=== PATIENT | female | born 1955 | race Caucasian/White ===

== ENCOUNTER → 2018-01-04 12:30 | Outpatient (CLI) | payer OTHER, SELFPAY ==
[2018-01-04 13:52] LABS: Absolute Lymphocyte Count 1.45 X10^3/ul (0.83-4.51); Absolute Neutrophil Count 2.9 X10^3/uL (2.0-7.7); Basophil# 0.01 X10^3/uL; Basophil% 0.2 % (0-1); Eosinophil# 0.14 X10^3/uL; Eosinophils% 2.8 % (0-5); Hematocrit 39.8 % (37-47); Hemoglobin 12.9 g/dl (12.0-15.0); Lymphocyte # 1.45 X10^3/ul (4.0); Lymphocyte % 28.5 % (19-41); Mean Corp Hgb Conc 32.4 g/gl (32-36); Mean Corpuscular Hgb 29.9 pg (27.0-32.0); Mean Corpuscular Volume 92.3 fL (81-99); Mean Platelet Vol. 10.3 fl (6.2-12.0); Monocyte# 0.58 X10^3/uL; Monocyte% 11.4 % (0-10); Neutrophil # 2.89 X10^3/uL (2.7-7.7); Neutrophil % 56.9 % (47-70); Platelet Count 252 K/mm3 (150-450); RBC Distribution Width CV 13.3 % (11.6-14.6); RBC Distribution Width SD 43.9 fl (35.1-43.9); Red Blood Count 4.31 M/mm3 (4.2-5.4); White Blood Count 5.1 K/mm3 (4.4-11.0)
[2018-01-04 13:58] LABS: AST(SGOT) 38 U/L (15-37); Alanine Aminotransfer ALT/SGPT 50 U/L (13-56); Albumin, Serum 3.5 g/dL (3.2-5.0); Alkaline Phosphatase 91 U/L (45-117); Anion Gap 7 (5-15); BUN 12 mg/dL (7-18); BUN/Creat Ratio 14.2 RATIO (10-20); Calcium,Total 8.6 mg/dL (8.5-10.1); Chloride 101 mmol/L (98-107); Creatinine, Serum 0.85 mg/dL (0.55-1.02); EST Glomerular Filtration Rate 72 mL/min (>60); Est Glom Filt Rate - Afr Amer 87 mL/min (>60); Globulin 3.4 g/dL (2.2-4.2); Glucose 122 mg/dL (74-106); Potassium 3.8 mmol/L (3.5-5.1); Protein, Total 6.9 g/dL (6.4-8.2); Sodium Level 139 mmol/L (136-145)
[2018-01-04 14:02] LABS: POSITIVE COUNT NO; POSITIVE DIFFERENTIAL NO; POSITIVE MORPHOLOGY NO
== END ==
PROVIDERS: Family Provider Family Medicine; PCP Family Medicine; Visit Provider Internal Medicine Rheumatology
DX: M06.4 Inflammatory polyarthropathy (principal); M17.0 Bilateral primary osteoarthritis of knee; I10 Essential (primary) hypertension; Z79.899 Other long term (current) drug therapy
CPT/HCPCS: 36415; 80053; 85025

== ENCOUNTER → 2018-01-11 11:10 | Outpatient (CLI) | payer OTHER, SELFPAY ==
--- NOTE | 2018-01-11 11:15 | RAD_ITS ---
STUDY: X-RAY - RIGHT KNEE REASON FOR EXAM: Female, 62 years old. Pain TECHNIQUE: 4 view(s) of the knee. COMPARISON: 09/13/2014 FINDINGS: Stable moderate to severe medial compartment osteoarthritis. Stable mild patellofemoral osteoarthritis. Superior and inferior patellar spurs. Soft tissues are unremarkable. RAD/Knee 4 or More Views IMPRESSION: Stable by compartment osteoarthritis with patellar spurs. Electronically Signed: Bora Ma MD at 6:33 EDT Tel , Service support ,
--- NOTE | 2018-01-11 11:15 | RAD_ITS ---
STUDY: X-RAY - LEFT KNEE REASON FOR EXAM: Female, 62 years old. Pain TECHNIQUE: 4 view(s) of the knee. COMPARISON: 09/13/2014 FINDINGS: Severe medial compartment osteoarthritis. Superior and inferior patellar spurs. Progressing calcifications of the distal quadriceps muscle. No fractures or erosive lesions. RAD/Knee 4 or More Views IMPRESSION: Severe medial compartment osteoarthritis with patellar spurs and progressing quadriceps calcification. Electronically Signed: Bora Ma MD at 6:05 EDT Tel , Service support ,
== END ==
PROVIDERS: Family Provider Family Medicine; PCP Family Medicine; Visit Provider Internal Medicine Rheumatology
DX: M06.4 Inflammatory polyarthropathy (principal); M17.0 Bilateral primary osteoarthritis of knee; I10 Essential (primary) hypertension; Z79.899 Other long term (current) drug therapy
CPT/HCPCS: 73564

== ENCOUNTER → 2018-03-24 10:54 | Outpatient (CLI) | payer MEDICARE, SELFPAY ==
[2018-03-24 12:15] LABS: Absolute Lymphocyte Count 1.33 X10^3/ul (0.83-4.51); Absolute Neutrophil Count 2.9 X10^3/uL (2.0-7.7); Basophil# 0.01 X10^3/uL; Basophil% 0.2 % (0-1); Hematocrit 41.1 % (37-47); Hemoglobin 13.6 g/dl (12.0-15.0); Lymphocyte # 1.33 X10^3/ul (4.0); Lymphocyte % 26.5 % (19-41); Mean Corp Hgb Conc 33.1 g/gl (32-36); Mean Corpuscular Hgb 30.4 pg (27.0-32.0); Mean Corpuscular Volume 91.7 fL (81-99); Mean Platelet Vol. 11.1 fl (6.2-12.0); Monocyte# 0.68 X10^3/uL; Monocyte% 13.5 % (0-10); Neutrophil % 57.8 % (47-70); Platelet Count 231 K/mm3 (150-450); RBC Distribution Width CV 13.1 % (11.6-14.6); RBC Distribution Width SD 43.1 fl (35.1-43.9); Red Blood Count 4.48 M/mm3 (4.2-5.4)
[2018-03-24 12:34] LABS: AST(SGOT) 32 U/L (15-37); Alanine Aminotransfer ALT/SGPT 40 U/L (13-56); Albumin, Serum 3.5 g/dL (3.2-5.0); Alkaline Phosphatase 95 U/L (45-117); Anion Gap 5 (5-15); BUN 16 mg/dL (7-18); BUN/Creat Ratio 14.7 RATIO (10-20); Calcium,Total 8.8 mg/dL (8.5-10.1); Chloride 104 mmol/L (98-107); Creatinine, Serum 1.09 mg/dL (0.55-1.02); EST Glomerular Filtration Rate 54 mL/min (>60); Est Glom Filt Rate - Afr Amer 65 mL/min (>60); Globulin 3.5 g/dL (2.2-4.2); Glucose 93 mg/dL (74-106); Potassium 4.1 mmol/L (3.5-5.1); Sodium Level 139 mmol/L (136-145)
[2018-03-24 12:41] LABS: POSITIVE COUNT NO; POSITIVE DIFFERENTIAL NO; POSITIVE MORPHOLOGY NO
== END ==
PROVIDERS: Family Provider Family Medicine; PCP Family Medicine; Visit Provider Internal Medicine Rheumatology
DX: M06.4 Inflammatory polyarthropathy (principal); Z79.899 Other long term (current) drug therapy; M17.0 Bilateral primary osteoarthritis of knee; I10 Essential (primary) hypertension
CPT/HCPCS: 36415; 80053; 85025

== ENCOUNTER → 2018-06-22 10:41 | Outpatient (CLI) | payer MEDICARE, SELFPAY ==
[2018-06-22 12:11] LABS: Absolute Lymphocyte Count 1.15 X10^3/ul (0.83-4.51); Absolute Neutrophil Count 2.6 X10^3/uL (2.0-7.7); Basophil# 0.02 X10^3/uL; Basophil% 0.4 % (0-1); Eosinophil# 0.12 X10^3/uL; Eosinophils% 2.7 % (0-5); Hematocrit 41.4 % (37-47); Lymphocyte # 1.15 X10^3/ul (4.0); Lymphocyte % 25.4 % (19-41); Mean Corp Hgb Conc 31.4 g/gl (32-36); Mean Corpuscular Hgb 29.1 pg (27.0-32.0); Mean Corpuscular Volume 92.6 fL (81-99); Mean Platelet Vol. 10.8 fl (6.2-12.0); Monocyte% 13.3 % (0-10); Neutrophil # 2.63 X10^3/uL (2.7-7.7); Neutrophil % 58.2 % (47-70); Platelet Count 241 K/mm3 (150-450); RBC Distribution Width CV 13.8 % (11.6-14.6); RBC Distribution Width SD 46.6 fl (35.1-43.9); Red Blood Count 4.47 M/mm3 (4.2-5.4); White Blood Count 4.5 K/mm3 (4.4-11.0)
[2018-06-22 12:23] LABS: POSITIVE COUNT NO; POSITIVE DIFFERENTIAL NO; POSITIVE MORPHOLOGY NO
[2018-06-22 12:34] LABS: AST(SGOT) 24 U/L (15-37); Alanine Aminotransfer ALT/SGPT 36 U/L (13-56); Albumin, Serum 3.4 g/dL (3.2-5.0); Alkaline Phosphatase 83 U/L (45-117); Anion Gap 10 (5-15); BUN 14 mg/dL (7-18); BUN/Creat Ratio 17.2 RATIO (10-20); Calcium,Total 8.9 mg/dL (8.5-10.1); Chloride 103 mmol/L (98-107); Creatinine, Serum 0.81 mg/dL (0.55-1.02); EST Glomerular Filtration Rate 75 mL/min (>60); Est Glom Filt Rate - Afr Amer 91 mL/min (>60); Globulin 3.4 g/dL (2.2-4.2); Glucose 88 mg/dL (74-106); Potassium 3.8 mmol/L (3.5-5.1); Protein, Total 6.8 g/dL (6.4-8.2); Sodium Level 142 mmol/L (136-145)
== END ==
PROVIDERS: Family Provider Family Medicine; PCP Family Medicine; Visit Provider Internal Medicine Rheumatology
DX: M06.4 Inflammatory polyarthropathy (principal); M17.0 Bilateral primary osteoarthritis of knee; I10 Essential (primary) hypertension; Z79.899 Other long term (current) drug therapy
CPT/HCPCS: 36415; 80053; 85025

== ENCOUNTER → 2018-09-13 10:44 | Outpatient (CLI) | payer MEDICARE, SELFPAY ==
[2018-09-13 12:15] LABS: Absolute Lymphocyte Count 1.26 X10^3/ul (0.83-4.51); Absolute Neutrophil Count 2.4 X10^3/uL (2.0-7.7); Basophil# 0.02 X10^3/uL; Basophil% 0.4 % (0-1); Eosinophil# 0.14 X10^3/uL; Eosinophils% 3.1 % (0-5); Hematocrit 39.9 % (37-47); Hemoglobin 12.9 g/dl (12.0-15.0); Lymphocyte # 1.26 X10^3/ul (4.0); Lymphocyte % 28.3 % (19-41); Mean Corp Hgb Conc 32.3 g/gl (32-36); Mean Corpuscular Hgb 29.9 pg (27.0-32.0); Mean Corpuscular Volume 92.4 fL (81-99); Mean Platelet Vol. 10.7 fl (6.2-12.0); Monocyte# 0.61 X10^3/uL; Monocyte% 13.7 % (0-10); Neutrophil # 2.41 X10^3/uL (2.7-7.7); Neutrophil % 54.3 % (47-70); Platelet Count 217 K/mm3 (150-450); RBC Distribution Width CV 13.3 % (11.6-14.6); RBC Distribution Width SD 43.9 fl (35.1-43.9); Red Blood Count 4.32 M/mm3 (4.2-5.4); White Blood Count 4.5 K/mm3 (4.4-11.0)
[2018-09-13 12:21] LABS: POSITIVE COUNT NO; POSITIVE DIFFERENTIAL NO; POSITIVE MORPHOLOGY NO
[2018-09-13 12:25] LABS: AST(SGOT) 26 U/L (15-37); Alanine Aminotransfer ALT/SGPT 33 U/L (13-56); Albumin, Serum 3.4 g/dL (3.2-5.0); Alkaline Phosphatase 85 U/L (45-117); Anion Gap 8 (5-15); BUN 15 mg/dL (7-18); BUN/Creat Ratio 16.5 RATIO (10-20); Calcium,Total 8.7 mg/dL (8.5-10.1); Chloride 105 mmol/L (98-107); Creatinine, Serum 0.91 mg/dL (0.55-1.02); EST Glomerular Filtration Rate 66 mL/min (>60); Est Glom Filt Rate - Afr Amer 80 mL/min (>60); Globulin 3.4 g/dL (2.2-4.2); Glucose 94 mg/dL (74-106); Protein, Total 6.8 g/dL (6.4-8.2); Sodium Level 143 mmol/L (136-145)
--- OUTSIDE RECORDS SUMMARY | 2018-11-06 16:13 | XMS RPT_ITS ---
:1955 Author Organization OH[facility] Care Team Providers Name Role Phone Pratima Delgadillo L Attending Unavailable Rios, Christopher Primary Care Unavailable Wood, Pratima L Admitting Unavailable Wood, Pratima L Attending Unavailable Rios, Christopher Primary Care Unavailable Wood, Pratima L Attending Unavailable Rios, Christopher Primary Care Unavailable Wood, Pratima L Admitting Unavailable Wood, Pratima L Attending Unavailable Rios, Christopher Primary Care Unavailable Wood, Pratima L Admitting Unavailable Wood, Pratima L Attending Unavailable Rios, Christopher Primary Care Unavailable Wood, Pratima L Admitting Unavailable Wood, Pratima L Attending Unavailable Rios, Christopher Primary Care Unavailable Wood, Pratima L Admitting Unavailable Wood, Pratima L Attending Unavailable Rios, Christopher Primary Care Unavailable Vellanki, Alla Attending Unavailable Vellanaleena, Alla Referring Unavailable Rios, Charanjit Primary Care Unavailable Vellanki, Alla Attending Unavailable Vellanki, Alla Referring Unavailable Rios, Charanjit Primary Care Unavailable Vellanki, Alla Attending Unavailable Vellanki, Alla Referring Unavailable Rios, Charanjit Primary Care Unavailable Vellanki, Alla Attending Unavailable Vellanki, Alla Referring Unavailable Rios, Charanjit Primary Care Unavailable Vellanki, Alla Attending Unavailable Vellanki, Alla Referring Unavailable Rios, Charanjit Primary Care Unavailable Vellanki, Alla Attending Unavailable Vellanki, Alla Referring Unavailable Rios, Charanjit Primary Care Unavailable PROBLEMS PROBLEMS DATE TYPE CONDITION / CODE ATTENDING STATUS SOURCE 09/13/2018 Unknown 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 / Community M06.4(ICD-10) Hospital Repository 09/13/2018 Unknown Z79.899 - Other long VellanLilly floodma Active [facility] term (current) drug [facility] therapy / Hospital Z79.899(ICD-10) Repository 09/13/2018 Unknown 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, 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[facility] 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[facility] knee / M17.0(ICD-10) Repository 09/13/2018 Unknown I10 - Essential VellaniLlly floodma Active [facility] (primary) [facility] hypertension / Hospital I10(ICD-10) Repository PROCEDURES PROCEDURES No Procedure Records FoundRESULTS RESULTS CBC W/DIFF, AUTOMATED Collected: 09/13/2018 Status: F Source: [place] 10:51 AM [facility] REPOSITORY TYPE CODE TESTS RESULT OUT OF RANGE REFERENCE UNITS LAB L100.1000 4.4-11.0 K/mm3 Normal WBC 4.5 LAB L100.1200 4.2-5.4 M/mm3 Normal RBC 4.32 LAB L100.1300 12.0-15.0 g/dl Normal HGB 12.9 LAB L100.1400 37-47 % Normal HCT 39.9 LAB L100.1500 81-99 fL Normal MCV 92.4 LAB L100.1600 27.0-32.0 pg Normal MCH 29.9 LAB L100.1700 32-36 g/gl Normal MCHC 32.3 LAB L100.1810 11.6-14.6 % Normal RDW CV 13.3 LAB L100.1820 35.1-43.9 fl Normal RDW SD 43.9 LAB L100.1900 150-450 K/mm3 Normal PLT 217 LAB L100.2000 6.2-12.0 fl Normal MPV 10.7 LAB L100.2100 47-70 % Normal NEUT% 54.3 LAB L100.2200 19-41 % Normal LY% 28.3 LAB L100.2300 0-10 % High MONO% 13.7 LAB L100.2400 0-5 % Normal EO% 3.1 LAB L100.2500 0-1 % Normal BASO% 0.4 LAB L100.2550 0.0-0.9 % Normal IM GRAN % 0.200 Result Comment: IG% - Immature Granulocytes (promyelocytes, myelocytes and metamyelocytes) > 1% indicates that a LEFT SHIFT is Present. LAB L100.2620 2.0-7.7 X10 3/uL Normal Absolute Neut 2.4 LAB L100.2720 0.83-4.51 X10 3/ul Normal Absolute Lymph 1.26 Performed By: #### L100.0100 #### [facility] Laboratory [address] [place], [address] COMPREHENSIVE METABOLIC Collected: 09/13/2018 Status: F Source: [facility] 10:51 AM [facility] REPOSITORY TYPE CODE TESTS RESULT OUT OF RANGE REFERENCE UNITS LAB L501.0100 74-106 mg/dL Normal GLU 94 Result Comment: Please note revised GLUCOSE reference range effective 2017. LAB L501.1000 7-18 mg/dL Normal BUN 15 LAB L501.1100 0.55-1.02 mg/dL Normal CREAT,SERUM 0.91 Result Comment: The validity of the calculated GFR AND GFRAA in patients over 70 years has not been determined. Clinical correlation is essential. LAB L501.1110 >60 mL/min Normal EST GFR 66 Result Comment: Non- GFR Calc LAB L501.1115 >60 mL/min Normal EST GFR - AA 80 Result Comment: GFR Calc LAB L501.1300 10-20 RATIO Normal BUN/CRE 16.5 LAB L501.1500 6.4-8.2 g/dL T Normal PROT 6.8 LAB L501.1800 3.2-5.0 g/dL Normal ALB 3.4 LAB L501.1950 2.2-4.2 g/dL Normal GLOB 3.4 LAB L501.2000 0.9-2.4 RATIO Normal A/G 1.0 LAB L501.2200 8.5-10.1 mg/dL CA Normal 8.7 LAB L501.4100 15-37 U/L Normal AST 26 LAB L501.4305 45-117 U/L Normal ALK P 85 LAB L501.4405 13-56 U/L Normal ALT 33 LAB L501.4600 0.20-1.00 mg/dL T Normal BILI 0.30 LAB L501.5300 136-145 mmol/L NA Normal 143 LAB L501.5600 3.5-5.1 mmol/L K Normal 4.0 LAB L501.5900 98-107 mmol/L CL Normal 105 LAB L501.6100 21.0-32.0 mmol/L Normal CO2 30.0 LAB L501.6200 5-15 Normal GAP 8 Performed By: #### L500.4050 #### [facility] Laboratory [address] [place], [address] CBC W/DIFF, AUTOMATED Collected: 06/22/2018 Status: F Source: [place] 10:48 AM [facility] REPOSITORY TYPE CODE TESTS RESULT OUT OF RANGE REFERENCE UNITS LAB L100.1000 4.4-11.0 K/mm3 Normal WBC 4.5 LAB L100.1200 4.2-5.4 M/mm3 Normal RBC 4.47 LAB L100.1300 12.0-15.0 g/dl Normal HGB 13.0 LAB L100.1400 37-47 % Normal HCT 41.4 LAB L100.1500 81-99 fL Normal MCV 92.6 LAB L100.1600 27.0-32.0 pg Normal MCH 29.1 LAB L100.1700 32-36 g/gl Low MCHC 31.4 LAB L100.1810 11.6-14.6 % Normal RDW CV 13.8 LAB L100.1820 35.1-43.9 fl High RDW SD 46.6 LAB L100.1900 150-450 K/mm3 Normal PLT 241 LAB L100.2000 6.2-12.0 fl Normal MPV 10.8 LAB L100.2100 47-70 % Normal NEUT% 58.2 LAB L100.2200 19-41 % Normal LY% 25.4 LAB L100.2300 0-10 % High MONO% 13.3 LAB L100.2400 0-5 % Normal EO% 2.7 LAB L100.2500 0-1 % Normal BASO% 0.4 LAB L100.2550 0.0-0.9 % Normal IM GRAN % 0.000 Result Comment: IG% - Immature Granulocytes (promyelocytes, myelocytes and metamyelocytes) > 1% indicates that a LEFT SHIFT is Present. LAB L100.2620 2.0-7.7 X10 3/uL Normal Absolute Neut 2.6 LAB L100.2720 0.83-4.51 X10 3/ul Normal Absolute Lymph 1.15 Performed By: #### L100.0100 #### [facility] Laboratory [address] [place], [place], [address] COMPREHENSIVE METABOLIC Collected: 06/22/2018 Status: F Source: [facility] 10:48 AM [facility] REPOSITORY TYPE CODE TESTS RESULT OUT OF RANGE REFERENCE UNITS LAB L501.0100 74-106 mg/dL Normal GLU 88 Result Comment: Please note revised GLUCOSE reference range effective 2017. LAB L501.1000 7-18 mg/dL Normal BUN 14 LAB L501.1100 0.55-1.02 mg/dL Normal CREAT,SERUM 0.81 Result Comment: The validity of the calculated GFR AND GFRAA in patients over 70 years has not been determined. Clinical correlation is essential. LAB L501.1110 >60 mL/min Normal EST GFR 75 Result Comment: Non- GFR Calc LAB L501.1115 >60 mL/min Normal EST GFR - AA 91 Result Comment: GFR Calc LAB L501.1300 10-20 RATIO Normal BUN/CRE 17.2 LAB L501.1500 6.4-8.2 g/dL T Normal PROT 6.8 LAB L501.1800 3.2-5.0 g/dL Normal ALB 3.4 LAB L501.1950 2.2-4.2 g/dL Normal GLOB 3.4 LAB L501.2000 0.9-2.4 RATIO Normal A/G 1.0 LAB L501.2200 8.5-10.1 mg/dL CA Normal 8.9 LAB L501.4100 15-37 U/L Normal AST 24 LAB L501.4305 45-117 U/L Normal ALK P 83 LAB L501.4405 13-56 U/L Normal ALT 36 LAB L501.4600 0.20-1.00 mg/dL T Normal BILI 0.40 LAB L501.5300 136-145 mmol/L NA Normal 142 LAB L501.5600 3.5-5.1 mmol/L K Normal 3.8 LAB L501.5900 98-107 mmol/L CL Normal 103 LAB L501.6100 21.0-32.0 mmol/L Normal CO2 29.0 LAB L501.6200 5-15 Normal GAP 10 Performed By: #### L500.4050 #### [facility] Laboratory [address] [place], [address] COMPREHENSIVE METABOLIC Collected: 03/24/2018 Status: F Source: [facility] 10:59 AM [facility] REPOSITORY TYPE CODE TESTS RESULT OUT OF RANGE REFERENCE UNITS LAB L501.0100 74-106 mg/dL Normal GLU 93 Result Comment: Please note revised GLUCOSE reference range effective 2017. LAB L501.1000 7-18 mg/dL Normal BUN 16 LAB L501.1100 0.55-1.02 mg/dL High CREAT,SERUM 1.09 Result Comment: The validity of the calculated GFR AND GFRAA in patients over 70 years has not been determined. Clinical correlation is essential. LAB L501.1110 >60 mL/min Low EST GFR 54 Result Comment: Non- GFR Calc LAB L501.1115 >60 mL/min Normal EST GFR - AA 65 Result Comment: GFR Calc LAB L501.1300 10-20 RATIO Normal BUN/CRE 14.7 LAB L501.1500 6.4-8.2 g/dL T Normal PROT 7.0 LAB L501.1800 3.2-5.0 g/dL Normal ALB 3.5 LAB L501.1950 2.2-4.2 g/dL Normal GLOB 3.5 LAB L501.2000 0.9-2.4 RATIO Normal A/G 1.0 LAB L501.2200 8.5-10.1 mg/dL CA Normal 8.8 LAB L501.4100 15-37 U/L Normal AST 32 LAB L501.4305 45-117 U/L Normal ALK P 95 LAB L501.4405 13-56 U/L Normal ALT 40 LAB L501.4600 0.20-1.00 mg/dL T Normal BILI 0.60 LAB L501.5300 136-145 mmol/L NA Normal 139 LAB L501.5600 3.5-5.1 mmol/L K Normal 4.1 LAB L501.5900 98-107 mmol/L CL Normal 104 LAB L501.6100 21.0-32.0 mmol/L Normal CO2 30.0 LAB L501.6200 5-15 Normal GAP 5 Performed By: #### L500.4050 #### [facility] Laboratory [address] [place], [address] CBC W/DIFF, AUTOMATED Collected: 03/24/2018 Status: F Source: [place] 10:59 AM [facility] REPOSITORY TYPE CODE TESTS RESULT OUT OF RANGE REFERENCE UNITS LAB L100.1000 4.4-11.0 K/mm3 Normal WBC 5.0 LAB L100.1200 4.2-5.4 M/mm3 Normal RBC 4.48 LAB L100.1300 12.0-15.0 g/dl Normal HGB 13.6 LAB L100.1400 37-47 % Normal HCT 41.1 LAB L100.1500 81-99 fL Normal MCV 91.7 LAB L100.1600 27.0-32.0 pg Normal MCH 30.4 LAB L100.1700 32-36 g/gl Normal MCHC 33.1 LAB L100.1810 11.6-14.6 % Normal RDW CV 13.1 LAB L100.1820 35.1-43.9 fl Normal RDW SD 43.1 LAB L100.1900 150-450 K/mm3 Normal PLT 231 LAB L100.2000 6.2-12.0 fl Normal MPV 11.1 LAB L100.2100 47-70 % Normal NEUT% 57.8 LAB L100.2200 19-41 % Normal LY% 26.5 LAB L100.2300 0-10 % High MONO% 13.5 LAB L100.2400 0-5 % Normal EO% 2.0 LAB L100.2500 0-1 % Normal BASO% 0.2 LAB L100.2550 0.0-0.9 % Normal IM GRAN % 0.000 Result Comment: IG% - Immature Granulocytes (promyelocytes, myelocytes and metamyelocytes) > 1% indicates that a LEFT SHIFT is Present. LAB L100.2620 2.0-7.7 X10 3/uL Normal Absolute Neut 2.9 LAB L100.2720 0.83-4.51 X10 3/ul Normal Absolute Lymph 1.33 Performed By: #### L100.0100 #### [facility] Laboratory [address] [place], [address] KNEE 4 OR MORE Observed: 01/11/2018 Status: F Source: [place] VIEWS 11:17 AM [facility] REPOSITORY [facility] Imaging Services [address] [place] [address] Knee 4 or More Views MR#: [id number] Acct: [id number] Name: RANDY BROUSSARD I Rep #: [id number] : 1955 F 62 From: Bora Ma MD PCP: Charanjit Rios Status: REG CLI Study: Knee 4 or More Views Date of Exam: 01/11/18 Exam# [id number] Ordering Dr: Alla Kim MD STUDY: X-RAY - LEFT KNEE REASON FOR EXAM: Female, 62 years old. Pain TECHNIQUE: 4 view(s) of the knee. COMPARISON: 09/13/2014 FINDINGS: Severe medial compartment osteoarthritis. Superior and inferior patellar spurs. Progressing calcifications of the distal quadriceps muscle. No fractures or erosive lesions. RAD/Knee 4 or More Views IMPRESSION: Severe medial compartment osteoarthritis with patellar spurs and progressing quadriceps calcification. Electronically Signed: Bora Ma MD at 6:05 EDT Tel , Service support , CC: Charanjit Rios; Alla Kim MD Breast Surgeon: Signed KNEE 4 OR MORE Observed: 01/11/2018 Status: F Source: [place] VIEWS 11:17 AM [facility] REPOSITORY [facility] Imaging Services [address] [place] [address] Knee 4 or More Views MR#: [id number] Acct: [id number] Name: RANDY BROUSSARD I Rep #: [id number] : 1955 F 62 From: Bora Ma MD PCP: Charanjit Rios Status: REG CLI Study: Knee 4 or More Views Date of Exam: 01/11/18 Exam# [id number] Ordering Dr: Alla Kim MD STUDY: X-RAY - RIGHT KNEE REASON FOR EXAM: Female, 62 years old. Pain TECHNIQUE: 4 view(s) of the knee. COMPARISON: 09/13/2014 FINDINGS: Stable moderate to severe medial compartment osteoarthritis. Stable mild patellofemoral osteoarthritis. Superior and inferior patellar spurs. Soft tissues are unremarkable. RAD/Knee 4 or More Views IMPRESSION: Stable by compartment osteoarthritis with patellar spurs. Electronically Signed: Bora Ma MD at 6:33 EDT Tel , Service support , CC: Charanjit Rios; Alla Kim MD Breast Surgeon: Signed COMPREHENSIVE METABOLIC Collected: 01/04/2018 Status: F Source: [place] PROFIL 12:38 PM [facility] REPOSITORY TYPE CODE TESTS RESULT OUT OF RANGE REFERENCE UNITS LAB L501.0100 74-106 mg/dL High GLU 122 Result Comment: Fasting Glucose result from 100 to 125 mg/dL suggests IMPAIRED HOMEOSTASIS per A.D.A. criteria. Please note revised GLUCOSE reference range effective 2017. LAB L501.1000 7-18 mg/dL Normal BUN 12 LAB L501.1100 0.55-1.02 mg/dL Normal CREAT,SERUM 0.85 Result Comment: The validity of the calculated GFR AND GFRAA in patients over 70 years has not been determined. Clinical correlation is essential. LAB L501.1110 >60 mL/min Normal EST GFR 72 Result Comment: Non- GFR Calc LAB L501.1115 >60 mL/min Normal EST GFR - AA 87 Result Comment: GFR Calc LAB L501.1300 10-20 RATIO Normal BUN/CRE 14.2 LAB L501.1500 6.4-8.2 g/dL T Normal PROT 6.9 LAB L501.1800 3.2-5.0 g/dL Normal ALB 3.5 LAB L501.1950 2.2-4.2 g/dL Normal GLOB 3.4 LAB L501.2000 0.9-2.4 RATIO Normal A/G 1.0 LAB L501.2200 8.5-10.1 mg/dL CA Normal 8.6 LAB L501.4100 15-37 U/L High AST 38 LAB L501.4305 45-117 U/L Normal ALK P 91 LAB L501.4405 13-56 U/L Normal ALT 50 Result Comment: Please note revised ALT reference range effective 2017. LAB L501.4600 0.20-1.00 mg/dL Normal T BILI 0.40 LAB L501.5300 136-145 mmol/L Normal NA 139 LAB L501.5600 3.5-5.1 mmol/L Normal K 3.8 LAB L501.5900 98-107 mmol/L Normal CL 101 LAB L501.6100 21.0-32.0 mmol/L Normal CO2 31.0 LAB L501.6200 5-15 Normal GAP 7 Performed By: #### L500.4050 #### [facility] [address] [place] [place], [address] CBC W/DIFF, AUTOMATED Collected: 01/04/2018 Status: F Source: [place] 12:38 PM [facility] REPOSITORY TYPE CODE TESTS RESULT OUT OF RANGE REFERENCE UNITS LAB L100.1000 4.4-11.0 K/mm3 Normal WBC 5.1 LAB L100.1200 4.2-5.4 M/mm3 Normal RBC 4.31 LAB L100.1300 12.0-15.0 g/dl Normal HGB 12.9 LAB L100.1400 37-47 % Normal HCT 39.8 LAB L100.1500 81-99 fL Normal MCV 92.3 LAB L100.1600 27.0-32.0 pg Normal MCH 29.9 LAB L100.1700 32-36 g/gl Normal MCHC 32.4 LAB L100.1810 11.6-14.6 % Normal RDW CV 13.3 LAB L100.1820 35.1-43.9 fl Normal RDW SD 43.9 LAB L100.1900 150-450 K/mm3 Normal PLT 252 LAB L100.2000 6.2-12.0 fl Normal MPV 10.3 LAB L100.2100 47-70 % Normal NEUT% 56.9 LAB L100.2200 19-41 % Normal LY% 28.5 LAB L100.2300 0-10 % High MONO% 11.4 LAB L100.2400 0-5 % Normal EO% 2.8 LAB L100.2500 0-1 % Normal BASO% 0.2 LAB L100.2550 0.0-0.9 % Normal IM GRAN % 0.200 Result Comment: IG% - Immature Granulocytes (promyelocytes, myelocytes and metamyelocytes) > 1% indicates that a LEFT SHIFT is Present. LAB L100.2620 2.0-7.7 X10 3/uL Normal Absolute Neut 2.9 LAB L100.2720 0.83-4.51 X10 3/ul Normal Absolute Lymph 1.45 Performed By: #### L100.0100 #### [facility] Laboratory [address] [place] [address]. [place], [address] CBC W/DIFF, AUTOMATED Collected: 10/08/2017 Status: F Source: [place] 12:18 PM [facility] REPOSITORY TYPE CODE TESTS RESULT OUT OF RANGE REFERENCE UNITS LAB L100.1000 4.4-11.0 K/mm3 Normal WBC 5.7 LAB L100.1200 4.2-5.4 M/mm3 Normal RBC 4.50 LAB L100.1300 12.0-15.0 g/dl Normal HGB 13.5 LAB L100.1400 37-47 % Normal HCT 41.6 LAB L100.1500 81-99 fL Normal MCV 92.4 LAB L100.1600 27.0-32.0 pg Normal MCH 30.0 LAB L100.1700 32-36 g/gl Normal MCHC 32.5 LAB L100.1810 11.6-14.6 % Normal RDW CV 13.3 LAB L100.1820 35.1-43.9 fl Normal RDW SD 43.4 LAB L100.1900 150-450 K/mm3 Normal PLT 264 LAB L100.2000 6.2-12.0 fl Normal MPV 10.7 LAB L100.2100 47-70 % Normal NEUT% 57.7 LAB L100.2200 19-41 % Normal LY% 28.0 LAB L100.2300 0-10 % High MONO% 11.6 LAB L100.2400 0-5 % Normal EO% 2.1 LAB L100.2500 0-1 % Normal BASO% 0.4 LAB L100.2550 0.0-0.9 % Normal IM GRAN % 0.200 Result Comment: IG% - Immature Granulocytes (promyelocytes, myelocytes and metamyelocytes) > 1% indicates that a LEFT SHIFT is Present. LAB L100.2620 2.0-7.7 X10 3/uL Normal Absolute Neut 3.3 LAB L100.2720 0.83-4.51 X10 3/ul Normal Absolute Lymph 1.60 Performed By: #### L100.0100 #### [facility] Laboratory [address] [place], [address] COMPREHENSIVE METABOLIC Collected: 10/08/2017 Status: F Source: [facility] 12:18 PM [facility] REPOSITORY TYPE CODE TESTS RESULT OUT OF RANGE REFERENCE UNITS LAB L501.0100 70-110 mg/dL Normal GLU 80 LAB L501.1000 7-18 mg/dL Normal BUN 15 LAB L501.1100 0.55-1.02 mg/dL Normal 0.79 CREAT,SERUM Result Comment: The validity of the calculated GFR AND GFRAA in patients over 70 years has not been determined. Clinical correlation is essential. LAB L501.1110 >60 mL/min Normal EST GFR 78 Result Comment: Non- GFR Calc LAB L501.1115 >60 mL/min Normal EST GFR - AA 94 Result Comment: GFR Calc LAB L501.1300 10-20 RATIO Normal BUN/CRE 19.0 LAB L501.1500 6.4-8.2 g/dL T Normal PROT 7.3 LAB L501.1800 3.4-5.0 g/dL Normal ALB 3.6 Result Comment: Please note revised Albumin AND Globulin reference range effective 2017. LAB L501.1950 2.2-4.2 g/dL Normal GLOB 3.7 LAB L501.2000 0.9-2.4 RATIO Normal A/G 1.0 LAB L501.2200 8.5-10.1 mg/dL Normal CA 9.1 LAB L501.4100 15-37 U/L Normal AST 33 LAB L501.4305 45-117 U/L Normal ALK P 94 LAB L501.4405 12-78 U/L Normal ALT 41 LAB L501.4600 0.20-1.00 mg/dL Normal T BILI 0.30 LAB L501.5300 136-145 mmol/L Normal NA 141 LAB L501.5600 3.5-5.1 mmol/L Normal K 3.8 LAB L501.5900 98-107 mmol/L Normal CL 103 LAB L501.6100 21.0-32.0 mmol/L Normal CO2 30.0 LAB L501.6200 5-15 Normal GAP 8 Performed By: #### L500.4050 #### [facility] Laboratory [facility] [place], [address] BD BONE DENSITY DEXA Observed: 09/30/2017 Status: F Source: [place] 9:06 AM [facility] REPOSITORY Exam Date/Time: 09/30/2017 09:18 EST Reason for Exam: SCREENING OSTEOPENIA;Osteopenia Report BONE DENSITY (DEXA) HISTORY: Osteopenia. FINDINGS: Bone density analysis is performed through the lumbar spine and left hip. LUMBAR SPINE: BMD: 0.949 g/sq cm. T-score: -0.9. HIP: BMD: 0.661 g/sq cm. T-score: -1.7. IMPRESSION: Normal density of the lumbar spine with no change from 09/28/2015. Osteopenia of the left hip with a decrease in the bone density by 4.2% since 09/28/2015. FINAL REPORT Dictated: 09/30/2017 4:51 pm Miguel Hand MD Signed (Electronic Signature): 09/30/2017 4:51 pm Signed by: Miguel Hand MD Technologist: SYLVIA RAMAN MAMM SCREEN W/CAD Observed: 09/30/2017 Status: F Source: [place] IF PERFORMED BILAT 8:58 AM [facility] REPOSITORY Exam Date/Time: 09/30/2017 09:10 EST Reason for Exam: SCREENING OSTEOPENIA;Screening Report MA MAMM SCREEN W/CAD IF PERFORMED BILAT CLINICAL STATEMENT: Asymptomatic screening. History of left breast biopsy 1972, reported as benign. No family history of breast cancer. TECHNIQUE: Digital craniocaudal and mediolateral oblique views of the right and left breast were obtained. CAD was reviewed. COMPARISON: Mammograms dating back to 09/27/2014. BREAST TISSUE: There are scattered areas of fibroglandular density. FINDINGS: The breasts appear symmetric in size. Scar marker along the lateral middle third of the right breast. Glandular distribution appears unchanged. Neither breast demonstrates suspicious grouped calcifications, developing mass, or architectural distortion. Intramammary lymph nodes are seen along the lateral aspect of the right breast. Coarse grouped calcifications along the lateral middle third of the left breast are noted which demonstrate generally benign imaging features. Vascular type calcifications are seen bilaterally. IMPRESSION: Stable exam. No mammographic evidence of malignancy. BI-RADS 2 - Benign, no evidence of malignancy. Normal interval followup is recommended in 12 months. OVERALL ASSESSMENT- BENIGN A letter of notification will be sent to the patient regarding the results. The [place] [employer] and the [place] [employer] recommend annual mammograms for women 40 years and older. Assessment / Recommendation: 2-1 Normal interval follow-up Breast density: Scattered Fibroglandular Density Exam Date/Time: 09/30/2017 09:10 EST Report Recall interval: 012 months FINAL REPORT Dictated: 09/30/2017 12:23 pm Julian Mendoza DO Signed (Electronic Signature): 09/30/2017 12:23 pm Signed by: Julian Mendoza DO Technologist: EVIE Assessment: BI-RADS Category 2-Benign finding Recommendation: Normal interval follow-up ALLERGIES ALLERGIES DATE TYPE / CODE NAME / CODE REACTION SEVERITY SOURCE Drug/346915 doxycycline [id number] [facility] 003([facility]) System Repository Drug/741266 lisinopril [id number] [facility] 003([facility]) System Repository ENCOUNTERS ENCOUNTERS ADMIT/DISCHARGE ACCOUNT NUMBER ADMITTING ENCOUNTER LOCATION SOURCE CLASS 09/13/2018 [id number] [facility] ing[facility] Repository 08/06/2018 [id number] [facility] ing:[facility] Repository 08/05/2018 [id number] [facility] [place] Med [facility]oc 08/05/2018/08/05/20 [id number] [facility] Medical [address] [place] [facility] 07/29/2018/07/29/[id number] [facility] Medical [address] [place] [facility] 06/22/2018 [id number] [facility] ing:[facility] Repository 04/12/2018/04/12/20 [id number] [facility] Medical [address] [place] [facility]oc 03/24/2018 [id number] [facility] ing:[facility] Repository 01/11/2018 [id number] [facility] 01/04/2018 [id number] [facility] Rep[facility] 10/21/2017/10/21/19 [id number] [facility] Medical [address] [place] Repository Med AssocRoom: Room 1 10/08/2017 [id number] [facility] ing:[facility] Repository 09/30/2017/09/30/[id number] ing:[facility] System Repository PAYERS PAYERS ENCOUNTER GUARANTOR PAYER SUBSCRIBER SOURCE 09/13/2018 LUPILLO Primary RANDY I [place] [id number] Insurance:GEORGINAA MINGOB: Community [place], MEDICARE PPOPolicy [id number] Hospital [place] [address]Xte: Number: Repository [id number] (HP) Date:[id number] [address] [place] [id number]: 09/13/2018 Secondary NOT GIVENUNK [place] Insurance:SELF PAY [facility] Number: Effective Repository Date:2018-09-13 08/06/2018 RANDY I Primary RANDY I Rastafari RAUBENOLTDOB: Insurance:Medical RAUBENOLTDOB: [facility] Number: [id number] [place] [address] Effective 0 [facility] [place] [address] [place] [address], Date:2018-08-06 - [address] [place] [address] [id number] [place] [id number]: Name:[id number]: [address] [address], ([place]) [place] [address]JQ: (HP)Tel: (WP) 08/05/2018 RANDY I Primary RANDY I Rastafari RAUBENOLTDOB: Insurance:1500 RAUBENOLTDOB: [facility] MEDICAL [facility] [id number] [address] Number: Effective [address] [facility] Repository [address] [place] [address], Date:2018-08-05 - [address] [place] [address] [id number] [id number]: Name:CD:[id number]: [address] [place] [address] (HP) [phone]: (800) (HP) [phone] (WP) 08/05/2018 RANDY I Primary RANDY I Rastafari RAUBENOLTDOB: Insurance:1500 RAUBENOLTDOB: [facility] MEDICAL MUTUALPolicy [id number] [place] [address] Number: Effective [address] [facility] [address] Repository [address] [place] [address], Date:2017-07-29 - [address] [place] [address] [id number] [place] [address]Yvs: Name:CD:[id number] O [phone]: [address], [place] (HP) [address]VM: [phone]) (HP) [phone] (WP) 07/29/2018 RANDY I Primary RANDY I Rastafari RAUBENOLTDOB: Insurance:1500 RAUBENOLTDOB: [facility] [id number] [place] [address] Number: Effective 0 [facility] [place] [address] [place] [address], Date:2017-07-29 - [address] [place] [address] [id number]: [id number] [place] [id number]: Name:CD:[id number] O (HP) [address], [place] (HP)Tel: 000) [phone]: (WP) [phone] 06/22/2018 LUPILLO Primary RANDY I Ann Marie [id number] C Insurance:HUMANA RAUBENOLTDOB: Community R MEDICARE [facility] [id number], Number: [place]ository [place] [id number]: [id number] Date:[id number] BOX (HP) [address] [place] [address]RM: 06/22/2018 Secondary NOT GIVENUNK [place] Insurance:SELF PAY [facility] Number: Effective Repository Date:2018-06-22 04/12/2018 RANDY I Primary RANDY I Rastafari RAUBENOLTDOB: Insurance:1500 HUMANA RAUBENOLTDOB: [facility] CHOICE MEDICAREPolicy [id number] [place] [address] ROAD Number: Effective [address] [facility] [address] Repository [address] [place] [address], Date:2018-04-12 - [address] [place] [address] [id number]: [id number] [place] [id number]: Name:CD:[id number] () [address] [place] [address] ()Tel: [phone]: (wp) [phone] 03/24/2018 Lupillo Primary RANDY I [place] [id number] Insurance:HUMANA RAUBENOLTDOB: [address] MEDICARE PPOPolicy [id number], Number: Repository [place] [id number]: [id number] Date:8163-55-85OE BOX () [address] [place] [address]RI: 03/24/2018 Secondary NOT GIVENUNK [place] Insurance:SELF PAY [facility] Number: Effective Repository Date:2018-03-24 01/11/2018 Lupillo Primary Insurance:MED RANDY I Ann Marie [id number] [facility]: [facility] [address] Number: [id number], [id number] [place]ository [place] [address]Cjk: Date:9757-64-07NX [address]XTEOIIJXW, [place] () [address]BG: CHECK WEBSITE 01/11/2018 Secondary NOT GIVENUNK [place] Insurance:SELF PAY [facility] Number: Effective Repository Date:2018-01-11 01/04/2018 Lupillo Primary RANDY Ann Marie [id number] Insurance:MEDICAL RAUBENOLTDOB: [address] [facility] [id number], Number: Repository [place] [id number]: [id number] Date:0487-48-49RV [address] () [address], [place] [address]JW: 01/04/2018 Secondary NOT GIVENUNK [place] Insurance:SELF PAY [facility] Number: Effective Repository Date:2018-01-04 10/21/2017 RANDY I Primary RANDY I Rastafari RAUBENOLTDOB: Insurance:1500 RAUBENOLTDOB: [facility] [id number] [facility] Number: Effective 0 [facility] [place] [address] [place] [address], Date:2017-10-21 - [address] [place] [address] [id number]: [id number] [place] [id number]: Name:CD:[id number] O (HP) [address], [place] (HP)Tel: (000) [phone]: (WP) [phone] 10/08/2017 Lupillo Primary RANDY Ribeiro [id number] Insurance:[facility]ICAL [facility] [id number], Number: [place]ository [place] [id number]: [id number] Date:9037-92-01XO [address]OX (HP) [address], [place] [address]BR: 10/08/2017 Secondary NOT GIVENUNK Ann Marie Insurance:SELF PAY [facility] Number: Effective Repository Date:2017-10-08 09/30/2017 RANDY I Primary RANDY I Rastafari TANJANOLTDOB: Insurance:Medical [facility]: [facility] Number: [id number] [facility] Effective 0 [facility] [place] [address] [place] [address], Date:2017-07-29 - [address] [place] [address] [id number]: [id number] [place] [phone]: Name:Medical LeeannPO (HP) [address], (HP)Tel: (000) [place] [phone]: [phone] (WP)
== END ==
PROVIDERS: Family Provider Family Medicine; PCP Family Medicine; Referring Provider Internal Medicine Rheumatology; Visit Provider Internal Medicine Rheumatology
DX: M06.4 Inflammatory polyarthropathy (principal); M17.0 Bilateral primary osteoarthritis of knee; I10 Essential (primary) hypertension; Z79.899 Other long term (current) drug therapy
CPT/HCPCS: 36415; 80053; 85025

== ENCOUNTER → 2018-12-20 10:59 | Outpatient (CLI) | payer MEDICARE, SELFPAY ==
[2018-12-20 12:52] LABS: Absolute Lymphocyte Count 1.29 X10^3/ul (0.83-4.51); Absolute Neutrophil Count 3.9 X10^3/uL (2.0-7.7); Basophil# 0.01 X10^3/uL; Basophil% 0.2 % (0-1); Eosinophil# 0.13 X10^3/uL; Eosinophils% 2.2 % (0-5); Hematocrit 39.9 % (37-47); Hemoglobin 12.7 g/dl (12.0-15.0); Lymphocyte # 1.29 X10^3/ul (4.0); Lymphocyte % 21.4 % (19-41); Mean Corp Hgb Conc 31.8 g/gl (32-36); Mean Corpuscular Hgb 29.6 pg (27.0-32.0); Mean Platelet Vol. 10.5 fl (6.2-12.0); Monocyte# 0.69 X10^3/uL; Monocyte% 11.4 % (0-10); Neutrophil # 3.91 X10^3/uL (2.7-7.7); Neutrophil % 64.6 % (47-70); Platelet Count 264 K/mm3 (150-450); RBC Distribution Width CV 13.8 % (11.6-14.6); RBC Distribution Width SD 46.2 fl (35.1-43.9); Red Blood Count 4.29 M/mm3 (4.2-5.4)
[2018-12-20 12:53] LABS: POSITIVE COUNT NO; POSITIVE DIFFERENTIAL NO; POSITIVE MORPHOLOGY NO
[2018-12-20 13:15] LABS: ALB/GLOB Ratio 1.1 RATIO (0.9-2.4); AST(SGOT) 25 U/L (15-37); Alanine Aminotransfer ALT/SGPT 33 U/L (13-56); Albumin, Serum 3.5 g/dL (3.2-5.0); Alkaline Phosphatase 85 U/L (45-117); Anion Gap 5 (5-15); BUN 15 mg/dL (7-18); BUN/Creat Ratio 17.6 RATIO (10-20); Calcium,Total 8.5 mg/dL (8.5-10.1); Chloride 104 mmol/L (98-107); Creatinine, Serum 0.85 mg/dL (0.55-1.02); EST Glomerular Filtration Rate 71 mL/min (>60); Est Glom Filt Rate - Afr Amer 86 mL/min (>60); Globulin 3.2 g/dL (2.2-4.2); Glucose 79 mg/dL (74-106); Potassium 3.8 mmol/L (3.5-5.1); Protein, Total 6.7 g/dL (6.4-8.2); Sodium Level 139 mmol/L (136-145)
== END ==
PROVIDERS: Family Provider Family Medicine; PCP Family Medicine; Referring Provider Internal Medicine Rheumatology; Visit Provider Internal Medicine Rheumatology
DX: M06.4 Inflammatory polyarthropathy (principal); M17.0 Bilateral primary osteoarthritis of knee; I10 Essential (primary) hypertension; Z79.899 Other long term (current) drug therapy
CPT/HCPCS: 36415; 80053; 85025

== ENCOUNTER → 2019-03-16 10:01 | Outpatient (CLI) | payer MEDICARE, SELFPAY ==
[2019-03-16 12:12] LABS: Absolute Lymphocyte Count 1.09 X10^3/ul (0.83-4.51); Absolute Neutrophil Count 2.5 X10^3/uL (2.0-7.7); Basophil# 0.01 X10^3/uL; Basophil% 0.2 % (0-1); Eosinophil# 0.11 X10^3/uL; Eosinophils% 2.5 % (0-5); Hematocrit 40.1 % (37-47); Lymphocyte # 1.09 X10^3/ul (4.0); Lymphocyte % 25.2 % (19-41); Mean Corp Hgb Conc 32.4 g/gl (32-36); Mean Corpuscular Hgb 29.1 pg (27.0-32.0); Mean Corpuscular Volume 89.7 fL (81-99); Mean Platelet Vol. 10.9 fl (6.2-12.0); Monocyte# 0.62 X10^3/uL; Monocyte% 14.4 % (0-10); Neutrophil # 2.48 X10^3/uL (2.7-7.7); Neutrophil % 57.5 % (47-70); Platelet Count 231 K/mm3 (150-450); RBC Distribution Width CV 13.4 % (11.6-14.6); RBC Distribution Width SD 43.3 fl (35.1-43.9); Red Blood Count 4.47 M/mm3 (4.2-5.4); White Blood Count 4.3 K/mm3 (4.4-11.0)
[2019-03-16 12:13] LABS: POSITIVE COUNT NO; POSITIVE DIFFERENTIAL NO; POSITIVE MORPHOLOGY NO
[2019-03-16 13:00] LABS: AST(SGOT) 27 U/L (15-37); Alanine Aminotransfer ALT/SGPT 41 U/L (13-56); Albumin, Serum 3.4 g/dL (3.2-5.0); Alkaline Phosphatase 90 U/L (45-117); Anion Gap 9 (5-15); BUN 13 mg/dL (7-18); BUN/Creat Ratio 14.6 RATIO (10-20); Calcium,Total 9.1 mg/dL (8.5-10.1); Chloride 104 mmol/L (98-107); Creatinine, Serum 0.89 mg/dL (0.55-1.02); EST Glomerular Filtration Rate 67 mL/min (>60); Est Glom Filt Rate - Afr Amer 82 mL/min (>60); Globulin 3.5 g/dL (2.2-4.2); Glucose 80 mg/dL (74-106); Protein, Total 6.9 g/dL (6.4-8.2); Sodium Level 142 mmol/L (136-145)
== END ==
PROVIDERS: Family Provider Family Medicine; PCP Family Medicine; Referring Provider Internal Medicine Rheumatology; Visit Provider Internal Medicine Rheumatology
DX: M06.4 Inflammatory polyarthropathy (principal); M17.0 Bilateral primary osteoarthritis of knee; I10 Essential (primary) hypertension; Z79.899 Other long term (current) drug therapy
CPT/HCPCS: 36415; 80053; 85025

== ENCOUNTER → 2019-06-15 14:51 | Outpatient (CLI) | payer MEDICARE, SELFPAY ==
[2019-06-15 15:31] LABS: Absolute Lymphocyte Count 1.24 X10^3/uL (0.83-4.51); Absolute Neutrophil Count 2.8 X10^3/uL (2.0-7.7); Basophil# 0.03 X10^3/uL; Basophil% 0.6 % (0-1); Eosinophil# 0.14 X10^3/uL; Eosinophils% 2.9 % (0-5); Hematocrit 40.2 % (37-47); Hemoglobin 13.2 g/dL (12.0-15.0); Lymphocyte # 1.24 X10^3/ul (4.0); Lymphocyte % 25.7 % (19-41); Mean Corp Hgb Conc 32.8 g/dL (32-36); Mean Corpuscular Hgb 30.4 pg (27.0-32.0); Mean Corpuscular Volume 92.6 fL (81-99); Mean Platelet Vol. 10.3 fl (6.2-12.0); Monocyte# 0.62 X10^3/uL; Monocyte% 12.9 % (0-10); NRBC Flagged by Analyzer 0 % (0-5); Neutrophil # 2.78 X10^3/uL (2.7-7.7); Neutrophil % 57.7 % (47-70); Platelet Count 232 K/mm3 (150-450); RBC Distribution Width CV 13.2 % (11.6-14.6); Red Blood Count 4.34 M/mm3 (4.2-5.4); White Blood Count 4.8 K/mm3 (4.4-11.0)
[2019-06-15 15:57] LABS: ALB/GLOB Ratio 1.1 RATIO (0.9-2.4); AST(SGOT) 26 U/L (15-37); Alanine Aminotransfer ALT/SGPT 37 U/L (13-56); Albumin, Serum 3.5 g/dL (3.2-5.0); Alkaline Phosphatase 92 U/L (45-117); Anion Gap 6 (5-15); BUN 17 mg/dL (7-18); BUN/Creat Ratio 18.3 RATIO (10-20); Calcium,Total 8.6 mg/dL (8.5-10.1); Chloride 107 mmol/L (98-107); Creatinine, Serum 0.93 mg/dL (0.55-1.02); EST Glomerular Filtration Rate 64 mL/min (>60); Est Glom Filt Rate - Afr Amer 78 mL/min (>60); Globulin 3.3 g/dL (2.2-4.2); Glucose 87 mg/dL (74-106); Protein, Total 6.8 g/dL (6.4-8.2); Sodium Level 143 mmol/L (136-145)
== END ==
PROVIDERS: Family Provider Family Medicine; PCP Family Medicine; Referring Provider Internal Medicine Rheumatology; Visit Provider Internal Medicine Rheumatology
DX: M06.4 Inflammatory polyarthropathy (principal); M17.0 Bilateral primary osteoarthritis of knee; I10 Essential (primary) hypertension; Z79.899 Other long term (current) drug therapy
CPT/HCPCS: 36415; 80053; 85025

== ENCOUNTER → 2019-09-13 10:15 | Outpatient (CLI) | payer MEDICARE, SELFPAY ==
[2019-09-13 12:49] LABS: Absolute Lymphocyte Count 1.24 X10^3/uL (0.83-4.51); Absolute Neutrophil Count 3.2 X10^3/uL (2.0-7.7); Basophil# 0.02 X10^3/uL; Basophil% 0.4 % (0-1); Eosinophil# 0.14 X10^3/uL; Eosinophils% 2.6 % (0-5); Hematocrit 41.5 % (37-47); Hemoglobin 13.2 g/dL (12.0-15.0); Lymphocyte # 1.24 X10^3/ul (4.0); Lymphocyte % 23.1 % (19-41); Mean Corp Hgb Conc 31.8 g/dL (32-36); Mean Corpuscular Hgb 29.5 pg (27.0-32.0); Mean Corpuscular Volume 92.6 fL (81-99); Mean Platelet Vol. 10.4 fl (6.2-12.0); Monocyte# 0.76 X10^3/uL; Monocyte% 14.2 % (0-10); NRBC Flagged by Analyzer 0 % (0-5); Neutrophil % 59.5 % (47-70); Platelet Count 228 K/mm3 (150-450); RBC Distribution Width CV 13.2 % (11.6-14.6); RBC Distribution Width SD 44.3 fl (35.1-43.9); Red Blood Count 4.48 M/mm3 (4.2-5.4); White Blood Count 5.4 K/mm3 (4.4-11.0)
[2019-09-13 12:58] LABS: Hemoglobin A1c 5.6 % (4.2-6.3)
[2019-09-13 13:10] LABS: ALB/GLOB Ratio 1.1 RATIO (0.9-2.4); AST(SGOT) 21 U/L (15-37); Alanine Aminotransfer ALT/SGPT 32 U/L (13-56); Albumin, Serum 3.5 g/dL (3.2-5.0); Alkaline Phosphatase 82 U/L (45-117); Anion Gap 4 (5-15); BUN 14 mg/dL (7-18); BUN/Creat Ratio 16.1 RATIO (10-20); Calcium,Total 8.9 mg/dL (8.5-10.1); Chloride 105 mmol/L (98-107); Cholesterol 186 mg/dL (200); Creatinine, Serum 0.87 mg/dL (0.55-1.02); EST Glomerular Filtration Rate 69 mL/min (>60); Est Glom Filt Rate - Afr Amer 84 mL/min (>60); Globulin 3.2 g/dL (2.2-4.2); Glucose 86 mg/dL (74-106); High Density Lipoprotein 56 mg/dL; Potassium 3.7 mmol/L (3.5-5.1); Protein, Total 6.7 g/dL (6.4-8.2); Sodium Level 139 mmol/L (136-145); Thyroid Stim Hormone (TSH) 1.72 uIU/mL (0.358-3.74); Triglycerides 132 mg/dL; Very Low Density Lipoprotein 26 mg/dL (5-40)
== END ==
PROVIDERS: Referring Provider Internal Medicine Rheumatology; Visit Provider Internal Medicine Rheumatology
DX: M06.4 Inflammatory polyarthropathy (principal); M06.9 Rheumatoid arthritis, unspecified; M17.0 Bilateral primary osteoarthritis of knee; I10 Essential (primary) hypertension; Z13.1 Encounter for screening for diabetes mellitus; Z79.899 Other long term (current) drug therapy
CPT/HCPCS: 36415; 80053; 80061; 83036; 84443; 85025

== ENCOUNTER → 2019-09-20 10:45 | Outpatient (CLI) | payer MEDICARE, SELFPAY ==
[2019-09-22 14:08] LABS: Red Blood Cell Count Test/G6PD 4.42 x10E6/uL (3.77-5.28)
[2019-09-22 15:41] LABS: G6PD Quant Test 287 (146-376)
== END ==
PROVIDERS: Referring Provider Internal Medicine Rheumatology; Visit Provider Internal Medicine Rheumatology
DX: M06.4 Inflammatory polyarthropathy (principal); M17.0 Bilateral primary osteoarthritis of knee; I10 Essential (primary) hypertension; M65.341 Trigger finger, right ring finger; Z79.899 Other long term (current) drug therapy
CPT/HCPCS: 36415; 82955

== ENCOUNTER → 2019-10-31 11:59 | Outpatient (CLI) | payer MEDICARE, SELFPAY ==
[2019-10-31 14:10] LABS: Absolute Lymphocyte Count 1.54 X10^3/uL (0.83-4.51); Absolute Neutrophil Count 2.7 X10^3/uL (2.0-7.7); Basophil# 0.02 X10^3/uL; Basophil% 0.4 % (0-1); Eosinophil# 0.12 X10^3/uL; Eosinophils% 2.4 % (0-5); Hematocrit 39.3 % (37-47); Hemoglobin 12.3 g/dL (12.0-15.0); Lymphocyte # 1.54 X10^3/ul (4.0); Lymphocyte % 30.4 % (19-41); Mean Corp Hgb Conc 31.3 g/dL (32-36); Mean Corpuscular Hgb 29.1 pg (27.0-32.0); Mean Corpuscular Volume 92.9 fL (81-99); Mean Platelet Vol. 9.8 fl (6.2-12.0); Monocyte# 0.69 X10^3/uL; Monocyte% 13.6 % (0-10); NRBC Flagged by Analyzer 0 % (0-5); Neutrophil # 2.68 X10^3/uL (2.7-7.7); Platelet Count 235 K/mm3 (150-450); RBC Distribution Width CV 13.9 % (11.6-14.6); RBC Distribution Width SD 46.5 fl (35.1-43.9); Red Blood Count 4.23 M/mm3 (4.2-5.4); White Blood Count 5.1 K/mm3 (4.4-11.0)
[2019-10-31 14:18] LABS: ALB/GLOB Ratio 1.1 RATIO (0.9-2.4); AST(SGOT) 20 U/L (15-37); Alanine Aminotransfer ALT/SGPT 36 U/L (13-56); Albumin, Serum 3.4 g/dL (3.2-5.0); Alkaline Phosphatase 79 U/L (45-117); Anion Gap 6 (5-15); BUN 17 mg/dL (7-18); BUN/Creat Ratio 19.3 RATIO (10-20); Calcium,Total 8.4 mg/dL (8.5-10.1); Chloride 104 mmol/L (98-107); Creatinine, Serum 0.88 mg/dL (0.55-1.02); EST Glomerular Filtration Rate 68 mL/min (>60); Est Glom Filt Rate - Afr Amer 83 mL/min (>60); Globulin 3.1 g/dL (2.2-4.2); Glucose 133 mg/dL (74-106); Potassium 3.8 mmol/L (3.5-5.1); Protein, Total 6.5 g/dL (6.4-8.2); Sodium Level 140 mmol/L (136-145)
== END ==
PROVIDERS: Referring Provider Internal Medicine Rheumatology; Visit Provider Internal Medicine Rheumatology
DX: M06.4 Inflammatory polyarthropathy (principal); M17.0 Bilateral primary osteoarthritis of knee; I10 Essential (primary) hypertension; M65.341 Trigger finger, right ring finger; Z79.899 Other long term (current) drug therapy
CPT/HCPCS: 36415; 80053; 85025

== ENCOUNTER → 2020-01-25 10:05 | Outpatient (CLI) | payer MEDICARE, SELFPAY ==
[2020-01-25 12:20] LABS: Absolute Lymphocyte Count 1.17 X10^3/uL (0.83-4.51); Absolute Neutrophil Count 2.3 X10^3/uL (2.0-7.7); Basophil# 0.02 X10^3/uL; Basophil% 0.5 % (0-1); Eosinophil# 0.09 X10^3/uL; Eosinophils% 2.1 % (0-5); Hematocrit 42.4 % (37-47); Hemoglobin 13.4 g/dL (12.0-15.0); Lymphocyte # 1.17 X10^3/ul (4.0); Lymphocyte % 27.7 % (19-41); Mean Corp Hgb Conc 31.6 g/dL (32-36); Mean Corpuscular Hgb 29.8 pg (27.0-32.0); Mean Corpuscular Volume 94.4 fL (81-99); Mean Platelet Vol. 10.3 fl (6.2-12.0); Monocyte# 0.67 X10^3/uL; Monocyte% 15.9 % (0-10); NRBC Flagged by Analyzer 0 % (0-5); Neutrophil # 2.26 X10^3/uL (2.7-7.7); Neutrophil % 53.6 % (47-70); Platelet Count 217 K/mm3 (150-450); RBC Distribution Width CV 13.6 % (11.6-14.6); RBC Distribution Width SD 46.9 fl (35.1-43.9); Red Blood Count 4.49 M/mm3 (4.2-5.4); White Blood Count 4.2 K/mm3 (4.4-11.0)
[2020-01-25 12:35] LABS: ALB/GLOB Ratio 1.1 RATIO (0.9-2.4); AST(SGOT) 22 U/L (15-37); Alanine Aminotransfer ALT/SGPT 28 U/L (13-56); Albumin, Serum 3.7 g/dL (3.2-5.0); Alkaline Phosphatase 74 U/L (45-117); Anion Gap 4 (5-15); BUN 14 mg/dL (7-18); BUN/Creat Ratio 16.7 RATIO (10-20); Calcium,Total 9.2 mg/dL (8.5-10.1); Chloride 107 mmol/L (98-107); Creatinine, Serum 0.84 mg/dL (0.55-1.02); EST Glomerular Filtration Rate 72 mL/min (>60); Est Glom Filt Rate - Afr Amer 87 mL/min (>60); Globulin 3.3 g/dL (2.2-4.2); Glucose 85 mg/dL (74-106); Potassium 4.1 mmol/L (3.5-5.1); Sodium Level 141 mmol/L (136-145)
== END ==
PROVIDERS: Referring Provider Internal Medicine Rheumatology; Visit Provider Internal Medicine Rheumatology
DX: M06.4 Inflammatory polyarthropathy (principal); M17.0 Bilateral primary osteoarthritis of knee; I10 Essential (primary) hypertension; M65.341 Trigger finger, right ring finger; Z79.899 Other long term (current) drug therapy
CPT/HCPCS: 36415; 80053; 85025

== ENCOUNTER → 2020-04-17 10:19 | Outpatient (CLI) | payer MEDICARE, SELFPAY ==
[2020-04-17 12:47] LABS: Absolute Lymphocyte Count 1.53 X10^3/uL (0.83-4.51); Absolute Neutrophil Count 2.2 X10^3/uL (2.0-7.7); Basophil# 0.02 X10^3/uL; Basophil% 0.4 % (0-1); Eosinophil# 0.08 X10^3/uL; Eosinophils% 1.8 % (0-5); Hematocrit 40.7 % (37-47); Hemoglobin 12.8 g/dL (12.0-15.0); Lymphocyte # 1.53 X10^3/ul (4.0); Lymphocyte % 34.1 % (19-41); Mean Corp Hgb Conc 31.4 g/dL (32-36); Mean Corpuscular Hgb 30.2 pg (27.0-32.0); Mean Platelet Vol. 10.4 fl (6.2-12.0); Monocyte# 0.65 X10^3/uL; Monocyte% 14.5 % (0-10); NRBC Flagged by Analyzer 0 % (0-5); Platelet Count 250 K/mm3 (150-450); RBC Distribution Width SD 45.7 fl (35.1-43.9); Red Blood Count 4.24 M/mm3 (4.2-5.4); White Blood Count 4.5 K/mm3 (4.4-11.0)
[2020-04-17 12:54] LABS: ALB/GLOB Ratio 1.1 RATIO (0.9-2.4); AST(SGOT) 24 U/L (15-37); Alanine Aminotransfer ALT/SGPT 29 U/L (13-56); Albumin, Serum 3.6 g/dL (3.2-5.0); Alkaline Phosphatase 80 U/L (45-117); Anion Gap 5 (5-15); BUN 13 mg/dL (7-18); BUN/Creat Ratio 16.4 RATIO (10-20); Calcium,Total 8.7 mg/dL (8.5-10.1); Chloride 105 mmol/L (98-107); Creatinine, Serum 0.79 mg/dL (0.55-1.02); EST Glomerular Filtration Rate 77 mL/min (>60); Est Glom Filt Rate - Afr Amer 93 mL/min (>60); Globulin 3.3 g/dL (2.2-4.2); Glucose 103 mg/dL (74-106); Protein, Total 6.9 g/dL (6.4-8.2); Sodium Level 140 mmol/L (136-145)
== END ==
LOC: LAB.FUTURE 10:20 → MTLAB 10:24
PROVIDERS: Referring Provider Internal Medicine Rheumatology; Visit Provider Internal Medicine Rheumatology
DX: M06.4 Inflammatory polyarthropathy (principal); Z79.899 Other long term (current) drug therapy; M17.0 Bilateral primary osteoarthritis of knee; I10 Essential (primary) hypertension; M65.341 Trigger finger, right ring finger
CPT/HCPCS: 36415; 80053; 85025

== ENCOUNTER → 2020-07-17 09:31 | Outpatient (CLI) | payer MEDICARE, SELFPAY ==
[2020-07-17 12:19] LABS: Absolute Lymphocyte Count 1.16 X10^3/uL (0.83-4.51); Absolute Neutrophil Count 2.6 X10^3/uL (2.0-7.7); Basophil# 0.02 X10^3/uL; Basophil% 0.4 % (0-1); Eosinophil# 0.13 X10^3/uL; Eosinophils% 2.9 % (0-5); Hemoglobin 12.3 g/dL (12.0-15.0); Lymphocyte # 1.16 X10^3/ul (4.0); Lymphocyte % 25.7 % (19-41); Mean Corp Hgb Conc 31.5 g/dL (32-36); Mean Corpuscular Hgb 30.4 pg (27.0-32.0); Mean Corpuscular Volume 96.5 fL (81-99); Mean Platelet Vol. 10.3 fl (6.2-12.0); Monocyte# 0.57 X10^3/uL; Monocyte% 12.6 % (0-10); NRBC Flagged by Analyzer 0 % (0-5); Neutrophil # 2.62 X10^3/uL (2.7-7.7); Neutrophil % 58.2 % (47-70); Platelet Count 251 K/mm3 (150-450); RBC Distribution Width CV 13.2 % (11.6-14.6); RBC Distribution Width SD 46.5 fl (35.1-43.9); Red Blood Count 4.04 M/mm3 (4.2-5.4); White Blood Count 4.5 K/mm3 (4.4-11.0)
[2020-07-17 13:01] LABS: ALB/GLOB Ratio 1.1 RATIO (0.9-2.4); AST(SGOT) 34 U/L (15-37); Alanine Aminotransfer ALT/SGPT 35 U/L (13-56); Albumin, Serum 3.6 g/dL (3.2-5.0); Alkaline Phosphatase 78 U/L (45-117); Anion Gap 3 (5-15); BUN 14 mg/dL (7-18); BUN/Creat Ratio 17.6 RATIO (10-20); Chloride 105 mmol/L (98-107); EST Glomerular Filtration Rate 77 mL/min (>60); Est Glom Filt Rate - Afr Amer 93 mL/min (>60); Globulin 3.3 g/dL (2.2-4.2); Glucose 109 mg/dL (74-106); Potassium 3.7 mmol/L (3.5-5.1); Protein, Total 6.9 g/dL (6.4-8.2); Sodium Level 140 mmol/L (136-145)
== END ==
PROVIDERS: Referring Provider Internal Medicine Rheumatology; Visit Provider Internal Medicine Rheumatology
DX: M06.4 Inflammatory polyarthropathy (principal); M17.0 Bilateral primary osteoarthritis of knee; I10 Essential (primary) hypertension; M65.341 Trigger finger, right ring finger; Z79.899 Other long term (current) drug therapy
CPT/HCPCS: 36415; 80053; 85025

== ENCOUNTER → 2020-10-15 09:50 | Outpatient (CLI) | payer MEDICARE, SELFPAY ==
[2020-10-15 12:53] LABS: ALB/GLOB Ratio 1.1 RATIO (0.9-2.4); AST(SGOT) 25 U/L (15-37); Alanine Aminotransfer ALT/SGPT 29 U/L (13-56); Albumin, Serum 3.6 g/dL (3.2-5.0); Alkaline Phosphatase 84 U/L (45-117); Anion Gap 5 (5-15); BUN 14 mg/dL (7-18); BUN/Creat Ratio 17.4 RATIO (10-20); Calcium,Total 8.9 mg/dL (8.5-10.1); Chloride 102 mmol/L (98-107); EST Glomerular Filtration Rate 76 mL/min (>60); Est Glom Filt Rate - Afr Amer 91 mL/min (>60); Globulin 3.3 g/dL (2.2-4.2); Glucose 96 mg/dL (74-106); Potassium 3.8 mmol/L (3.5-5.1); Protein, Total 6.9 g/dL (6.4-8.2); Sodium Level 139 mmol/L (136-145)
[2020-10-15 12:54] LABS: Absolute Neutrophil Count 2.8 X10^3/uL (2.0-7.7); Basophil# 0.03 X10^3/uL; Basophil% 0.6 % (0-1); Eosinophil# 0.08 X10^3/uL; Eosinophils% 1.7 % (0-5); Hematocrit 39.9 % (37-47); Hemoglobin 12.7 g/dL (12.0-15.0); Lymphocyte % 23.4 % (19-41); Mean Corp Hgb Conc 31.8 g/dL (32-36); Mean Corpuscular Hgb 30.6 pg (27.0-32.0); Mean Corpuscular Volume 96.1 fL (81-99); Monocyte# 0.63 X10^3/uL; Monocyte% 13.4 % (0-10); NRBC Flagged by Analyzer 0 % (0-5); Neutrophil # 2.84 X10^3/uL (2.7-7.7); Neutrophil % 60.5 % (47-70); Platelet Count 250 K/mm3 (150-450); RBC Distribution Width CV 13.2 % (11.6-14.6); RBC Distribution Width SD 46.1 fl (35.1-43.9); Red Blood Count 4.15 M/mm3 (4.2-5.4); White Blood Count 4.7 K/mm3 (4.4-11.0)
== END ==
PROVIDERS: Referring Provider Internal Medicine Rheumatology; Visit Provider Internal Medicine Rheumatology
DX: M06.4 Inflammatory polyarthropathy (principal); M17.0 Bilateral primary osteoarthritis of knee; I10 Essential (primary) hypertension; M65.341 Trigger finger, right ring finger; Z79.899 Other long term (current) drug therapy
CPT/HCPCS: 36415; 80053; 85025

== ENCOUNTER → 2020-12-25 09:50 | Outpatient (CLI) | payer MEDICARE, SELFPAY ==
[2020-12-25 12:40] LABS: Absolute Lymphocyte Count 1.19 X10^3/uL (0.83-4.51); Absolute Neutrophil Count 2.6 X10^3/uL (2.0-7.7); Basophil# 0.03 X10^3/uL; Basophil% 0.7 % (0-1); Eosinophil# 0.09 X10^3/uL; Hematocrit 39.1 % (37-47); Hemoglobin 12.5 g/dL (12.0-15.0); Lymphocyte # 1.19 X10^3/ul (4.0); Lymphocyte % 26.4 % (19-41); Mean Corpuscular Hgb 31.1 pg (27.0-32.0); Mean Corpuscular Volume 97.3 fL (81-99); Mean Platelet Vol. 10.1 fl (6.2-12.0); Monocyte# 0.64 X10^3/uL; Monocyte% 14.2 % (0-10); NRBC Flagged by Analyzer 0 % (0-5); Neutrophil # 2.55 X10^3/uL (2.7-7.7); Neutrophil % 56.5 % (47-70); Platelet Count 222 K/mm3 (150-450); RBC Distribution Width CV 13.5 % (11.6-14.6); RBC Distribution Width SD 47.6 fl (35.1-43.9); Red Blood Count 4.02 M/mm3 (4.2-5.4); White Blood Count 4.5 K/mm3 (4.4-11.0)
[2020-12-25 13:34] LABS: ALB/GLOB Ratio 1.1 RATIO (0.9-2.4); AST(SGOT) 22 U/L (15-37); Alanine Aminotransfer ALT/SGPT 28 U/L (13-56); Albumin, Serum 3.5 g/dL (3.2-5.0); Alkaline Phosphatase 79 U/L (45-117); Anion Gap 3 (5-15); BUN 17 mg/dL (7-18); BUN/Creat Ratio 19.7 RATIO (10-20); Chloride 106 mmol/L (98-107); Creatinine, Serum 0.86 mg/dL (0.55-1.02); EST Glomerular Filtration Rate 70 mL/min (>60); Est Glom Filt Rate - Afr Amer 84 mL/min (>60); Globulin 3.3 g/dL (2.2-4.2); Glucose 100 mg/dL (74-106); Potassium 3.8 mmol/L (3.5-5.1); Protein, Total 6.8 g/dL (6.4-8.2); Sodium Level 140 mmol/L (136-145)
== END ==
PROVIDERS: Referring Provider Internal Medicine Rheumatology; Visit Provider Internal Medicine Rheumatology
DX: M06.4 Inflammatory polyarthropathy (principal); M72.0 Palmar fascial fibromatosis [Dupuytren]; M17.0 Bilateral primary osteoarthritis of knee; I10 Essential (primary) hypertension; M65.341 Trigger finger, right ring finger; Z79.899 Other long term (current) drug therapy
CPT/HCPCS: 36415; 80053; 85025

== ENCOUNTER → 2021-03-18 10:15 | Outpatient (CLI) | payer MEDICARE, SELFPAY ==
[2021-03-18 12:37] LABS: Absolute Lymphocyte Count 1.18 X10^3/uL (0.83-4.51); Absolute Neutrophil Count 2.4 X10^3/uL (2.0-7.7); Basophil# 0.03 X10^3/uL; Basophil% 0.7 % (0-1); Eosinophil# 0.07 X10^3/uL; Eosinophils% 1.6 % (0-5); Hematocrit 39.7 % (37-47); Hemoglobin 12.6 g/dL (12.0-15.0); Lymphocyte # 1.18 X10^3/ul (0.83-4.51); Lymphocyte % 27.4 % (19-41); Mean Corp Hgb Conc 31.7 g/dL (32-36); Mean Corpuscular Hgb 30.1 pg (27.0-32.0); Mean Corpuscular Volume 94.7 fL (81-99); Monocyte# 0.62 X10^3/uL; Monocyte% 14.4 % (0-10); NRBC Flagged by Analyzer 0 % (0-5); Neutrophil % 55.7 % (47-70); Platelet Count 253 K/mm3 (150-450); RBC Distribution Width CV 13.5 % (11.6-14.6); RBC Distribution Width SD 46.2 fl (35.1-43.9); Red Blood Count 4.19 M/mm3 (4.2-5.4); White Blood Count 4.3 K/mm3 (4.4-11.0)
[2021-03-18 13:02] LABS: ALB/GLOB Ratio 1.1 RATIO (0.9-2.4); AST(SGOT) 23 U/L (15-37); Alanine Aminotransfer ALT/SGPT 30 U/L (13-56); Albumin, Serum 3.6 g/dL (3.2-5.0); Alkaline Phosphatase 88 U/L (45-117); Anion Gap 6 (5-15); BUN 14 mg/dL (7-18); BUN/Creat Ratio 17.7 RATIO (10-20); Calcium,Total 8.9 mg/dL (8.5-10.1); Chloride 104 mmol/L (98-107); Creatinine, Serum 0.79 mg/dL (0.55-1.02); EST Glomerular Filtration Rate 77 mL/min (>60); Est Glom Filt Rate - Afr Amer 93 mL/min (>60); Globulin 3.2 g/dL (2.2-4.2); Glucose 94 mg/dL (74-106); Potassium 3.8 mmol/L (3.5-5.1); Protein, Total 6.8 g/dL (6.4-8.2); Sodium Level 140 mmol/L (136-145)
== END ==
PROVIDERS: Referring Provider Internal Medicine Rheumatology; Visit Provider Internal Medicine Rheumatology
DX: M06.4 Inflammatory polyarthropathy (principal); M72.0 Palmar fascial fibromatosis [Dupuytren]; M17.0 Bilateral primary osteoarthritis of knee; I10 Essential (primary) hypertension; M65.341 Trigger finger, right ring finger; Z79.899 Other long term (current) drug therapy
CPT/HCPCS: 36415; 80053; 85025

== ENCOUNTER → 2021-06-07 13:29 | Outpatient (CLI) | payer MEDICARE, SELFPAY ==
[2021-06-07 15:26] LABS: Absolute Lymphocyte Count 1.25 X10^3/uL (0.83-4.51); Absolute Neutrophil Count 2.9 X10^3/uL (2.0-7.7); Basophil# 0.03 X10^3/uL; Basophil% 0.6 % (0-1); Eosinophil# 0.05 X10^3/uL; Eosinophils% 1.1 % (0-5); Hematocrit 38.7 % (37-47); Hemoglobin 12.5 g/dL (12.0-15.0); Lymphocyte # 1.25 X10^3/ul (0.83-4.51); Lymphocyte % 26.4 % (19-41); Mean Corp Hgb Conc 32.3 g/dL (32-36); Mean Corpuscular Hgb 30.7 pg (27.0-32.0); Mean Corpuscular Volume 95.1 fL (81-99); Mean Platelet Vol. 9.9 fl (6.2-12.0); Monocyte# 0.53 X10^3/uL; Monocyte% 11.2 % (0-10); NRBC Flagged by Analyzer 0 % (0-5); Neutrophil # 2.87 X10^3/uL (2.7-7.7); Neutrophil % 60.5 % (47-70); Platelet Count 267 K/mm3 (150-450); RBC Distribution Width CV 13.7 % (11.6-14.6); RBC Distribution Width SD 47.9 fl (35.1-43.9); Red Blood Count 4.07 M/mm3 (4.2-5.4); White Blood Count 4.7 K/mm3 (4.4-11.0)
[2021-06-07 16:11] LABS: ALB/GLOB Ratio 1.2 RATIO (0.9-2.4); AST(SGOT) 25 U/L (15-37); Alanine Aminotransfer ALT/SGPT 34 U/L (13-56); Albumin, Serum 3.6 g/dL (3.2-5.0); Alkaline Phosphatase 78 U/L (45-117); Anion Gap 8 (5-15); BUN 15 mg/dL (7-18); BUN/Creat Ratio 19.2 RATIO (10-20); Calcium,Total 8.7 mg/dL (8.5-10.1); Chloride 103 mmol/L (98-107); Creatinine, Serum 0.78 mg/dL (0.55-1.02); EST Glomerular Filtration Rate 78 mL/min (>60); Est Glom Filt Rate - Afr Amer 94 mL/min (>60); Globulin 3.1 g/dL (2.2-4.2); Glucose 122 mg/dL (74-106); Potassium 3.6 mmol/L (3.5-5.1); Protein, Total 6.7 g/dL (6.4-8.2); Sodium Level 138 mmol/L (136-145)
== END ==
PROVIDERS: Referring Provider Internal Medicine Rheumatology; Visit Provider Internal Medicine Rheumatology
DX: M06.4 Inflammatory polyarthropathy (principal); M72.0 Palmar fascial fibromatosis [Dupuytren]; M17.0 Bilateral primary osteoarthritis of knee; I10 Essential (primary) hypertension; M65.341 Trigger finger, right ring finger; Z79.899 Other long term (current) drug therapy
CPT/HCPCS: 36415; 80053; 85025

== ENCOUNTER → 2021-07-30 10:37 | Outpatient (CLI) | payer MEDICARE, SELFPAY ==
[2021-07-30 12:20] LABS: Absolute Lymphocyte Count 1.59 X10^3/uL (0.83-4.51); Basophil# 0.01 X10^3/uL; Basophil% 0.2 % (0-1); Eosinophils% 1.8 % (0-5); Hematocrit 38.8 % (37-47); Hemoglobin 12.4 g/dL (12.0-15.0); Lymphocyte # 1.59 X10^3/ul (0.83-4.51); Lymphocyte % 29.1 % (19-41); Mean Corpuscular Hgb 30.8 pg (27.0-32.0); Mean Corpuscular Volume 96.3 fL (81-99); Mean Platelet Vol. 9.4 fl (6.2-12.0); Monocyte# 0.72 X10^3/uL; Monocyte% 13.2 % (0-10); NRBC Flagged by Analyzer 0 % (0-5); Neutrophil # 3.01 X10^3/uL (2.7-7.7); Neutrophil % 55.2 % (47-70); Platelet Count 347 K/mm3 (150-450); RBC Distribution Width CV 12.5 % (11.6-14.6); Red Blood Count 4.03 M/mm3 (4.2-5.4); White Blood Count 5.5 K/mm3 (4.4-11.0)
[2021-07-30 13:14] LABS: ALB/GLOB Ratio 0.9 RATIO (0.9-2.4); AST(SGOT) 24 U/L (15-37); Alanine Aminotransfer ALT/SGPT 29 U/L (13-56); Albumin, Serum 3.2 g/dL (3.2-5.0); Alkaline Phosphatase 79 U/L (45-117); Anion Gap 8 (5-15); BUN 14 mg/dL (7-18); BUN/Creat Ratio 13.9 RATIO (10-20); Calcium,Total 8.9 mg/dL (8.5-10.1); Chloride 103 mmol/L (98-107); Creatinine, Serum 1.01 mg/dL (0.55-1.02); EST Glomerular Filtration Rate 58 mL/min (>60); Est Glom Filt Rate - Afr Amer 70 mL/min (>60); Globulin 3.7 g/dL (2.2-4.2); Glucose 93 mg/dL (74-106); Potassium 3.9 mmol/L (3.5-5.1); Protein, Total 6.9 g/dL (6.4-8.2); Sodium Level 141 mmol/L (136-145)
== END ==
PROVIDERS: Referring Provider Internal Medicine Rheumatology; Visit Provider Internal Medicine Rheumatology
DX: M06.4 Inflammatory polyarthropathy (principal); M72.0 Palmar fascial fibromatosis [Dupuytren]; M25.561 Pain in right knee; M17.0 Bilateral primary osteoarthritis of knee; I10 Essential (primary) hypertension; M65.341 Trigger finger, right ring finger; Z79.899 Other long term (current) drug therapy
CPT/HCPCS: 36415; 80053; 85025

== ENCOUNTER 2021-11-06 10:38 | Outpatient (CLI) | payer MEDICARE, SELFPAY ==
[2021-11-06 12:05] LABS: Absolute Lymphocyte Count 1.29 X10^3/uL (0.83-4.51); Absolute Neutrophil Count 2.3 X10^3/uL (2.0-7.7); Basophil# 0.03 X10^3/uL; Basophil% 0.7 % (0-1); Eosinophils% 2.3 % (0-5); Hematocrit 38.5 % (37-47); Hemoglobin 12.6 g/dL (12.0-15.0); Lymphocyte # 1.29 X10^3/ul (0.83-4.51); Lymphocyte % 29.1 % (19-41); Mean Corp Hgb Conc 32.7 g/dL (32-36); Mean Corpuscular Hgb 30.7 pg (27.0-32.0); Mean Corpuscular Volume 93.7 fL (81-99); Mean Platelet Vol. 9.8 fl (6.2-12.0); Monocyte# 0.66 X10^3/uL; Monocyte% 14.9 % (0-10); NRBC Flagged by Analyzer 0 % (0-5); Neutrophil # 2.34 X10^3/uL (2.7-7.7); Neutrophil % 52.8 % (47-70); Platelet Count 256 K/mm3 (150-450); RBC Distribution Width CV 13.8 % (11.6-14.6); RBC Distribution Width SD 46.8 fl (35.1-43.9); Red Blood Count 4.11 M/mm3 (4.2-5.4); White Blood Count 4.4 K/mm3 (4.4-11.0)
[2021-11-06 12:48] LABS: ALB/GLOB Ratio 0.9 RATIO (0.9-2.4); AST(SGOT) 24 U/L (15-37); Alanine Aminotransfer ALT/SGPT 28 U/L (13-56); Albumin, Serum 3.4 g/dL (3.2-5.0); Alkaline Phosphatase 89 U/L (45-117); Anion Gap 7 (5-15); BUN 13 mg/dL (7-18); BUN/Creat Ratio 14.5 RATIO (10-20); Calcium,Total 8.6 mg/dL (8.5-10.1); Chloride 106 mmol/L (98-107); EST Glomerular Filtration Rate 67 mL/min (>60); Est Glom Filt Rate - Afr Amer 80 mL/min (>60); Globulin 3.6 g/dL (2.2-4.2); Glucose 118 mg/dL (74-106); Potassium 3.8 mmol/L (3.5-5.1); Sodium Level 140 mmol/L (136-145)
== END 2021-11-06 23:59 | disposition short-term general hospital (02) ==
LOC: MTLAB 10:40
PROVIDERS: Referring Provider Internal Medicine Rheumatology; Visit Provider Internal Medicine Rheumatology
DX: M06.4 Inflammatory polyarthropathy (principal); Z79.899 Other long term (current) drug therapy; Z72.0 Tobacco use; M25.561 Pain in right knee; M17.0 Bilateral primary osteoarthritis of knee; I10 Essential (primary) hypertension; M65.341 Trigger finger, right ring finger
CPT/HCPCS: 36415; 80053; 85025

== ENCOUNTER 2022-01-29 10:32 | Outpatient (CLI) | payer MEDICARE, SELFPAY ==
[2022-01-29 11:57] LABS: Absolute Lymphocyte Count 1.36 X10^3/uL (0.83-4.51); Absolute Neutrophil Count 2.6 X10^3/uL (2.0-7.7); Basophil# 0.01 X10^3/uL; Basophil% 0.2 % (0-1); Eosinophils% 2.1 % (0-5); Hematocrit 39.9 % (37-47); Hemoglobin 12.9 g/dL (12.0-15.0); Lymphocyte # 1.36 X10^3/ul (0.83-4.51); Lymphocyte % 28.8 % (19-41); Mean Corp Hgb Conc 32.3 g/dL (32-36); Mean Corpuscular Volume 92.8 fL (81-99); Mean Platelet Vol. 9.6 fl (6.2-12.0); Monocyte# 0.64 X10^3/uL; Monocyte% 13.5 % (0-10); NRBC Flagged by Analyzer 0 % (0-5); Neutrophil # 2.61 X10^3/uL (2.7-7.7); Neutrophil % 55.2 % (47-70); Platelet Count 253 K/mm3 (150-450); RBC Distribution Width CV 13.8 % (11.6-14.6); RBC Distribution Width SD 47.3 fl (35.1-43.9); White Blood Count 4.7 K/mm3 (4.4-11.0)
[2022-01-29 12:17] LABS: AST(SGOT) 24 U/L (15-37); Alanine Aminotransfer ALT/SGPT 35 U/L (13-56); Albumin, Serum 3.5 g/dL (3.2-5.0); Alkaline Phosphatase 86 U/L (45-117); Anion Gap 6 (5-15); BUN 16 mg/dL (7-18); BUN/Creat Ratio 18.1 RATIO (10-20); Calcium,Total 9.1 mg/dL (8.5-10.1); Chloride 104 mmol/L (98-107); Creatinine, Serum 0.88 mg/dL (0.55-1.02); EST Glomerular Filtration Rate 67 mL/min (>60); Est Glom Filt Rate - Afr Amer 81 mL/min (>60); Globulin 3.6 g/dL (2.2-4.2); Glucose 101 mg/dL (74-106); Protein, Total 7.1 g/dL (6.4-8.2); Sodium Level 139 mmol/L (136-145)
== END 2022-01-29 23:59 | disposition home or self-care (01) ==
LOC: MTLAB 10:34
PROVIDERS: Referring Provider Internal Medicine Rheumatology; Visit Provider Internal Medicine Rheumatology
DX: M06.4 Inflammatory polyarthropathy (principal); M72.0 Palmar fascial fibromatosis [Dupuytren]; M47.812 Spondylosis without myelopathy or radiculopathy, cervical region; M65.341 Trigger finger, right ring finger; M17.0 Bilateral primary osteoarthritis of knee; I10 Essential (primary) hypertension; Z79.899 Other long term (current) drug therapy
CPT/HCPCS: 36415; 80053; 85025

== ENCOUNTER → 2022-04-29 | Outpatient (CLI) | payer MEDICARE, SELFPAY ==
[2022-04-29 12:16] LABS: Absolute Lymphocyte Count 1.39 X10^3/uL (0.83-4.51); Absolute Neutrophil Count 2.6 X10^3/uL (2.0-7.7); Basophil# 0.03 X10^3/uL; Basophil% 0.6 % (0-1); Eosinophil# 0.09 X10^3/uL; Eosinophils% 1.9 % (0-5); Hematocrit 38.8 % (37-47); Hemoglobin 12.7 g/dL (12.0-15.0); Lymphocyte # 1.39 X10^3/ul (0.83-4.51); Lymphocyte % 29.6 % (19-41); Mean Corp Hgb Conc 32.7 g/dL (32-36); Mean Corpuscular Volume 94.6 fL (81-99); Mean Platelet Vol. 9.8 fl (6.2-12.0); Monocyte# 0.63 X10^3/uL; Monocyte% 13.4 % (0-10); NRBC Flagged by Analyzer 0 % (0-5); Neutrophil # 2.55 X10^3/uL (2.7-7.7); Neutrophil % 54.3 % (47-70); Platelet Count 246 K/mm3 (150-450); RBC Distribution Width CV 13.3 % (11.6-14.6); RBC Distribution Width SD 45.5 fl (35.1-43.9); White Blood Count 4.7 K/mm3 (4.4-11.0)
[2022-04-29 12:30] LABS: ALB/GLOB Ratio 1.1 RATIO (0.9-2.4); AST(SGOT) 28 U/L (15-37); Alanine Aminotransfer ALT/SGPT 36 U/L (13-56); Albumin, Serum 3.6 g/dL (3.2-5.0); Alkaline Phosphatase 77 U/L (45-117); Anion Gap 5 (5-15); BUN 14 mg/dL (7-18); Chloride 106 mmol/L (98-107); Creatinine, Serum 0.82 mg/dL (0.55-1.02); EST Glomerular Filtration Rate 73 mL/min (>60); Est Glom Filt Rate - Afr Amer 88 mL/min (>60); Globulin 3.3 g/dL (2.2-4.2); Glucose 95 mg/dL (74-106); Protein, Total 6.9 g/dL (6.4-8.2); Sodium Level 140 mmol/L (136-145)
== END | disposition home or self-care (01) ==
PROVIDERS: Referring Provider Internal Medicine Rheumatology; Visit Provider Internal Medicine Rheumatology
DX: M06.4 Inflammatory polyarthropathy (principal); M72.0 Palmar fascial fibromatosis [Dupuytren]; M47.812 Spondylosis without myelopathy or radiculopathy, cervical region; M65.341 Trigger finger, right ring finger; M17.0 Bilateral primary osteoarthritis of knee; I10 Essential (primary) hypertension; Z79.899 Other long term (current) drug therapy
CPT/HCPCS: 36415; 80053; 85025

== ENCOUNTER → 2022-07-25 | Outpatient (CLI) | payer MEDICARE, SELFPAY ==
[2022-07-25 15:38] LABS: Absolute Neutrophil Count 2.5 X10^3/uL (2.0-7.7); Basophil# 0.03 X10^3/uL; Basophil% 0.6 % (0-1); Eosinophil# 0.07 X10^3/uL; Eosinophils% 1.5 % (0-5); Hematocrit 39.2 % (37-47); Lymphocyte % 33.8 % (19-41); Mean Corp Hgb Conc 33.2 g/dL (32-36); Mean Corpuscular Hgb 32.3 pg (27.0-32.0); Mean Corpuscular Volume 97.3 fL (81-99); Mean Platelet Vol. 9.6 fl (6.2-12.0); Monocyte# 0.51 X10^3/uL; Monocyte% 10.8 % (0-10); NRBC Flagged by Analyzer 0 % (0-5); Neutrophil # 2.52 X10^3/uL (2.7-7.7); Neutrophil % 53.1 % (47-70); Platelet Count 285 K/mm3 (150-450); RBC Distribution Width CV 13.8 % (11.6-14.6); RBC Distribution Width SD 49.4 fl (35.1-43.9); Red Blood Count 4.03 M/mm3 (4.2-5.4); White Blood Count 4.7 K/mm3 (4.4-11.0)
[2022-07-25 15:51] LABS: ALB/GLOB Ratio 1.1 RATIO (0.9-2.4); AST(SGOT) 26 U/L (15-37); Alanine Aminotransfer ALT/SGPT 33 U/L (13-56); Albumin, Serum 3.6 g/dL (3.2-5.0); Alkaline Phosphatase 73 U/L (45-117); Anion Gap 7 (5-15); BUN 13 mg/dL (7-18); BUN/Creat Ratio 15.7 RATIO (10-20); Calcium,Total 9.2 mg/dL (8.5-10.1); Chloride 104 mmol/L (98-107); Creatinine, Serum 0.83 mg/dL (0.55-1.02); EST Glomerular Filtration Rate 73 mL/min (>60); Est Glom Filt Rate - Afr Amer 88 mL/min (>60); Globulin 3.4 g/dL (2.2-4.2); Glucose 85 mg/dL (74-106); Potassium 3.9 mmol/L (3.5-5.1); Sodium Level 141 mmol/L (136-145)
== END | disposition home or self-care (01) ==
LOC: MTLAB 11:42
PROVIDERS: Referring Provider Internal Medicine Rheumatology; Visit Provider Internal Medicine Rheumatology
DX: M06.4 Inflammatory polyarthropathy (principal); M72.0 Palmar fascial fibromatosis [Dupuytren]; M47.812 Spondylosis without myelopathy or radiculopathy, cervical region; M65.341 Trigger finger, right ring finger; M17.0 Bilateral primary osteoarthritis of knee; I10 Essential (primary) hypertension; Z79.899 Other long term (current) drug therapy
CPT/HCPCS: 36415; 80053; 85025

== ENCOUNTER → 2022-09-29 | Outpatient (CLI) | payer MEDICARE, SELFPAY ==
[2022-09-29 12:32] LABS: Thyroid Stim Hormone (TSH) 1.83 uIU/mL (0.358-3.74)
[2022-09-29 12:41] LABS: Hemoglobin A1c 5.5 % (3.8-5.6)
== END | disposition home or self-care (01) ==
LOC: MTLAB 10:18
DX: I10 Essential (primary) hypertension (principal); E66.9 Obesity, unspecified
CPT/HCPCS: 36415; 83036; 84443

== ENCOUNTER → 2022-10-08 | Outpatient (CLI) | payer MEDICARE, SELFPAY ==
[2022-10-08 12:37] LABS: Absolute Lymphocyte Count 1.37 X10^3/uL (0.83-4.51); Absolute Neutrophil Count 2.5 X10^3/uL (2.0-7.7); Basophil# 0.02 X10^3/uL; Basophil% 0.4 % (0-1); Eosinophil# 0.08 X10^3/uL; Eosinophils% 1.7 % (0-5); Hematocrit 41.2 % (37-47); Hemoglobin 13.6 g/dL (12.0-15.0); Lymphocyte # 1.37 X10^3/ul (0.83-4.51); Lymphocyte % 29.7 % (19-41); Mean Corpuscular Volume 96.9 fL (81-99); Mean Platelet Vol. 9.9 fl (6.2-12.0); Monocyte# 0.68 X10^3/uL; Monocyte% 14.7 % (0-10); NRBC Flagged by Analyzer 0 % (0-5); Neutrophil # 2.45 X10^3/uL (2.7-7.7); Neutrophil % 53.1 % (47-70); Platelet Count 265 K/mm3 (150-450); RBC Distribution Width CV 12.8 % (11.6-14.6); RBC Distribution Width SD 45.5 fl (35.1-43.9); Red Blood Count 4.25 M/mm3 (4.2-5.4); White Blood Count 4.6 K/mm3 (4.4-11.0)
[2022-10-08 12:52] LABS: ALB/GLOB Ratio 1.3 RATIO (0.9-2.4); AST(SGOT) 25 U/L (15-37); Alanine Aminotransfer ALT/SGPT 31 U/L (13-56); Albumin, Serum 3.9 g/dL (3.2-5.0); Alkaline Phosphatase 80 U/L (45-117); Anion Gap 6 (5-15); BUN 14 mg/dL (7-18); BUN/Creat Ratio 17.8 RATIO (10-20); Calcium,Total 9.3 mg/dL (8.5-10.1); Chloride 104 mmol/L (98-107); Creatinine, Serum 0.78 mg/dL (0.55-1.02); EST Glomerular Filtration Rate 77 mL/min (>60); Est Glom Filt Rate - Afr Amer 93 mL/min (>60); Glucose 97 mg/dL (74-106); Potassium 4.1 mmol/L (3.5-5.1); Protein, Total 6.9 g/dL (6.4-8.2); Sodium Level 140 mmol/L (136-145)
== END | disposition home or self-care (01) ==
LOC: MTLAB 10:26
PROVIDERS: Referring Provider Internal Medicine Rheumatology; Visit Provider Internal Medicine Rheumatology
DX: M06.4 Inflammatory polyarthropathy (principal); Z79.899 Other long term (current) drug therapy
CPT/HCPCS: 36415; 80053; 85025

== ENCOUNTER → 2023-01-05 | Outpatient (CLI) | payer MEDICARE, SELFPAY ==
[2023-01-05 12:42] LABS: Absolute Lymphocyte Count 1.59 X10^3/uL (0.83-4.51); Absolute Neutrophil Count 2.6 X10^3/uL (2.0-7.7); Basophil# 0.03 X10^3/uL; Basophil% 0.6 % (0-1); Eosinophil# 0.09 X10^3/uL; Eosinophils% 1.8 % (0-5); Lymphocyte # 1.59 X10^3/ul (0.83-4.51); Lymphocyte % 31.2 % (19-41); Mean Corp Hgb Conc 31.7 g/dL (32-36); Mean Corpuscular Hgb 30.4 pg (27.0-32.0); Mean Platelet Vol. 10.1 fl (6.2-12.0); Monocyte# 0.76 X10^3/uL; Monocyte% 14.9 % (0-10); NRBC Flagged by Analyzer 0 % (0-5); Neutrophil # 2.62 X10^3/uL (2.7-7.7); Neutrophil % 51.3 % (47-70); Platelet Count 254 K/mm3 (150-450); RBC Distribution Width CV 13.6 % (11.6-14.6); RBC Distribution Width SD 47.8 fl (35.1-43.9); Red Blood Count 4.27 M/mm3 (4.2-5.4); White Blood Count 5.1 K/mm3 (4.4-11.0)
[2023-01-05 13:15] LABS: AST(SGOT) 27 U/L (15-37); Alanine Aminotransfer ALT/SGPT 32 U/L (13-56); Albumin, Serum 3.5 g/dL (3.2-5.0); Alkaline Phosphatase 73 U/L (45-117); Anion Gap 4 (5-15); BUN 14 mg/dL (7-18); BUN/Creat Ratio 18.2 RATIO (10-20); Calcium,Total 8.8 mg/dL (8.5-10.1); Chloride 106 mmol/L (98-107); Creatinine, Serum 0.77 mg/dL (0.55-1.02); EST Glomerular Filtration Rate 79 mL/min (>60); Est Glom Filt Rate - Afr Amer 95 mL/min (>60); Globulin 3.5 g/dL (2.2-4.2); Glucose 92 mg/dL (74-106); Potassium 3.8 mmol/L (3.5-5.1); Sodium Level 138 mmol/L (136-145)
== END | disposition home or self-care (01) ==
LOC: MTLAB 09:44
PROVIDERS: Referring Provider Internal Medicine Rheumatology; Visit Provider Internal Medicine Rheumatology
DX: M06.4 Inflammatory polyarthropathy (principal); Z79.899 Other long term (current) drug therapy
CPT/HCPCS: 36415; 80053; 85025

== ENCOUNTER → 2023-04-08 | Outpatient (CLI) | payer MEDICARE, SELFPAY ==
[2023-04-08 15:42] LABS: Absolute Lymphocyte Count 1.59 X10^3/uL (0.83-4.51); Basophil# 0.03 X10^3/uL; Basophil% 0.6 % (0-1); Eosinophil# 0.08 X10^3/uL; Eosinophils% 1.5 % (0-5); Hematocrit 41.7 % (37-47); Hemoglobin 13.4 g/dL (12.0-15.0); Lymphocyte # 1.59 X10^3/ul (0.83-4.51); Lymphocyte % 29.2 % (19-41); Mean Corp Hgb Conc 32.1 g/dL (32-36); Mean Corpuscular Hgb 31.2 pg (27.0-32.0); Mean Platelet Vol. 10.5 fl (6.2-12.0); Monocyte# 0.71 X10^3/uL; NRBC Flagged by Analyzer 0 % (0-5); Neutrophil # 3.03 X10^3/uL (2.7-7.7); Neutrophil % 55.5 % (47-70); Platelet Count 261 K/mm3 (150-450); RBC Distribution Width CV 13.4 % (11.6-14.6); RBC Distribution Width SD 47.7 fl (35.1-43.9); White Blood Count 5.5 K/mm3 (4.4-11.0)
[2023-04-08 16:45] LABS: ALB/GLOB Ratio 1.1 RATIO (0.9-2.4); AST(SGOT) 26 U/L (15-37); Alanine Aminotransfer ALT/SGPT 26 U/L (13-56); Albumin, Serum 3.7 g/dL (3.2-5.0); Alkaline Phosphatase 77 U/L (45-117); Anion Gap 2 (5-15); BUN 11 mg/dL (7-18); Calcium,Total 9.1 mg/dL (8.5-10.1); Chloride 108 mmol/L (98-107); Creatinine, Serum 0.79 mg/dL (0.55-1.02); EST Glomerular Filtration Rate 77 mL/min (>60); Est Glom Filt Rate - Afr Amer 93 mL/min (>60); Globulin 3.4 g/dL (2.2-4.2); Glucose 89 mg/dL (74-106); Potassium 4.1 mmol/L (3.5-5.1); Protein, Total 7.1 g/dL (6.4-8.2); Sodium Level 140 mmol/L (136-145)
== END | disposition home or self-care (01) ==
PROVIDERS: Referring Provider Internal Medicine Rheumatology; Visit Provider Internal Medicine Rheumatology
DX: M06.4 Inflammatory polyarthropathy (principal); Z79.899 Other long term (current) drug therapy
CPT/HCPCS: 36415; 80053; 85025

== ENCOUNTER → 2023-06-17 | Outpatient (CLI) | payer MEDICARE, SELFPAY ==
[2023-06-17 17:53] LABS: Absolute Lymphocyte Count 1.69 X10^3/uL (0.83-4.51); Absolute Neutrophil Count 3.7 X10^3/uL (2.0-7.7); Basophil# 0.03 X10^3/uL; Basophil% 0.5 % (0-1); Eosinophils% 1.6 % (0-5); Hematocrit 38.5 % (37-47); Hemoglobin 12.4 g/dL (12.0-15.0); Lymphocyte # 1.69 X10^3/ul (0.83-4.51); Mean Corp Hgb Conc 32.2 g/dL (32-36); Mean Corpuscular Volume 96.3 fL (81-99); Mean Platelet Vol. 9.9 fl (6.2-12.0); Monocyte# 0.78 X10^3/uL; Monocyte% 12.4 % (0-10); NRBC Flagged by Analyzer 0 % (0-5); Neutrophil # 3.66 X10^3/uL (2.7-7.7); Neutrophil % 58.3 % (47-70); Platelet Count 238 K/mm3 (150-450); RBC Distribution Width CV 13.3 % (11.6-14.6); RBC Distribution Width SD 46.7 fl (35.1-43.9); White Blood Count 6.3 K/mm3 (4.4-11.0)
[2023-06-17 18:09] LABS: ALB/GLOB Ratio 1.1 RATIO (0.9-2.4); AST(SGOT) 25 U/L (15-37); Alanine Aminotransfer ALT/SGPT 31 U/L (13-56); Albumin, Serum 3.5 g/dL (3.2-5.0); Alkaline Phosphatase 76 U/L (45-117); Anion Gap 7 (5-15); BUN 14 mg/dL (7-18); BUN/Creat Ratio 15.7 RATIO (10-20); Calcium,Total 8.8 mg/dL (8.5-10.1); Chloride 104 mmol/L (98-107); Creatinine, Serum 0.89 mg/dL (0.55-1.02); EST Glomerular Filtration Rate 66 mL/min (>60); Est Glom Filt Rate - Afr Amer 80 mL/min (>60); Globulin 3.3 g/dL (2.2-4.2); Glucose 94 mg/dL (74-106); Potassium 3.8 mmol/L (3.5-5.1); Protein, Total 6.8 g/dL (6.4-8.2); Sodium Level 138 mmol/L (136-145)
== END | disposition home or self-care (01) ==
LOC: MTLAB 15:31
PROVIDERS: Referring Provider Internal Medicine Rheumatology; Visit Provider Internal Medicine Rheumatology
DX: M06.4 Inflammatory polyarthropathy (principal); M72.0 Palmar fascial fibromatosis [Dupuytren]; Z79.899 Other long term (current) drug therapy
CPT/HCPCS: 36415; 80053; 85025

== ENCOUNTER → 2023-09-10 | Outpatient (CLI) | payer MEDICARE, SELFPAY ==
[2023-09-10 12:14] LABS: Absolute Lymphocyte Count 1.47 X10^3/uL (0.83-4.51); Absolute Neutrophil Count 2.8 X10^3/uL (2.0-7.7); Basophil# 0.02 X10^3/uL; Basophil% 0.4 % (0-1); Eosinophil# 0.08 X10^3/uL; Eosinophils% 1.6 % (0-5); Hematocrit 40.3 % (37-47); Lymphocyte # 1.47 X10^3/ul (0.83-4.51); Lymphocyte % 28.9 % (19-41); Mean Corp Hgb Conc 32.3 g/dL (32-36); Mean Corpuscular Hgb 31.4 pg (27.0-32.0); Mean Corpuscular Volume 97.3 fL (81-99); Mean Platelet Vol. 9.3 fl (6.2-12.0); Monocyte# 0.74 X10^3/uL; Monocyte% 14.5 % (0-10); NRBC Flagged by Analyzer 0 % (0-5); Neutrophil # 2.78 X10^3/uL (2.7-7.7); Neutrophil % 54.6 % (47-70); Platelet Count 245 K/mm3 (150-450); RBC Distribution Width CV 13.6 % (11.6-14.6); RBC Distribution Width SD 49.1 fl (35.1-43.9); Red Blood Count 4.14 M/mm3 (4.2-5.4); White Blood Count 5.1 K/mm3 (4.4-11.0)
[2023-09-10 12:26] LABS: ALB/GLOB Ratio 1.1 RATIO (0.9-2.4); AST(SGOT) 23 U/L (15-37); Alanine Aminotransfer ALT/SGPT 29 U/L (13-56); Albumin, Serum 3.5 g/dL (3.2-5.0); Alkaline Phosphatase 72 U/L (45-117); Anion Gap 3 (5-15); BUN 15 mg/dL (7-18); BUN/Creat Ratio 18.1 RATIO (10-20); Calcium,Total 8.9 mg/dL (8.5-10.1); Chloride 106 mmol/L (98-107); Creatinine, Serum 0.83 mg/dL (0.55-1.02); EST Glomerular Filtration Rate 72 mL/min (>60); Est Glom Filt Rate - Afr Amer 87 mL/min (>60); Globulin 3.2 g/dL (2.2-4.2); Glucose 99 mg/dL (74-106); Potassium 4.2 mmol/L (3.5-5.1); Protein, Total 6.7 g/dL (6.4-8.2); Sodium Level 140 mmol/L (136-145)
== END | disposition home or self-care (01) ==
LOC: MTLAB 09:58
PROVIDERS: Referring Provider Internal Medicine Rheumatology; Visit Provider Internal Medicine Rheumatology
DX: M06.4 Inflammatory polyarthropathy (principal); Z79.899 Other long term (current) drug therapy
CPT/HCPCS: 36415; 80053; 85025

== ENCOUNTER → 2023-12-07 | Outpatient (CLI) | payer MEDICARE, SELFPAY ==
[2023-12-07 12:27] LABS: Absolute Lymphocyte Count 1.47 X10^3/uL (0.83-4.51); Basophil# 0.03 X10^3/uL; Basophil% 0.6 % (0-1); Eosinophil# 0.09 X10^3/uL; Eosinophils% 1.7 % (0-5); Hematocrit 39.8 % (37-47); Hemoglobin 12.9 g/dL (12.0-15.0); Lymphocyte # 1.47 X10^3/ul (0.83-4.51); Lymphocyte % 27.7 % (19-41); Mean Corp Hgb Conc 32.4 g/dL (32-36); Mean Corpuscular Hgb 31.1 pg (27.0-32.0); Mean Corpuscular Volume 95.9 fL (81-99); Mean Platelet Vol. 10.1 fl (6.2-12.0); Monocyte# 0.68 X10^3/uL; Monocyte% 12.8 % (0-10); NRBC Flagged by Analyzer 0 % (0-5); Neutrophil # 3.02 X10^3/uL (2.7-7.7); Neutrophil % 56.8 % (47-70); Platelet Count 245 K/mm3 (150-450); RBC Distribution Width CV 13.2 % (11.6-14.6); RBC Distribution Width SD 46.3 fl (35.1-43.9); Red Blood Count 4.15 M/mm3 (4.2-5.4); White Blood Count 5.3 K/mm3 (4.4-11.0)
[2023-12-07 13:04] LABS: ALB/GLOB Ratio 1.1 RATIO (0.9-2.4); AST(SGOT) 28 U/L (15-37); Alanine Aminotransfer ALT/SGPT 27 U/L (13-56); Albumin, Serum 3.7 g/dL (3.2-5.0); Alkaline Phosphatase 81 U/L (45-117); Anion Gap 2 (5-15); BUN 14 mg/dL (7-18); BUN/Creat Ratio 18.1 RATIO (10-20); Calcium,Total 9.2 mg/dL (8.5-10.1); Chloride 108 mmol/L (98-107); Creatinine, Serum 0.77 mg/dL (0.55-1.02); EST Glomerular Filtration Rate 78 mL/min (>60); Est Glom Filt Rate - Afr Amer 95 mL/min (>60); Globulin 3.3 g/dL (2.2-4.2); Glucose 93 mg/dL (74-106); Potassium 3.8 mmol/L (3.5-5.1); Sodium Level 140 mmol/L (136-145)
--- OUTSIDE RECORDS SUMMARY | 2023-12-07 18:14 | XMS RPT_ITS | CCD ---
Author Name Unknown Address [address] [place] [address] Organization [facility] Care Team Providers [facility] [place] Driver Name Role Phone Wood, Pratima L Unavailable Unavailable Rios, Christopher Unavailable Unavailable Wood, Pratima L Unavailable Unavailable Rios, Christopher Unavailable Unavailable Wood, Pratima L Unavailable Unavailable Wood, Pratima L Unavailable Unavailable Rios, Christopher Unavailable Unavailable Wood, Pratima L Unavailable Unavailable Wood, Pratima L Unavailable Unavailable Rios, Christopher Unavailable Unavailable Wood, Pratima L Unavailable Unavailable Wood, Pratima L Unavailable Unavailable Rios, Christopher Unavailable Unavailable Wood, Pratima L Unavailable Unavailable Wood, Pratima L Unavailable Unavailable Rios, Christopher Unavailable Unavailable Wood, Pratima Unavailable Unavailable Wood, Pratima L Unavailable Unavailable Rios, Christopher Unavailable Unavailable Wood, Pratima Unavailable Unavailable Rios, Christopher D Unavailable Unavailable Wood, Pratima L Unavailable Unavailable Rios, Christopher D Unavailable Unavailable Unavailable Ms. Pratima Cervantes Attending Unav ailable Wood, Ms. Pratima Dobbins Referring Unav ailable RiosRobert guevara Primary Care Unavaila blayne StenOwen jaquez Attending Unavailab le StencelOwen Referring Unavailab le Robert Rios Primary Care Unavaila ble Robert Rios MD Unavailable Pratima Torres Primary Care Provider BILLY PRATIMA L Primary Care Unavailable WOOD, PRATIMA L Attending Unavailable WOOD, PRATIMA L Primary Care Unavailable WOOD, PRATIMA L Attending Unavailable WOOD, PRATIMA L Primary Care Unavailable WOOD, PRATIMA L Referring Unavailable WOOD, PRATIMA L Primary Care Unavailable WOOD, PRATIMA L Referring Unavailable WOOD, PRATIMA L Primary Care Unavailable Allergies Allergy Classification Reported Allergen(s) Allergy Type Date of Onset Reaction(s) Facility Angiotensin Converting Enzyme (ABIGAIL) Inhibitors (1 source) Lisinopril; Translations: [Lisinopril TABS] [place] [facility] [place]: Doxycycline (1 source) Doxycycline; Translations: [doxycycline] [place] [facility] [place]: Penicillins (antibiotic) (1 source) Amoxicillin; Translations: [Amoxicillin TABS] [place] [facility] [place]: (19 sources) Doxycycline; Translations: [doxycycline] Drug Allergy 07-15-2023 Unknown [facility] Repository (7 sources) Lisinopril; Translations: [lisinopril] Drug Allergy 07-15-2023 Unknown [facility] (12 sources) Lisinopril; Translations: [Lisinopril TABS] [place] [facility] [place]: (11 sources) Amoxicillin; Translations: [Amoxicillin TABS] Drug Allergy 07-15-2023 Unknown [facility] (3 sources) Amoxicillin; Translations: [AMOXICILLIN] Drug Allergy 07-15-2023 [facility] Repository Medications Current Medications Medication Drug Class(es) Dates Sig (Normalized) Sig (Original) alendronic acid 70 mg oral tablet (13 sources) Bisphosphonate Start: 11-14-2019 End: 08-26-2024 alendronate (Fosamax) 70 mg tablet Indications: Hypertension, unspecified type , Osteopenia, unspecified location Take 1 tablet (70 mg) by mouth every 7 days. 12 tablet 3 08/27/2023 08/26/2024 Active Completed/Discontinued Medications Medication Drug Class(es) Dates Sig (Normalized) Sig (Original) acetaminophen 33.3 mg/ml / diphenhydrAMINE hydrochloride 1.67 mg/ml oral solution (13 sources) Histamine-1 Receptor Antagonist take 30 mL by mouth at bedtime Tylenol PM Extra Strength 1000-50 MG/30ML LIQD TAKE 30 ML AT BEDTIME. Quantity: 0 Refills: 0 Ordered: 18-Aug-2019 DO Active chondroitin sulfates 200 mg / glucosamine hydrochloride 250 mg oral tablet (13 sources) Glucosamine Chondroitin TABS Take 1 tablet daily Quantity: 0 Refills: 0 Ordered: 18-Aug-2019 DO Active Multi Vitamin Oral Tablet (5 sources) take 1 tablet by mouth once daily Multi Vitamin Oral Tablet TAKE 1 TABLET DAILY. Refills: 0 DO Active Problems Active Problems Problem Classification Problem Date Documented Da te Episodic/Chronic Essential hypertension (19 sources) Hypertensive disorder; Translations: [Unspecified essential hypertension] Onset: 07-15-2023 08-27-2023 Chronic Genitourinary symptoms and ill-defined conditions (3 sources) Dysuria; Translations: [Dysuria] Episodic Other connective tissue disease (4 sources) Pain of right calf; Translations: [Pain in right lower leg] Onset: 11-25-2023 11-25-2023 Episodic Other connective tissue disease (4 sources) Pain in right lower leg; Translations: [Pain in right lower leg] Onset: 11-25-2023 Episodic Other nutritional; endocrine; and metabolic disorders (3 sources) Obesity; Translations: [Obesity, unspecified] Chronic Other screening for suspected conditions (not mental disorders or infectious disease) (10 sources) Encounter for screening for lipoid disorders; Translations: [Encounter for screening mammogram for malignant neoplasm of breast] Onset: 08-27-2023 Episodic Phlebitis; thrombophlebitis and thromboembolism (20 sources) Phlebitis; Translations: [Thrombophlebitis of superficial veins of lower extremity] Onset: 11-25-2023 Resolved: 08-28-2022 11-25-2023 Episodic Residual codes; unclassified (6 sources) Menopause present; Translations: [Symptomatic menopausal or female climacteric states] Episodic Rheumatoid arthritis and related disease (17 sources) Rheumatoid arthritis; Translations: [Rheumatoid arthritis] Onset: 07-15-2023 08-27-2023 Chronic Skin and subcutaneous tissue infections (6 sources) Cellulitis; Translations: [Cellulitis and abscess of unspecified sites] Episodic Past or Other Problems Problem Classification Problem Date Documented Da te Episodic/Chronic Immunizations and screening for infectious disease (20 sources) Patient encounter status; Translations: [Need for prophylactic vaccination and inoculation against unspecified single disease] Onset: 08-27-2023 08-27-2023 Episodic Nutritional deficiencies (8 sources) Cobalamin deficiency; Translations: [Deficiency of other specified B group vitamins] Onset: 08-27-2023 08-27-2023 Episodic Other bone disease and musculoskeletal deformities (17 sources) Osteopenia; Translations: [Disorder of bone and cartilage, unspecified] Onset: 07-15-2023 08-27-2023 Episodic Other bone disease and musculoskeletal deformities (2 sources) Other specified disorders of bone density and structure, unspecified site; Translations: [Other specified disorders of bone density and structure, unspecified site] Onset: 07-15-2023 Episodic Other liver diseases (3 sources) Elevated levels of transaminase & lactic acid dehydrogenase; Translations: [Nonspecific elevation of levels of transaminase or lactic acid dehydrogenase (LDH)] Onset: 03-18-2007 Resolved: 08-27-2023 08-27-2023 Episodic Other skin disorders (9 sources) Swelling of lower leg; Translations: [Swelling of limb] Resolved: 08-28-2022 Episodic Unclassified (15 sources) Patient encounter status; Translations: [Screening for diabetes mellitus] Unclassified (3 sources) Onset: 08-27-2023 Resolved: 11-25-2023 08-27-2023 Viral infection (4 sources) Herpes zoster without complication; Translations: [Herpes zoster without mention of complication] Resolved: 08-28-2022 Episodic NEGATED: Highlighted row has not occurred!Residual codes; unclassified (5 sources) Disease Episodic Results Test Name Value Interpretation Reference Range Facil ity Vital Signs Date Time Vital Sign Value Performing Clinician Lewis sun 08-27-2023 09:16-0500 Body height 162.6 cm Pratima Cervantes [employer] TECHNICIAN-PSYCHIATRY RESIDENT Work Phone: [facility] 08-27-2023 09:16-0500 Body mass index (BMI) [Ratio] 33.66 kg/m2 Pratima Cervantes [employer] TECHNICIAN-PSYCHIATRY RESIDENT Work Phone: [facility] 08-27-2023 09:16-0500 Body weight 88.95 kg Pratima Billy [employer] TECHNICIAN-PSYCHIATRY RESIDENT Work Phone: [facility] 08-27-2023 09:16-0500 Diastolic blood pressure 82 mm[Hg] Pratima Cervantes [employer] TECHNICIAN-PSYCHIATRY RESIDENT Work Phone: [facility] 08-27-2023 09:16-0500 Heart rate 91 /min Pratima Billy [employer] TECHNICIAN-PSYCHIATRY RESIDENT Work Phone: [facility] 08-27-2023 09:16-0500 SaO2% (BldA) [Mass fraction] 96 % Pratima SEN Work Phone: [facility] 08-27-2023 09:16-0500 Systolic blood pressure 136 mm[Hg] Pratima SEN Work Phone: [facility] 08-28-2022 10:15-0500 Body height 162.56 cm Robert Rios Work Phone: [facility] Work Phone: 08-28-2022 10:15-0500 Body mass index (BMI) [Ratio] 34.54 kg/m2 Robert Rios Work Phone: [facility] Work Phone: 08-28-2022 10:15-0500 Body surface area Derived from formula 1.96 m2 Robert Rios Work Phone: [facility] Work Phone: 08-28-2022 10:15-0500 Body weight 91.29 kg Robert Rios Work Phone: [facility] Work Phone: 08-28-2022 10:15-0500 Diastolic blood pressure 78 mm[Hg] Robert Rios Work Phone: [facility] Work Phone: 08-28-2022 10:15-0500 Heart rate 95 /min Robert Rios Work Phone: [facility] Work Phone: 08-28-2022 10:15-0500 SaO2% (BldA) [Mass fraction] 98 % Robert Rios Work Phone: [facility] Work Phone: 08-28-2022 10:15-0500 Systolic blood pressure 116 mm[Hg] Robert Rios Work Phone: [facility] Work Phone: 12-16-2021 08:56-0500 Body height 162.56 cm Robert Rios Work Phone: [facility] Work Phone: 12-16-2021 08:56-0500 Body mass index (BMI) [Ratio] 34.91 kg/m2 Robert Rios Work Phone: [facility] Work Phone: 12-16-2021 08:56-0500 Body surface area Derived from formula 1.97 m2 Robert Rios Work Phone: [facility] Work Phone: 12-16-2021 08:56-0500 Body weight 92.25 kg Robert Rios Work Phone: [facility] Work Phone: 12-16-2021 08:56-0500 Diastolic blood pressure 66 mm[Hg] Robert Rios Work Phone: [facility] Work Phone: 12-16-2021 08:56-0500 Heart rate 95 /min Robert Rios Work Phone: [facility] Work Phone: 12-16-2021 08:56-0500 SaO2% (BldA) [Mass fraction] 98 % Robert Rios Work Phone: [facility] Work Phone: 12-16-2021 08:56-0500 Systolic blood pressure 152 mm[Hg] Robert Rios Work Phone: [facility] Work Phone: 08-29-2021 09:33-0500 Body height 162.56 cm Robert Rios Work Phone: [facility] Work Phone: 08-29-2021 09:33-0500 Body mass index (BMI) [Ratio] 34.72 kg/m2 Robert Rios Work Phone: [facility] Work Phone: 08-29-2021 09:33-0500 Body surface area Derived from formula 1.97 m2 Robert Rios Work Phone: [facility] Work Phone: 08-29-2021 09:33-0500 Body temperature 96.9 [degF] Robert Rios Work Phone: [facility] Work Phone: 08-29-2021 09:33-0500 Body weight 91.74 kg Robert Rios Work Phone: [facility] Work Phone: 08-29-2021 09:33-0500 Diastolic blood pressure 68 mm[Hg] Robert Rios Work Phone: [facility] Work Phone: 08-29-2021 09:33-0500 Heart rate 80 /min Robert Rios Work Phone: [facility] Work Phone: 08-29-2021 09:33-0500 SaO2% (BldA) [Mass fraction] 95 % Robert Rios Work Phone: [facility] Work Phone: 08-29-2021 09:33-0500 Systolic blood pressure 118 mm[Hg] Robert Rios Work Phone: [facility] Work Phone: 08-07-2020 11:26-0400 BMI (Body Mass Index) 32.61 kg/m2 Robert Rios [facility] Work Phone: 08-07-2020 11:26-0400 Body Temperature 96.9 [degF] Robert Rios [facility] Work Phone: 08-07-2020 11:26-0400 Body weight 86.18 kg Robert Rios -[facility] Work Phone: 08-07-2020 11:26-0400 BP Diastolic 64 mm[Hg] Robert Rios [facility] Work Phone: 08-07-2020 11:26-0400 BP Systolic 130 mm[Hg] Robert Rios -[facility] Work Phone: 08-07-2020 11:26-0400 BSA (Body Surface Area) 1.91 m2 Robert Rios -[facility] Work Phone: 08-07-2020 11:26-0400 Height 162.56 cm Robert Rios -[facility] Work Phone: 08-07-2020 11:26-0400 Pulse (Heart Rate) 88 /min Robert Rios -[facility] Work Phone: 08-07-2020 11:26-0400 Pulse Oximetry 98 % Robert Rios -[facility] Work Phone: 10-27-2019 10:54-0500 BMI (Body Mass Index) 33.48 kg/m2 Pratima Cervantes [facility] Work Phone: 10-27-2019 10:54-0500 Body weight 88.48 kg Pratima Cervantes -[facility] Work Phone: 10-27-2019 10:54-0500 BP Diastolic 68 mm[Hg] Pratima Cervantes [facility] Work Phone: Encounters Encounter Date Encounter Type Care Provider Facility Start: 11-25-2023 End: 11-26-2023 ambulatory PRATIMA Shreya [facility] Ambulatory Start: 11-25-2023 End: 11-25-2023 Subsequent hospital visit by physician Yaw De Santiago 2 [facility] Procedures Date Procedure Procedure Detail Performing Clinician Start: 11-25-2023 VASC US LOWER EXTREM ITY VENOUS DUPLEX RIGHT PRATIMA CERVANTES Start: 11-25-2023 Dup-scan xtr veins unilateral/limited study Pratima Cervantes [employer] TECHNICIAN-PSYCHIATRY RESIDENT Work Phone: Start: 10-19-2023 BI MAMMO BILATERAL SCREENING TOMOSYNTHESIS PRATIMA CERVANTES Start: 10-19-2023 Mammography [facility] Start: 09-22-2023 Cyanocobalamin vitamin b-12 PRATIMA CERVANTES Start: 09-22-2023 Lipid panel PRATIMA Patten OOD Start: 09-22-2023 Lipid 1996 panel - S amanda or Plasma [facility] 2 Start: 08-27-2023 Lipid panel PRATIMA Patten OOD Start: 08-27-2023 Cyanocobalamin vitamin b-12 PRATIMA CERVANTES Start: 10-16-2022 Mammography Pratima Patten ood [employer] TECHNICIAN-PSYCHIATRY RESIDENT Work Phone: Start: 08-22-2019 Assay of thyroid stimulating hormone tsh Pratima Cervantes Start: 08-22-2019 Comprehensive metabo lic 2000 panel Pratima Cervantes Start: 08-22-2019 Dxa bone density bernardo dy axial skeleton Pratima Cervantes Start: 08-22-2019 Hemoglobin glycosylated a1c Pratima Cervantes Start: 08-22-2019 Lipid panel Pratima Patten ood Start: 08-22-2019 MG Breast screening Jose Cervantes Start: 08-22-2019 Xray Bone Density, D exa 1 or More Sites Pratima Cervantes Start: 09-25-2017 Colonoscopy Pratima Patten ood [employer] TECHNICIAN-PSYCHIATRY RESIDENT Work Phone: Start: 09-25-2017 Colonoscopy Charanjit Rios Work Phone: Appendectomy Pratima Cervantes Ligation of fallopian tube V ictelieser Billy Lumpectomy of breast Tylor bullock Billy Plan of Treatment Date Care Activity Detail Author Start: 09-22-2028 Lipid panel Lipid Panel [facility] Start: 09-25-2027 Screening for malign ant neoplasm of colon [facility] Start: 10-19-2024 Screening for malign ant neoplasm of breast Mammogram [facility] Start: 08-29-2024 End: 08-29-2024 Patient encounter procedure 08/29/2024 9:20 AM EST Office Visit [facility] [address] [place] [id number] Pratima Cervantes, [employer] TECHNICIAN-PSYCHIATRY RESIDENT [address] [place] [address] [facility] Start: 08-28-2024 Medicare Annual Well ness Visit Medicare Annual Wellness Visit (AWV) [facility] Start: 10-19-2023 End: 10-19-2023 Professional / ancillary services management 10/19/2023 9:30 AM EST Ancillary Procedure [facility] [address] [facility] [address] [place] [id number] [facility] Start: 10-16-2023 Screening for malign ant neoplasm of breast Mammogram [facility] Start: 08-29-2023 Medicare Annual Well ness Visit Medicare Annual Wellness Visit (AWV) [facility] Start: 08-27-2023 End: 08-27-2024 Cobalamin (Vitamin B12) [Mass/volume] in Serum or Plasma Vitamin B12 Lab Routine Vitamin B12 deficiency Expected: 08/27/2023 (Approximate), Expires: 08/27/2024 [facility] Work Phone: Immunizations Immunization Date Immunization Notes Care Provider Fa cility 11-04-2023 RSV, 60 Years And Older (AREXVY) Yaw 2 [facility] Work Phone: 07-15-2023 Pneumococcal conjuga te vaccine, 20-valent (PREVNAR 20) Pratima Cervantes [employer] TECHNICIAN-PSYCHIATRY RESIDENT Work Phone: [facility] Work Phone: 10-23-2022 zoster vaccine recombinant Pratima Cervantes [employer] TECHNICIAN-PSYCHIATRY RESIDENT Work Phone: [facility] 10-23-2022 Shingrix, PF, 50 mcg/0.5 mL vaccine Pratima Billy [employer] BR[employer]GE TECHNICIAN-PSYCHIATRY RESIDENT Work Phone: [facility] Work Phone: 08-14-2022 zoster vaccine recombinant Robert Rios Work Phone: [facility] 09-11-2021 Moderna COVID-19 Vaccine 100 MCG/0.5ML Intramuscular Suspension Robert Rios Work Phone: [facility] Work Phone: Payers Date Payer Category Payer Private Health Insurance 2018 Medicare 2018 Private Health Insurance [id number] 2017 Unknown 1955 Unknown [id number] 2.16.84 [id number] 1953 Unknown [id number] 2.16.84 [id number]. 1953 Unknown [id number] 2.16.84 [id number]. 1953 Unknown [id number] 2.16.84 [id number]. 1953 Unknown [id number] 2.16.84 [id number]. 1953 Unknown [id number] 2.16.84 [id number]. 1953 Unknown [id number] 2.16. [id number] 1955 Unknown [id number] 2.16. [id number] 1953 Unknown [id number] 2.16.8 [id number] 1953 Unknown [id number] 2.16.8 [id number] 1953 Unknown [id number] 2.16.8 [id number] 1953 Unknown [id number] 2.16.84 [id number] 1955 Unknown [id number] 2.16.84 [id number] Social History Date Type Detail Facility Start: 11-25-2023 Never chewed tobacco Never chewed to bacco [facility] Work Phone: Start: 08-27-2023 Tobacco smoking status NHIS Never smoked tobacco [facility] Work Phone: Start: 08-27-2023 Tobacco use and exposure Smokeless tobacco non-user [facility] Work Phone: Start: 08-27-2023 End: 11-25-2023 Alcohol intake Lifetime non-drinker (finding) [facility] Work Phone: Start: 1955 Sex Assigned At Not on file [facility] Work Phone: Start: 11-25-2023 Gender identity Not on file [facility] Work Phone: Start: 08-17-2023 End: 11-25-2023 Exposure to SARS-CoV-2 (event) Not sure [facility] NEGATED: Highlighted row - - -[employer] [facility] Work Phone: Functional Status Date Assessment Result Facility NEGATED: Highlighted row Functional performance Functional status health issues are not documented Disease [facility] Work Phone: Mental Status Date Assessment Result Facility NEGATED: Highlighted row Cognitive function [Interpretation] Cognitive status health issues are not documented Disease [facility] Work Phone: History of Present illness Narrative 08-27-2023 MCKINLEY Bhagat - 08/27/2023 9:20 AM EST Note Date & Type Note Facility 08-27-2023 History of Present illness Narrative Subjective Reason for Visit: Kelly Garcia is an 68 y.o. female here for a Medicare Wellness visit. Past Medical, Surgical, and Family History reviewed and updated in chart. Reviewed all medications by prescribing practitioner or clinical pharmacist (such as prescriptions, OTCs, herbal therapies and supplements) and documented in the medical record. Kelly comes to office for a 1Y OV & medication refills. Labs from June 2023: WBC 6.3, H&H 12.4-38.5, platelets 238, potassium 3.8, sodium 138, glucose 94, GFR 66, creatinine 0.89, AST 25, ALT 31, alk phos 76. Shingles vaccine series completed. Completed pneumococcal vaccinations. Recommend yrly influenza vaccination no surgeries or hospitalizations within the last year; lost 5# since last OV Colorectal cancer screening: Colonoscopy in 2017 normal; repeat 10Y. Denies melena, change in bowel habits, abdominal pain. Breast cancer screening: MMG ordered today. Last MMG 10/2021 bi-rads 2 RA- left shoulder bother her @ times cold weather makes it worse. Both knees have been hurting and getting viscosupplementation injections which help for awhile. Previously on Tramadol & didn't help. No NSAIDS, infreq use of Tylenol. Hypertension-takes and tolerates medication without problem. Denies headache, dizziness, lightheaded or syncopal episodes. Blood pressure normotensive in office today. Home blood pressure readings: infreq CKs & runs 130/80's. DEXA 2021, on fosamax; naga next yr Sleep: some days better than others. Moods: OK, lost mother in Nov. Patient Care Team: Pratima Cervantes APRN-TRINH as PCP - General (Family Medicine) Robert Rios MD as PCP - [employer] PCP Review of Systems Constitutional: Negative for fatigue. Gastrointestinal: Negative for abdominal pain, blood in stool, constipation, diarrhea, nausea and vomiting. Genitourinary: No recent UTI's Musculoskeletal: Positive for arthralgias. Negative for back pain, neck pain and neck stiffness. L Shoulder & both knees Psychiatric/Behavioral: Negative for dysphoric mood and sleep disturbance. The patient is not nervous/anxious. Objective Vitals: BP 136/82 Pulse 91 Ht 1.626 m (5' 4 ) Wt 89 kg (196 lb 1.6 oz) SpO2 96% BMI 33.66 kg/m Physical Exam Vitals and nursing note reviewed. Constitutional: Appearance: Normal appearance. HENT: Head: Normocephalic. Neck: Thyroid: No thyromegaly. Cardiovascular: Rate and Rhythm: Normal rate and regular rhythm. Heart sounds: Normal heart sounds. Pulmonary: Effort: Pulmonary effort is normal. Breath sounds: Normal breath sounds. Abdominal: General: Abdomen is protuberant. Bowel sounds are normal. Palpations: Abdomen is soft. Tenderness: There is no abdominal tenderness. Musculoskeletal: Right lower leg: No edema. Left lower leg: No edema. Lymphadenopathy: Cervical: No cervical adenopathy. Skin: General: Skin is warm and dry. Neurological: General: No focal deficit present. Mental Status: She is alert and oriented to person, place, and time. Psychiatric: Mood and Affect: Mood normal. Thought Content: Thought content normal. Assessment/Plan Problem List Items Addressed This Visit Hypertension Relevant Medications alendronate (Fosamax) 70 mg tablet olmesartan-hydrochlorothiazide (BENIcar HCT) 40-12.5 mg tablet Other Relevant Orders Follow Up In Primary Care - Established Osteopenia Relevant Medications alendronate (Fosamax) 70 mg tablet Other Relevant Orders Follow Up In Primary Care - Established Rheumatoid arthritis ([facility]/HCC) Vitamin B12 deficiency Overview Check B12 level with next blood draw Relevant Orders Vitamin B12 Screening, lipid - Primary Overview Schedule mammogram Relevant Orders Lipid Panel documented in this encounter [facility] Work Phone: Instructions 08-27-2023 Patient Instructions Note Date & Type Note Facility 08-27-2023 Instructions MCKINLEY Bhagat - 08/27/2023 9:20 AM EST Office visit in 1 year with blood work prior to include B12 and lipid panel. 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 Continue to check blood pressure periodically and recommend getting your yearly influenza vaccination and your RSV vaccine. Schedule mammography for this year and we will check a DEXA scan next year documented in this encounter [facility] Work Phone: Evaluation note Note Date & Type Note Facility documented in this encounter [facility] Work Phone: Evaluation note Note Date & Type Note Facility documented in this encounter [facility] Work Phone: History of Present illness Narrative Note Date & Type Note Facility History of Present illness Narrative The patient is being seen for the subsequent annual wellness visit.Past Medical, Surgical and Family History: reviewed and updated in chart.Interval History: Patient has not been hospitalized previously.Medications and Supplements: Medications and supplements, including calcium and vitamins reviewed and updated in chart.No, the patient is not using opioids.Patient Self Assessment of Health Status: excellent.Tobacco use: Non-UserAlcohol use: Non-UserIllicit drug use: Non-UserCurrent diet: well balanced diet.Exercise Frequency: regularly.Depression/Suicide Screening: .During the past 2 weeks, the patient has not felt down, depressed or hopeless.During the past 2 weeks, the patient has not felt little interest or pleasure in doing things.Hearing Impairment: none.Cognitive Impairment: No cognitive impairment observed.Bathing: performs independently.Dressing: performs independently.Walking: performs independently.Managing Finances: performs independently.Shopping: performs independently.Managing Medications: performs independently.Housework / Basic Home Maintenance: performs independently.Falls Risk Screening:. KELLY has not fallen in the last 6 months.Home safety risk factors: none.Esther comes to the office for a 1 year check on hypertension, RA and osteopenia.Hypertension -NSAID use \{ - \}, NA intake \{ - \}, OTC cold remedies \{ - \}, smoking \{ - \}, Alcohol \{ - \}, physical activity \{ + \}blurred/double vision \{ - \}, lightheadness \{ - \}, dizziness \{ - \}, previous syncopal episodes \{ - \}, headache \{ - \}, chest pain \{ - \}, palpations \{ - \}, SOB \{ - \}Checking BP @ home \{ + \} - SBP ranges: 120 DBP Ranges: 70-80Taking medication as prescribed: \{ + \}, omitted doses \{ - \}; creat: 0.78,gfr 78ml/min, BUN:15 from ast eye examination: <1YRA follows w/ Vellanki; not taking Tramadol @ all. Takes Tylenol as neededPneumonia vaccines fl-zy-[id number] cancer screening- due. I FOBT June 2021 normal.Breast cancer screening-due next month. Last mammogram 09/30/2020.Osteopenia L femur--started on Fosamax taking and tolerating medication well. On vitamin D supplementation daily. Physical activity: walking dog 3x/D, active outdoors. No falls. No pain or difficultly w/ swallowing. Last DEXA 2Y ago. Reports an improvement in left hip pain since starting on Fosamax.+ dysuria/freq/pressure. IO UA: normal. [employer] [facility] Work Phone: History of Present illness Narrative Note Date & Type Note Facility History of Present illness Narrative onset 3 d rash right lower lumbar radiating to hip. Moderate burning pain. Discussed options for analgesia none were prescribed. Reviewed cellulitis, candidate fo immunization postherpetic neuralgia [employer] [facility] Work Phone: History of Present illness Narrative Note Date & Type Note Facility History of Present illness Narrative The patient is being seen for the subsequent annual wellness visit.Past Medical, Surgical and Family History: reviewed and updated in chart.Interval History: Patient has not been hospitalized previously.Medications and Supplements: Review of all medications by a prescribing practitioner or clinical pharmacist (such as prescriptions, OTCs, herbal therapies and supplements) documented in the medical record.No, the patient is not using opioids.Patient Self Assessment of Health Status: good.Tobacco use: Non-UserAlcohol use: Non-UserIllicit drug use: Non-UserCurrent diet: well balanced diet.Exercise Frequency: the patient does not exercise.Depression/Suicide Screening: .During the past 2 weeks, the patient has not felt down, depressed or hopeless.During the past 2 weeks, the patient has not felt little interest or pleasure in doing things.Hearing Impairment: none.Cognitive Impairment: No cognitive impairment observed.Bathing: performs independently.Dressing: performs independently.Walking: performs independently.Managing Finances: performs independently.Shopping: performs independently.Managing Medications: performs independently.Housework / Basic Home Maintenance: performs independently.Falls Risk Screening:. KELLY has not fallen in the last 6 months.Home safety risk factors: none.Advance directives:. Advanced Care Planning discussed and documented advance care plan or surrogate decision maker documented in the medical record. Patient has living will. Patient has healthcare POA.Kelly comes to office for a 1Y OV & medication refills.Had Shingles earlier in yr. Recovered. Just received her first Shingles vaccine.no surgeries or hospitalizations within the last yearColorectal cancer screening: Colonoscopy in 2017 normal; repeat 10Y. Denies melena, change in bowel habits, abdominal pain.Breast cancer screening: MMG UTDRA- left shoulder bother her @ times cold weather makes it worse. Both knees have been hurting and has had bilateral steroid injections which offered little relief. Was to get viscosupplementation injections however insurance did not cover.Hypertension-takes and tolerates medication without problem. Denies headache, dizziness, lightheaded or syncopal episodes. Blood pressure normotensive in office today. [facility] Work Phone: History of Present illness Narrative Note Date & Type Note Facility History of Present illness Narrative The patient is being seen for the subsequent annual wellness visit.Past Medical, Surgical and Family History: reviewed and updated in chart.Interval History: Patient has not been hospitalized previously.Medications and Supplements: Review of all medications by a prescribing practitioner or clinical pharmacist (such as prescriptions, OTCs, herbal therapies and supplements) documented in the medical record.No, the patient is not using opioids.Patient Self Assessment of Health Status: good.Tobacco use: Non-UserAlcohol use: Non-UserIllicit drug use: Non-UserCurrent diet: well balanced diet.Exercise Frequency: the patient does not exercise.Depression/Suicide Screening: .During the past 2 weeks, the patient has not felt down, depressed or hopeless.During the past 2 weeks, the patient has not felt little interest or pleasure in doing things.Hearing Impairment: none.Cognitive Impairment: No cognitive impairment observed.Bathing: performs independently.Dressing: performs independently.Walking: performs independently.Managing Finances: performs independently.Shopping: performs independently.Managing Medications: performs independently.Housework / Basic Home Maintenance: performs independently.Falls Risk Screening:. KELLY has not fallen in the last 6 months.Home safety risk factors: none.Advance directives:. Advanced Care Planning discussed and documented advance care plan or surrogate decision maker documented in the medical record. Patient has living will. Patient has healthcare POA.Kelly comes to office for a 1Y OV & medication refills.Had Shingles earlier in yr. Recovered. Just received her first Shingles vaccine.no surgeries or hospitalizations within the last yearColorectal cancer screening: Colonoscopy in 2017 normal; repeat 10Y. Denies melena, change in bowel habits, abdominal pain.Breast cancer screening: MMG UTDRA- left shoulder bother her @ times cold weather makes it worse. Both knees have been hurting and has had bilateral steroid injections which offered little relief. Was to get viscosupplementation injections however insurance did not cover.Hypertension-takes and tolerates medication without problem. Denies headache, dizziness, lightheaded or syncopal episodes. Blood pressure normotensive in office today. [facility] Work Phone: Reason for referral (narrative) Consultation (Routine) - Authorized Note Date & Type Note Facility Referral ID Status Reason Start Date Expiration Date V isits Requested Visits Authorized [id number] Authorized 08/27/2023 08/26/2024 1 1 * Imaging (Routine) - Authorized Specialty Diagnoses / Procedures Referred By Nusrat garces Referred To Contact Radiology Diagnoses Breast cancer screening by mammogram Procedures BI mammo bilateral screening tomosynthesis Pratima Cervantes APRN-CNP [address] [place] [address] Referral ID Status Reason Start Date Expiration Date Visits Requested Visits Authorized [id number] Authorized Perform Procedure 3 08/26/2024 1 1 [facility] Work Phone: Summary Purpose Family History No Family History Records Found Mother Name Dates Details Family history of hypertensi on(V17.49, Z82.49) Status:Active Family history of S/P CABG ( coronary artery bypass graft)(V45.81, Z95.1) Status:Active Father Name Dates Details Family history of malignant neoplasm of stomach(V16.0, Z80.0) Status:Active Family history of liver canc er(V16.0, Z80.0) Status:Active Sister Name Dates Details Family history of thyroid di sease(V18.19, Z83.49) Status:Active Mother Name Dates Details Family history of hypertensi on(V17.49, Z82.49) Status:Active Family history of S/P CABG ( coronary artery bypass graft)(V45.81, Z95.1) Status:Active Father Name Dates Details Family history of malignant neoplasm of stomach(V16.0, Z80.0) Status:Active Family history of liver canc er(V16.0, Z80.0) Status:Active Sister Name Dates Details Family history of thyroid di sease(V18.19, Z83.49) Status:Active Mother Name Dates Details Family history of hypertensi on(V17.49, Z82.49) Status:Active Family history of S/P CABG ( coronary artery bypass graft)(V45.81, Z95.1) Status:Active Father Name Dates Details Family history of malignant neoplasm of stomach(V16.0, Z80.0) Status:Active Family history of liver canc er(V16.0, Z80.0) Status:Active Sister Name Dates Details Family history of thyroid di sease(V18.19, Z83.49) Status:Active Mother Name Dates Details Family history of hypertensi on(V17.49, Z82.49) Status:Active Family history of S/P CABG ( coronary artery bypass graft)(V45.81, Z95.1) Status:Active Father Name Dates Details Family history of malignant neoplasm of stomach(V16.0, Z80.0) Status:Active Family history of liver canc er(V16.0, Z80.0) Status:Active Sister Name Dates Details Family history of thyroid di sease(V18.19, Z83.49) Status:Active Mother Name Dates Details Family history of hypertensi on(V17.49, Z82.49) Status:Active Family history of S/P CABG ( coronary artery bypass graft)(V45.81, Z95.1) Status:Active Father Name Dates Details Family history of malignant neoplasm of stomach(V16.0, Z80.0) Status:Active Family history of liver canc er(V16.0, Z80.0) Status:Active Sister Name Dates Details Family history of thyroid di sease(V18.19, Z83.49) Status:Active Unknown Family Member Name Dates Details Family history of hypertensi on: Mother(V17.49, Z82.49) Status:Active S/P CABG (coronary artery by pass graft): Mother(V45.81, Z95.1) Status:Active Family history of malignant neoplasm of stomach: Father(V16.0, Z80.0) Status:Active Family history of liver canc er: Father(V16.0, Z80.0) Status:Active Family history of thyroid di sease: Sister(V18.19, Z83.49) Status:Active Unknown Family Member Name Dates Details Family history of hypertensi on: Mother(V17.49, Z82.49) Status:Active S/P CABG (coronary artery by pass graft): Mother(V45.81, Z95.1) Status:Active Family history of malignant neoplasm of stomach: Father(V16.0, Z80.0) Status:Active Family history of liver canc er: Father(V16.0, Z80.0) Status:Active Family history of thyroid di sease: Sister(V18.19, Z83.49) Status:Active Unknown Family Member Name Dates Details Family history of hypertensi on: Mother(V17.49, Z82.49) Status:Active S/P CABG (coronary artery by pass graft): Mother(V45.81, Z95.1) Status:Active Family history of malignant neoplasm of stomach: Father(V16.0, Z80.0) Status:Active Family history of liver canc er: Father(V16.0, Z80.0) Status:Active Family history of thyroid di sease: Sister(V18.19, Z83.49) Status:Active Unknown Family Member Name Dates Details Family history of thyroid di sease: Sister(V18.19, Z83.49) Status:Active Family history of liver canc er: Father(V16.0, Z80.0) Status:Active Family history of malignant neoplasm of stomach: Father(V16.0, Z80.0) Status:Active S/P CABG (coronary artery by pass graft): Mother(V45.81, Z95.1) Status:Active Family history of hypertensi on: Mother(V17.49, Z82.49) Status:Active Unknown Family Member Name Dates Details Family history of hypertensi on: Mother(V17.49, Z82.49) Status:Active S/P CABG (coronary artery by pass graft): Mother(V45.81, Z95.1) Status:Active Family history of malignant neoplasm of stomach: Father(V16.0, Z80.0) Status:Active Family history of liver canc er: Father(V16.0, Z80.0) Status:Active Family history of thyroid di sease: Sister(V18.19, Z83.49) Status:Active Unknown Family Member Name Dates Details Family history of hypertensi on: Mother(V17.49, Z82.49) Status:Active S/P CABG (coronary artery by pass graft): Mother(V45.81, Z95.1) Status:Active Family history of malignant neoplasm of stomach: Father(V16.0, Z80.0) Status:Active Family history of liver canc er: Father(V16.0, Z80.0) Status:Active Family history of thyroid di sease: Sister(V18.19, Z83.49) Status:Active Unknown Family Member Name Dates Details Family history of hypertensi on: Mother(V17.49, Z82.49) Status:Active S/P CABG (coronary artery by pass graft): Mother(V45.81, Z95.1) Status:Active Family history of malignant neoplasm of stomach: Father(V16.0, Z80.0) Status:Active Family history of liver canc er: Father(V16.0, Z80.0) Status:Active Family history of thyroid di sease: Sister(V18.19, Z83.49) Status:Active Unknown Family Member Name Dates Details Family history of hypertensi on: Mother(V17.49, Z82.49) Status:Active S/P CABG (coronary artery by pass graft): Mother(V45.81, Z95.1) Status:Active Family history of malignant neoplasm of stomach: Father(V16.0, Z80.0) Status:Active Family history of liver canc er: Father(V16.0, Z80.0) Status:Active Family history of thyroid di sease: Sister(V18.19, Z83.49) Status:Active Advance Directives No Advanced Directives Records FoundNo Advanced Directives Records FoundNo Advanced Directives Records FoundNo Advanced Directives Records FoundNo Advanced Directives Records FoundNo Advanced Directives Records FoundNo Advanced Directives Records Found Chief Complaint WELLNESSRIGHT LOW BACK RASH/BLISTERS X 3 DAYSMEDICARE WELLNESSMEDICARE WELLNESS Reason for Referral Specialty Diagnoses / Procedures Referred By Contac mili Referred To Contact Cardiology Diagnoses Right calf pain Thrombophlebitis of superficial veins of right lower extremity Procedures Vascular US lower extremity venous duplex right Pratima Cervantes, [employer] TECHNICIAN-PSYCHIATRY RESIDENT [address] [place] [address] Referral ID Status Reason Start Date Expiration Date Visits Requested Visits Authorized [id number] Pending Review Perform Procedure 11/25/2023 11/24/2024 1 1 Additional Source Comments INFORMATION SOURCE (unrecogn ized section and content) DATE CREATED AUTHOR AUTHOR'S ORGANIZ ATION 10/16/2021 [facility] DATE CREATED AUTHOR AUTHOR'S ORGANIZ ATION 08/29/2022 [facility] DATE CREATED AUTHOR AUTHOR'S ORGANIZ ATION 08/29/2022 [employer] DATE CREATED AUTHOR AUTHOR'S ORGANIZ ATION 09/28/2023 [facility] [place] DATE CREATED AUTHOR AUTHOR'S ORGANIZ ATION 11/27/2023 [facility] DATE CREATED AUTHOR AUTHOR'S ORGANIZ ATION 11/29/2023 [facility] Reason for Visit (unrecogniz ed section and content) Specialty Diagnoses / Procedures Referred By Contmark garces Referred To Contact Cardiology Diagnoses Right calf pain Thrombophlebitis of superficial veins of right lower extremity Procedures Vascular US lower extremity venous duplex right Pratima Cervantes, [employer] TECHNICIAN-PSYCHIATRY RESIDENT [address] [place] [address] Referral ID Status Reason Start Date Expiration Date Visits Requested Visits Authorized [id number] Pending Review Perform Procedure 11/25/2023 11/24/2024 1 1 Care Teams (unrecognized sec tion and content) River Driver Relationship Specialty Start Date End Date Robert Rios MD [address] [place], [place] [id number] PCP - Human Medicare Advantage PCP 10/12/21 Pratima Cervantes, [employer] TECHNICIAN-PSYCHIATRY RESIDENT [address] [place], [place] [id number] PCP - General Family Medicine 08/27/23 FOR RECORDS PERTAINING TO PATIENTS WHO ARE OR HAVE BEEN ENROLLED IN A CHEMICAL DEPENDENCY/SUBSTANCEABUSE PROGRAM, SOME INFORMATION MAY BE OMITTED. This clinical summary was aggregated from multiple sources. Caution should be exercised in using it in the provision of clinical care. This summary normalizes information from multiple sources, and as a consequence, information in this document may materially change the coding, format and clinical context of patient data. In addition, data may be omitted in some cases. CLINICAL DECISIONS SHOULD BE BASED ON THE PRIMARY CLINICAL RECORDS. [employer] [facility]. provides no warranty or guarantee of the accuracy or completeness of information in this document.
== END | disposition home or self-care (01) ==
PROVIDERS: Referring Provider Internal Medicine Rheumatology; Visit Provider Internal Medicine Rheumatology
DX: M06.4 Inflammatory polyarthropathy (principal); M72.0 Palmar fascial fibromatosis [Dupuytren]; Z79.899 Other long term (current) drug therapy
CPT/HCPCS: 36415; 80053; 85025

== ENCOUNTER → 2024-03-14 | Outpatient (CLI) | payer MEDICARE, SELFPAY ==
[2024-03-14 12:58] LABS: Basophil# 0.03 X10^3/uL; Basophil% 0.6 % (0-1); Eosinophils% 1.9 % (0-5); Hematocrit 38.5 % (37-47); Hemoglobin 12.3 g/dL (12.0-15.0); Lymphocyte % 28.5 % (19-41); Mean Corp Hgb Conc 31.9 g/dL (32-36); Mean Corpuscular Hgb 30.8 pg (27.0-32.0); Mean Corpuscular Volume 96.3 fL (81-99); Mean Platelet Vol. 10.2 fl (6.2-12.0); Monocyte# 0.64 X10^3/uL; Monocyte% 12.1 % (0-10); NRBC Flagged by Analyzer 0 % (0-5); Neutrophil # 2.99 X10^3/uL (2.7-7.7); Neutrophil % 56.7 % (47-70); Platelet Count 267 K/mm3 (150-450); RBC Distribution Width CV 13.2 % (11.6-14.6); RBC Distribution Width SD 46.6 fl (35.1-43.9); White Blood Count 5.3 K/mm3 (4.4-11.0)
[2024-03-14 14:51] LABS: ALB/GLOB Ratio 1.1 RATIO (0.9-2.4); AST(SGOT) 27 U/L (15-37); Alanine Aminotransfer ALT/SGPT 27 U/L (13-56); Albumin, Serum 3.5 g/dL (3.2-5.0); Alkaline Phosphatase 80 U/L (45-117); Anion Gap 5 (5-15); BUN 17 mg/dL (7-18); BUN/Creat Ratio 22.6 RATIO (10-20); Calcium,Total 9.3 mg/dL (8.5-10.1); Chloride 106 mmol/L (98-107); Creatinine, Serum 0.75 mg/dL (0.55-1.02); EST Glomerular Filtration Rate 81 mL/min (>60); Est Glom Filt Rate - Afr Amer 98 mL/min (>60); Globulin 3.3 g/dL (2.2-4.2); Glucose 93 mg/dL (74-106); Protein, Total 6.8 g/dL (6.4-8.2); Sodium Level 138 mmol/L (136-145)
== END | disposition home or self-care (01) ==
PROVIDERS: Referring Provider Internal Medicine Rheumatology; Visit Provider Internal Medicine Rheumatology
DX: M06.4 Inflammatory polyarthropathy (principal); Z79.899 Other long term (current) drug therapy
CPT/HCPCS: 36415; 80053; 85025

== ENCOUNTER → 2024-06-02 | Outpatient (CLI) | payer MEDICARE, SELFPAY ==
[2024-06-02 11:56] LABS: Absolute Lymphocyte Count 1.31 X10^3/uL (0.83-4.51); Absolute Neutrophil Count 3.1 X10^3/uL (2.0-7.7); Basophil# 0.02 X10^3/uL; Basophil% 0.4 % (0-1); Eosinophil# 0.09 X10^3/uL; Eosinophils% 1.7 % (0-5); Hematocrit 39.2 % (37-47); Hemoglobin 12.5 g/dL (12.0-15.0); Lymphocyte # 1.31 X10^3/ul (0.83-4.51); Lymphocyte % 25.3 % (19-41); Mean Corp Hgb Conc 31.9 g/dL (32-36); Mean Corpuscular Hgb 30.6 pg (27.0-32.0); Mean Corpuscular Volume 96.1 fL (81-99); Mean Platelet Vol. 9.7 fl (6.2-12.0); Monocyte# 0.67 X10^3/uL; Monocyte% 12.9 % (0-10); NRBC Flagged by Analyzer 0 % (0-5); Neutrophil # 3.07 X10^3/uL (2.7-7.7); Neutrophil % 59.3 % (47-70); Platelet Count 252 K/mm3 (150-450); RBC Distribution Width CV 13.4 % (11.6-14.6); RBC Distribution Width SD 47.3 fl (35.1-43.9); Red Blood Count 4.08 M/mm3 (4.2-5.4); White Blood Count 5.2 K/mm3 (4.4-11.0)
[2024-06-02 12:44] LABS: AST(SGOT) 27 U/L (15-37); Alanine Aminotransfer ALT/SGPT 30 U/L (13-56); Albumin, Serum 3.4 g/dL (3.2-5.0); Alkaline Phosphatase 71 U/L (45-117); Anion Gap 5 (5-15); BUN 13 mg/dL (7-18); BUN/Creat Ratio 15.8 RATIO (10-20); Calcium,Total 9.3 mg/dL (8.5-10.1); Chloride 103 mmol/L (98-107); Creatinine, Serum 0.82 mg/dL (0.55-1.02); EST Glomerular Filtration Rate 73 mL/min (>60); Est Glom Filt Rate - Afr Amer 88 mL/min (>60); Globulin 3.5 g/dL (2.2-4.2); Glucose 101 mg/dL (74-106); Potassium 3.9 mmol/L (3.5-5.1); Protein, Total 6.9 g/dL (6.4-8.2); Sodium Level 138 mmol/L (136-145)
== END | disposition home or self-care (01) ==
LOC: MTLAB 10:32
PROVIDERS: Referring Provider Internal Medicine Rheumatology; Visit Provider Internal Medicine Rheumatology
DX: M06.4 Inflammatory polyarthropathy (principal); M72.0 Palmar fascial fibromatosis [Dupuytren]; M47.812 Spondylosis without myelopathy or radiculopathy, cervical region; M65.341 Trigger finger, right ring finger; M25.562 Pain in left knee; Z79.899 Other long term (current) drug therapy
CPT/HCPCS: 36415; 80053; 85025

== ENCOUNTER → 2024-08-24 | Outpatient (CLI) | payer MEDICARE, SELFPAY ==
[2024-08-24 12:15] LABS: Absolute Lymphocyte Count 1.34 X10^3/uL (0.83-4.51); Absolute Neutrophil Count 2.8 X10^3/uL (2.0-7.7); Basophil# 0.02 X10^3/uL; Basophil% 0.4 % (0-1); Eosinophil# 0.11 X10^3/uL; Eosinophils% 2.2 % (0-5); Hematocrit 38.3 % (37-47); Hemoglobin 12.8 g/dL (12.0-15.0); Lymphocyte # 1.34 X10^3/ul (0.83-4.51); Lymphocyte % 26.4 % (19-41); Mean Corp Hgb Conc 33.4 g/dL (32-36); Mean Corpuscular Hgb 31.8 pg (27.0-32.0); Mean Corpuscular Volume 95.3 fL (81-99); Mean Platelet Vol. 9.9 fl (6.2-12.0); Monocyte# 0.77 X10^3/uL; Monocyte% 15.2 % (0-10); NRBC Flagged by Analyzer 0.6 % (0-5); Neutrophil # 2.82 X10^3/uL (2.7-7.7); Neutrophil % 55.6 % (47-70); Platelet Count 256 K/mm3 (150-450); RBC Distribution Width CV 13.5 % (11.6-14.6); RBC Distribution Width SD 46.4 fl (35.1-43.9); Red Blood Count 4.02 M/mm3 (4.2-5.4); White Blood Count 5.1 K/mm3 (4.4-11.0)
[2024-08-24 12:43] LABS: ALB/GLOB Ratio 1.1 RATIO (0.9-2.4); AST(SGOT) 21 U/L (15-37); Alanine Aminotransfer ALT/SGPT 25 U/L (13-56); Albumin, Serum 3.6 g/dL (3.2-5.0); Alkaline Phosphatase 86 U/L (45-117); Anion Gap 6 (5-15); BUN 15 mg/dL (7-18); BUN/Creat Ratio 16.4 RATIO (10-20); Calcium,Total 8.9 mg/dL (8.5-10.1); Chloride 107 mmol/L (98-107); Creatinine, Serum 0.91 mg/dL (0.55-1.02); EST Glomerular Filtration Rate 64 mL/min (>60); Est Glom Filt Rate - Afr Amer 78 mL/min (>60); Globulin 3.3 g/dL (2.2-4.2); Glucose 102 mg/dL (74-106); Protein, Total 6.9 g/dL (6.4-8.2); Sodium Level 140 mmol/L (136-145)
== END | disposition home or self-care (01) ==
LOC: MTLAB 10:35
PROVIDERS: Referring Provider Internal Medicine Rheumatology; Visit Provider Internal Medicine Rheumatology
DX: M06.4 Inflammatory polyarthropathy (principal); Z79.899 Other long term (current) drug therapy
CPT/HCPCS: 36415; 80053; 85025

== ENCOUNTER → 2024-09-28 | Outpatient (CLI) | payer MEDICARE, SELFPAY ==
[2024-09-29 00:34] LABS: Vitamin D,25 Hydroxy 30.2 ng/mL
== END | disposition home or self-care (01) ==
LOC: MTLAB 10:08
PROVIDERS: Referring Provider Nurse Practitioner Family; Visit Provider Nurse Practitioner Family
DX: M85.80 Other specified disorders of bone density and structure, unspecified site (principal); Z78.0 Asymptomatic menopausal state
CPT/HCPCS: 36415; 82306

== ENCOUNTER → 2024-10-20 | Outpatient (CLI) | payer MEDICARE, SELFPAY ==
--- NOTE | 2024-10-20 13:23 | CT_ITS ---
CT RIGHT LOWER EXTREMITY WITH 3-D IMAGING CLINICAL INDICATION: KNEE PAIN - SHAKA PROTOCOL TECHNIQUE: Axial CT images of the right lower extremity (right hip, right knee, and right ankle) was performed without IV contrast material. Coronal and sagittal reformats were provided. The protocol utilizes one or more of the following dose reduction techniques: automated exposure control, adjustment of mA and/or kV according to patient size, and/or use of iterative reconstruction technique. RADIATION DOSAGE (If Supplied By Facility): CTDIvol = ( 18.96 ) mGy, DLP = ( 1349.94 ) mGycm COMPARISON: Right knee radiographs dated 01/11/2018. FINDINGS: Bones: Normal right hip joint. 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 There is tricompartment degenerative arthrosis of the right knee, most severe in the medial femorotibial compartment with there is moderate to severe joint space narrowing, marginal osteophyte formation, and subchondral sclerosis. There is a small plantar calcaneal spur. Otherwise, normal right ankle. Osseous structures are intact without evidence of fracture or dislocation. No lytic or blastic osseous masses. Soft Tissues: There is a small right knee joint effusion. The deep soft tissue structures are unremarkable. The superficial soft tissues are unremarkable without evidence of edema, hematoma, or foreign body. CT/Extremity Lower without Contra IMPRESSION: Tricompartment degenerative arthrosis of the right knee, most severe in the medial femorotibial compartment. Small right knee joint effusion. Electronically Signed: Tan Witt MD at 14:12 EST ,
--- NOTE | 2024-10-20 13:24 | EKG12_ITS ---
Test Reason : PRE OP Blood Pressure : */* mmHG Vent. Rate : 96 BPM Atrial Rate : 96 BPM P-R Int : 162 ms QRS Dur : 84 ms QT Int : 356 ms P-R-T Axes : 53 -47 12 degrees QTcB Int : 449 ms Normal sinus rhythm Left anterior fascicular block Minimal voltage criteria for LVH, may be normal variant Possible Anterior infarct , age undetermined Abnormal ECG Confirmed by Owen Valverde ([id number]), visual effects editor [employer] ([id number]) on 10/21/2024 5:58:23 AM Referred By: Juan C Uribe Confirmed By: Owen Valverde
[2024-10-20 14:24] LABS: Absolute Lymphocyte Count 1.78 X10^3/uL (0.83-4.51); Absolute Neutrophil Count 3.7 X10^3/uL (2.0-7.7); Basophil# 0.03 X10^3/uL; Basophil% 0.5 % (0-1); Eosinophil# 0.11 X10^3/uL; Eosinophils% 1.7 % (0-5); Hematocrit 40.8 % (37-47); Hemoglobin 12.9 g/dL (12.0-15.0); Lymphocyte # 1.78 X10^3/ul (0.83-4.51); Lymphocyte % 27.6 % (19-41); Mean Corp Hgb Conc 31.6 g/dL (32-36); Mean Corpuscular Hgb 30.6 pg (27.0-32.0); Mean Corpuscular Volume 96.7 fL (81-99); Mean Platelet Vol. 9.7 fl (6.2-12.0); Monocyte# 0.82 X10^3/uL; Monocyte% 12.7 % (0-10); NRBC Flagged by Analyzer 0 % (0-5); Neutrophil # 3.68 X10^3/uL (2.7-7.7); Neutrophil % 57.2 % (47-70); Platelet Count 283 K/mm3 (150-450); RBC Distribution Width CV 13.4 % (11.6-14.6); RBC Distribution Width SD 47.9 fl (35.1-43.9); Red Blood Count 4.22 M/mm3 (4.2-5.4); White Blood Count 6.4 K/mm3 (4.4-11.0)
[2024-10-20 14:39] LABS: Albumin, Serum 3.9 g/dL (3.2-5.0); Anion Gap 8 (5-15); BUN 16 mg/dL (7-18); Calcium,Total 9.1 mg/dL (8.5-10.1); Chloride 103 mmol/L (98-107); EST Glomerular Filtration Rate 75 mL/min (>60); Est Glom Filt Rate - Afr Amer 91 mL/min (>60); Glucose 106 mg/dL (74-106); Sodium Level 137 mmol/L (136-145)
== END | disposition home or self-care (01) ==
PROVIDERS: Referring Provider Specialist; Visit Provider Specialist
DX: Z01.810 Encounter for preprocedural cardiovascular examination (principal); M17.11 Unilateral primary osteoarthritis, right knee; M21.161 Varus deformity, not elsewhere classified, right knee; M24.661 Ankylosis, right knee
CPT/HCPCS: 36415; 73700; 80048; 82040; 85025; 93005

== ENCOUNTER → 2024-11-09 | Outpatient (CLI) | payer MEDICARE, SELFPAY ==
[2024-11-09 12:22] LABS: Absolute Lymphocyte Count 1.56 X10^3/uL (0.83-4.51); Absolute Neutrophil Count 2.4 X10^3/uL (2.0-7.7); Basophil# 0.03 X10^3/uL; Basophil% 0.6 % (0-1); Eosinophil# 0.12 X10^3/uL; Eosinophils% 2.5 % (0-5); Hematocrit 37.8 % (37-47); Hemoglobin 12.3 g/dL (12.0-15.0); Lymphocyte # 1.56 X10^3/ul (0.83-4.51); Lymphocyte % 32.2 % (19-41); Mean Corp Hgb Conc 32.5 g/dL (32-36); Mean Corpuscular Hgb 31.5 pg (27.0-32.0); Mean Corpuscular Volume 96.7 fL (81-99); Mean Platelet Vol. 10.1 fl (6.2-12.0); Monocyte# 0.74 X10^3/uL; Monocyte% 15.3 % (0-10); NRBC Flagged by Analyzer 0 % (0-5); Neutrophil # 2.39 X10^3/uL (2.7-7.7); Neutrophil % 49.2 % (47-70); Platelet Count 243 K/mm3 (150-450); RBC Distribution Width CV 12.9 % (11.6-14.6); RBC Distribution Width SD 45.4 fl (35.1-43.9); Red Blood Count 3.91 M/mm3 (4.2-5.4); White Blood Count 4.9 K/mm3 (4.4-11.0)
[2024-11-09 12:46] LABS: AST(SGOT) 16 U/L (15-37); Alanine Aminotransfer ALT/SGPT 20 U/L (13-56); Albumin, Serum 3.5 g/dL (3.2-5.0); Alkaline Phosphatase 72 U/L (45-117); Anion Gap 8 (5-15); BUN 17 mg/dL (7-18); BUN/Creat Ratio 23.2 RATIO (10-20); Calcium,Total 9.3 mg/dL (8.5-10.1); Chloride 105 mmol/L (98-107); Creatinine, Serum 0.73 mg/dL (0.55-1.02); EST Glomerular Filtration Rate 83 mL/min (>60); Est Glom Filt Rate - Afr Amer 101 mL/min (>60); Globulin 3.4 g/dL (2.2-4.2); Glucose 94 mg/dL (74-106); Potassium 4.1 mmol/L (3.5-5.1); Protein, Total 6.9 g/dL (6.4-8.2); Sodium Level 140 mmol/L (136-145)
== END | disposition home or self-care (01) ==
LOC: MTLAB 09:29
PROVIDERS: PCP Nurse Practitioner Family; Referring Provider Internal Medicine Rheumatology; Visit Provider Internal Medicine Rheumatology
DX: M06.4 Inflammatory polyarthropathy (principal); Z79.899 Other long term (current) drug therapy
CPT/HCPCS: 36415; 80053; 85025

== ENCOUNTER → 2025-01-20 | Outpatient (CLI) | payer MEDICARE, SELFPAY ==
[2025-01-20 15:29] LABS: Absolute Lymphocyte Count 1.53 X10^3/uL (0.83-4.51); Absolute Neutrophil Count 3.9 X10^3/uL (2.0-7.7); Basophil# 0.02 X10^3/uL; Basophil% 0.3 % (0-1); Eosinophil# 0.05 X10^3/uL; Eosinophils% 0.8 % (0-5); Hematocrit 39.5 % (37-47); Hemoglobin 12.4 g/dL (12.0-15.0); Lymphocyte # 1.53 X10^3/ul (0.83-4.51); Lymphocyte % 25.6 % (19-41); Mean Corp Hgb Conc 31.4 g/dL (32-36); Mean Corpuscular Hgb 30.2 pg (27.0-32.0); Mean Corpuscular Volume 96.1 fL (81-99); Monocyte# 0.48 X10^3/uL; NRBC Flagged by Analyzer 0 % (0-5); Neutrophil # 3.88 X10^3/uL (2.7-7.7); Platelet Count 276 K/mm3 (150-450); RBC Distribution Width SD 49.1 fl (35.1-43.9); Red Blood Count 4.11 M/mm3 (4.2-5.4)
[2025-01-20 16:06] LABS: ALB/GLOB Ratio 1.5 RATIO (0.9-2.4); AST(SGOT) 25 U/L (<=31); Alanine Aminotransfer ALT/SGPT 17 U/L (<=34); Albumin, Serum 4.2 g/dL (3.4-4.8); Alkaline Phosphatase 86 U/L (35-104); Anion Gap 13 (5-15); BUN 17 mg/dL (4-19); Calcium,Total 9.5 mg/dL (7.6-11.0); Carbon Dioxide 25.5 mmol/L (21.0-32.0); Chloride 102 mmol/L (98-108); Creatinine, Serum 0.74 mg/dL (0.70-1.20); EST Glomerular Filtration Rate 86 (>60); Globulin 2.8 g/dL (2.2-4.2); Glucose 158 mg/dL (70-99); Potassium 3.8 mmol/L (3.3-5.1); Sodium Level 140 mmol/L (133-145); Total Bilirubin 0.29 mg/dL (0.00-1.30)
== END | disposition home or self-care (01) ==
LOC: MTLAB 12:34
PROVIDERS: PCP Nurse Practitioner Family; Referring Provider Internal Medicine Rheumatology; Visit Provider Internal Medicine Rheumatology
DX: M06.4 Inflammatory polyarthropathy (principal); Z79.899 Other long term (current) drug therapy
CPT/HCPCS: 36415; 80053; 85025

== ENCOUNTER → 2025-05-02 | Outpatient (CLI) | payer MEDICARE, SELFPAY ==
[2025-05-02 10:13] LABS: Hematocrit 37.7 % (37-47); Hemoglobin 12.2 g/dL (12.0-15.0); Immature Granulocytes Count 0.020 X10^3/uL (0.0-0.0); Mean Corp Hgb Conc 32.4 g/dL (32-36); Mean Corpuscular Volume 94.7 fL (81-99); Mean Platelet Vol. 9.7 fl (6.2-12.0); NRBC Flagged by Analyzer 0 % (0-5); Platelet Count 240 K/mm3 (150-450); RBC Distribution Width CV 13.6 % (11.6-14.6); RBC Distribution Width SD 46.7 fl (35.1-43.9); Red Blood Count 3.98 M/mm3 (4.2-5.4); White Blood Count 4.8 K/mm3 (4.4-11.0)
[2025-05-02 13:13] LABS: AST(SGOT) 26 U/L (<=31); Alanine Aminotransfer ALT/SGPT 18 U/L (<=34); Albumin, Serum 4.2 g/dL (3.4-4.8); Alkaline Phosphatase 91 U/L (35-104); Anion Gap 10 (5-15); BUN 15 mg/dL (4-19); BUN/Creat Ratio 16.4 RATIO (10-20); Calcium,Total 9.3 mg/dL (7.6-11.0); Carbon Dioxide 28.4 mmol/L (21.0-32.0); Chloride 101 mmol/L (98-108); Globulin 2.6 g/dL (2.2-4.2); Glucose 94 mg/dL (70-99); Potassium 3.8 mmol/L (3.3-5.1)
--- OUTSIDE RECORDS SUMMARY | 2025-05-02 18:50 | XMS RPT_ITS | CCD ---
Author Organization [facility] Care Team Providers Care Sash Installer Name Role Phone Wood, Harjeet L Unavailable Unavailable Rios, Christopher Unavailable Unavailable Wood, Harjeet L Unavailable Unavailable Rios, Christopher Unavailable Unavailable Wood, Harjeet L Unavailable Unavailable Wood, Harjeet L Unavailable Unavailable Rios, Christopher Unavailable Unavailable Wood, Harjeet L Unavailable Unavailable Wood, Harjeet L Unavailable Unavailable Rios, Christopher Unavailable Unavailable Wood, Harjeet L Unavailable Unavailable Wood, Harjeet L Unavailable Unavailable Rios, Christopher Unavailable Unavailable Wood, Harjeet L Unavailable Unavailable Wood, Harjeet L Unavailable Unavailable Rios, Christopher Unavailable Unavailable Wood, Harjeet Unavailable Unavailable Wood, Harjeet L Unavailable Unavailable Rios, Christopher Unavailable Unavailable Wood, Harjeet Unavailable Unavailable Rios, Christopher D Unavailable Unavailable Wood, Harjeet L Unavailable Unavailable Rios, Christopher D Unavailable Unavailable Unavailable Ms. Harjeet Cervantes Attending Unav ailable Wood, Ms. Cosby Shilpi Referring Unav ailable RiosRobert Primary Care Unavaila ble Stengisele, Owen Terrell Attending Unavailab le Stencel, Owen Terrell Referring Unavailab le RiosRobert Primary Care Unavaila ble Robert Rios MD Unavailable Billy LESTER-Harjeet TSANG Primary Care Provider Robert Rios MD Unavailable [phone] Billy LESTER-Harjeet TSANG Primary Care Provider HARJEET CERVANTES Referring Unavailable WOOD, HARJEET L Primary Care Unavailable WOOD, HARJEET L Primary Care Unavailable ANDREAS BEY Attending Unavailable ETHEL FAYE Referring Unav ailable HARJEET CERVANTES Primary Care Unavailable ETHEL FAYE Attending Unav ailable WOOD, HARJEET L Primary Care Unavailable WONG STANTON, YULANKA S Referring Unav ailable WOOD, HARJEET L Primary Care Unavailable WOOD, HARJEET L Referring Unavailable WOOD, HARJEET L Primary Care Unavailable WOOD, HARJEET L Referring Unavailable WOOD, HARJEET L Primary Care Unavailable WOOD, HARJEET Primary Care Provider [phone] WOOD DIAL BRUSHER-C, HARJEET Attending Provider WOOD DIAL BRUSHER-C, HARJEET Referring Provider [phone] Jojo LILLY, Dr. Irizarry Attending Provider [phone] Jojo LILLY, Dr. Irizarry Referring Provider [phone] Abram LILLY, Dr. Weaver Attending Provider WOOD DIAL BRUSHER-C, HARJEET Primary Care Provider Julio LILLY, Dr. Gold Attending Provider Julio LILLY, Dr. Gold Referring Provider Julio, Alla Referring Unavailable Alla Kim Attending Unavailable REMI, FATUMA Primary Care Unavailable WOOD, HARJEET Primary Care Unavailable Velliang, Alla Attending Unavailable Vellanki, Alla Referring Unavailable Owen Valverde Attending Unavailable Phu Tan Referring Unavailable WOOD, HARJEET Primary Care Unavailable Vellanki, Alla Attending Unavailable Vellanaleena, Alla Referring Unavailable REMI, FATUMA Primary Care Unavailable Phu Tan Referring Unavailable Phu Tan Attending Unavailable WOOD, HARJEET Referring Unavailable WOOD, HARJEET Attending Unavailable REMI, FATUMA Primary Care Unavailable REMI, FATUMA Primary Care Unavailable Vellanki, Alla Attending Unavailable Vellanki, Alla Referring Unavailable Vellanki, Alla Referring Unavailable Vellanki Alla Attending Unavailable REMI, FATUMA Primary Care Unavailable WOOD, HARJEET L Primary Care Unavailable Gabriel LILLY, Robert Wilson Unavailable Wood HANDWRITING EXPERT-SPECIAL SERVICES DIRECTOR, Harjeet L Primary Care Provider WOOD, HARJEET L Attending Unavailable WOOD, HARJEET L Primary Care Unavailable WONG ROMY, YULANKA S Attending Unav ailable WOOD, HARJEET L Referring Unavailable WOOD, HARJEET L Primary Care Unavailable WONG STANTON, YULANKA S Attending Unav ailable WOOD, HARJEET L Primary Care Unavailable WOOD, HARJEET L Attending Unavailable WOOD, HARJEET L Referring Unavailable WOOD, HARJEET L Primary Care Unavailable WONG STANTON, YULANKA S Attending Nacho ailable HARJEET CERVANTES Primary Care Unavailable BILLY HARJEET Shreya Attending Unavailable BILLY HARJEET Cash Primary Care Unavailable REJI ADKINS Attending Unavailable PHU TAN Referring Unavailable WOOD, HARJEET L Primary Care Unavailable WOOD, HARJEET L Attending Unavailable BILLY, HARJEET L Referring Unavailable WOOD, HARJEET L Primary Care Unavailable Allergies Allergy Classification Reported Allergen(s) Allergy Type Date of Onset Reaction(s) Facility Angiotensin Converting Enzyme (ABIGAIL) Inhibitors (1 source) Lisinopril; Translations: [Lisinopril TABS] Drug Allergy [facility] Work Phone: Doxycycline (1 source) Doxycycline; Translations: [doxycycline] Drug Allergy [facility] Work Phone: Penicillins (antibiotic) (1 source) Amoxicillin; Translations: [Amoxicillin TABS] Drug Allergy [facility] Work Phone: (20 sources) Doxycycline; Translations: [doxycycline] Drug Allergy 07-15-2023 Unknown [facility] Repository (20 sources) Lisinopril; Translations: [lisinopril] Drug Allergy 07-15-2023 Unknown [facility] Repository (12 sources) Lisinopril; Translations: [Lisinopril TABS] Drug Allergy [facility] Work Phone: (20 sources) Amoxicillin; Translations: [Amoxicillin TABS] Drug Allergy 07-15-2023 [facility] (3 sources) Amoxicillin; Translations: [AMOXICILLIN] Drug Allergy 07-15-[address] [facility] 2 Repository Medications Current Medications Medication Drug Class(es) Dates Sig (Normalized) Sig (Original) alendronic acid 70 mg oral tablet (20 sources) Bisphosphonate Start: 11-14-2019 End: 08-29-2025 alendronate (Fosamax) 70 mg tablet Indications: Hypertension, unspecified type , Osteopenia, unspecified location Take 1 tablet (70 mg) by mouth every 7 days. 12 tablet 3 08/29/2024 08/29/2025 Active Start: 11-14-2019 take 1 tablet by percy th every week Alendronate Sodium 70 MG Oral Tablet TAKE 1 TABLET ONCE WEEKLY. Quantity: 12 Refills: 3 Ordered: 28-Aug-2022 Harjeet Torres Start : 14-Nov-2019 Active atorvastatin 10 mg oral tablet (1 source) HMG-CoA Reductase Inhibitor Start: 03-01-2025 End: 03-01-2026 take 1 tablet by mouth once daily atorvastatin (Lipitor) 10 mg tablet Indications: Mixed dyslipidemia Take 1 tablet (10 mg) by mouth once daily. 90 tablet 3 03/01/2025 03/01/2026 Active folic acid 1 mg oral tablet (20 sources) take 1 tablet by mouth once daily folic acid (Folvite) 1 mg tablet Take 1 tablet (1 mg) by mouth once daily. Active 2 ml sodium hyaluronate 10 mg/ml prefilled syringe (10 sources) Start: 09-29-2023 End: 08-29-2024 Euflexxa 10 mg/mL(mw 2.4 -3.6 million) injection On hold 09/29/2023 08/29/2024 Discontinued (Therapy completed) hydroCHLOROthiazide 12.5 mg / olmesartan medoxomil 40 mg oral tablet (20 sources) Thiazide Diuretic, Angiotensin 2 Receptor Seamus Start: 08-27-2023 End: 08-29-2025 take 1 tablet by mouth every other day olmesartan-hydroc hlorothiazide (BENIcar HCT) 40-12.5 mg tablet Indications: Hypertension, unspecified type Take 1 tablet by mouth every other day. 45 tablet 3 08/29/2024 08/29/2025 Active take 1 tablet by mouth once hellen y Olmesartan Medoxomil-HCTZ 40-12.5 MG Oral Tablet TAKE 1 TABLET DAILY. 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 05/29/2024 Active methotrexate 2.5 mg oral tablet (20 sources) Folate Analog Metabolic Inhibitor take 7 tablets by mouth every week methotrexate (Trexall) 2.5 mg tablet Take 7 tablets (17.5 mg total) by mouth 1 (one) time per week. Active predniSONE 5 mg oral tablet (20 sources) take 1 tablet by mouth every twenty-four hours as needed predniSONE (Deltasone) 5 mg tablet Take 1 tablet (5 mg) by mouth once daily as needed. Active sennosides, assisted 8.6 mg oral capsule (20 sources) take 1 capsule by mouth once daily sennosides (SENNA) 8.6 mg capsule Take 1 capsule (8.6 mg) by mouth once daily. Active sulfaSALAzine 500 mg delayed release oral tablet (20 sources) Aminosalicylate take 1 tablet by mouth twice daily sulfaSALAzine (Azulfidine) [address] tablet Take 1 tablet (500 mg) by mouth 2 times a day. Active traMADol hydrochloride 50 mg oral tablet (8 sources) Opioid Agonist End: 08-29-2021 take 1 tablet by mouth every twelve hours as needed traMADol HCl - 50 MG Oral Tablet TAKE 1 TABLET EVERY 12 HOURS NEEDED. Quantity: 0 Refills: 0 Ordered: 29-Aug-2021 DO End : 29-Aug-2021 Complete Completed/Discontinued Medications Medication Drug Class(es) Dates Sig (Normalized) Sig (Original) acetaminophen 33.3 mg/ml / diphenhydrAMINE hydrochloride 1.67 mg/ml oral solution (13 sources) Histamine-1 Receptor Antagonist take 30 mL by mouth at bedtime Tylenol PM Extra Strength 1000-50 MG/30ML LIQD TAKE 30 ML AT BEDTIME. Quantity: 0 Refills: 0 Ordered: 18-Aug-2019 DO Active apixaban 2.5 mg oral tablet (12 sources) Factor Xa Inhibitor Start: 06-09-2024 End: 06-09-2025 take 1 tablet by mouth twice daily apixaban (Eliquis) 2.5 mg tablet Indications: Thrombophlebitis of superficial veins of right lower extremity Take 1 tablet (2.5 mg) by mouth 2 times a day. 60 tablet 3 06/09/2024 11/11/2024 Discontinued (Med List Cleanup) chondroitin sulfates 200 mg / glucosamine hydrochloride 250 mg oral tablet (13 sources) Glucosamine Chondroitin TABS Take 1 tablet daily Quantity: 0 Refills: 0 Ordered: 18-Aug-2019 DO Active Multi Vitamin Oral Tablet (5 sources) take 1 tablet by mouth once daily Multi Vitamin Oral Tablet TAKE 1 TABLET DAILY. Refills: 0 DO Active take 1 tablet by mouth once hellen y Multi Vitamin Oral Tablet TAKE 1 TABLET DAILY. Refills: 0 Active Multi Vitamin Oral Tablet (8 sources) take 1 tablet by mouth once daily Multi Vitamin Oral Tablet TAKE 1 TABLET DAILY. Quantity: 0 Refills: 0 Ordered: 18-Aug-2019 DO Active phenazopyridine hydrochloride 200 mg delayed release oral tablet (2 sources) Start: take 1 tablet by mouth three times daily after mealtime as needed Phenazopyridine HCl - 200 MG Oral Tablet TAKE 1 TABLET 3 TIMES DAILY AFTER MEALS NEEDED Quantity: 9 Refills: 0 [facility]: [facility] : 29-Aug-2021 Active sulfamethoxazole 800 mg / trimethoprim 160 mg oral tablet (5 sources) Dihydrofolate Reductase Inhibitor Antibacterial, Sulfonamide Antimicrobial Start: take 1 tablet by mouth twice daily Sulfamethoxazole-Trim ethoprim 800-160 MG Oral Tablet TAKE 1 TABLET TWICE DAILY UNTIL FINISHED. Quantity: 6 Refills: 0 Ordered: 29-Aug-2021 [facility] Start : 29-Aug-2021 Active Start: 08-07-2020 take 1 tablet by percy th twice daily Sulfamethoxazole-Trimethoprim 800-160 MG Oral Tablet TAKE 1 TABLET TWICE DAILY UNTIL FINISHED. Quantity: 14 Refills: 0 Ordered: 07-Aug-2020 Robert Rios MD Start : 07-Aug-2020 Active valACYclovir 1000 mg oral tablet (3 sources) Herpesvirus Nucleoside Analog DNA Polymerase Inhibitor, Herpes Simplex Virus Nucleoside Analog DNA Polymerase Inhibitor, Herpes Zoster Virus Nucleoside Analog DNA Polymerase Inhibitor Start: 12-16-2021 End: 08-28-2022 take 1 tablet by mouth three times daily valACYclovir HCl - 1 GM Oral Tablet TAKE 1 TABLET 3 TIMES DAILY. Quantity: 21 Refills: 0 Ordered: 16-Dec-2021 Owen Zamorano MD Start : 16-Dec-2021 End : 28-Aug-2022 Complete Problems Active Problems Problem Classification Problem Date Documented Date Episodic/Chronic Cataract (7 sources) Bilateral senile combined form cataracts of eyes; Translations: [Combined forms of age-related cataract, bilateral] Onset: 08-29-2024 08-29-2024 Chronic Disorders of lipid metabolism (14 sources) Dyslipidemia; Translations: [Hyperlipidemia, unspecified] Onset: 08-27-2023 08-29-2024 Chronic Essential hypertension (20 sources) Hypertensive disorder; Translations: [Unspecified essential hypertension] Onset: 07-15-2023 08-27-2023 Chronic Genitourinary symptoms and ill-defined conditions (3 sources) Dysuria; Translations: [Dysuria] Episodic Immunizations and screening for infectious disease (20 sources) Patient encounter status; Translations: [Need for prophylactic vaccination and inoculation against unspecified single disease] Onset: 08-27-2023 08-27-2023 Episodic Osteoporosis (1 source) Senile osteoporosis; Translations: [Age-related osteoporosis without current pathological fracture] Onset: 07-15-2023 03-01-2025 Chronic Other nervous system disorders (2 sources) Other chronic pain; Translations: [Other chronic pain] Onset: 10-24-2024 Chronic Other nutritional; endocrine; and metabolic disorders (3 sources) Obesity; Translations: [Obesity, unspecified] Chronic Other screening for suspected conditions (not mental disorders or infectious disease) (6 sources) Encounter for screening mammogram for malignant neoplasm of breast; Translations: [Encounter for screening for other suspected endocrine disorder] Onset: 08-29-2024 Episodic Residual codes; unclassified (6 sources) Menopause present; Translations: [Symptomatic menopausal or female climacteric states] Episodic Residual codes; unclassified (4 sources) Postmenopausal state; Translations: [Asymptomatic menopausal state] 08-29-2024 Episodic Rheumatoid arthritis and related disease (20 sources) Rheumatoid arthritis; Translations: [Rheumatoid arthritis] Onset: 07-15-2023 08-27-2023 Chronic Skin and subcutaneous tissue infections (6 sources) Cellulitis; Translations: [Cellulitis and abscess of unspecified sites] Episodic Unclassified (18 sources) Patient encounter status; Translations: [Screening for diabetes mellitus] 08-29-2024 Unclassified (2 sources) Rheumatoid arthritis of left shoulder 08-29-2024 Unclassified (2 sources) 1 month f/u Onset: 08-03-2024 Past or Other Problems Problem Classification Problem Date Documented Da te Episodic/Chronic Nutritional deficiencies (18 sources) Cobalamin deficiency; Translations: [Deficiency of other specified B group vitamins] Onset: 08-27-2023 08-27-2023 Episodic Other bone disease and musculoskeletal deformities (20 sources) Osteopenia; Translations: [Disorder of bone and cartilage, unspecified] Onset: 07-15-2023 08-27-2023 Episodic Other bone disease and musculoskeletal deformities (3 sources) Other specified disorders of bone density and structure, unspecified site; Translations: [Other specified disorders of bone density and structure, unspecified site] Onset: 07-15-2023 Episodic Other connective tissue disease (18 sources) Pain of right calf; Translations: [Pain in right lower leg] Onset: 11-25-2023 Resolved: 08-29-2024 11-25-2023 Episodic Other connective tissue disease (2 sources) Pain of right lower leg; Translations: [Pain in right lower leg] Onset: 11-25-2023 05-30-2024 Episodic Other connective tissue disease (1 source) Pain in right lower leg; Translations: [Pain in right lower leg] Onset: 11-25-2023 Episodic Other diseases of veins and lymphatics (3 sources) Venous insufficiency of leg; Translations: [Venous insufficiency (chronic) (peripheral)] Onset: 11-11-2024 11-11-2024 Episodic Other liver diseases (17 sources) Elevated levels of transaminase & lactic acid dehydrogenase; Translations: [Nonspecific elevation of levels of transaminase or lactic acid dehydrogenase (LDH)] Onset: 03-18-2007 Resolved: 08-27-2023 08-27-2023 Episodic Other non-traumatic joint disorders (6 sources) Pain in right knee; Translations: [Pain in joint, lower leg] Onset: 10-24-2024 Resolved: 03-01-2025 10-24-2024 Episodic Other skin disorders (9 sources) Swelling of lower leg; Translations: [Swelling of limb] Resolved: 08-28-2022 Episodic Phlebitis; thrombophlebitis and thromboembolism (20 sources) Phlebitis; Translations: [Thrombophlebitis of superficial veins of lower extremity] Onset: 11-25-2023 Resolved: 08-28-2022 11-25-2023 Episodic Residual codes; unclassified (8 sources) Past history of procedure; Translations: [Other specified postprocedural states] Onset: 11-25-2023 08-29-2024 Episodic Residual codes; unclassified (4 sources) Asymptomatic menopausal state; Translations: [Asymptomatic menopausal state] Onset: 08-29-2024 Episodic Residual codes; unclassified (2 sources) Other specified postprocedural states; Translations: [Other specified postprocedural states] Onset: 08-29-2024 Episodic Unclassified (17 sources) Onset: 08-27-2023 Resolved: 03-01-2025 08-27-2023 Varicose veins of lower extremity (12 sources) Varicose veins of lower extremity; Translations: [Asymptomatic varicose veins of right lower extremity] Onset: 07-28-2024 07-28-2024 Episodic Viral infection (4 sources) Herpes zoster without complication; Translations: [Herpes zoster without mention of complication] Resolved: 08-28-2022 Episodic NEGATED: Highlighted row has not occurred!Residual codes; unclassified (5 sources) Disease Episodic Results Test Name Value Interpretation Reference Range Facility HEMOGLOBIN A1c WITH eAGon eAG (mmol/L) 6.3 mmol/L Normal [facility] Comment on above: Order Comment: FASTI NG:NO FASTING: NO Performed By: #### 1 [id number] #### [facility] [address], [address] [place], [place] [id number] Computer Builder: Jonny Galan MD HbA1c (Bld) [Mass fraction] 5.6 % Normal <5.7 [facility] Comment on above: Order Comment: FASTI NG:NO FASTING: NO Result Comment: For the purpose of screening for the presence of diabetes: <5.7% Consistent with the absence of diabetes 5.7-6.4% Consistent with increased risk for diabetes (prediabetes) > or =6.5% Consistent with diabetes This assay result is consistent with a decreased risk of diabetes. Currently, no consensus exists regarding use of hemoglobin A1c for diagnosis of diabetes in children. According to [place] Diabetes Association (ADA) guidelines, hemoglobin A1c <7.0% represents optimal control in non- diabetic patients. Different metrics may apply to specific patient populations. Standards of Medical Care in Diabetes(ADA). Performed By: #### 1 [id number] #### [facility] [address], [address] [place] [id number] Computer Builder: Jonny Galan MD Magnesium [Mass/Vol] 114 mg/dL Normal [facility] Comment on above: Order Comment: FASTI NG:NO FASTING: NO Performed By: #### 1 [id number] #### [facility] [address], [address] [place] [address] Computer Builder: Jonny Galan MD Absolute neutrophil countOrd ered By: Alla Kim on 01-20-2025 Neutrophils (Bld) [#/Vol] 3.9 10*3/uL 2.0-7.7 [facility] Anion gap in Serum or Plasma Ordered By: Alla Kim on 01-20-2025 Anion gap [Moles/Vol] 13 mmol/L 5-15 [facility] BUN/creatinine ratioOrdered By: Alla Kim on 01-20-2025 Urea nitrogen/Creatinine [Mass ratio] 23.0 mg/mg High 10-20 [facility] Basophil percentageOrdered B y: Alla Kim on 01-20-2025 Basophils/100 WBC (Bld) 0.3 % 0-1 [facility] Bilirubin, totalOrdered By: Alla Kim on 01-20-2025 Bilirubin [Mass/Vol] 0.29 mg/dL 0.00-1.30 [facility] CBC W/Diff, Automatedon 01-10 Absolute Lymph 1.53 X10 3/uL Normal 0.83-4.51 [facility] Comment on above: Performed By: #### L 100.0100, L500.4050 #### [facility] [address], [address] Absolute Neut 3.9 X10 3/uL Normal 2.0-7.7 [facility] Comment on above: Performed By: #### L 100.0100, [id number] #### [facility] [address] [place], [address] Basophils/100 WBC (Bld) 0.3 % Normal 0-1 [facility] Comment on above: Performed By: #### L 100.0100, [id number] #### [facility] [address] [place], [address] Eosinophils/100 WBC (Bld) 0.8 % Normal 0-5 [facility] Comment on above: Performed By: #### L 100.0100, [id number] #### [facility] [address] [place], [address] Erythrocyte distribution width (RBC) [Ratio] 14.0 % Normal 11.6-14.6 [facility] Comment on above: Performed By: #### L 100.0100, [id number] #### [facility] [address] [place], [address] Hematocrit (Bld) [Volume fraction] 39.5 % Normal 37-47 [facility] Comment on above: Performed By: #### L 100.0100, [id number] #### [facility] [address] [place], [address] Hemoglobin (Bld) [Mass/Vol] 12.4 g/dL Normal 12.0-15.0 [facility] Comment on above: Performed By: #### L 100.0100, [id number] #### [facility] [address] [place], [address] IG% 0.300 Normal 0.0-0.9 [facility] Comment on above: Result Comment: IG% - Immature Granulocytes (promyelocytes, myelocytes and metamyelocytes) > 1% indicates that a LEFT SHIFT is Present. Performed By: #### L 100.0100, L500.4050 #### [facility] [address] [place], [address] Lymphocytes/100 WBC (Bld) 25.6 % Normal 19-41 [facility] Comment on above: Performed By: #### L 100.0100, [id number] #### [facility] [address] [place], [address] MCH (RBC) [Entitic mass] 30.2 pg Normal 27.0-32.0 [facility] Comment on above: Performed By: #### L 100.0100, [id number] #### [facility] [address] [place], [address] MCHC (RBC) [Mass/Vol] 31.4 g/dL Low 32-36 [facility] Comment on above: Performed By: #### L 100.0100, [id number] #### [facility] [address] [place], [address] MCV (RBC) [Entitic vol] 96.1 fL Normal 81-99 [facility] Comment on above: Performed By: #### L 100.0100, [id number] #### [facility] [address] [place], [address] Monocytes/100 WBC (Bld) 8.0 % Normal 0-10 [facility] Comment on above: Performed By: #### L 100.0100, [id number] #### [facility] [address] [place], [address] Neutrophils/100 WBC (Bld) 65.0 % Normal 47-70 [facility] Comment on above: Performed By: #### L 100.0100, [id number] #### [facility] [address] [place], [address] Nucleated RBC (Bld) [#/Vol] 0 10*3/uL Normal 0-5 [facility] Comment on above: Performed By: #### L 100.0100, [id number] #### [facility] [address] [place], [address] Platelet mean volume (Bld) [Entitic vol] 10.0 fL Normal 6.2-12.0 [facility] Comment on above: Performed By: #### L 100.0100, [id number] #### [facility] [address] [place], [address] Platelets (Bld) [#/Vol] 276 10*3/uL Normal 150-450 [facility] Comment on above: Performed By: #### L 100.0100, [id number] #### [facility] [address] [place], [address] RBC (Bld) [#/Vol] 4.11 10*6/uL Low 4.2-5.[address] [facility] Comment on above: Performed By: #### L 100.0100, [id number] #### [facility] [address] [place], [address] RDW SD 49.1 fl High 35.1-43.9 [facility] Comment on above: Performed By: #### L 100.0100, [id number] #### [facility] [address] [place], [address] WBC (Bld) [#/Vol] 6.0 10*3/uL Normal 4.4-11.0 [facility] Comment on above: Performed By: #### L 100.0100, [id number] #### [facility] [address] [place], [address] Carbon dioxide, total [Moles /volume] in Central venous bloodOrdered By: Alla Kim on 01-20-2025 CO2 [Moles/Vol] 25.5 mmol/L 21.0-32.0 [facility] Chloride assayOrdered By: Nj Kim on 01-20-2025 Chloride [Moles/Vol] 102 mmol/L 98-108 [facility] Comprehensive Metabolic Prof ilon 01-20-2025 Albumin [Mass/Vol] 4.2 g/dL Normal 3.4-4.8 [facility] Comment on above: Performed By: #### L 100.0100, [id number] #### [facility] [address] [place], [address] Albumin/Globulin [Mass ratio] 1.5 {ratio} Normal 0.9-2.4 [facility] Comment on above: Performed By: #### L 100.0100, L500.4050 #### [facility] [address] [place], [address] ALK PHOS 86 U/L Normal 35-104 [facility] Comment on above: Performed By: #### L 100.0100, L500.4050 #### [facility] [address] [place], [address] ALT [Catalytic activity/Vol] 17 U/L Normal <=34 [facility] Comment on above: Performed By: #### L 100.0100, L500.4050 #### [facility] [address] [place], [address] AST [Catalytic activity/Vol] 25 U/L Normal <=31 [facility] Comment on above: Performed By: #### L 100.0100, L500.4050 #### [facility] [address] [place], [address] Bilirubin [Mass/Vol] 0.29 mg/dL Normal 0.00-1.30 [facility] Comment on above: Performed By: #### L 100.0100, L500.4050 #### [facility] [address] [place], [address] BUN/CRE 23.0 RATIO High 10-20 [facility] Comment on above: Performed By: #### L 100.0100, L500.4050 #### [facility] [address] [place], [address] Calcium [Mass/Vol] 9.5 mg/dL Normal 7.6-11.0 [facility] Comment on above: Performed By: #### L 100.0100, L500.4050 #### [facility] [address] [place], [address] Chloride [Moles/Vol] 102 mmol/L Normal 98-108 [facility] Comment on above: Performed By: #### L 100.0100, L500.4050 #### [facility] [address] [place], [address] CO2 [Moles/Vol] 25.5 mmol/L Normal 21.0-32.0 [facility] Comment on above: Performed By: #### L 100.0100, L500.4050 #### [facility] [address] [place], [address] Creatinine [Mass/Vol] 0.74 mg/dL Normal 0.70-1.20 [facility] Comment on above: Performed By: #### L 100.0100, L500.4050 #### [facility] [address] [place], [address] GAP 13 Normal 5-15 [facility] Comment on above: Performed By: #### L 100.0100, L500.4050 #### [facility] [address] [place], [address] GFR/1.73 sq M.predicted among non-blacks MDRD (S/P/Bld) [Vol rate/Area] 86 mL/min/{1.73_m2} Normal >60 [facility] Comment on above: Result Comment: mL/m in/1.73m2 CKD-EPI Creatinine Equation (2020) Performed By: #### L 100.0100, L500.4050 #### [facility] [address] [place], [address] Globulin (S) [Mass/Vol] 2.8 g/dL Normal 2.2-4.2 [facility] Comment on above: Performed By: #### L 100.0100, L500.4050 #### [facility] [address] [place], [address] Glucose [Mass/Vol] 158 mg/dL High 70-99 [facility] Comment on above: Performed By: #### L 100.0100, L500.4050 #### [facility] [address] [place], [address] Potassium [Moles/Vol] 3.8 mmol/L Normal 3.3-5.1 [facility] Comment on above: Performed By: #### L 100.0100, L500.4050 #### [facility] [address] [place], [address] Sodium [Moles/Vol] 140 mmol/L Normal 133-145 [facility] Comment on above: Performed By: #### L 100.0100, L500.4050 #### [facility] [address] [place], [address] T PROT 7.0 g/dL Normal 5.9-8.4 [facility] Comment on above: Performed By: #### L 100.0100, L500.4050 #### [facility] [address] [place], [address] Urea nitrogen [Mass/Vol] 17 mg/dL Normal 4-19 [facility] Comment on above: Performed By: #### L 100.0100, L500.4050 #### [facility] [address] [place], [address] Eosinophil percentageOrdered By: Alla Kim on 01-20-2025 Eosinophils/100 WBC (Bld) 0.8 % 0-5 [facility] Erythrocyte distribution wid th (RBC) [Ratio]Ordered By: Alla Kim on 01-20-2025 Erythrocyte distribution width (RBC) [Entitic vol] 49.1 fL High 35.1-43.9 [facility] Erythrocyte distribution wid th ratioOrdered By: Alla Kim on 01-20-2025 Erythrocyte distribution width (RBC) [Ratio] 14.0 % 11.6-14.6 [facility] [facility] GFR/1.73 sq M.predicted roman g non-blacks MDRD (S/P/Bld) [Vol rate/Area]Ordered By: Alla Kim on 01-20-2025 Estimated GFR (MDRD) Non-Af Amer 86 >60 [facility] Comment on above: mL/min/1.73m2 CKD-EP I Creatinine Equation (2020) Hematocrit Auto (Bld) [Volum e fraction]Ordered By: Alla Kim on 01-20-2025 Hematocrit (Bld) [Volume fraction] 39.5 % 37-47 [facility] Hemoglobin measurementOrdere d By: Alla Kim on 01-20-2025 Hemoglobin (Bld) [Mass/Vol] 12.4 g/dL 12.0-15.0 [facility] Immature granulocytes/100 WB C Auto (Bld)Ordered By: Alla Kim on 01-20-2025 Immature granulocytes/100 WBC (Bld) 0.300 % 0.0-0.9 [facility] Comment on above: IG% - Immature Granu locytes (promyelocytes, myelocytes and metamyelocytes) > 1% indicates that a LEFT SHIFT is Present. Laboratory - Chemistry and C hemistry - challengeOrdered By: Alla Kim on 01-20-2025 AST [Catalytic activity/Vol] 25 U/L <32 [facility] Lymphocytes Auto (Unsp spec) [#/Vol]Ordered By: Alla Kim on 01-20-2025 Lymphocytes (Bld) [#/Vol] 1.53 10*3/uL 0.83-4.51 [facility] Lymphocytes/100 WBC Auto (Un sp spec)Ordered By: Alla Kim on 01-20-2025 Lymphocytes/100 WBC (Bld) 25.6 % 19-41 [facility] MCV (mean corpuscular volume ) determinationOrdered By: Alla Kim on 01-20-2025 MCV (RBC) [Entitic vol] 96.1 fL 81-99 [facility] Mean corpuscular hemoglobin (MCH) determinationOrdered By: Alla Kim on 01-20-2025 MCH (RBC) [Entitic mass] 30.2 pg 27.0-32.0 [facility] Mean corpuscular hemoglobin concentration (MCHC) determinationOrdered By: Alla Kim on 01-20-2025 MCHC (RBC) [Mass/Vol] 31.4 g/dL Low 32-36 [facility] Mean platelet volume determi nationOrdered By: Alla Kim on 01-20-2025 Platelet mean volume (Bld) [Entitic vol] 10.0 fL 6.2-12.0 [facility] Monocyte percentageOrdered B y: Alla Kim on 01-20-2025 Monocytes/100 WBC (Bld) 8.0 % 0-10 [facility] Neutrophil percentageOrdered By: Alla Kim on 01-20-2025 Neutrophils/100 WBC (Bld) 65.0 % 47-70 [facility] Nucleated red blood cell per centageOrdered By: Alla Kim on 01-20-2025 Nucleated RBC/100 WBC (Bld) [Ratio] 0 % 0-5 [facility] Platelet countOrdered By: Nj Kim on 01-20-2025 Platelets (Bld) [#/Vol] 276 10*3/uL 150-450 [facility] Potassium (Unsp spec) [Mass/ Vol]Ordered By: Alla Kim on 01-20-2025 Potassium [Moles/Vol] 3.8 mmol/L 3.3-5.1 [facility] RBC Auto (Bld) [#/Vol]Ordere d By: Alla Kim on 01-20-2025 RBC (Bld) [#/Vol] 4.11 10*6/uL Low 4.2-5.[address] [facility] Serum creatinine measurement (mass/volume)Ordered By: Alla Kim on 01-20-2025 Creatinine [Mass/Vol] 0.74 mg/dL 0.70-1.20 [facility] Serum globulin measurementOr dered By: Alla Kim on 01-20-2025 Globulin (S) [Mass/Vol] 2.8 g/dL 2.2-4.2 [facility] Serum glucose measurement (m ass/volume)Ordered By: Alla Kim on 01-20-2025 Glucose [Mass/Vol] 158 mg/dL High 70-99 [facility] Serum or plasma alanine wolf otransferase (ALT) measurementOrdered By: Alla Kim on 01-20-2025 ALT [Catalytic activity/Vol] 17 U/L <35 [facility] Serum or plasma albumin yaniv urement (mass/volume)Ordered By: Alla Kim on 01-20-2025 Albumin [Mass/Vol] 4.2 g/dL 3.4-4.8 [facility] Serum or plasma albumin/glob ulin mass ratioOrdered By: Alla Kim on 01-20-2025 Albumin/Globulin [Mass ratio] 1.5 {ratio} 0.9-2.4 [facility] Serum or plasma alkaline liz sphatase measurementOrdered By: Alla Kim on 01-20-2025 ALP [Catalytic activity/Vol] 86 U/L 35-104 [facility] Serum or plasma calcium yaniv urement (mass/volume)Ordered By: Alla Kim on 01-20-2025 Calcium [Mass/Vol] 9.5 mg/dL 7.6-11.0 [facility] Serum or plasma urea nitroge n measurement (mass/volume)Ordered By: Alla Kim on 01-20-2025 Urea nitrogen [Mass/Vol] 17 mg/dL 4-19 [facility] Sodium levelOrdered By: Gregg Kim on 01-20-2025 Sodium [Moles/Vol] 140 mmol/L 133-145 [facility] Total proteinOrdered By: Lilly Kim on 01-20-2025 Protein [Mass/Vol] 7.0 g/dL 5.9-8.4 [facility] White blood cell (WBC) count Ordered By: Alla Kim on 01-20-2025 WBC (Bld) [#/Vol] 6.0 10*3/uL 4.4-11.0 [facility] Absolute neutrophil countOrd ered By: Alla Kim on 11-09-2024 Neutrophils (Bld) [#/Vol] 2.4 10*3/uL 2.0-7.7 [facility] Albumin to globulin ratioOrd ered By: Alla Kim on 11-09-2024 Albumin/Globulin [Mass ratio] 1.0 {ratio} 0.9-2.4 [facility] Basophil percentageOrdered B y: Alla Julio on 11-09-2024 Basophils/100 WBC (Bld) 0.6 % 0-1 [facility] Bilirubin, totalOrdered By: Alla Julio on 11-09-2024 Bilirubin [Mass/Vol] 0.30 mg/dL 0.20-1.00 [facility] Comment on above: For patients on eltr ombopag therapy, use of Dimension Busy TBIL is not recommended. Blood urea nitrogen (BUN)/cr eatinine ratioOrdered By: Allaazam Kim on 11-09-2024 Urea nitrogen/Creatinine [Mass ratio] 23.2 mg/mg High 10-20 [facility] CBC W/Diff, Automatedon 10-13 Absolute Lymph 1.56 X10 3/uL Normal 0.83-4.51 [facility] Comment on above: Performed By: #### L 100.0100, L500.4050 #### [facility] [address] [place], [address] Absolute Neut 2.4 X10 3/uL Normal 2.0-7.7 [facility] Comment on above: Performed By: #### L 100.0100, L500.4050 #### [facility] [address] [place], [address] Basophils/100 WBC (Bld) 0.6 % Normal 0-1 [facility] Comment on above: Performed By: #### L 100.0100, L500.4050 #### [facility] [address] [place], [address] Eosinophils/100 WBC (Bld) 2.5 % Normal 0-5 [facility] Comment on above: Performed By: #### L 100.0100, L500.4050 #### [facility] [address] [place], [address] Erythrocyte distribution width (RBC) [Ratio] 12.9 % Normal 11.6-14.6 [facility] Comment on above: Performed By: #### L 100.0100, L500.4050 #### [facility] [address] [place], [address] Hematocrit (Bld) [Volume fraction] 37.8 % Normal 37-47 [facility] Comment on above: Performed By: #### L 100.0100, L500.4050 #### [facility] [address] [place], [address] Hemoglobin (Bld) [Mass/Vol] 12.3 g/dL Normal 12.0-15.0 [facility] Comment on above: Performed By: #### L 100.0100, L500.4050 #### [facility] [address] [place], [address] IG% 0.200 Normal 0.0-0.9 [facility] Comment on above: Result Comment: IG% - Immature Granulocytes (promyelocytes, myelocytes and metamyelocytes) > 1% indicates that a LEFT SHIFT is Present. Performed By: #### L 100.0100, L500.4050 #### [facility] [address] [place], [address] Lymphocytes/100 WBC (Bld) 32.2 % Normal 19-41 [facility] Comment on above: Performed By: #### L 100.0100, L500.4050 #### [facility] [address] [place], [address] MCH (RBC) [Entitic mass] 31.5 pg Normal 27.0-32.0 [facility] Comment on above: Performed By: #### L 100.0100, L500.4050 #### [facility] [address] [place], [address] MCHC (RBC) [Mass/Vol] 32.5 g/dL Normal 32-36 [facility] Comment on above: Performed By: #### L 100.0100, L500.4050 #### [facility] [address] [place], [address] MCV (RBC) [Entitic vol] 96.7 fL Normal 81-99 [facility] Comment on above: Performed By: #### L 100.0100, L500.4050 #### [facility] [address] [place], [address] Monocytes/100 WBC (Bld) 15.3 % High 0-10 [facility] Comment on above: Performed By: #### L 100.0100, L500.4050 #### [facility] [address] [place], [address] Neutrophils/100 WBC (Bld) 49.2 % Normal 47-70 [facility] Comment on above: Performed By: #### L 100.0100, L500.4050 #### [facility] [address] [place], [address] Nucleated RBC (Bld) [#/Vol] 0 10*3/uL Normal 0-5 [facility] Comment on above: Performed By: #### L 100.0100, L500.4050 #### [facility] [address] [place], [address] Platelet mean volume (Bld) [Entitic vol] 10.1 fL Normal 6.2-12.0 [facility] Comment on above: Performed By: #### L 100.0100, L500.4050 #### [facility] [address] [place], [address] Platelets (Bld) [#/Vol] 243 10*3/uL Normal 150-450 [facility] Comment on above: Performed By: #### L 100.0100, L500.4050 #### [facility] [address] [place], [address] RBC (Bld) [#/Vol] 3.91 10*6/uL Low 4.2-5.[address] [facility] Comment on above: Performed By: #### L 100.0100, L500.4050 #### [facility] [address] [place], [address] RDW SD 45.4 fl High 35.1-43.9 [facility] Comment on above: Performed By: #### L 100.0100, L500.4050 #### [facility] [address] [place], [address] WBC (Bld) [#/Vol] 4.9 10*3/uL Normal 4.4-11.0 [facility] Comment on above: Performed By: #### L 100.0100, L500.4050 #### [facility] [address] [place], [address] Carbon dioxide measurementOr dered By: Alla Kim on 11-09-2024 CO2 [Moles/Vol] 27.0 mmol/L 21.0-32.0 [facility] Chloride measurementOrdered By: Alla Kim on 11-09-2024 Chloride [Moles/Vol] 105 mmol/L 98-107 [facility] Comprehensive Metabolic Prof ilon 11-09-2024 Albumin [Mass/Vol] 3.5 g/dL Normal 3.2-5.0 [facility] Comment on above: Performed By: #### L 100.0100, L500.4050 #### [facility] [address] [place], [address] Albumin/Globulin [Mass ratio] 1.0 {ratio} Normal 0.9-2.4 [facility] Comment on above: Performed By: #### L 100.0100, L500.4050 #### [facility] [address] [place], [address] ALK P 72 U/L Normal 45-117 [facility] Comment on above: Performed By: #### L 100.0100, L500.4050 #### [facility] [address] [place], [address] ALT [Catalytic activity/Vol] 20 U/L Normal 13-56 [facility] Comment on above: Performed By: #### L 100.0100, L500.4050 #### [facility] [address] [place], [address] AST [Catalytic activity/Vol] 16 U/L Normal 15-37 [facility] Comment on above: Performed By: #### L 100.0100, L500.4050 #### [facility] [address] [place], [address] Bilirubin [Mass/Vol] 0.30 mg/dL Normal 0.20-1.00 [facility] Comment on above: Result Comment: For patients on eltrombopag therapy, use of Dimension Busy TBIL is not recommended. Performed By: #### L 100.0100, L500.4050 #### [facility] [address] [place], [address] BUN/CRE 23.2 RATIO High 10-20 [facility] Comment on above: Performed By: #### L 100.0100, L500.4050 #### [facility] [address] [place], [address] CA,Total 9.3 mg/dL Normal 8.5-10.1 [facility] Comment on above: Performed By: #### L 100.0100, L500.4050 #### [facility] [address] [place], [address] Chloride [Moles/Vol] 105 mmol/L Normal 98-107 [facility] Comment on above: Performed By: #### L 100.0100, L500.4050 #### [facility] [address] [place], [address] CO2 [Moles/Vol] 27.0 mmol/L Normal 21.0-32.0 [facility] Comment on above: Performed By: #### L 100.0100, L500.4050 #### [facility] [address] [place], [address] Creatinine [Mass/Vol] 0.73 mg/dL Normal 0.55-1.02 [facility] Comment on above: Result Comment: The validity of the calculated GFR GFRAA in patients over 70 years has not been determined. Clinical correlation is essential. Performed By: #### L 100.0100, L500.4050 #### [facility] [address] [place], [address] EST GFR - AA 101 mL/min Normal >60 [facility] Comment on above: Result Comment: Afri can [place] GFR Calc Performed By: #### L 100.0100, L500.4050 #### [facility] [address] [place], [address] GAP 8 Normal 5-15 [facility] Comment on above: Performed By: #### L 100.0100, L500.4050 #### [facility] [address] [place], [address] GFR/1.73 sq M.predicted among non-blacks MDRD (S/P/Bld) [Vol rate/Area] 83 mL/min/{1.73_m2} Normal >60 [facility] Comment on above: Result Comment: Non- GFR Calc Performed By: #### L 100.0100, L500.4050 #### [facility] [address] [place], [address] Globulin (S) [Mass/Vol] 3.4 g/dL Normal 2.2-4.2 [facility] Comment on above: Performed By: #### L 100.0100, L500.4050 #### [facility] [address] [place], [address] Glucose [Mass/Vol] 94 mg/dL Normal 74-106 [facility] Comment on above: Performed By: #### L 100.0100, L500.4050 #### [facility] [address] [place], [address] Potassium [Moles/Vol] 4.1 mmol/L Normal 3.5-5.1 [facility] Comment on above: Performed By: #### L 100.0100, L500.4050 #### [facility] [address] [place], [address] Sodium [Moles/Vol] 140 mmol/L Normal 136-145 [facility] Comment on above: Performed By: #### L 100.0100, L500.4050 #### [facility] [address] [place], [address] T PROT 6.9 g/dL Normal 6.4-8.2 [facility] Comment on above: Performed By: #### L 100.0100, L500.4050 #### [facility] [address] [place], [address] Urea nitrogen [Mass/Vol] 17 mg/dL Normal 7-18 [facility] Comment on above: Performed By: #### L 100.0100, L500.4050 #### [facility] [address] [place], [address] Eosinophil percentageOrdered By: Alla Kim on 11-09-2024 Eosinophils/100 WBC (Bld) 2.5 % 0-5 [facility] Erythrocyte distribution wid th (RBC) [Ratio]Ordered By: Alla Kim on 11-09-2024 Erythrocyte distribution width (RBC) [Entitic vol] 45.4 fL High 35.1-43.9 [facility] Erythrocyte distribution wid th ratioOrdered By: Alla Kim on 11-09-2024 Erythrocyte distribution width (RBC) [Ratio] 12.9 % 11.6-14.6 [facility] Estimated glomerular filtrat ion rate (GFR) AmericanOrdered By: Alla Kim on 11-09-2024 Estimated GFR (MDRD) Amer 101 mL/min >60 [facility] Comment on above: GFR Calc Glomerular filtration rate ( GFR) estimationOrdered By: Alla Kim on 11-09-2024 Estimated GFR (MDRD) Non-Af Amer 83 mL/min >60 [facility] Comment on above: Non- GFR Calc Glucose measurementOrdered B y: Alla Kim on 11-09-2024 Glucose [Mass/Vol] 94 mg/dL 74-106 [facility] Hematocrit Auto (Bld) [Volum e fraction]Ordered By: Alla Kim on 11-09-2024 Hematocrit (Bld) [Volume fraction] 37.8 % 37-47 [facility] Hemoglobin measurementOrdere d By: Alla Kim on 11-09-2024 Hemoglobin (Bld) [Mass/Vol] 12.3 g/dL 12.0-15.0 [facility] Immature granulocytes/100 WB C Auto (Bld)Ordered By: Alla Kim on 11-09-2024 Immature granulocytes/100 WBC (Bld) 0.200 % 0.0-0.9 [facility] Comment on above: IG% - Immature Granu locytes (promyelocytes, myelocytes and metamyelocytes) > 1% indicates that a LEFT SHIFT is Present. Laboratory - Chemistry and C hemistry - challengeOrdered By: Alla Kim on 11-09-2024 AST [Catalytic activity/Vol] 16 U/L 15-37 [facility] Lymphocytes Auto (Unsp spec) [#/Vol]Ordered By: Allaazam Kim on 11-09-2024 Lymphocytes (Bld) [#/Vol] 1.56 10*3/uL 0.83-4.51 [facility] Lymphocytes/100 WBC Auto (Un sp spec)Ordered By: Alla Kim on 11-09-2024 Lymphocytes/100 WBC (Bld) 32.2 % 19-41 [facility] MCV (mean corpuscular volume ) determinationOrdered By: Alla Kim on 11-09-2024 MCV (RBC) [Entitic vol] 96.7 fL 81-99 [facility] Mean corpuscular hemoglobin (MCH) determinationOrdered By: Alla Kim on 11-09-2024 MCH (RBC) [Entitic mass] 31.5 pg 27.0-32.0 [facility] Mean corpuscular hemoglobin concentration (MCHC) determinationOrdered By: Alla Kim on 11-09-2024 MCHC (RBC) [Mass/Vol] 32.5 g/dL 32-36 [facility] Mean platelet volume determi nationOrdered By: Alla Kim on 11-09-2024 Platelet mean volume (Bld) [Entitic vol] 10.1 fL 6.2-12.0 [facility] Monocyte percentageOrdered B y: Alla Kim on 11-09-2024 Monocytes/100 WBC (Bld) 15.3 % High 0-10 [facility] Neutrophil percentageOrdered By: Alla Kim on 11-09-2024 Neutrophils/100 WBC (Bld) 49.2 % 47-70 [facility] Nucleated red blood cell per centageOrdered By: Alla Kim on 11-09-2024 Nucleated RBC/100 WBC (Bld) [Ratio] 0 % 0-5 [facility] Platelet countOrdered By: Nj Kim on 11-09-2024 Platelets (Bld) [#/Vol] 243 10*3/uL 150-450 [facility] Potassium measurementOrdered By: Alla Kim on 11-09-2024 Potassium [Moles/Vol] 4.1 mmol/L 3.5-5.1 [facility] RBC Auto (Bld) [#/Vol]Ordere d By: Alla Kim on 11-09-2024 RBC (Bld) [#/Vol] 3.91 10*6/uL Low 4.2-5.[address] [facility] Serum anion gap measurementO rdered By: Alla Kim on 11-09-2024 Anion gap [Moles/Vol] 8 mmol/L 5-15 [facility] Serum globulin measurementOr dered By: Alla Kim on 11-09-2024 Globulin (S) [Mass/Vol] 3.4 g/dL 2.2-4.2 [facility] Serum or plasma alanine wolf otransferase (ALT) measurementOrdered By: Alla Kim on 11-09-2024 ALT [Catalytic activity/Vol] 20 U/L 13-56 [facility] Serum or plasma albumin yaniv urement (mass/volume)Ordered By: Alla Kim on 11-09-2024 Albumin [Mass/Vol] 3.5 g/dL 3.2-5.0 [facility] Serum or plasma alkaline liz sphatase measurementOrdered By: Alla Kim on 11-09-2024 ALP [Catalytic activity/Vol] 72 U/L 45-117 [facility] Serum or plasma calcium yaniv urement (mass/volume)Ordered By: Alla Kim on 11-09-2024 Calcium [Mass/Vol] 9.3 mg/dL 8.5-10.1 [facility] Serum or plasma creatinine m easurement (mass/volume)Ordered By: Alla Kim on 11-09-2024 Creatinine [Mass/Vol] 0.73 mg/dL 0.55-1.02 [facility] Comment on above: The validity of the calculated GFR & GFRAA in patients over 70 years has not been determined. Clinical correlation is essential. Serum or plasma urea nitroge n measurement (mass/volume)Ordered By: Alla Kim on 11-09-2024 Urea nitrogen [Mass/Vol] 17 mg/dL 7-18 [facility] Sodium levelOrdered By: Gregg Kim on 11-09-2024 Sodium [Moles/Vol] 140 mmol/L 136-145 [facility] Total proteinOrdered By: Lilly Kim on 11-09-2024 Protein [Mass/Vol] 6.9 g/dL 6.4-8.2 [facility] White blood cell (WBC) count Ordered By: Alla Kim on 11-09-2024 WBC (Bld) [#/Vol] 4.9 10*3/uL 4.4-11.0 [facility] BI MAMMO BILATERAL SCREENING TOMOSYNTHESISon 10-21-2024 BI MAMMO BILATERAL SCREENING TOMOSYNTHESIS Interpreted By: Miguel Hand, STUDY: BI MAMMO BILATERAL SCREENING TOMOSYNTHESIS; 10/21/2024 10:27 am ACCESSION NUMBER(S): [id number] ORDERING CLINICIAN: HARJEET CERVANTES INDICATION: Screening. ,Z12.31 Encounter for screening mammogram for malignant neoplasm of breast COMPARISON: 10/19/2023, 10/16/2022 FINDINGS: 2D and tomosynthesis images were reviewed at 1 mm slice thickness. Density: The breasts are almost entirely fatty. No suspicious masses or calcifications are identified. CAD was utilized. Intramammary lymph nodes are present. IMPRESSION: No mammographic evidence of malignancy. BI-RADS CATEGORY: BI-RADS Category: 2 Benign. Recommendation: Annual Screening. Recommended Date: 1 Year. Laterality: Bilateral. For any future breast imaging appointments, please call [phone] ([phone]). MACRO: None Signed by: Miguel Hand 10/21/2024 12:48 PM Dictation workstation: [id number] [facility] DBT Breast - bilateralon No mammographic evid ence of malignancy. BI-RADS CATEGORY: BI-RADS Category: 2 Benign. Recommendation: Annual Screening. Recommended Date: 1 Year. Laterality: Bilateral. For any future breast imaging appointments, please call [phone] ([phone]). MACRO: None Signed by: Miguel Hand 10/21/2024 12:48 PM Dictation workstation: [id number] MMODAL Interpreted By: Miguel Cast, STUDY: BI MAMMO BILATERAL SCREENING TOMOSYNTHESIS; 10/21/2024 10:27 am ACCESSION NUMBER(S): [id number] ORDERING CLINICIAN: HARJEET CERVANTES INDICATION: Screening. ,Z12.31 Encounter for screening mammogram for malignant neoplasm of breast COMPARISON: 10/19/2023, 10/16/2022 FINDINGS: 2D and tomosynthesis images were reviewed at 1 mm slice thickness. Density: The breasts are almost entirely fatty. No suspicious masses or calcifications are identified. CAD was utilized. Intramammary lymph nodes are present. MMODAL Miguel Hand MD - 10/21/2024 Interpreted By: Miguel Hand, STUDY: BI MAMMO BILATERAL SCREENING TOMOSYNTHESIS; 10/21/2024 10:27 am ACCESSION NUMBER(S): [id number] ORDERING CLINICIAN: HARJEET CERVANTES INDICATION: Screening. ,Z12.31 Encounter for screening mammogram for malignant neoplasm of breast COMPARISON: 10/19/2023, 10/16/2022 FINDINGS: 2D and tomosynthesis images were reviewed at 1 mm slice thickness. Density: The breasts are almost entirely fatty. No suspicious masses or calcifications are identified. CAD was utilized. Intramammary lymph nodes are present. IMPRESSION: No mammographic evidence of malignancy. BI-RADS CATEGORY: BI-RADS Category: 2 Benign. Recommendation: Annual Screening. Recommended Date: 1 Year. Laterality: Bilateral. For any future breast imaging appointments, please call [phone] ([phone]). MACRO: None Signed by: Miguel Hand 10/21/2024 12:48 PM Dictation workstation: [id number] [facility] Work Phone: Radiology Study observation (narrative) [facility] Work Phone: DBT Breast - bilateralOrdere d By: Miguel Hand on 10-21-2024 [facility] Work Phone: DEXA BONE DENSITYon 10-21-19 DEXA BONE DENSITY Interpreted By: Eduar Ugalde, STUDY: DEXA BONE DENSITY10/21/2024 10:12 am INDICATION: Signs/Symptoms:Postmenopaus al. The patient is a 69 y/o year old F. ,Z78.0 Asymptomatic menopausal state COMPARISON: 10/14/2021 ACCESSION NUMBER(S): [id number] ORDERING CLINICIAN: HARJEET CERVANTES TECHNIQUE: DEXA BONE DENSITY FINDINGS: SPINE L1-L4 Bone Mineral Density: 1.140 T-Score -0.6 Z-Score 1.1 Bone Mineral Density change vs baseline: Not reported Bone Mineral Density change vs previous: Not reported LEFT FEMUR -TOTAL Bone Mineral Density: 0.776 T-Score -1.8 Z-Score -0.3 Bone Mineral Density change vs baseline: Not reported Bone Mineral Density change vs previous: Not reported LEFT FEMUR -NECK Bone Mineral Density: 0.689 T-Score -2.5 Z-Score -0.7 Bone Mineral Density change vs baseline: Not reported Bone Mineral Density change vs previous: Not reported World Health Organization (WHO) criteria for post-menopausal, Women: Normal: T-score at or above -1 SD Osteopenia: T-score between -1 and -2.5 SD Osteoporosis: T-score at or below -2.5 SD 10-year Fracture Risk: Major Osteoporotic Fracture 18.6 Hip Fracture 5.3 Note: If no FRAX score is reported, it is because: Some T-score for Spine Total or Hip Total or Femoral Neck at or below -2.5 IMPRESSION: DEXA: According to World Health Organization criteria, classification is osteoporosis. Followup recommended in two years or sooner as clinically warranted. All images and detailed analysis are available on the Radiology PACS. MACRO: None Signed by: Eduar Beckwith 10/21/2024 1:05 PM Dictation workstation: [id number] [facility] DXA Skeletal system Views fo r bone densityon 10-21-2024 DEXA: According to W orld Health Organization criteria, classification is osteoporosis. Followup recommended in two years or sooner as clinically warranted. All images and detailed analysis are available on the Radiology PACS. MACRO: None Signed by: Eduar Beckwith 10/21/2024 1:05 PM Dictation workstation: [id number] MMODAL Interpreted By: Eduar Ugalde, STUDY: DEXA BONE DENSITY10/21/2024 10:12 am INDICATION: Signs/Symptoms:Postmenopaus al. The patient is a 69 y/o year old F. ,Z78.0 Asymptomatic menopausal state COMPARISON: 10/14/2021 ACCESSION NUMBER(S): [id number] ORDERING CLINICIAN: HARJEET CERVANTES TECHNIQUE: DEXA BONE DENSITY FINDINGS: SPINE L1-L4 Bone Mineral Density: 1.140 T-Score -0.6 Z-Score 1.1 Bone Mineral Density change vs baseline: Not reported Bone Mineral Density change vs previous: Not reported LEFT FEMUR -TOTAL Bone Mineral Density: 0.776 T-Score -1.8 Z-Score -0.3 Bone Mineral Density change vs baseline: Not reported Bone Mineral Density change vs previous: Not reported LEFT FEMUR -NECK Bone Mineral Density: 0.689 T-Score -2.5 Z-Score -0.7 Bone Mineral Density change vs baseline: Not reported Bone Mineral Density change vs previous: Not reported World Health Organization (WHO) criteria for post-menopausal, Women: Normal: T-score at or above -1 SD Osteopenia: T-score between -1 and -2.5 SD Osteoporosis: T-score at or below -2.5 SD 10-year Fracture Risk: Major Osteoporotic Fracture 18.6 Hip Fracture 5.3 Note: If no FRAX score is reported, it is because: Some T-score for Spine Total or Hip Total or Femoral Neck at or below -2.5 [facility] MMODAL Eduar Beckwith MD - 10/21/2024 Interpreted By: Eduar Beckwith, STUDY: DEXA BONE DENSITY10/21/2024 10:12 am INDICATION: Signs/Symptoms:Postmenopaus al. The patient is a 69 y/o year old F. ,Z78.0 Asymptomatic menopausal state COMPARISON: 10/14/2021 ACCESSION NUMBER(S): [id number] ORDERING CLINICIAN: HARJEET CERVANTES TECHNIQUE: DEXA BONE DENSITY FINDINGS: SPINE L1-L4 Bone Mineral Density: 1.140 T-Score -0.6 Z-Score 1.1 Bone Mineral Density change vs baseline: Not reported Bone Mineral Density change vs previous: Not reported LEFT FEMUR -TOTAL Bone Mineral Density: 0.776 T-Score -1.8 Z-Score -0.3 Bone Mineral Density change vs baseline: Not reported Bone Mineral Density change vs previous: Not reported LEFT FEMUR -NECK Bone Mineral Density: 0.689 T-Score -2.5 Z-Score -0.7 Bone Mineral Density change vs baseline: Not reported Bone Mineral Density change vs previous: Not reported World Health Organization (WHO) criteria for post-menopausal, Women: Normal: T-score at or above -1 SD Osteopenia: T-score between -1 and -2.5 SD Osteoporosis: T-score at or below -2.5 SD 10-year Fracture Risk: Major Osteoporotic Fracture 18.6 Hip Fracture 5.3 Note: If no FRAX score is reported, it is because: Some T-score for Spine Total or Hip Total or Femoral Neck at or below -2.5 IMPRESSION: DEXA: According to World Health Organization criteria, classification is osteoporosis. Followup recommended in two years or sooner as clinically warranted. All images and detailed analysis are available on the Radiology PACS. MACRO: None Signed by: Eduar Beckwith 10/21/2024 1:05 PM Dictation workstation: [id number] [facility] Work Phone: Radiology Study observation (narrative) [facility] Work Phone: DXA Skeletal system Views fo r bone densityOrdered By: Eduar Beckwith on 10-21-2024 [facility] Work Phone: [phone] Lead EKGon 10-20-[address] [facility] [address] [place] [address] 12 Lead EKG 10/20/24 1343 MR#: [id number] Acct: [id number] Name: KELLY GARCIA Rep #: [id number] : 1955 69 From: Owen Valverde MD Attending Dr: Dr. Phu Tan MD Status: REG I Ordering Dr: Phu Tan MD Date: 10/20/24 Location: CT Sex: F C Admitted: Test Reason : PRE OP Blood Pressure : */* mmHG Vent. Rate : 96 BPM Atrial Rate : 96 BPM P-R Int : 162 ms QRS Dur : 84 ms QT Int : 356 ms P-R-T Axes : 53 -47 12 degrees QTcB Int : 449 ms Normal sinus rhythm Left anterior fascicular block Minimal voltage criteria for LVH, may be normal variant Possible Anterior infarct , age undetermined Abnormal ECG Confirmed by Owen Valverde ([id number]), editor news [employer] ([id number]) on 10/21/2024 5:58:23 AM Referred By: Phu Tan Confirmed By: Owen Valverde 10/21/24 0558 Date Owen Valverde MD CC: Dr. Phu Tna MD; HARJEET CERVANTES Signed Normal [facility] Absolute neutrophil countOrd ered By: Phu Tan on 10-20-2024 Neutrophils (Bld) [#/Vol] 3.7 10*3/uL 2.0-7.7 [facility] Albumin, Serumon 10-20-2024 Albumin [Mass/Vol] 3.9 g/dL Normal 3.2-5.0 [facility] Comment on above: Performed By: #### L 100.0100, L500.2500, L501.1800 #### [facility] [address] [place], [address] Basic Metabolic Profile (BMP )on 10-20-2024 BUN/CRE 20.0 RATIO Normal 10-20 [facility] Comment on above: Performed By: #### L 100.0100, L500.2500, L501.1800 #### [facility] [address] [place], [address] CA,Total 9.1 mg/dL Normal 8.5-10.1 [facility] Comment on above: Performed By: #### L 100.0100, L500.2500, L501.1800 #### [facility] [address] [place], [address] Chloride [Moles/Vol] 103 mmol/L Normal 98-107 [facility] Comment on above: Performed By: #### L 100.0100, L500.2500, L501.1800 #### [facility] [address] [place], [address] CO2 [Moles/Vol] 26.0 mmol/L Normal 21.0-32.0 [facility] Comment on above: Performed By: #### L 100.0100, L500.2500, L501.1800 #### [facility] [address] [place], [address] Creatinine [Mass/Vol] 0.80 mg/dL Normal 0.55-1.02 [facility] Comment on above: Result Comment: The validity of the calculated GFR GFRAA in patients over 70 years has not been determined. Clinical correlation is essential. Performed By: #### L 100.0100, L500.2500, L501.1800 #### [facility] [address] [place], [address] EST GFR - AA 91 mL/min Normal >60 [facility] Comment on above: Result Comment: Afri can Finnish GFR Calc Performed By: #### L 100.0100, L500.2500, L501.1800 #### [facility] [address] [place], [address] GAP 8 Normal 5-15 [facility] Comment on above: Performed By: #### L 100.0100, L500.2500, L501.1800 #### [facility] [address] [place], [address] GFR/1.73 sq M.predicted among non-blacks MDRD (S/P/Bld) [Vol rate/Area] 75 mL/min/{1.73_m2} Normal >60 [facility] Comment on above: Result Comment: Non- GFR Calc Performed By: #### L 100.0100, L500.2500, L501.1800 #### [facility] [address] [place], [address] Glucose [Mass/Vol] 106 mg/dL Normal 74-106 [facility] Comment on above: Result Comment: Fast ing Glucose result from 100 to 125 mg/dL suggests IMPAIRED HOMEOSTASIS per A.D.A. criteria. Performed By: #### L 100.0100, L500.2500, L501.1800 #### [facility] [address] [place], [address] Potassium [Moles/Vol] 4.0 mmol/L Normal 3.5-5.1 [facility] Comment on above: Performed By: #### L 100.0100, L500.2500, L501.1800 #### [facility] [address] [place], [address] Sodium [Moles/Vol] 137 mmol/L Normal 136-145 [facility] Comment on above: Performed By: #### L 100.0100, L500.2500, L501.1800 #### [facility] [address] [place], [address] Urea nitrogen [Mass/Vol] 16 mg/dL Normal 7-18 [facility] Comment on above: Performed By: #### L 100.0100, L500.2500, L501.1800 #### [facility] [address] [place], [address] Basophil percentageOrdered B y: Phu Tan on 10-20-2024 Basophils/100 WBC (Bld) 0.5 % 0-1 [facility] Blood urea nitrogen (BUN)/cr eatinine ratioOrdered By: Phu Tan on 10-20-2024 Urea nitrogen/Creatinine [Mass ratio] 20.0 mg/mg 10-20 [facility] CBC W/Diff, Automatedon Absolute Lymph 1.78 X10 3/uL Normal 0.83-4.51 [facility] Comment on above: Performed By: #### L 100.0100, L500.2500, L501.1800 #### [facility] [address] [place], [address] Absolute Neut 3.7 X10 3/uL Normal 2.0-7.7 [facility] Comment on above: Performed By: #### L 100.0100, L500.2500, L501.1800 #### [facility] [address] [place], [address] Basophils/100 WBC (Bld) 0.5 % Normal 0-1 [facility] Comment on above: Performed By: #### L 100.0100, L500.2500, L501.1800 #### [facility] [address] [place], [address] Eosinophils/100 WBC (Bld) 1.7 % Normal 0-5 [facility] Comment on above: Performed By: #### L 100.0100, L500.2500, L501.1800 #### [facility] [address] [place], [address] Erythrocyte distribution width (RBC) [Ratio] 13.4 % Normal 11.6-14.6 [facility] Comment on above: Performed By: #### L 100.0100, L500.2500, L501.1800 #### [facility] [address] [place], [address] Hematocrit (Bld) [Volume fraction] 40.8 % Normal 37-47 [facility] Comment on above: Performed By: #### L 100.0100, L500.2500, L501.1800 #### [facility] [address] [place], [address] Hemoglobin (Bld) [Mass/Vol] 12.9 g/dL Normal 12.0-15.0 [facility] Comment on above: Performed By: #### L 100.0100, L500.2500, L501.1800 #### [facility] [address] [place], [address] IG% 0.300 Normal 0.0-0.9 [facility] Comment on above: Result Comment: IG% - Immature Granulocytes (promyelocytes, myelocytes and metamyelocytes) > 1% indicates that a LEFT SHIFT is Present. Performed By: #### L 100.0100, L500.2500, L501.1800 #### [facility] [address] [place], [address] Lymphocytes/100 WBC (Bld) 27.6 % Normal 19-41 [facility] Comment on above: Performed By: #### L 100.0100, L500.2500, L501.1800 #### [facility] [address] [place], [address] MCH (RBC) [Entitic mass] 30.6 pg Normal 27.0-32.0 [facility] Comment on above: Performed By: #### L 100.0100, L500.2500, L501.1800 #### [facility] [address] [place], [address] MCHC (RBC) [Mass/Vol] 31.6 g/dL Low 32-36 [facility] Comment on above: Performed By: #### L 100.0100, L500.2500, L501.1800 #### [facility] [address] [place], [address] MCV (RBC) [Entitic vol] 96.7 fL Normal 81-99 [facility] Comment on above: Performed By: #### L 100.0100, L500.2500, L501.1800 #### [facility] [address] [place], [address] Monocytes/100 WBC (Bld) 12.7 % High 0-10 [facility] Comment on above: Performed By: #### L 100.0100, L500.2500, L501.1800 #### [facility] [address] [place], [address] Neutrophils/100 WBC (Bld) 57.2 % Normal 47-70 [facility] Comment on above: Performed By: #### L 100.0100, L500.2500, L501.1800 #### [facility] [address] [place], [address] Nucleated RBC (Bld) [#/Vol] 0 10*3/uL Normal 0-5 [facility] Comment on above: Performed By: #### L 100.0100, L500.2500, L501.1800 #### [facility] [address] [place], [address] Platelet mean volume (Bld) [Entitic vol] 9.7 fL Normal 6.2-12.0 [facility] Comment on above: Performed By: #### L 100.0100, L500.2500, L501.1800 #### [facility] [address] [place], [address] Platelets (Bld) [#/Vol] 283 10*3/uL Normal 150-450 [facility] Comment on above: Performed By: #### L 100.0100, L500.2500, L501.1800 #### [facility] [address] [place], [address] RBC (Bld) [#/Vol] 4.22 10*6/uL Normal 4.2-5.[address] [facility] Comment on above: Performed By: #### L 100.0100, L500.2500, L501.1800 #### [facility] [address] [place], [address] RDW SD 47.9 fl High 35.1-43.9 [facility] Comment on above: Performed By: #### L 100.0100, L500.2500, L501.1800 #### [facility] [address] [place], [address] WBC (Bld) [#/Vol] 6.4 10*3/uL Normal 4.4-11.0 [facility] Comment on above: Performed By: #### L 100.0100, L500.2500, L501.1800 #### [facility] [address] [place], [address] Carbon dioxide measurementOr dered By: Phu Tan on 10-20-2024 CO2 [Moles/Vol] 26.0 mmol/L 21.0-32.0 [facility] Chloride measurementOrdered By: Phu Tan on 10-20-2024 Chloride [Moles/Vol] 103 mmol/L 98-107 [facility] Eosinophil percentageOrdered By: Phu Tan on 10-20-2024 Eosinophils/100 WBC (Bld) 1.7 % 0-5 [facility] Erythrocyte distribution wid th (RBC) [Ratio]Ordered By: Phu Tan on 10-20-2024 Erythrocyte distribution width (RBC) [Entitic vol] 47.9 fL High 35.1-43.9 [facility] Erythrocyte distribution wid th ratioOrdered By: Phu Tan on 10-20-2024 Erythrocyte distribution width (RBC) [Ratio] 13.4 % 11.6-14.6 [facility] Estimated glomerular filtrat ion rate (GFR) AmericanOrdered By: Phu Tan on 10-20-2024 Estimated GFR (MDRD) Amer 91 mL/min >60 [facility] Comment on above: GFR Calc Extremity Lower without Cont raon 10-20-2024 Extremity Lower without Contra [facility] [address] [place], [place] [address] Extremity Lower without Contra MR#: [id number] Acct: [id number] Name: KELLY GARCIA Rep #: [id number] : 1955 F 69 From: aTn Witt MD PCP: HARJEET CERVANTES Status: REG CLI Study: Extremity Lower without Contra Date of Exam: 0 10/20/24 Exam# [id number] Ordering Dr: Phu Tan MD [id number] CT RIGHT LOWER EXTREMITY WITH 3-D IMAGING CLINICAL INDICATION: KNEE PAIN - SHAKA PROTOCOL TECHNIQUE: Axial CT images of the right lower extremity (right hip, right knee, and right ankle) was performed without IV contrast material. Coronal and sagittal reformats were provided. The protocol utilizes one or more of the following dose reduction techniques: automated exposure control, adjustment of mA and/or kV according to patient size, and/or use of iterative reconstruction technique. RADIATION DOSAGE (If Supplied By Facility): CTDIvol = ( 18.96 ) mGy, DLP = ( 1349.94 ) mGycm COMPARISON: Right knee radiographs dated 01/11/2018. FINDINGS: Bones: Normal right hip joint. 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 There is tricompartment degenerative arthrosis of the right knee, most severe in the medial femorotibial compartment with there is moderate to severe joint space narrowing, marginal osteophyte formation, and subchondral sclerosis. There is a small plantar calcaneal spur. Otherwise, normal right ankle. Osseous structures are intact without evidence of fracture or dislocation. No lytic or blastic osseous masses. Soft Tissues: There is a small right knee joint effusion. The deep soft tissue structures are unremarkable. The superficial soft tissues are unremarkable without evidence of edema, hematoma, or foreign body. CT/Extremity Lower without Contra IMPRESSION: Tricompartment degenerative arthrosis of the right knee, most severe in the medial femorotibial compartment. Small right knee joint effusion. Electronically Signed: Tan Witt MD at 14:12 EST Reading Location ID and State: [address] [place] [address] , Service support , CC: Dr. Phu Tan MD; [employer] Tier: Signed Normal [facility] Glomerular filtration rate ( GFR) estimationOrdered By: Phu Tan on 10-20-2024 Estimated GFR (MDRD) Non-Af Amer 75 mL/min >60 [facility] Comment on above: Non- GFR Calc Glucose measurementOrdered B y: Phu Tan on 10-20-2024 Glucose [Mass/Vol] 106 mg/dL 74-106 [facility] Comment on above: Fasting Glucose resu lt from 100 to 125 mg/dL suggests IMPAIRED HOMEOSTASIS per A.D.A. criteria. Hematocrit Auto (Bld) [Volum e fraction]Ordered By: Phu Tan on 10-20-2024 Hematocrit (Bld) [Volume fraction] 40.8 % 37-47 [facility] Hemoglobin measurementOrdere d By: Phu Tan on 10-20-2024 Hemoglobin (Bld) [Mass/Vol] 12.9 g/dL 12.0-15.0 [facility] Immature granulocytes/100 WB C Auto (Bld)Ordered By: Phu Tan on 10-20-2024 Immature granulocytes/100 WBC (Bld) 0.300 % 0.0-0.9 [facility] Comment on above: IG% - Immature Granu locytes (promyelocytes, myelocytes and metamyelocytes) > 1% indicates that a LEFT SHIFT is Present. Lymphocytes Auto (Unsp spec) [#/Vol]Ordered By: Phu Tan on 10-20-2024 Lymphocytes (Bld) [#/Vol] 1.78 10*3/uL 0.83-4.51 [facility] Lymphocytes/100 WBC Auto (Un sp spec)Ordered By: Phu Tan on 10-20-2024 Lymphocytes/100 WBC (Bld) 27.6 % 19-41 [facility] MCV (mean corpuscular volume ) determinationOrdered By: Phu Tan on 10-20-2024 MCV (RBC) [Entitic vol] 96.7 fL 81-99 [facility] Mean corpuscular hemoglobin (MCH) determinationOrdered By: Phu Tan on 10-20-2024 MCH (RBC) [Entitic mass] 30.6 pg 27.0-32.0 [facility] Mean corpuscular hemoglobin concentration (MCHC) determinationOrdered By: Phu Tan on 10-20-2024 MCHC (RBC) [Mass/Vol] 31.6 g/dL Low 32-36 [facility] Mean platelet volume determi nationOrdered By: Phu Tan on 10-20-2024 Platelet mean volume (Bld) [Entitic vol] 9.7 fL 6.2-12.0 [facility] Monocyte percentageOrdered B y: Phu Tan on 10-20-2024 Monocytes/100 WBC (Bld) 12.7 % High 0-10 [facility] Neutrophil percentageOrdered By: Phu Tan on 10-20-2024 Neutrophils/100 WBC (Bld) 57.2 % 47-70 [facility] Nucleated red blood cell per centageOrdered By: Phu Tan on 10-20-2024 Nucleated RBC/100 WBC (Bld) [Ratio] 0 % 0-5 [facility] Platelet countOrdered By: St emmy Tan on 10-20-2024 Platelets (Bld) [#/Vol] 283 10*3/uL 150-450 [facility] Potassium measurementOrdered By: Phu Tan on 10-20-2024 Potassium [Moles/Vol] 4.0 mmol/L 3.5-5.1 [facility] RBC Auto (Bld) [#/Vol]Ordere d By: Phu Tan on 10-20-2024 RBC (Bld) [#/Vol] 4.22 10*6/uL 4.2-5.[address] [facility] Serum anion gap measurementO rdered By: Phu Tan on 10-20-2024 Anion gap [Moles/Vol] 8 mmol/L 5-15 [facility] Serum or plasma albumin yaniv urement (mass/volume)Ordered By: Phu Tan on 10-20-2024 Albumin [Mass/Vol] 3.9 g/dL 3.2-5.0 [facility] Serum or plasma calcium yaniv urement (mass/volume)Ordered By: Phu Tan on 10-20-2024 Calcium [Mass/Vol] 9.1 mg/dL 8.5-10.1 [facility] Serum or plasma creatinine m easurement (mass/volume)Ordered By: Phu Tan on 10-20-2024 Creatinine [Mass/Vol] 0.80 mg/dL 0.55-1.02 [facility] Comment on above: The validity of the calculated GFR & GFRAA in patients over 70 years has not been determined. Clinical correlation is essential. Serum or plasma urea nitroge n measurement (mass/volume)Ordered By: Phu Tan on 10-20-2024 Urea nitrogen [Mass/Vol] 16 mg/dL 7-18 [facility] Sodium levelOrdered By: Jose Tan on 10-20-2024 Sodium [Moles/Vol] 137 mmol/L 136-145 [facility] White blood cell (WBC) count Ordered By: Phu Tan on 10-20-2024 WBC (Bld) [#/Vol] 6.4 10*3/uL 4.4-11.0 [facility] Vitamin D,25 Hydroxyon 09-29 Vitamin D 25-OH 30.2 ng/mL Normal [facility] Comment on above: Result Comment: Jenn min D 25(OH) Status Range Deficiency <20 ng/mL (50nmol/L) Insufficiency 20 - 30 ng/mL (50 - 75 nmol/L) Sufficiency 30 - 100 ng/mL (75 - 250 nmol/L) Toxicity >100 ng/mL (>250 nmol/L) Performed By: #### L 100.0100, L500.4050 #### [facility] [address] [place], [address] 09-YT-Kutmphe DOrdered By: Marcos CERVANTES on 09-28-2024 Vitamin D 25-Hydroxy 30.2 ng/mL [facility] [facility] Comment on above: Vitamin D 25(OH) Sta tus Range Deficiency <20 ng/mL (50nmol/L) Insufficiency 20 - 30 ng/mL (50 - 75 nmol/L) Sufficiency 30 - 100 ng/mL (75 - 250 nmol/L) Toxicity >100 ng/mL (>250 nmol/L) CBC W/Diff, Automatedon 08-12 Absolute Lymph 1.34 X10 3/uL Normal 0.83-4.51 [facility] Comment on above: Performed By: #### L 100.0100, L500.4050 #### [facility] [address] [place], [address] Absolute Neut 2.8 X10 3/uL Normal 2.0-7.7 [facility] Comment on above: Performed By: #### L 100.0100, L500.4050 #### [facility] [address] [place], [address] Basophils/100 WBC (Bld) 0.4 % Normal 0-1 [facility] Comment on above: Performed By: #### L 100.0100, L500.4050 #### [facility] [address] [place], [address] Eosinophils/100 WBC (Bld) 2.2 % Normal 0-5 [facility] Comment on above: Performed By: #### L 100.0100, L500.4050 #### [facility] [address] [place], [address] Erythrocyte distribution width (RBC) [Ratio] 13.5 % Normal 11.6-14.6 [facility] Comment on above: Performed By: #### L 100.0100, L500.4050 #### [facility] [address] [place], [address] Hematocrit (Bld) [Volume fraction] 38.3 % Normal 37-47 [facility] Comment on above: Performed By: #### L 100.0100, L500.4050 #### [facility] [address] [place], [address] Hemoglobin (Bld) [Mass/Vol] 12.8 g/dL Normal 12.0-15.0 [facility] Comment on above: Performed By: #### L 100.0100, L500.4050 #### [facility] [address] [place], [address] IG% 0.200 Normal 0.0-0.9 [facility] Comment on above: Result Comment: IG% - Immature Granulocytes (promyelocytes, myelocytes and metamyelocytes) > 1% indicates that a LEFT SHIFT is Present. Performed By: #### L 100.0100, L500.4050 #### [facility] [address] [place], [address] Lymphocytes/100 WBC (Bld) 26.4 % Normal 19-41 [facility] Comment on above: Performed By: #### L 100.0100, L500.4050 #### [facility] [address] [place], [address] MCH (RBC) [Entitic mass] 31.8 pg Normal 27.0-32.0 [facility] Comment on above: Performed By: #### L 100.0100, L500.4050 #### [facility] [address] [place], [address] MCHC (RBC) [Mass/Vol] 33.4 g/dL Normal 32-36 [facility] Comment on above: Performed By: #### L 100.0100, L500.4050 #### [facility] [address] [place], [address] MCV (RBC) [Entitic vol] 95.3 fL Normal 81-99 [facility] Comment on above: Performed By: #### L 100.0100, L500.4050 #### [facility] [address] [place], [address] Monocytes/100 WBC (Bld) 15.2 % High 0-10 [facility] Comment on above: Performed By: #### L 100.0100, L500.4050 #### [facility] [address] [place], [address] Neutrophils/100 WBC (Bld) 55.6 % Normal 47-70 [facility] Comment on above: Performed By: #### L 100.0100, L500.4050 #### [facility] [address] [place], [address] Nucleated RBC (Bld) [#/Vol] 0.6 10*3/uL Normal 0-5 [facility] Comment on above: Performed By: #### L 100.0100, L500.4050 #### [facility] [address] [place], [address] Platelet mean volume (Bld) [Entitic vol] 9.9 fL Normal 6.2-12.0 [facility] Comment on above: Performed By: #### L 100.0100, L500.4050 #### [facility] [address] [place], [address] Platelets (Bld) [#/Vol] 256 10*3/uL Normal 150-450 [facility] Comment on above: Performed By: #### L 100.0100, L500.4050 #### [facility] [address] [place], [address] RBC (Bld) [#/Vol] 4.02 10*6/uL Low 4.2-5.[address] [facility] Comment on above: Performed By: #### L 100.0100, L500.4050 #### [facility] [address] [place], [address] RDW SD 46.4 fl High 35.1-43.9 [facility] Comment on above: Performed By: #### L 100.0100, L500.4050 #### [facility] [address] [place], [address] WBC (Bld) [#/Vol] 5.1 10*3/uL Normal 4.4-11.0 [facility] Comment on above: Performed By: #### L 100.0100, L500.4050 #### [facility] [address] [place], [address] [facility] 08-24-2024 Albumin [Mass/Vol] 3.6 g/dL Normal 3.2-5.0 [facility] Comment on above: Performed By: #### L 100.0100, L500.4050 #### [facility] [address] [place], [address] Albumin/Globulin [Mass ratio] 1.1 {ratio} Normal 0.9-2.4 [facility] Comment on above: Performed By: #### L 100.0100, L500.4050 #### [facility] [address] [place], [address] ALK P 86 U/L Normal 45-117 [facility] Comment on above: Performed By: #### L 100.0100, L500.4050 #### [facility] [address] [place], [address] ALT [Catalytic activity/Vol] 25 U/L Normal 13-56 [facility] Comment on above: Performed By: #### L 100.0100, L500.4050 #### [facility] [address] [place], [address] AST [Catalytic activity/Vol] 21 U/L Normal 15-37 [facility] Comment on above: Performed By: #### L 100.0100, L500.4050 #### [facility] [address] [place], [address] Bilirubin [Mass/Vol] 0.40 mg/dL Normal 0.20-1.00 [facility] Comment on above: Result Comment: For patients on eltrombopag therapy, use of Dimension Busy TBIL is not recommended. Performed By: #### L 100.0100, L500.4050 #### [facility] [address] [place], [address] BUN/CRE 16.4 RATIO Normal 10-20 [facility] Comment on above: Performed By: #### L 100.0100, L500.4050 #### [facility] [address] [place], [address] CA,Total 8.9 mg/dL Normal 8.5-10.1 [facility] Comment on above: Performed By: #### L 100.0100, L500.4050 #### [facility] [address] [place], [address] Chloride [Moles/Vol] 107 mmol/L Normal 98-107 [facility] Comment on above: Performed By: #### L 100.0100, L500.4050 #### [facility] [address] [place], [address] CO2 [Moles/Vol] 27.0 mmol/L Normal 21.0-32.0 [facility] Comment on above: Performed By: #### L 100.0100, L500.4050 #### [facility] [address] [place], [address] Creatinine [Mass/Vol] 0.91 mg/dL Normal 0.55-1.02 [facility] Comment on above: Result Comment: The validity of the calculated GFR GFRAA in patients over 70 years has not been determined. Clinical correlation is essential. Performed By: #### L 100.0100, L500.4050 #### [facility] [address] [place], [address] EST GFR - AA 78 mL/min Normal >60 [facility] Comment on above: Result Comment: Afri can Finnish GFR Calc Performed By: #### L 100.0100, L500.4050 #### [facility] [address] [place], [address] GAP 6 Normal 5-15 [facility] Comment on above: Performed By: #### L 100.0100, L500.4050 #### [facility] [address] [place], [address] GFR/1.73 sq M.predicted among non-blacks MDRD (S/P/Bld) [Vol rate/Area] 64 mL/min/{1.73_m2} Normal >60 [facility] Comment on above: Result Comment: Non- GFR Calc Performed By: #### L 100.0100, L500.4050 #### [facility] [address] [place], [address] Globulin (S) [Mass/Vol] 3.3 g/dL Normal 2.2-4.2 [facility] Comment on above: Performed By: #### L 100.0100, L500.4050 #### [facility] [address] [place], [address] Glucose [Mass/Vol] 102 mg/dL Normal 74-106 [facility] Comment on above: Result Comment: Fast ing Glucose result from 100 to 125 mg/dL suggests IMPAIRED HOMEOSTASIS per A.D.A. criteria. Performed By: #### L 100.0100, L500.4050 #### [facility] [address] [place], [address] Potassium [Moles/Vol] 4.0 mmol/L Normal 3.5-5.1 [facility] Comment on above: Performed By: #### L 100.0100, L500.4050 #### [facility] [address] [place], [address] Sodium [Moles/Vol] 140 mmol/L Normal 136-145 [facility] Comment on above: Performed By: #### L 100.0100, L500.4050 #### [facility] [address] [place], [address] T PROT 6.9 g/dL Normal 6.4-8.2 [facility] Comment on above: Performed By: #### L 100.0100, L500.4050 #### [facility] [address] [place], [address] Urea nitrogen [Mass/Vol] 15 mg/dL Normal 7-18 [facility] Comment on above: Performed By: #### L 100.0100, L500.4050 #### [facility] [address] 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 CONCLUSIONS: Right Lower Venous: No evidence of acute deep vein thrombus visualized in the right lower extremity. Status Post RFA: The saphenous vein is occluded. There is no evidence of DVT in the common femoral, femoral and profunda femoris veins. GSV ablation is 1.66 cm from the saphenofemoral junction to the proximal calf. Thrombosed varicosities are noted proximal and mid thigh. 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 Imaging & Doppler Findings: Right Flow Prox Thigh GSV No Mid Thigh GSV No Knee GSV No Right Compressible Thrombus Flow Distal External Iliac Spontaneous/Phasic CFV Yes None Spontaneous/Phasic PFV Yes None FV Proximal Yes None Spontaneous/Phasic FV Mid Yes None FV Distal Yes None Popliteal Yes None Spontaneous/Phasic Peroneal Yes None PTV Yes None [id number] Cintia Godinez MD Final Normal [facility] VAS US LOWER EXTREMITY VENO US INSUFFICIENCY RIGHTon 07-28-2024 VASC US LOWER EXTREMITY [place]EN[place] [address] ext-[phone], Vascular Lab Report [facility] US LOWER EXTREMITY VENOUS INSUFFICIENCY RIGHT Patient Name: KELLY Warren Physician: [id number] Sharp MD Study Date: 07/28/2024 Ordering Provider: [id number] STANTON MRN/PID: [id number] Fellow: Technologist: Diogo Ruiz RVT Date of /Age: 5 1955 years Technologist 2: Gender: F Admission Status: Outpatient Location Performed: [facility] Diagnosis/ICD: Asymptomatic varicose veins of right lower extremity-I83.91 CPT Codes: 69236 Venous reflux study VV Limited Patient Position: Study performed in a reverse Trendelenburg position. Pertinent History: Varicose Veins and Previous SVT. CONCLUSIONS: Right Lower Venous Insufficiency: Reflux is noted in the saphenofemoral junction, proximal thigh great saphenous, mid thigh great saphenous and knee level of great saphenous veins. There is reflux noted in the common femoral vein. Negative for DVT and SVT. Chronic disease is noted in the mid calf varicosity. Gastroc vein research analyst at the knee is positive for 3 sec reflux and 4.98 mm diameter at 21.0 mm depth. Varicosities are noted mid thigh to distal calf. SSV varicosity is noted. Imaging & Doppler Findings: Right Compress Thrombus Diam Depth Time SFJ Yes None 6.7 mm 24.2 mm 4.43 sec Prox Thigh GSV Yes None 4.3 mm 24.4 mm 4.71 sec Mid Thigh GSV Yes None 6.8 mm 15.6 mm 4.60 sec Knee GSV Yes None 7.0 mm 24.6 mm 4.67 sec Prox Calf GSV Yes None 2.2 mm 13.3 mm Mid Calf GSV Yes None 2.9 mm 9.0 mm Dist Calf GSV Yes None 1.7 mm 7.6 mm SSV Prox Yes None SSV Mid Yes None SSV Distal Yes None Common FV 2.03 sec Right Compressible Thrombus Flow Distal External Iliac Spontaneous/Phasic CFV Yes None Reflux PFV Yes None FV Proximal Yes None Spontaneous/Phasic FV Mid Yes None Spontaneous/Phasic FV Distal Yes None Popliteal Yes None Spontaneous/Phasic Peroneal Yes None PTV Yes None [id number] Ethel Sharp MD Final Normal [facility] Vascular US Lower Extremity Venous Insufficiency Righton 07-28-2024 [place] [id number] [phone], Vascular Lab Report VASC US LOWER EXTREMITY VENOUS INSUFFICIENCY RIGHT Patient Name: KELLY Mecca Warren Physician: [id number] Ethel Sharp MD Study Date: 07/28/2024 Ordering Provider: [id number] ETHEL STANTON MRN/PID: [id number] Fellow: Technologist: Diogo Ruiz RVT Date of /Age: 5 1955 / 69 years Technologist 2: Gender: F Admission Status: Outpatient Location Performed: [facility] Diagnosis/ICD: Asymptomatic varicose veins of right lower extremity-I83.91 CPT Codes: 90075 Venous reflux study VV Limited Patient Position: Study performed in a reverse Trendelenburg position. Pertinent History: Varicose Veins and Previous SVT. CONCLUSIONS: Right Lower Venous Insufficiency: Reflux is noted in the saphenofemoral junction, proximal thigh great saphenous, mid thigh great saphenous and knee level of great saphenous veins. There is reflux noted in the common femoral vein. Negative for DVT and SVT. Chronic disease is noted in the mid calf varicosity. Gastroc vein research analyst at the knee is positive for 3 sec reflux and 4.98 mm diameter at 21.0 mm depth. Varicosities are noted mid thigh to distal calf. SSV varicosity is noted. Imaging & Doppler Findings: Right Compress Thrombus Diam Depth Time SFJ Yes None 6.7 mm 24.2 mm 4.43 sec Prox Thigh GSV Yes None 4.3 mm 24.4 mm 4.71 sec Mid Thigh GSV Yes None 6.8 mm 15.6 mm 4.60 sec Knee GSV Yes None 7.0 mm 24.6 mm 4.67 sec Prox Calf GSV Yes None 2.2 mm 13.3 mm Mid Calf GSV Yes None 2.9 mm 9.0 mm Dist Calf GSV Yes None 1.7 mm 7.6 mm SSV Prox Yes None SSV Mid Yes None SSV Distal Yes None Common FV 2.03 sec Right Compressible Thrombus Flow Distal External Iliac Spontaneous/Phasic CFV Yes None Reflux PFV Yes None FV Proximal Yes None Spontaneous/Phasic FV Mid Yes None Spontaneous/Phasic FV Distal Yes None Popliteal Yes None Spontaneous/Phasic Peroneal Yes None PTV Yes None [id number] Ethel Sharp MD Final Siena Kilpatrick MD - 07/28/2024 [place] [address] ext-[phone], Vascular Lab Report VASC US LOWER EXTREMITY VENOUS INSUFFICIENCY RIGHT Patient Name: KELLY GARCIA Reading Physician: [id number] Sharp MD Study Date: 07/28/2024 Ordering Provider: [id number] ETHEL STANTON MRN/PID: [id number] Fellow: Technologist: Diogo Ruiz RVAlice Date of /Age: 5 1955 / 69 years Technologist 2: Gender: F Admission Status: Outpatient Location Performed: [facility] Diagnosis/ICD: Asymptomatic varicose veins of right lower extremity-I83.91 CPT Codes: 79030 Venous reflux study VV Limited Patient Position: Study performed in a reverse Trendelenburg position. Pertinent History: Varicose Veins and Previous SVT. CONCLUSIONS: Right Lower Venous Insufficiency: Reflux is noted in the saphenofemoral junction, proximal thigh great saphenous, mid thigh great saphenous and knee level of great saphenous veins. There is reflux noted in the common femoral vein. Negative for DVT and SVT. Chronic disease is noted in the mid calf varicosity. Gastroc vein research analyst at the knee is positive for 3 sec reflux and 4.98 mm diameter at 21.0 mm depth. Varicosities are noted mid thigh to distal calf. SSV varicosity is noted. Imaging & Doppler Findings: Right Compress Thrombus Diam Depth Time SFJ Yes None 6.7 mm 24.2 mm 4.43 sec Prox Thigh GSV Yes None 4.3 mm 24.4 mm 4.71 sec Mid Thigh GSV Yes None 6.8 mm 15.6 mm 4.60 sec Knee GSV Yes None 7.0 mm 24.6 mm 4.67 sec Prox Calf GSV Yes None 2.2 mm 13.3 mm Mid Calf GSV Yes None 2.9 mm 9.0 mm Dist Calf GSV Yes None 1.7 mm 7.6 mm SSV Prox Yes None SSV Mid Yes None SSV Distal Yes None Common FV 2.03 sec Right Compressible Thrombus Flow Distal External Iliac Spontaneous/Phasic CFV Yes None Reflux PFV Yes None FV Proximal Yes None Spontaneous/Phasic FV Mid Yes None Spontaneous/Phasic FV Distal Yes None Popliteal Yes None Spontaneous/Phasic Peroneal Yes None PTV Yes None [id number] Ethel Sharp MD Final [facility] Work Phone: [facility] Work Phone: Radiology Study observation (narrative) [facility] Work Phone: ECG 12 lead (Clinic Performe d)on 07-06-2024 [facility] Work Phone: CBC W/Diff, Automatedon - Absolute Lymph 1.31 X10 3/uL Normal 0.83-4.51 [facility] Comment on above: Performed By: #### L 100.0100, L500.4050 #### [facility] [address] [place], [address] Absolute Neut 3.1 X10 3/uL Normal 2.0-7.7 [facility] Comment on above: Performed By: #### L 100.0100, L500.4050 #### [facility] [address] [place], [address] Basophils/100 WBC (Bld) 0.4 % Normal 0-1 [facility] Comment on above: Performed By: #### L 100.0100, L500.4050 #### [facility] [address] [place], [address] Eosinophils/100 WBC (Bld) 1.7 % Normal 0-5 [facility] Comment on above: Performed By: #### L 100.0100, L500.4050 #### [facility] [address] [place], [address] Erythrocyte distribution width (RBC) [Ratio] 13.4 % Normal 11.6-14.6 [facility] Comment on above: Performed By: #### L 100.0100, L500.4050 #### [facility] [address] [place], [address] Hematocrit (Bld) [Volume fraction] 39.2 % Normal 37-47 [facility] Comment on above: Performed By: #### L 100.0100, L500.4050 #### [facility] [address] [place], [address] Hemoglobin (Bld) [Mass/Vol] 12.5 g/dL Normal 12.0-15.0 [facility] Comment on above: Performed By: #### L 100.0100, L500.4050 #### [facility] [address] [place], [address] IG% 0.400 Normal 0.0-0.9 [facility] Comment on above: Result Comment: IG% - Immature Granulocytes (promyelocytes, myelocytes and metamyelocytes) > 1% indicates that a LEFT SHIFT is Present. Performed By: #### L 100.0100, L500.4050 #### [facility] [address] [place], [address] Lymphocytes/100 WBC (Bld) 25.3 % Normal 19-41 [facility] Comment on above: Performed By: #### L 100.0100, L500.4050 #### [facility] [address] [place], [address] MCH (RBC) [Entitic mass] 30.6 pg Normal 27.0-32.0 [facility] Comment on above: Performed By: #### L 100.0100, L500.4050 #### [facility] [address] [place], [address] MCHC (RBC) [Mass/Vol] 31.9 g/dL Low 32-36 [facility] Comment on above: Performed By: #### L 100.0100, L500.4050 #### [facility] [address] [place], [address] MCV (RBC) [Entitic vol] 96.1 fL Normal 81-99 [facility] Comment on above: Performed By: #### L 100.0100, L500.4050 #### [facility] [address] [place], [address] Monocytes/100 WBC (Bld) 12.9 % High 0-10 [facility] Comment on above: Performed By: #### L 100.0100, L500.4050 #### [facility] [address] [place], [address] Neutrophils/100 WBC (Bld) 59.3 % Normal 47-70 [facility] Comment on above: Performed By: #### L 100.0100, L500.4050 #### [facility] [address] [place], [address] Nucleated RBC (Bld) [#/Vol] 0 10*3/uL Normal 0-5 [facility] Comment on above: Performed By: #### L 100.0100, L500.4050 #### [facility] [address] [place], [address] Platelet mean volume (Bld) [Entitic vol] 9.7 fL Normal 6.2-12.0 [facility] Comment on above: Performed By: #### L 100.0100, L500.4050 #### [facility] [address] [place], [address] Platelets (Bld) [#/Vol] 252 10*3/uL Normal 150-450 [facility] Comment on above: Performed By: #### L 100.0100, L500.4050 #### [facility] [address] [place], [address] RBC (Bld) [#/Vol] 4.08 10*6/uL Low 4.2-5.[address] [facility] Comment on above: Performed By: #### L 100.0100, L500.4050 #### [facility] [address] [place], [address] RDW SD 47.3 fl High 35.1-43.9 [facility] Comment on above: Performed By: #### L 100.0100, L500.4050 #### [facility] [address] [place], [address] WBC (Bld) [#/Vol] 5.2 10*3/uL Normal 4.4-11.0 [facility] Comment on above: Performed By: #### L 100.0100, L500.4050 #### [facility] [address] [place], [address] [facility] 06-02-2024 Albumin [Mass/Vol] 3.4 g/dL Normal 3.2-5.0 [facility] Comment on above: Performed By: #### L 100.0100, L500.4050 #### [facility] [address] [place], [address] Albumin/Globulin [Mass ratio] 1.0 {ratio} Normal 0.9-2.4 [facility] Comment on above: Performed By: #### L 100.0100, L500.4050 #### [facility] [address] [place], [address] ALK P 71 U/L Normal 45-117 [facility] Comment on above: Performed By: #### L 100.0100, L500.4050 #### [facility] [address] [place], [address] ALT [Catalytic activity/Vol] 30 U/L Normal 13-56 [facility] Comment on above: Performed By: #### L 100.0100, L500.4050 #### [facility] [address] [place], [address] AST [Catalytic activity/Vol] 27 U/L Normal 15-37 [facility] Comment on above: Performed By: #### L 100.0100, L500.4050 #### [facility] [address] [place], [address] Bilirubin [Mass/Vol] 0.30 mg/dL Normal 0.20-1.00 [facility] Comment on above: Result Comment: For patients on eltrombopag therapy, use of Dimension Busy TBIL is not recommended. Performed By: #### L 100.0100, L500.4050 #### [facility] [address] [place], [address] BUN/CRE 15.8 RATIO Normal 10-20 [facility] Comment on above: Performed By: #### L 100.0100, L500.4050 #### [facility] [address] [place], [address] CA,Total 9.3 mg/dL Normal 8.5-10.1 [facility] Comment on above: Performed By: #### L 100.0100, L500.4050 #### [facility] [address] [place], [address] Chloride [Moles/Vol] 103 mmol/L Normal 98-107 [facility] Comment on above: Performed By: #### L 100.0100, L500.4050 #### [facility] [address] [place], [address] CO2 [Moles/Vol] 30.0 mmol/L Normal 21.0-32.0 [facility] Comment on above: Performed By: #### L 100.0100, L500.4050 #### [facility] [address] [place], [address] Creatinine [Mass/Vol] 0.82 mg/dL Normal 0.55-1.02 [facility] Comment on above: Result Comment: The validity of the calculated GFR GFRAA in patients over 70 years has not been determined. Clinical correlation is essential. Performed By: #### L 100.0100, L500.4050 #### [facility] [address] [place], [address] EST GFR - AA 88 mL/min Normal >60 [facility] Comment on above: Result Comment: Afri can Finnish GFR Calc Performed By: #### L 100.0100, L500.4050 #### [facility] [address] [place], [address] GAP 5 Normal 5-15 [facility] Comment on above: Performed By: #### L 100.0100, L500.4050 #### [facility] [address] [place], [address] GFR/1.73 sq M.predicted among non-blacks MDRD (S/P/Bld) [Vol rate/Area] 73 mL/min/{1.73_m2} Normal >60 [facility] Comment on above: Result Comment: Non- GFR Calc Performed By: #### L 100.0100, L500.4050 #### [facility] [address] [place], [address] Globulin (S) [Mass/Vol] 3.5 g/dL Normal 2.2-4.2 [facility] Comment on above: Performed By: #### L 100.0100, L500.4050 #### [facility] [address] [place], [address] Glucose [Mass/Vol] 101 mg/dL Normal 74-106 [facility] Comment on above: Result Comment: Fast ing Glucose result from 100 to 125 mg/dL suggests IMPAIRED HOMEOSTASIS per A.D.A. criteria. Performed By: #### L 100.0100, L500.4050 #### [facility] [address] [place], [address] Potassium [Moles/Vol] 3.9 mmol/L Normal 3.5-5.1 [facility] Comment on above: Performed By: #### L 100.0100, L500.4050 #### [facility] [address] [place], [address] Sodium [Moles/Vol] 138 mmol/L Normal 136-145 [facility] Comment on above: Performed By: #### L 100.0100, L500.4050 #### [facility] [address] [place], [address] T PROT 6.9 g/dL Normal 6.4-8.2 [facility] Comment on above: Performed By: #### L 100.0100, L500.4050 #### [facility] [address] [place], [address] Urea nitrogen [Mass/Vol] 13 mg/dL Normal 7-18 [facility] Comment on above: Performed By: #### L 100.0100, L500.4050 #### [facility] [address] [place], [address] [facility] US LOWER EXTREMITY VENO US DUPLEX RIGHTon 05-30-2024 [facility] US LOWER EXTREMITY [place] [address] [phone], Vascular Lab Report VAS US LOWER EXTREMITY VENOUS DUPLEX RIGHT Patient Name: KELLYANGELES Warren Physician: [id number] Ethel Sharp MD Study Date: 05/30/2024 Ordering Provider: [id number] ANDREAS BEY MRN/PID: [id number] Fellow: Technologist: Saniya Cruz RVT/ Date of /Age: 5 1955 / 69 years Technologist 2: Gender: F Admission Status: Emergency Location Performed: [facility] Diagnosis/ICD: Pain in right lower leg-M79.661 CPT Codes: 44114 Peripheral venous duplex scan for DVT Limited CONCLUSIONS: Right Lower Venous: No evidence of acute deep vein thrombus visualized in the right lower extremity. Superficial venous thrombosis of right calf varicosities. Left Lower Venous: The left common femoral vein demonstrates normal spontaneous and respirophasic flow. Comparison: Compared with study from 11/25/2023, no significant change. SVT is still present in medial proximal to distal calf varicosity. Imaging & Doppler Findings: Right Compressible Thrombus Flow Distal External Iliac Yes None Spontaneous/Phasic CFV Yes None Spontaneous/Phasic PFV Yes None FV Proximal Yes None Spontaneous/Phasic FV Mid Yes None FV Distal Yes None Popliteal Yes None Spontaneous/Phasic Peroneal Yes None PTV Yes None Left Flow CFV Spontaneous/Phasic [id number] Ethel Sharp MD Final Normal [facility] CBC W/Diff, Automatedon 06-0 Absolute Lymph 1.50 X10 3/uL Normal 0.83-4.51 [facility] Comment on above: Performed By: #### L 100.0100, L500.4050 #### [facility] [address] [facility] [place], [address] Absolute Neut 3.0 X10 3/uL Normal 2.0-7.7 [facility] Comment on above: Performed By: #### L 100.0100, L500.4050 #### [facility] [address] [facility] [place], [address] Basophils/100 WBC (Bld) 0.6 % Normal 0-1 [facility] Comment on above: Performed By: #### L 100.0100, L500.4050 #### [facility] [address] [place], [address] Eosinophils/100 WBC (Bld) 1.9 % Normal 0-5 [facility] Comment on above: Performed By: #### L 100.0100, L500.4050 #### [facility] [address] [place], [address] Erythrocyte distribution width (RBC) [Ratio] 13.2 % Normal 11.6-14.6 [facility] Comment on above: Performed By: #### L 100.0100, L500.4050 #### [facility] [address] [place], [address] Hematocrit (Bld) [Volume fraction] 38.5 % Normal 37-47 [facility] Comment on above: Performed By: #### L 100.0100, L500.4050 #### [facility] [address] [place], [address] Hemoglobin (Bld) [Mass/Vol] 12.3 g/dL Normal 12.0-15.0 [facility] Comment on above: Performed By: #### L 100.0100, L500.4050 #### [facility] [address] [place], [address] IG% 0.200 Normal 0.0-0.9 [facility] Comment on above: Result Comment: IG% - Immature Granulocytes (promyelocytes, myelocytes and metamyelocytes) > 1% indicates that a LEFT SHIFT is Present. Performed By: #### L 100.0100, L500.4050 #### [facility] [address] [place], [address] Lymphocytes/100 WBC (Bld) 28.5 % Normal 19-41 [facility] Comment on above: Performed By: #### L 100.0100, L500.4050 #### [facility] [address] [place], [address] MCH (RBC) [Entitic mass] 30.8 pg Normal 27.0-32.0 [facility] Comment on above: Performed By: #### L 100.0100, L500.4050 #### [facility] [address] [place], [address] MCHC (RBC) [Mass/Vol] 31.9 g/dL Low 32-36 [facility] Comment on above: Performed By: #### L 100.0100, L500.4050 #### [facility] [address] [place], [address] MCV (RBC) [Entitic vol] 96.3 fL Normal 81-99 [facility] Comment on above: Performed By: #### L 100.0100, L500.4050 #### [facility] [address] [place], [address] Monocytes/100 WBC (Bld) 12.1 % High 0-10 [facility] Comment on above: Performed By: #### L 100.0100, L500.4050 #### [facility] [address] [place], [address] Neutrophils/100 WBC (Bld) 56.7 % Normal 47-70 [facility] Comment on above: Performed By: #### L 100.0100, L500.4050 #### [facility] [address] [place], [address] Nucleated RBC (Bld) [#/Vol] 0 10*3/uL Normal 0-5 [facility] Comment on above: Performed By: #### L 100.0100, L500.4050 #### [facility] [address] [place], [address] Platelet mean volume (Bld) [Entitic vol] 10.2 fL Normal 6.2-12.0 [facility] Comment on above: Performed By: #### L 100.0100, L500.4050 #### [facility] [address] [place], [address] Platelets (Bld) [#/Vol] 267 10*3/uL Normal 150-450 [facility] Comment on above: Performed By: #### L 100.0100, L500.4050 #### [facility] [address] [place], [address] RBC (Bld) [#/Vol] 4.00 10*6/uL Low 4.2-5.[address] [facility] Comment on above: Performed By: #### L 100.0100, L500.4050 #### [facility] [address] [place], [address] RDW SD 46.6 fl High 35.1-43.9 [facility] Comment on above: Performed By: #### L 100.0100, L500.4050 #### [facility] [address] [place], [address] WBC (Bld) [#/Vol] 5.3 10*3/uL Normal 4.4-11.0 [facility] Comment on above: Performed By: #### L 100.0100, L500.4050 #### [facility] [address] [place], [address] [facility] 03-14-2024 Albumin [Mass/Vol] 3.5 g/dL Normal 3.2-5.0 [facility] Comment on above: Performed By: #### L 100.0100, L500.4050 #### [facility] [address] [place], [address] Albumin/Globulin [Mass ratio] 1.1 {ratio} Normal 0.9-2.4 [facility] Comment on above: Performed By: #### L 100.0100, L500.4050 #### [facility] [address] [place], [address] ALK P 80 U/L Normal 45-117 [facility] Comment on above: Performed By: #### L 100.0100, L500.4050 #### [facility] [address] [place], [address] ALT [Catalytic activity/Vol] 27 U/L Normal 13-56 [facility] Comment on above: Performed By: #### L 100.0100, L500.4050 #### [facility] [address] [place], [address] AST [Catalytic activity/Vol] 27 U/L Normal 15-37 [facility] Comment on above: Performed By: #### L 100.0100, L500.4050 #### [facility] [address] [place], [address] Bilirubin [Mass/Vol] 0.30 mg/dL Normal 0.20-1.00 [facility] Comment on above: Result Comment: For patients on eltrombopag therapy, use of Dimension Busy TBIL is not recommended. Performed By: #### L 100.0100, L500.4050 #### [facility] [address] [place], [address] BUN/CRE 22.6 RATIO High 10-20 [facility] Comment on above: Performed By: #### L 100.0100, L500.4050 #### [facility] [address] [place], [address] CA,Total 9.3 mg/dL Normal 8.5-10.1 [facility] Comment on above: Performed By: #### L 100.0100, L500.4050 #### [facility] [address] [place], [address] Chloride [Moles/Vol] 106 mmol/L Normal 98-107 [facility] Comment on above: Performed By: #### L 100.0100, L500.4050 #### [facility] [address] [place], [address] CO2 [Moles/Vol] 27.0 mmol/L Normal 21.0-32.0 [facility] Comment on above: Performed By: #### L 100.0100, L500.4050 #### [facility] [address] [place], [address] Creatinine [Mass/Vol] 0.75 mg/dL Normal 0.55-1.02 [facility] Comment on above: Result Comment: The validity of the calculated GFR GFRAA in patients over 70 years has not been determined. Clinical correlation is essential. Performed By: #### L 100.0100, L500.4050 #### [facility] [address] [place], [address] EST GFR - AA 98 mL/min Normal >60 [facility] Comment on above: Result Comment: Afri can [place] GFR Calc Performed By: #### L 100.0100, L500.4050 #### [facility] [address] [place], [address] GAP 5 Normal 5-15 [facility] Comment on above: Performed By: #### L 100.0100, L500.4050 #### [facility] [address] [place], [address] GFR/1.73 sq M.predicted among non-blacks MDRD (S/P/Bld) [Vol rate/Area] 81 mL/min/{1.73_m2} Normal >60 [facility] Comment on above: Result Comment: Non- GFR Calc Performed By: #### L 100.0100, L500.4050 #### [facility] [address] [place], [address] Globulin (S) [Mass/Vol] 3.3 g/dL Normal 2.2-4.2 [facility] Comment on above: Performed By: #### L 100.0100, L500.4050 #### [facility] [address] [place], [address] Glucose [Mass/Vol] 93 mg/dL Normal 74-106 [facility] Comment on above: Performed By: #### L 100.0100, L500.4050 #### [facility] [address] [place], [address] Potassium [Moles/Vol] 4.0 mmol/L Normal 3.5-5.1 [facility] Comment on above: Performed By: #### L 100.0100, L500.4050 #### [facility] [address] [place], [address] Sodium [Moles/Vol] 138 mmol/L Normal 136-145 [facility] Comment on above: Performed By: #### L 100.0100, L500.4050 #### [facility] [address] [place], [address] T PROT 6.8 g/dL Normal 6.4-8.2 [facility] Comment on above: Performed By: #### L 100.0100, L500.4050 #### [facility] [address] [place], [address] Urea nitrogen [Mass/Vol] 17 mg/dL Normal 7-18 [facility] Comment on above: Performed By: #### L 100.0100, L500.4050 #### [facility] [address] [place], [address] Absolute lymphocyte countOrd ered By: Alla Kim on 12-07-2023 Lymphocytes Auto (Unsp spec) [#/Vol] 1.47 10*3/uL 0.83-4.51 [facility] Automated lymphocyte count a s percentage of total leukocytesOrdered By: Alla Kim on 12-07-2023 Lymphocytes/100 WBC Auto (Unsp spec) 27.7 % 19-41 [facility] Basophil percentageOrdered B y: Alla Kim on 12-07-2023 Basophils/100 WBC (Bld) 0.6 % 0-1 [facility] Bilirubin [Mass/Vol] 0.50 mg/dL 0.20-1.00 [facility] Comment on above: For patients on eltr ombopag therapy, use of Dimension Busy TBIL is not recommended. Chloride [Moles/Vol] 108 mmol/L 98-107 [facility] Eosinophils/100 WBC (Bld) 1.7 % 0-5 [facility] Glucose [Mass/Vol] 93 mg/dL 74-106 [facility] Hemoglobin (Bld) [Mass/Vol] 12.9 g/dL 12.0-15.0 [facility] Monocytes/100 WBC (Bld) 12.8 % 0-10 [facility] Neutrophils (Bld) [#/Vol] 3.0 10*3/uL 2.0-7.7 [facility] Neutrophils/100 WBC (Bld) 56.8 % 47-70 [facility] Potassium [Moles/Vol] 3.8 mmol/L 3.5-5.1 [facility] Protein [Mass/Vol] 7.0 g/dL 6.4-8.2 [facility] Sodium [Moles/Vol] 140 mmol/L 136-145 [facility] WBC (Bld) [#/Vol] 5.3 10*3/uL 4.4-11.0 [facility] Determination of erythrocyte mean corpuscular volume (MCV)Ordered By: Alla Kim on 12-07-2023 MCV (RBC) [Entitic vol] 95.9 fL 81-99 [facility] Erythrocyte distribution wid th ratioOrdered By: Allaazam Kim on 12-07-2023 Erythrocyte distribution width (RBC) [Ratio] 13.2 % 11.6-14.6 [facility] Erythrocyte distribution wid th standard deviationOrdered By: [facility] Julio on 12-07-2023 Erythrocyte distribution width (RBC) [Entitic vol] 46.3 fL 35.1-43.9 [facility] Hematocrit Auto (Bld) [Volum e fraction]Ordered By: Alla Kim on 12-07-2023 Hematocrit (Bld) [Volume fraction] 39.8 % 37-47 [facility] Immature granulocytes/100 WB C Auto (Bld)Ordered By: Alla Kim on 12-07-2023 Immature granulocytes/100 WBC (Bld) 0.400 % 0.0-0.9 [facility] Comment on above: IG% - Immature Granu locytes (promyelocytes, myelocytes and metamyelocytes) > 1% indicates that a LEFT SHIFT is Present. Laboratory - Chemistry and C hemistry - challengeOrdered By: Alla Kim on 12-07-2023 Albumin/Globulin [Mass ratio] 1.1 {ratio} 0.9-2.4 [facility] ALP [Catalytic activity/Vol] 81 U/L 45-117 [facility] ALT [Catalytic activity/Vol] 27 U/L 13-56 [facility] CO2 [Moles/Vol] 30.0 mmol/L 21.0-32.0 [facility] Globulin (S) [Mass/Vol] 3.3 g/dL 2.2-4.2 [facility] Urea nitrogen/Creatinine [Mass ratio] 18.1 mg/mg 10-20 [facility] - Hematology and Cell countsOrdered By: Alla Kim on 12-07-2023 MCH (RBC) [Entitic mass] 31.1 pg 27.0-32.0 [facility] MCHC (RBC) [Mass/Vol] 32.4 g/dL 32-36 [facility] Nucleated RBC/100 WBC (Bld) [Ratio] 0 % 0-5 [facility] Platelet mean volume (Bld) [Entitic vol] 10.1 fL 6.2-12.0 [facility] Platelets (Bld) [#/Vol] 245 10*3/uL 150-450 [facility] No Panel InformationOrdered By: Alla Kim on 12-07-2023 Estimated GFR (MDRD) Amer 95 mL/min >60 [facility] Comment on above: GFR Calc Estimated GFR (MDRD) Non-Af Amer 78 mL/min >60 [facility] Comment on above: Non- GFR Calc RBC Auto (Bld) [#/Vol]Ordere d By: Alla Kim on 12-07-2023 RBC (Bld) [#/Vol] 4.15 10*6/uL 4.2-5.[address] [facility] Serum or plasma calcium yaniv urement (mass/volume)Ordered By: Alla Kim on 12-07-2023 Calcium [Mass/Vol] 9.2 mg/dL 8.5-10.1 [facility] Serum or plasma creatinine m easurement (mass/volume)Ordered By: Alla Kim on 12-07-2023 Creatinine [Mass/Vol] 0.77 mg/dL 0.55-1.02 [facility] Comment on above: The validity of the calculated GFR & GFRAA in patients over 70 years has not been determined. Clinical correlation is essential. Serum or plasma urea nitroge n measurement (mass/volume)Ordered By: Alla Kim on 12-07-2023 Urea nitrogen [Mass/Vol] 14 mg/dL 7-18 [facility] Thin prep Papanicolaou smear with manual screeningOrdered By: Alla Kim on 12-07-2023 Thin prep Papanicolaou smear with manual screening 3.7 g/dL 3.2-5.0 [facility] Thin prep Papanicolaou smear with manual screening 28 U/L 15-37 [facility] Thin prep Papanicolaou smear with manual screening 2 5-15 [facility] VASC US LOWER EXTREMITY VENO US DUPLEX RIGHTon 11-25-2023 VASC US LOWER EXTREMITY [place] [address] [phone], Vascular Lab Report VASC US LOWER EXTREMITY VENOUS DUPLEX RIGHT Patient Name: KELLY Warren Physician: [id number] Ethel Sharp MD Study Date: 11/25/2023 Ordering Provider: [id number] HARJEET CERVANTES MRN/PID: [id number] Fellow: Technologist: Diogo Ruiz RVT Date of /Age: 5 1955 / 68 years Technologist 2: Gender: F Admission Status: Outpatient Location Performed: [facility] Diagnosis/ICD: Phlebitis and thrombophlebitis of superficial vessels of right lower extremity-I80.01 CPT Codes: 07136 Peripheral venous duplex scan for DVT Limited Pertinent History: Previous SVT. CRITICAL RESULT Critical Result: Right calf varicosity SVT Notification called to Harjeet SEN on 11/25/2023 at 12:14:24 PM by Jimbo Ruiz RVT. CONCLUSIONS: Right Lower Venous: No evidence of acute deep vein thrombus visualized in the right lower extremity. Superficial venous thrombosis noted in varicose vein in proximal to distal medial calf. Left Lower Venous: Left common femoral vein is negative for deep vein thrombus. Comparison: Compared with study from 09/10/2020, no significant change.Varicosity SVT is noted in the medial proximal to distal calf. Imaging & Doppler Findings: Right Compressible Thrombus Flow Distal External Iliac Spontaneous/Phasic CFV Yes None Spontaneous/Phasic PFV Yes None FV Proximal Yes None Spontaneous/Phasic FV Mid Yes None FV Distal Yes None Popliteal Yes None Spontaneous/Phasic Peroneal Yes None PTV Yes None Left Compress Thrombus Flow CFV Yes None Spontaneous/Phasic [id number] Ethel Sharp MD Final Normal [facility] Absolute lymphocyte countOrd ered By: Alla Kim on 09-10-2023 Lymphocytes Auto (Unsp spec) [#/Vol] 1.47 10*3/uL 0.83-4.51 [facility] Basophil percentageOrdered B y: Alla Kim on 09-10-2023 Basophils/100 WBC (Bld) 0.4 % 0-1 [facility] Bilirubin [Mass/Vol] 0.30 mg/dL 0.20-1.00 [facility] Comment on above: For patients on eltr ombopag therapy, use of Dimension Busy TBIL is not recommended. Chloride [Moles/Vol] 106 mmol/L 98-107 [facility] Eosinophils/100 WBC (Bld) 1.6 % 0-5 [facility] Glucose [Mass/Vol] 99 mg/dL 74-106 [facility] Neutrophils (Bld) [#/Vol] 2.8 10*3/uL 2.0-7.7 [facility] Neutrophils/100 WBC (Bld) 54.6 % 47-70 [facility] Potassium [Moles/Vol] 4.2 mmol/L 3.5-5.1 [facility] Protein [Mass/Vol] 6.7 g/dL 6.4-8.2 [facility] Sodium [Moles/Vol] 140 mmol/L 136-145 [facility] WBC (Bld) [#/Vol] 5.1 10*3/uL 4.4-11.0 [facility] Blood erythrocytes count (nu mber/volume)Ordered By: Alla Kim on 09-10-2023 RBC (Bld) [#/Vol] 4.14 10*6/uL 4.2-5.[address] [facility] Blood hemoglobin measurement (mass/volume)Ordered By: Alla Kim on 09-10-2023 Hemoglobin (Bld) [Mass/Vol] 13.0 g/dL 12.0-15.0 [facility] Blood lymphocytes/100 leukoc ytesOrdered By: Alla Kim on 09-10-2023 Lymphocytes/100 WBC (Bld) 28.9 % 19-41 [facility] Blood monocytes/100 leukocyt esOrdered By: Alla Kim on 09-10-2023 Monocytes/100 WBC (Bld) 14.5 % 0-10 [facility] Blood platelet mean volumeOr dered By: Alla Kim on 09-10-2023 Platelet mean volume (Bld) [Entitic vol] 9.3 fL 6.2-12.0 [facility] Determination of erythrocyte mean corpuscular volume (MCV)Ordered By: Alla Kim on 09-10-2023 MCV (RBC) [Entitic vol] 97.3 fL 81-99 [facility] Hematocrit Auto (Bld) [Volum e fraction]Ordered By: Alla Kim on 09-10-2023 Hematocrit (Bld) [Volume fraction] 40.3 % 37-47 [facility] - Chemistry and C hemistry - challengeOrdered By: Alla Kim on 09-10-2023 ALP [Catalytic activity/Vol] 72 U/L 45-117 [facility] ALT [Catalytic activity/Vol] 29 U/L 13-56 [facility] CO2 [Moles/Vol] 31.0 mmol/L 21.0-32.0 [facility] Globulin (S) [Mass/Vol] 3.2 g/dL 2.2-4.2 [facility] Urea nitrogen/Creatinine [Mass ratio] 18.1 mg/mg 10-20 [facility] - Hematology and Cell countsOrdered By: Alla Kim on 09-10-2023 Erythrocyte distribution width (RBC) [Entitic vol] 49.1 fL 35.1-43.9 [facility] Erythrocyte distribution width (RBC) [Ratio] 13.6 % 11.6-14.6 [facility] Immature granulocytes/100 WBC (Bld) 0.000 % 0.0-0.9 [facility] Comment on above: IG% - Immature Granu locytes (promyelocytes, myelocytes and metamyelocytes) > 1% indicates that a LEFT SHIFT is Present. MCH (RBC) [Entitic mass] 31.4 pg 27.0-32.0 [facility] Nucleated RBC/100 WBC (Bld) [Ratio] 0 % 0-5 [facility] MCHC Auto (RBC) [Mass/Vol]Or dered By: Alla Kim on 09-10-2023 MCHC (RBC) [Mass/Vol] 32.3 g/dL 32-36 [facility] No Panel InformationOrdered By: Alla Kim on 09-10-2023 Estimated GFR (MDRD) Amer 87 mL/min >60 [facility] Comment on above: GFR Calc Estimated GFR (MDRD) Non-Af Amer 72 mL/min >60 [facility] Comment on above: Non- GFR Calc Platelets bldOrdered By: Lilly Kim on 09-10-2023 Platelets (Bld) [#/Vol] 245 10*3/uL 150-450 [facility] Serum or plasma albumin yaniv urement (mass/volume)Ordered By: Alla Kim on 09-10-2023 Albumin [Mass/Vol] 3.5 g/dL 3.2-5.0 [facility] Serum or plasma albumin/glob ulin mass ratioOrdered By: Alla Kim on 09-10-2023 Albumin/Globulin [Mass ratio] 1.1 {ratio} 0.9-2.4 [facility] Serum or plasma calcium yaniv urement (mass/volume)Ordered By: Alla Kim on 09-10-2023 Calcium [Mass/Vol] 8.9 mg/dL 8.5-10.1 [facility] Serum or plasma creatinine m easurement (mass/volume)Ordered By: Alla Kim on 09-10-2023 Creatinine [Mass/Vol] 0.83 mg/dL 0.55-1.02 [facility] Comment on above: The validity of the calculated GFR & GFRAA in patients over 70 years has not been determined. Clinical correlation is essential. Serum or plasma urea nitroge n measurement (mass/volume)Ordered By: Alla Kim on 09-10-2023 Urea nitrogen [Mass/Vol] 15 mg/dL 7-18 [facility] Thin prep Papanicolaou smear with manual screeningOrdered By: [facility] Julio on 09-10-2023 Thin prep Papanicolaou smear with manual screening 23 U/L 15-37 [facility] Thin prep Papanicolaou smear with manual screening 3 5-15 [facility] Absolute lymphocyte countOrd ered By: Alla Kim on 06-17-2023 Lymphocytes Auto (Unsp spec) [#/Vol] 1.69 10*3/uL 0.83-4.51 [facility] Basophil percentageOrdered B y: Alla Kim on 06-17-2023 Basophils/100 WBC (Bld) 0.5 % 0-1 [facility] Bilirubin [Mass/Vol] 0.30 mg/dL 0.20-1.00 [facility] Comment on above: For patients on eltr ombopag therapy, use of Dimension Busy TBIL is not recommended. Chloride [Moles/Vol] 104 mmol/L 98-107 [facility] Eosinophils/100 WBC (Bld) 1.6 % 0-5 [facility] Glucose [Mass/Vol] 94 mg/dL 74-106 [facility] Neutrophils (Bld) [#/Vol] 3.7 10*3/uL 2.0-7.7 [facility] Neutrophils/100 WBC (Bld) 58.3 % 47-70 [facility] Potassium [Moles/Vol] 3.8 mmol/L 3.5-5.1 [facility] Protein [Mass/Vol] 6.8 g/dL 6.4-8.2 [facility] Sodium [Moles/Vol] 138 mmol/L 136-145 [facility] WBC (Bld) [#/Vol] 6.3 10*3/uL 4.4-11.0 [facility] Blood erythrocytes count (nu mber/volume)Ordered By: Alla Kim on 06-17-2023 RBC (Bld) [#/Vol] 4.00 10*6/uL 4.2-5.[address] [facility] Blood hemoglobin measurement (mass/volume)Ordered By: Alla Kim on 06-17-2023 Hemoglobin (Bld) [Mass/Vol] 12.4 g/dL 12.0-15.0 [facility] Blood lymphocytes/100 leukoc ytesOrdered By: Alla Kim on 06-17-2023 Lymphocytes/100 WBC (Bld) 27.0 % 19-41 [facility] Blood monocytes/100 leukocyt esOrdered By: Alla Kim on 06-17-2023 Monocytes/100 WBC (Bld) 12.4 % 0-10 [facility] Blood platelet mean volumeOr dered By: Alla Kim on 06-17-2023 Platelet mean volume (Bld) [Entitic vol] 9.9 fL 6.2-12.0 [facility] Determination of erythrocyte mean corpuscular volume (MCV)Ordered By: Alla Kim on 06-17-2023 MCV (RBC) [Entitic vol] 96.3 fL 81-99 [facility] Hematocrit Auto (Bld) [Volum e fraction]Ordered By: Alla Kim on 06-17-2023 Hematocrit (Bld) [Volume fraction] 38.5 % 37-47 [facility] Laboratory - Chemistry and C hemistry - challengeOrdered By: Alla Kim on 06-17-2023 ALP [Catalytic activity/Vol] 76 U/L 45-117 [facility] ALT [Catalytic activity/Vol] 31 U/L 13-56 [facility] CO2 [Moles/Vol] 27.0 mmol/L 21.0-32.0 [facility] Globulin (S) [Mass/Vol] 3.3 g/dL 2.2-4.2 [facility] Urea nitrogen/Creatinine [Mass ratio] 15.7 mg/mg 10-20 [facility] Laboratory - Hematology and Cell countsOrdered By: Alla Kim on 06-17-2023 Erythrocyte distribution width (RBC) [Entitic vol] 46.7 fL 35.1-43.9 [facility] Erythrocyte distribution width (RBC) [Ratio] 13.3 % 11.6-14.6 [facility] Immature granulocytes/100 WBC (Bld) 0.200 % 0.0-0.9 [facility] Comment on above: IG% - Immature Granu locytes (promyelocytes, myelocytes and metamyelocytes) > 1% indicates that a LEFT SHIFT is Present. MCH (RBC) [Entitic mass] 31.0 pg 27.0-32.0 [facility] Nucleated RBC/100 WBC (Bld) [Ratio] 0 % 0-5 [facility] MCHC Auto (RBC) [Mass/Vol]Or dered By: Alla Kim on 06-17-2023 MCHC (RBC) [Mass/Vol] 32.2 g/dL 32-36 [facility] No Panel InformationOrdered By: Alla Kim on 06-17-2023 Estimated GFR (MDRD) Amer 80 mL/min >60 [facility] Comment on above: GFR Calc Estimated GFR (MDRD) Non-Af Amer 66 mL/min >60 [facility] Comment on above: Non- GFR Calc Platelets bldOrdered By: Lilly Kim on 06-17-2023 Platelets (Bld) [#/Vol] 238 10*3/uL 150-450 [facility] Serum or plasma albumin yaniv urement (mass/volume)Ordered By: Alla Kim on 06-17-2023 Albumin [Mass/Vol] 3.5 g/dL 3.2-5.0 [facility] Serum or plasma albumin/glob ulin mass ratioOrdered By: Alla Kim on 06-17-2023 Albumin/Globulin [Mass ratio] 1.1 {ratio} 0.9-2.4 [facility] Serum or plasma calcium yaniv urement (mass/volume)Ordered By: Alla Kim on 06-17-2023 Calcium [Mass/Vol] 8.8 mg/dL 8.5-10.1 [facility] Serum or plasma creatinine m easurement (mass/volume)Ordered By: Alla Kim on 06-17-2023 Creatinine [Mass/Vol] 0.89 mg/dL 0.55-1.02 [facility] Comment on above: The validity of the calculated GFR & GFRAA in patients over 70 years has not been determined. Clinical correlation is essential. Serum or plasma urea nitroge n measurement (mass/volume)Ordered By: Alla Kim on 06-17-2023 Urea nitrogen [Mass/Vol] 14 mg/dL 7-18 [facility] Thin prep Papanicolaou smear with manual screeningOrdered By: [facility] Julio on 06-17-2023 Thin prep Papanicolaou smear with manual screening 25 U/L 15-37 [facility] Thin prep Papanicolaou smear with manual screening 7 5-15 [facility] Absolute lymphocyte countOrd ered By: Alla Kim on 04-08-2023 Lymphocytes Auto (Unsp spec) [#/Vol] 1.59 10*3/uL 0.83-4.51 [facility] Basophil percentageOrdered B y: Alla Kim on 04-08-2023 Basophils/100 WBC (Bld) 0.6 % 0-1 [facility] Bilirubin [Mass/Vol] 0.30 mg/dL 0.20-1.00 [facility] Comment on above: For patients on eltr ombopag therapy, use of Dimension Busy TBIL is not recommended. Chloride [Moles/Vol] 108 mmol/L 98-107 [facility] Eosinophils/100 WBC (Bld) 1.5 % 0-5 [facility] Glucose [Mass/Vol] 89 mg/dL 74-106 [facility] Neutrophils (Bld) [#/Vol] 3.0 10*3/uL 2.0-7.7 [facility] Neutrophils/100 WBC (Bld) 55.5 % 47-70 [facility] Potassium [Moles/Vol] 4.1 mmol/L 3.5-5.1 [facility] Protein [Mass/Vol] 7.1 g/dL 6.4-8.2 [facility] Sodium [Moles/Vol] 140 mmol/L 136-145 [facility] WBC (Bld) [#/Vol] 5.5 10*3/uL 4.4-11.0 [facility] Blood erythrocytes count (nu mber/volume)Ordered By: Alla Kim on 04-08-2023 RBC (Bld) [#/Vol] 4.30 10*6/uL 4.2-5.[address] [facility] Blood hemoglobin measurement (mass/volume)Ordered By: Alla Kim on 04-08-2023 Hemoglobin (Bld) [Mass/Vol] 13.4 g/dL 12.0-15.0 [facility] Blood lymphocytes/100 leukoc ytesOrdered By: Alla Kmi on 04-08-2023 Lymphocytes/100 WBC (Bld) 29.2 % 19-41 [facility] Blood monocytes/100 leukocyt esOrdered By: Alla Kim on 04-08-2023 Monocytes/100 WBC (Bld) 13.0 % 0-10 [facility] Blood platelet mean volumeOr dered By: Alla Kim on 04-08-2023 Platelet mean volume (Bld) [Entitic vol] 10.5 fL 6.2-12.0 [facility] Determination of erythrocyte mean corpuscular volume (MCV)Ordered By: Alla Kim on 04-08-2023 MCV (RBC) [Entitic vol] 97.0 fL 81-99 [facility] Hematocrit Auto (Bld) [Volum e fraction]Ordered By: Alla Kim on 04-08-2023 Hematocrit (Bld) [Volume fraction] 41.7 % 37-47 [facility] Laboratory - Chemistry and C hemistry - challengeOrdered By: Alla Kim on 04-08-2023 ALP [Catalytic activity/Vol] 77 U/L 45-117 [facility] ALT [Catalytic activity/Vol] 26 U/L 13-56 [facility] CO2 [Moles/Vol] 30.0 mmol/L 21.0-32.0 [facility] Globulin (S) [Mass/Vol] 3.4 g/dL 2.2-4.2 [facility] Urea nitrogen/Creatinine [Mass ratio] 14.0 mg/mg 10-20 [facility] Laboratory - Hematology and Cell countsOrdered By: Alla Kim on 04-08-2023 Erythrocyte distribution width (RBC) [Entitic vol] 47.7 fL 35.1-43.9 [facility] Erythrocyte distribution width (RBC) [Ratio] 13.4 % 11.6-14.6 [facility] Immature granulocytes/100 WBC (Bld) 0.200 % 0.0-0.9 [facility] Comment on above: IG% - Immature Granu locytes (promyelocytes, myelocytes and metamyelocytes) > 1% indicates that a LEFT SHIFT is Present. MCH (RBC) [Entitic mass] 31.2 pg 27.0-32.0 [facility] Nucleated RBC/100 WBC (Bld) [Ratio] 0 % 0-5 [facility] MCHC Auto (RBC) [Mass/Vol]Or dered By: Alla Kim on 04-08-2023 MCHC (RBC) [Mass/Vol] 32.1 g/dL 32-36 [facility] No Panel InformationOrdered By: Alla Kim on 04-08-2023 Estimated GFR (MDRD) Amer 93 mL/min >60 [facility] Comment on above: GFR Calc Estimated GFR (MDRD) Non-Af Amer 77 mL/min >60 [facility] Comment on above: Non- GFR Calc Platelets bldOrdered By: Lilly Kim on 04-08-2023 Platelets (Bld) [#/Vol] 261 10*3/uL 150-450 [facility] Serum or plasma albumin yaniv urement (mass/volume)Ordered By: Alla Kim on 04-08-2023 Albumin [Mass/Vol] 3.7 g/dL 3.2-5.0 [facility] Serum or plasma albumin/glob ulin mass ratioOrdered By: Alla Kim on 04-08-2023 Albumin/Globulin [Mass ratio] 1.1 {ratio} 0.9-2.4 [facility] Serum or plasma calcium yaniv urement (mass/volume)Ordered By: Alla Kim on 04-08-2023 Calcium [Mass/Vol] 9.1 mg/dL 8.5-10.1 [facility] Serum or plasma creatinine m easurement (mass/volume)Ordered By: Alla Kim on 04-08-2023 Creatinine [Mass/Vol] 0.79 mg/dL 0.55-1.02 [facility] Comment on above: The validity of the calculated GFR & GFRAA in patients over 70 years has not been determined. Clinical correlation is essential. Serum or plasma urea nitroge n measurement (mass/volume)Ordered By: Alla Kim on 04-08-2023 Urea nitrogen [Mass/Vol] 11 mg/dL 7-18 [facility] Thin prep Papanicolaou smear with manual screeningOrdered By: Allaazam Kim on 04-08-2023 Thin prep Papanicolaou smear with manual screening 26 U/L 15-37 [facility] Thin prep Papanicolaou smear with manual screening 2 5-15 [facility] Absolute lymphocyte countOrd ered By: Alla Kim on 01-05-2023 Lymphocytes Auto (Unsp spec) [#/Vol] 1.59 10*3/uL 0.83-4.51 [facility] Basophil percentageOrdered B y: Alla Kim on 01-05-2023 Basophils/100 WBC (Bld) 0.6 % 0-1 [facility] Bilirubin [Mass/Vol] 0.30 mg/dL 0.20-1.00 [facility] Comment on above: For patients on eltr ombopag therapy, use of Dimension Busy TBIL is not recommended. Chloride [Moles/Vol] 106 mmol/L 98-107 [facility] Eosinophils/100 WBC (Bld) 1.8 % 0-5 [facility] Glucose [Mass/Vol] 92 mg/dL 74-106 [facility] Neutrophils (Bld) [#/Vol] 2.6 10*3/uL 2.0-7.7 [facility] Neutrophils/100 WBC (Bld) 51.3 % 47-70 [facility] Potassium [Moles/Vol] 3.8 mmol/L 3.5-5.1 [facility] Protein [Mass/Vol] 7.0 g/dL 6.4-8.2 [facility] Sodium [Moles/Vol] 138 mmol/L 136-145 [facility] WBC (Bld) [#/Vol] 5.1 10*3/uL 4.4-11.0 [facility] Blood erythrocytes count (nu mber/volume)Ordered By: Alla Kim on 01-05-2023 RBC (Bld) [#/Vol] 4.27 10*6/uL 4.2-5.[address] [facility] Blood hemoglobin measurement (mass/volume)Ordered By: Alla Kim on 01-05-2023 Hemoglobin (Bld) [Mass/Vol] 13.0 g/dL 12.0-15.0 [facility] Blood lymphocytes/100 leukoc ytesOrdered By: Alla Kim on 01-05-2023 Lymphocytes/100 WBC (Bld) 31.2 % 19-41 [facility] Blood monocytes/100 leukocyt esOrdered By: Alla Kim on 01-05-2023 Monocytes/100 WBC (Bld) 14.9 % 0-10 [facility] Blood platelet mean volumeOr dered By: Alla Kim on 01-05-2023 Platelet mean volume (Bld) [Entitic vol] 10.1 fL 6.2-12.0 [facility] Determination of erythrocyte mean corpuscular volume (MCV)Ordered By: Alla Kim on 01-05-2023 MCV (RBC) [Entitic vol] 96.0 fL 81-99 [facility] Hematocrit Auto (Bld) [Volum e fraction]Ordered By: Alla Kim on 01-05-2023 Hematocrit (Bld) [Volume fraction] 41.0 % 37-47 [facility] Laboratory - Chemistry and C hemistry - challengeOrdered By: Alla Kim on 01-05-2023 ALP [Catalytic activity/Vol] 73 U/L 45-117 [facility] ALT [Catalytic activity/Vol] 32 U/L 13-56 [facility] CO2 [Moles/Vol] 28.0 mmol/L 21.0-32.0 [facility] Globulin (S) [Mass/Vol] 3.5 g/dL 2.2-4.2 [facility] Urea nitrogen/Creatinine [Mass ratio] 18.2 mg/mg 10-20 [facility] Laboratory - Hematology and Cell countsOrdered By: Alla Kim on 01-05-2023 Erythrocyte distribution width (RBC) [Entitic vol] 47.8 fL 35.1-43.9 [facility] Erythrocyte distribution width (RBC) [Ratio] 13.6 % 11.6-14.6 [facility] Immature granulocytes/100 WBC (Bld) 0.200 % 0.0-0.9 [facility] Comment on above: IG% - Immature Granu locytes (promyelocytes, myelocytes and metamyelocytes) > 1% indicates that a LEFT SHIFT is Present. MCH (RBC) [Entitic mass] 30.4 pg 27.0-32.0 [facility] Nucleated RBC/100 WBC (Bld) [Ratio] 0 % 0-5 [facility] MCHC Auto (RBC) [Mass/Vol]Or dered By: Alla Kim on 01-05-2023 MCHC (RBC) [Mass/Vol] 31.7 g/dL 32-36 [facility] No Panel InformationOrdered By: Alla Kim on 01-05-2023 Estimated GFR (MDRD) Amer 95 mL/min >60 [facility] Comment on above: GFR Calc Estimated GFR (MDRD) Non-Af Amer 79 mL/min >60 [facility] Comment on above: Non- GFR Calc Platelets bldOrdered By: Lilly Kim on 01-05-2023 Platelets (Bld) [#/Vol] 254 10*3/uL 150-450 [facility] Serum or plasma albumin yaniv urement (mass/volume)Ordered By: Alla Kim on 01-05-2023 Albumin [Mass/Vol] 3.5 g/dL 3.2-5.0 [facility] Serum or plasma albumin/glob ulin mass ratioOrdered By: [facility] Julio on 01-05-2023 Albumin/Globulin [Mass ratio] 1.0 {ratio} 0.9-2.4 [facility] Serum or plasma calcium yaniv urement (mass/volume)Ordered By: [facility] Julio on 01-05-2023 Calcium [Mass/Vol] 8.8 mg/dL 8.5-10.1 [facility] Serum or plasma creatinine m easurement (mass/volume)Ordered By: Allaazam Kim on 01-05-2023 Creatinine [Mass/Vol] 0.77 mg/dL 0.55-1.02 [facility] Comment on above: The validity of the calculated GFR & GFRAA in patients over 70 years has not been determined. Clinical correlation is essential. Serum or plasma urea nitroge n measurement (mass/volume)Ordered By: [facility] Julio on 01-05-2023 Urea nitrogen [Mass/Vol] 14 mg/dL 7-18 [facility] Thin prep Papanicolaou smear with manual screeningOrdered By: [facility] Julio on 01-05-2023 Thin prep Papanicolaou smear with manual screening 27 U/L 15-37 [facility] Thin prep Papanicolaou smear with manual screening 4 5-15 [facility] Mamm - Screening Mammogram w / Tomosynthesison 10-16-2022 MG Breast Screening Normal [facility] Work Phone: Absolute lymphocyte counton 10-08-2022 Lymphocytes Auto (Unsp spec) [#/Vol] 1.37 10*3/uL 0.83-4.51 [facility] Work Phone: Basophil percentageon 2021 Basophils/100 WBC (Bld) 0.4 % 0-1 [facility] Work Phone: Bilirubin [Mass/Vol] 0.30 mg/dL 0.20-1.00 [facility] Work Phone: Comment on above: For patients on eltr ombopag therapy, use of Dimension Busy TBIL is not recommended. Chloride [Moles/Vol] 104 mmol/L 98-107 [facility] Work [facility]: Eosinophils/100 WBC (Bld) 1.7 % 0-5 [facility] Work Phone: Glucose [Mass/Vol] 97 mg/dL 74-106 [facility] Work Phone: Neutrophils (Bld) [#/Vol] 2.5 10*3/uL 2.0-7.7 [facility] Work Phone: Neutrophils/100 WBC (Bld) 53.1 % 47-70 [facility] Work Phone: Potassium [Moles/Vol] 4.1 mmol/L 3.5-5.1 [facility] Work Phone: Protein [Mass/Vol] 6.9 g/dL 6.4-8.2 [facility] Work Phone: Sodium [Moles/Vol] 140 mmol/L 136-145 [facility] Work Phone: WBC (Bld) [#/Vol] 4.6 10*3/uL 4.4-11.0 [facility] Work Phone: Blood erythrocytes count (nu mber/volume)on 10-08-2022 RBC (Bld) [#/Vol] 4.25 10*6/uL 4.2-5.4 [facility] Work [facility]: Blood hemoglobin measurement (mass/volume)on 10-08-2022 Hemoglobin (Bld) [Mass/Vol] 13.6 g/dL 12.0-15.0 [facility] Work Phone: Blood lymphocytes/100 leukoc yteson 10-08-2022 Lymphocytes/100 WBC (Bld) 29.7 % 19-41 [facility] Work Phone: Blood monocytes/100 leukocyt eson 10-08-2022 Monocytes/100 WBC (Bld) 14.7 % 0-10 [facility] Work Phone: Blood platelet mean volumeon 10-08-2022 Platelet mean volume (Bld) [Entitic vol] 9.9 fL 6.2-12.0 [facility] Work Phone: [phone] Determination of erythrocyte mean corpuscular volume (MCV)on 10-08-2022 MCV (RBC) [Entitic vol] 96.9 fL 81-99 [facility] Work Phone: [phone] Hematocrit Auto (Bld) [Volum e fraction]on 10-08-2022 Hematocrit (Bld) [Volume fraction] 41.2 % 37-47 [facility] Work Phone: [phone] Laboratory - Chemistry and C hemistry - challengeon 10-08-2022 ALP [Catalytic activity/Vol] 80 U/L 45-117 [facility] Work Phone: [phone] ALT [Catalytic activity/Vol] 31 U/L 13-56 [facility] Work Phone: [phone] CO2 [Moles/Vol] 30.0 mmol/L 21.0-32.0 [facility] Work Phone: [phone] Globulin (S) [Mass/Vol] 3.0 g/dL 2.2-4.2 [facility] Work Phone: [phone] Urea nitrogen/Creatinine [Mass ratio] 17.8 mg/mg 10-20 [facility] Work Phone: [phone] Laboratory - Hematology and Cell countson 10-08-2022 Erythrocyte distribution width (RBC) [Entitic vol] 45.5 fL 35.1-43.9 [facility] Work Phone: [phone] Erythrocyte distribution width (RBC) [Ratio] 12.8 % 11.6-14.6 [facility] Work Phone: [phone] Immature granulocytes/100 WBC (Bld) 0.400 % 0.0-0.9 [facility] Work Phone: [phone] Comment on above: IG% - Immature Granu locytes (promyelocytes, myelocytes and metamyelocytes) > 1% indicates that a LEFT SHIFT is Present. MCH (RBC) [Entitic mass] 32.0 pg 27.0-32.0 [facility] Work Phone: Nucleated RBC/100 WBC (Bld) [Ratio] 0 % 0-5 [facility] Work Phone: MCHC Auto (RBC) [Mass/Vol]on 10-08-2022 MCHC (RBC) [Mass/Vol] 33.0 g/dL 32-36 [facility] Work Phone: No Panel Informationon 10-08 Estimated GFR (MDRD) Amer 93 mL/min >60 [facility] Work Phone: Comment on above: GFR Calc Estimated GFR (MDRD) Non-Af Amer 77 mL/min >60 [facility] Work Phone: Comment on above: Non- GFR Calc Platelets bldon 10-08-2022 Platelets (Bld) [#/Vol] 265 10*3/uL 150-450 [facility] Work Phone: Serum or plasma albumin yaniv urement (mass/volume)on 10-08-2022 Albumin [Mass/Vol] 3.9 g/dL 3.2-5.0 [facility] Work Phone: Serum or plasma albumin/glob ulin mass ratioon 10-08-2022 Albumin/Globulin [Mass ratio] 1.3 {ratio} 0.9-2.4 [facility] Work Phone: Serum or plasma calcium yaniv urement (mass/volume)on 10-08-2022 Calcium [Mass/Vol] 9.3 mg/dL 8.5-10.1 [facility] Work Phone: Serum or plasma creatinine m easurement (mass/volume)on 10-08-2022 Creatinine [Mass/Vol] 0.78 mg/dL 0.55-1.02 [facility] Work Phone: Comment on above: The validity of the calculated GFR & GFRAA in patients over 70 years has not been determined. Clinical correlation is essential. Serum or plasma urea nitroge n measurement (mass/volume)on 10-08-2022 Urea nitrogen [Mass/Vol] 14 mg/dL 7-18 [facility] Work Phone: Thin prep Papanicolaou smear with manual screeningon 10-08-2022 Thin prep Papanicolaou smear with manual screening 25 U/L 15-37 [facility] Work Phone: Thin prep Papanicolaou smear with manual screening 6 5-15 [facility] Work Phone: No Panel Informationon 09-29 Thyroid Stimulating Hormone (TSH) 1.83 uIU/mL 0.358-3.74 [facility] Work Phone: Whole blood hemoglobin A1c/t otal hemoglobin ratio (mass fraction)on 09-29-2022 HbA1c (Bld) [Mass fraction] 5.5 % 3.8-5.6 [facility] Work Phone: Comment on above: Normal < 5.7 % Predi abetic 5.7 - 6.4 % Diabetic >or= 6.5 % Please note range changes. Medicare Annual Wellness Vis iton 08-28-2022 Medicare Annual Wellness Visit *Chief Complaint MEDICARE WELLNESS History of Present Illness The patient is being seen for the subsequent annual wellness visit. Past Medical, Surgical and Family History: reviewed and updated in chart. Interval History: Patient has not been hospitalized previously. Medications and Supplements: Review of all medications by a prescribing practitioner or clinical pharmacist (such as prescriptions, OTCs, herbal therapies and supplements) documented in the medical record. No, the patient is not using opioids. Patient Self Assessment of Health Status: good. Tobacco use: Non-User Alcohol use: Non-User Illicit drug use: Non-User Current diet: well balanced diet. Exercise Frequency: the patient does not exercise. Depression/Suicide Screening: . During the past 2 weeks, the patient has not felt down, depressed or hopeless. During the past 2 weeks, the patient has not felt little interest or pleasure in doing things. Hearing Impairment: none. Cognitive Impairment: No cognitive impairment observed. Bathing: performs independently. Dressing: performs independently. Walking: performs independently. Managing Finances: performs independently. Shopping: performs independently. Managing Medications: performs independently. Housework / Basic Home Maintenance: performs independently. Falls Risk Screening:. KELLY has not fallen in the last 6 months. Home safety risk factors: none. Advance directives:. Advanced Care Planning discussed and documented advance care plan or surrogate decision maker documented in the medical record. Patient has living will. Patient has healthcare POA. Kelly comes to office for a 1Y OV AND medication refills. Had Shingles earlier in yr. Recovered. Just received her first Shingles vaccine. no surgeries or hospitalizations within the last year Colorectal cancer screening: Colonoscopy in 2017 normal; repeat 10Y. Denies melena, change in bowel habits, abdominal pain. Breast cancer screening: MMG UTD RA- left shoulder bother her @ times cold weather makes it worse. Both knees have been hurting and has had bilateral steroid injections which offered little relief. Was to get viscosupplementation injections however insurance did not cover. Hypertension-takes and tolerates medication without problem. Denies headache, dizziness, lightheaded or syncopal episodes. Blood pressure normotensive in office today. Review of Systems Constitutional: weight stable, but not feeling poorly and no fever. Cardiovascular: no chest pain, no tightness or heavy pressure, no shortness of breath, no palpitations and no lower extremity edema. Respiratory: no cough and no shortness of breath during exertion. Gastrointestinal: no change in bowel habits, no bloody stools and no abdominal pain. Musculoskeletal: arthralgias and bilateral knees AND L shoulder. Neurological: no headaches and no dizziness. *Active Problems Cellulitis (682.9) (L03.90) Dysuria (788.1) (R30.0) Encounter for immunization (V03.89) (Z23) Herpes zoster without complication (053.9) (B02.9) Hypertension (401.9) (I10) Medicare annual wellness visit, subsequent (V70.0) (Z00.00) Menopause (627.2) (Z78.0) Osteopenia (733.90) (M85.80) Phlebitis (451.9) (I80.9) Rheumatoid arthritis (714.0) (M06.9) Screening for breast cancer (V76.10) (Z12.39) Screening for colorectal cancer (V76.51,V76.41) (Z12.11,Z12.12) Screening for diabetes mellitus (V77.1) (Z13.1) Superficial thrombophlebitis of leg (451.0) (I80.00) Swelling of lower leg (729.81) (M79.89) Thrombophlebitis of superficial veins of right lower extremity (451.0) (I80.01) Surgical History History of Appendectomy History of Colonoscopy History of Lumpectomy History of Tubal ligation Family History Family history of hypertension (V17.49) (Z82.49) Family history of S/P CABG (coronary artery bypass graft) Family history of liver cancer (V16.0) (Z80.0) Family history of malignant neoplasm of stomach (V16.0) (Z80.0) Family history of thyroid disease (V18.19) (Z83.49) Social History Denies alcohol consumption (V49.89) (Z78.9) Never chewed tobacco (V49.89) (Z78.9) Never smoked tobacco (V49.89) (Z78.9) No alcohol use No illicit drug use Patient has active power of mergers and acquisitions attorney for health care (V49.89) (Z78.9) Patient has living will (V49.89) (Z78.9) *Allergies Amoxicillin TABS Recorded By: Zoie Lynch; 08/07/2020 9:22:11 AM doxycycline Recorded By: Blanquita Farah; 08/18/2019 3:53:25 PM Lisinopril TABS Recorded By: Blanquita Farah; 08/18/2019 3:53:25 PM *Current Meds Medication NameInstruction Alendronate Sodium 70 MG Oral TabletTAKE 1 TABLET ONCE WEEKLY. Folic Acid 1 MG Oral TabletTAKE 1 TABLET DAILY. Glucosamine Chondroitin TABSTake 1 tablet daily Methotrexate Sodium 2.5 MG Oral TabletTAKE 7 TABLETS PER WEEK. Multi Vitamin Oral TabletTAKE 1 TABLET DAILY. Olmesartan Medoxomil-HCTZ 40-12.5 MG Oral TabletTAKE 1 TABLET EVERY OTHER DAY predniS (more content not included)... Normal [facility] Tobacco Screening.on 022 Fall risk assessment a) No falls within the last year [facility] Work Phone: Tobacco use status CPHS b) No [employer] [facility] Work Phone: Absolute lymphocyte counton 07-25-2022 Lymphocytes Auto (Unsp spec) [#/Vol] 1.60 10*3/uL 0.83-4.51 [facility] Work Phone: Basophil percentageon 2021 Basophils/100 WBC (Bld) 0.6 % 0-1 [facility] Work Phone: Bilirubin [Mass/Vol] 0.30 mg/dL 0.20-1.00 [facility] Work Phone: Comment on above: For patients on eltr ombopag therapy, use of Dimension Busy TBIL is not recommended. Chloride [Moles/Vol] 104 mmol/L 98-107 [facility] Work Phone: Eosinophils/100 WBC (Bld) 1.5 % 0-5 [facility] Work Phone: Glucose [Mass/Vol] 85 mg/dL 74-106 [facility] Work Phone: Neutrophils (Bld) [#/Vol] 2.5 10*3/uL 2.0-7.7 [facility] Work Phone: Neutrophils/100 WBC (Bld) 53.1 % 47-70 [facility] Work Phone: Potassium [Moles/Vol] 3.9 mmol/L 3.5-5.1 [facility] Work Phone: Protein [Mass/Vol] 7.0 g/dL 6.4-8.2 [facility] Work Phone: Sodium [Moles/Vol] 141 mmol/L 136-145 [facility] Work Phone: WBC (Bld) [#/Vol] 4.7 10*3/uL 4.4-11.0 [facility] Work Phone: Blood erythrocytes count (nu mber/volume)on 07-25-2022 RBC (Bld) [#/Vol] 4.03 10*6/uL 4.2-5.[address] [facility] Work Phone: Blood hemoglobin measurement (mass/volume)on 07-25-2022 Hemoglobin (Bld) [Mass/Vol] 13.0 g/dL 12.0-15.0 [facility] Work Phone: [phone] Blood lymphocytes/100 leukoc yteson 07-25-2022 Lymphocytes/100 WBC (Bld) 33.8 % 19-41 [facility] Work Phone: [phone] Blood monocytes/100 leukocyt eson 07-25-2022 Monocytes/100 WBC (Bld) 10.8 % 0-10 [facility] Work Phone: [phone] Blood platelet mean volumeon 07-25-2022 Platelet mean volume (Bld) [Entitic vol] 9.6 fL 6.2-12.0 [facility] Work Phone: [phone] Determination of erythrocyte mean corpuscular volume (MCV)on 07-25-2022 MCV (RBC) [Entitic vol] 97.3 fL 81-99 [facility] Work Phone: [phone] Hematocrit Auto (Bld) [Volum e fraction]on 07-25-2022 Hematocrit (Bld) [Volume fraction] 39.2 % 37-47 [facility] Work Phone: Laboratory - Chemistry and C hemistry - challengeon 07-25-2022 ALP [Catalytic activity/Vol] 73 U/L 45-117 [facility] Work Phone: [phone] ALT [Catalytic activity/Vol] 33 U/L 13-56 [facility] Work Phone: [phone] CO2 [Moles/Vol] 30.0 mmol/L 21.0-32.0 [facility] Work Phone: [phone] Globulin (S) [Mass/Vol] 3.4 g/dL 2.2-4.2 [facility] Work Phone: [phone] Urea nitrogen/Creatinine [Mass ratio] 15.7 mg/mg 10-20 [facility] Work Phone: [phone] Laboratory - Hematology and Cell countson 07-25-2022 Erythrocyte distribution width (RBC) [Entitic vol] 49.4 fL 35.1-43.9 [facility] Work Phone: [phone] Erythrocyte distribution width (RBC) [Ratio] 13.8 % 11.6-14.6 [facility] Work Phone: [phone] Immature granulocytes/100 WBC (Bld) 0.200 % 0.0-0.9 [facility] Work Phone: [phone] Comment on above: IG% - Immature Granu locytes (promyelocytes, myelocytes and metamyelocytes) > 1% indicates that a LEFT SHIFT is Present. MCH (RBC) [Entitic mass] 32.3 pg 27.0-32.0 [facility] Work Phone: [phone] Nucleated RBC/100 WBC (Bld) [Ratio] 0 % 0-5 [facility] Work Phone: [phone] MCHC Auto (RBC) [Mass/Vol]on 07-25-2022 MCHC (RBC) [Mass/Vol] 33.2 g/dL 32-36 [facility] Work Phone: [phone] No Panel Informationon 07-25 Estimated GFR (MDRD) Amer 88 mL/min >60 [facility] Work Phone: [phone] Comment on above: GFR Calc Estimated GFR (MDRD) Non-Af Amer 73 mL/min >60 [facility] Work Phone: [phone] Comment on above: Non- GFR Calc Platelets bldon 07-25-2022 Platelets (Bld) [#/Vol] 285 10*3/uL 150-450 [facility] Work Phone: [phone] Serum or plasma albumin yaniv urement (mass/volume)on 07-25-2022 Albumin [Mass/Vol] 3.6 g/dL 3.2-5.0 [facility] Work Phone: [phone] Serum or plasma albumin/glob ulin mass ratioon 07-25-2022 Albumin/Globulin [Mass ratio] 1.1 {ratio} 0.9-2.4 [facility] Work Phone: [phone] Serum or plasma calcium yaniv urement (mass/volume)on 07-25-2022 Calcium [Mass/Vol] 9.2 mg/dL 8.5-10.1 [facility] Work Phone: Serum or plasma creatinine m easurement (mass/volume)on 07-25-2022 Creatinine [Mass/Vol] 0.83 mg/dL 0.55-1.02 [facility] Work Phone: Comment on above: The validity of the calculated GFR & GFRAA in patients over 70 years has not been determined. Clinical correlation is essential. Serum or plasma urea nitroge n measurement (mass/volume)on 07-25-2022 Urea nitrogen [Mass/Vol] 13 mg/dL 7-18 [facility] Work Phone: Thin prep Papanicolaou smear with manual screeningon 07-25-2022 Thin prep Papanicolaou smear with manual screening 26 U/L 15-37 [facility] Work Phone: Thin prep Papanicolaou smear with manual screening 7 5-15 [facility] Work Phone: [phone] Absolute lymphocyte counton 04-29-2022 Lymphocytes Auto (Unsp spec) [#/Vol] 1.39 10*3/uL 0.83-4.51 [facility] Work Phone: Basophil percentageon 2021 Basophils/100 WBC (Bld) 0.6 % 0-1 [facility] Work Phone: [phone] Bilirubin [Mass/Vol] 0.40 mg/dL 0.20-1.00 [facility] Work Phone: Comment on above: For patients on eltr ombopag therapy, use of Dimension Busy TBIL is not recommended. Chloride [Moles/Vol] 106 mmol/L 98-107 [facility] Work Phone: Eosinophils/100 WBC (Bld) 1.9 % 0-5 [facility] Work Phone: [phone] Glucose [Mass/Vol] 95 mg/dL 74-106 [facility] Work Phone: [phone] Neutrophils (Bld) [#/Vol] 2.6 10*3/uL 2.0-7.7 [facility] Work Phone: Neutrophils/100 WBC (Bld) 54.3 % 47-70 [facility] Work Phone: Potassium [Moles/Vol] 4.0 mmol/L 3.5-5.1 [facility] Work Phone: Protein [Mass/Vol] 6.9 g/dL 6.4-8.2 [facility] Work Phone: Sodium [Moles/Vol] 140 mmol/L 136-145 [facility] Work Phone: WBC (Bld) [#/Vol] 4.7 10*3/uL 4.4-11.0 [facility] Work Phone: Blood erythrocytes count (nu mber/volume)on 04-29-2022 RBC (Bld) [#/Vol] 4.10 10*6/uL 4.2-5.[address] [facility] Work Phone: Blood hemoglobin measurement (mass/volume)on 04-29-2022 Hemoglobin (Bld) [Mass/Vol] 12.7 g/dL 12.0-15.0 [facility] Work Phone: Blood lymphocytes/100 leukoc yteson 04-29-2022 Lymphocytes/100 WBC (Bld) 29.6 % 19-41 [facility] Work Phone: [phone] Blood monocytes/100 leukocyt eson 04-29-2022 Monocytes/100 WBC (Bld) 13.4 % 0-10 [facility] Work Phone: Blood platelet mean volumeon 04-29-2022 Platelet mean volume (Bld) [Entitic vol] 9.8 fL 6.2-12.0 [facility] Work Phone: Determination of erythrocyte mean corpuscular volume (MCV)on 04-29-2022 MCV (RBC) [Entitic vol] 94.6 fL 81-99 [facility] Work Phone: Hematocrit Auto (Bld) [Volum e fraction]on 04-29-2022 Hematocrit (Bld) [Volume fraction] 38.8 % 37-47 [facility] Work Phone: [phone] Laboratory - Chemistry and C hemistry - challengeon 04-29-2022 ALP [Catalytic activity/Vol] 77 U/L 45-117 [facility] Work Phone: [phone] ALT [Catalytic activity/Vol] 36 U/L 13-56 [facility] Work Phone: [phone] CO2 [Moles/Vol] 29.0 mmol/L 21.0-32.0 [facility] Work Phone: [phone] Globulin (S) [Mass/Vol] 3.3 g/dL 2.2-4.2 [facility] Work Phone: [phone] Urea nitrogen/Creatinine [Mass ratio] 17.0 mg/mg 10-20 [facility] Work Phone: [phone] Laboratory - Hematology and Cell countson 04-29-2022 Erythrocyte distribution width (RBC) [Entitic vol] 45.5 fL 35.1-43.9 [facility] Work Phone: [phone] Erythrocyte distribution width (RBC) [Ratio] 13.3 % 11.6-14.6 [facility] Work Phone: [phone] Immature granulocytes/100 WBC (Bld) 0.200 % 0.0-0.9 [facility] Work Phone: [phone] Comment on above: IG% - Immature Granu locytes (promyelocytes, myelocytes and metamyelocytes) > 1% indicates that a LEFT SHIFT is Present. MCH (RBC) [Entitic mass] 31.0 pg 27.0-32.0 [facility] Work Phone: [phone] Nucleated RBC/100 WBC (Bld) [Ratio] 0 % 0-5 [facility] Work Phone: [phone] MCHC Auto (RBC) [Mass/Vol]on 04-29-2022 MCHC (RBC) [Mass/Vol] 32.7 g/dL 32-36 [facility] Work Phone: No Panel Informationon 04-29 Estimated GFR (MDRD) Amer 88 mL/min >60 [facility] Work Phone: Comment on above: GFR Calc Estimated GFR (MDRD) Non-Af Amer 73 mL/min >60 [facility] Work Phone: Comment on above: Non- GFR Calc Platelets bldon 04-29-2022 Platelets (Bld) [#/Vol] 246 10*3/uL 150-450 [facility] Work Phone: Serum or plasma albumin yaniv urement (mass/volume)on 04-29-2022 Albumin [Mass/Vol] 3.6 g/dL 3.2-5.0 [facility] Work Phone: Serum or plasma albumin/glob ulin mass ratioon 04-29-2022 Albumin/Globulin [Mass ratio] 1.1 {ratio} 0.9-2.4 [facility] Work Phone: Serum or plasma calcium yaniv urement (mass/volume)on 04-29-2022 Calcium [Mass/Vol] 9.0 mg/dL 8.5-10.1 [facility] Work Phone: Serum or plasma creatinine m easurement (mass/volume)on 04-29-2022 Creatinine [Mass/Vol] 0.82 mg/dL 0.55-1.02 [facility] Work Phone: Comment on above: The validity of the calculated GFR & GFRAA in patients over 70 years has not been determined. Clinical correlation is essential. Serum or plasma urea nitroge n measurement (mass/volume)on 04-29-2022 Urea nitrogen [Mass/Vol] 14 mg/dL 7-18 [facility] Work Phone: [phone] Thin prep Papanicolaou smear with manual screeningon 04-29-2022 Thin prep Papanicolaou smear with manual screening 28 U/L 15-37 [facility] Work Phone: [phone] Thin prep Papanicolaou smear with manual screening 5 5-15 [facility] Work Phone: Absolute lymphocyte counton 01-29-2022 Lymphocytes Auto (Unsp spec) [#/Vol] 1.36 10*3/uL 0.83-4.51 [facility] Work Phone: Basophil percentageon 2021 Basophils/100 WBC (Bld) 0.2 % 0-1 [facility] Work Phone: [phone] Bilirubin [Mass/Vol] 0.30 mg/dL 0.20-1.00 [facility] Work Phone: Comment on above: For patients on eltr ombopag therapy, use of Dimension Busy TBIL is not recommended. Chloride [Moles/Vol] 104 mmol/L 98-107 [facility] Work Phone: Eosinophils/100 WBC (Bld) 2.1 % 0-5 [facility] Work Phone: Glucose [Mass/Vol] 101 mg/dL 74-106 [facility] Work Phone: Comment on above: Fasting Glucose resu lt from 100 to 125 mg/dL suggests IMPAIRED HOMEOSTASIS per A.D.A. criteria. Neutrophils (Bld) [#/Vol] 2.6 10*3/uL 2.0-7.7 [facility] Work Phone: Neutrophils/100 WBC (Bld) 55.2 % 47-70 [facility] Work Phone: [phone] Potassium [Moles/Vol] 4.0 mmol/L 3.5-5.1 [facility] Work Phone: Protein [Mass/Vol] 7.1 g/dL 6.4-8.2 [facility] Work Phone: Sodium [Moles/Vol] 139 mmol/L 136-145 [facility] Work Phone: WBC (Bld) [#/Vol] 4.7 10*3/uL 4.4-11.0 [facility] Work Phone: Blood erythrocytes count (nu mber/volume)on 01-29-2022 RBC (Bld) [#/Vol] 4.30 10*6/uL 4.2-5.[address] [facility] Work Phone: Blood hemoglobin measurement (mass/volume)on 01-29-2022 Hemoglobin (Bld) [Mass/Vol] 12.9 g/dL 12.0-15.0 [facility] Work Phone: [phone] Blood lymphocytes/100 leukoc yteson 01-29-2022 Lymphocytes/100 WBC (Bld) 28.8 % 19-41 [facility] Work Phone: [phone] Blood monocytes/100 leukocyt eson 01-29-2022 Monocytes/100 WBC (Bld) 13.5 % 0-10 [facility] Work Phone: [phone] Blood platelet mean volumeon 01-29-2022 Platelet mean volume (Bld) [Entitic vol] 9.6 fL 6.2-12.0 [facility] Work Phone: [phone] Determination of erythrocyte mean corpuscular volume (MCV)on 01-29-2022 MCV (RBC) [Entitic vol] 92.8 fL 81-99 [facility] Work Phone: [phone] Hematocrit Auto (Bld) [Volum e fraction]on 01-29-2022 Hematocrit (Bld) [Volume fraction] 39.9 % 37-47 [facility] Work Phone: [phone] Laboratory - Chemistry and C hemistry - challengeon 01-29-2022 ALP [Catalytic activity/Vol] 86 U/L 45-117 [facility] Work Phone: [phone] ALT [Catalytic activity/Vol] 35 U/L 13-56 [facility] Work Phone: [phone] CO2 [Moles/Vol] 29.0 mmol/L 21.0-32.0 [facility] Work Phone: [phone] Globulin (S) [Mass/Vol] 3.6 g/dL 2.2-4.2 [facility] Work Phone: [phone] Urea nitrogen/Creatinine [Mass ratio] 18.1 mg/mg - [facility] Work Phone: [phone] Laboratory - Hematology and Cell countson 01-29-2022 Erythrocyte distribution width (RBC) [Entitic vol] 47.3 fL 35.1-43.9 [facility] Work Phone: [phone] Erythrocyte distribution width (RBC) [Ratio] 13.8 % 11.6-14.6 [facility] Work Phone: [phone] Immature granulocytes/100 WBC (Bld) 0.200 % 0.0-0.9 [facility] Work Phone: [phone] Comment on above: IG% - Immature Granu locytes (promyelocytes, myelocytes and metamyelocytes) > 1% indicates that a LEFT SHIFT is Present. MCH (RBC) [Entitic mass] 30.0 pg 27.0-32.0 [facility] Work Phone: [phone] Nucleated RBC/100 WBC (Bld) [Ratio] 0 % 0-5 [facility] Work Phone: [phone] MCHC Auto (RBC) [Mass/Vol]on 01-29-2022 MCHC (RBC) [Mass/Vol] 32.3 g/dL 32-36 [facility] Work Phone: [phone] Panel Informationon 01-29 Estimated GFR (MDRD) Amer 81 mL/min >60 [facility] Work Phone: [phone] Comment on above: GFR Calc Estimated GFR (MDRD) Non-Af Amer 67 mL/min >60 [facility] Work Phone: [phone] Comment on above: Non- GFR Calc Platelets bldon 01-29-2022 Platelets (Bld) [#/Vol] 253 10*3/uL 150-450 [facility] Work Phone: [phone] Serum or plasma albumin yaniv urement (mass/volume)on 01-29-2022 Albumin [Mass/Vol] 3.5 g/dL 3.2-5.0 [facility] Work Phone: [phone] Serum or plasma albumin/glob ulin mass ratioon 04-20-2022 Albumin/Globulin [Mass ratio] 1.0 {ratio} 0.9-2.4 [facility] Work Phone: Serum or plasma calcium yaniv urement (mass/volume)on 01-29-2022 Calcium [Mass/Vol] 9.1 mg/dL 8.5-10.1 [facility] Work Phone: Serum or plasma creatinine m easurement (mass/volume)on 01-29-2022 Creatinine [Mass/Vol] 0.88 mg/dL 0.55-1.02 [facility] Work Phone: Comment on above: The validity of the calculated GFR & GFRAA in patients over 70 years has not been determined. Clinical correlation is essential. Serum or plasma urea nitroge n measurement (mass/volume)on 01-29-2022 Urea nitrogen [Mass/Vol] 16 mg/dL 7-18 [facility] Work Phone: Thin prep Papanicolaou smear with manual screeningon 01-29-2022 Thin prep Papanicolaou smear with manual screening 24 U/L 15-37 [facility] Work Phone: Thin prep Papanicolaou smear with manual screening 6 5-15 [facility] Work Phone: Office Visit (Primary Care T xt/Forms)on 12-16-2021 Follow-up visit Diagnoses/Problems Assessed Encounter for immunization (V03.89) (Z23) Herpes zoster without complication (053.9) (B02.9) Orders Encounter for immunization Temporarily Stop: Influenza, seasonal, injectable Herpes zoster without complication Start: valACYclovir HCl - 1 GM Oral Tablet; TAKE 1 TABLET 3 TIMES DAILY Patient Discussion/Summary Valtrex 1 g 3 times daily x7 days HCC closed listed vascular disease, I assume this means superficial thrombophlebitis, and has rheumatoid arthritisBoth of which are stable Chief Complaint RIGHT LOW BACK RASH/BLISTERS X 3 DAYS History of Present Illness onset 3 d rash right lower lumbar radiating to hip. Moderate burning pain. Discussed options for analgesia none were prescribed. Reviewed cellulitis, candidate fo immunization postherpetic neuralgia Review of Systems As HPI Active Problems Problems Cellulitis (682.9) (L03.90) Dysuria (788.1) (R30.0) Encounter for immunization (V03.89) (Z23) Hypertension (401.9) (I10) Medicare annual wellness visit, subsequent (V70.0) (Z00.00) Menopause (627.2) (Z78.0) Osteopenia (733.90) (M85.80) Phlebitis (451.9) (I80.9) Rheumatoid arthritis (714.0) (M06.9) Screening for breast cancer (V76.10) (Z12.39) Screening for colorectal cancer (V76.51,V76.41) (Z12.11,Z12.12) Screening for diabetes mellitus (V77.1) (Z13.1) Superficial thrombophlebitis of leg (451.0) (I80.00) Swelling of lower leg (729.81) (M79.89) Thrombophlebitis of superficial veins of right lower extremity (451.0) (I80.01) Surgical History Problems History of Appendectomy History of Colonoscopy History of Lumpectomy History of Tubal ligation Family History Mother Family history of hypertension (V17.49) (Z82.49) Family history of S/P CABG (coronary artery bypass graft) Father Family history of liver cancer (V16.0) (Z80.0) Family history of malignant neoplasm of stomach (V16.0) (Z80.0) Sister Family history of thyroid disease (V18.19) (Z83.49) Social History Problems Denies alcohol consumption (V49.89) (Z78.9) Never chewed tobacco (V49.89) (Z78.9) Never smoked tobacco (V49.89) (Z78.9) No alcohol use No illicit drug use Patient has active power of mergers and acquisitions attorney for health care (V49.89) (Z78.9) Patient has living will (V49.89) (Z78.9) Current Meds Medication NameInstruction Alendronate Sodium 70 MG Oral TabletTAKE 1 TABLET ONCE WEEKLY. Folic Acid 1 MG Oral TabletTAKE 1 TABLET DAILY. Glucosamine Chondroitin TABSTake 1 tablet daily Methotrexate Sodium 2.5 MG Oral TabletTAKE 7 TABLETS PER WEEK. Multi Vitamin Oral TabletTAKE 1 TABLET DAILY. Olmesartan Medoxomil-HCTZ 40-12.5 MG Oral TabletTAKE 1 TABLET EVERY OTHER DAY predniSONE 5 MG Oral TabletTAKE 1 TABLET Daily prn Senna 8.6 MG Oral CapsuleTAKE 1 CAPSULE Daily sulfaSALAzine 500 MG Oral Tablet Delayed ReleaseTake 1 tablet twice daily Tylenol PM Extra Strength 1000-50 MG/30ML LIQDTAKE 30 ML AT BEDTIME. Allergies Medication Amoxicillin TABS doxycycline Lisinopril TABS Vitals Vital Signs Recorded: 16Dec2021 08:56AM Heart Rate: 95 Systolic: 152 Diastolic: 66 Height: 5 ft 4 in Weight: 203 lb 6 oz BMI Calculated: 34.91 kg/m2 BSA Calculated: 1.97 Tobacco Use: b) No PHQ-2 #1. Over the last 2 weeks have you felt down, depressed or hopeless? (If yes, answer PHQ-9 below): No PHQ-2 #2. Over the last 2 weeks have you felt little interest or pleasure in doing things? (If yes, answer PHQ-9 below): No Fall Screening: b) One or more falls in the last year O2 Saturation: 98 Physical Exam Approximately five 2 to 3 cm raised red areas with grouped vesicles in the right lowest lumbar region really over to the midline to right hip Signatures Electronically signed by : Owen Zamorano MD; Dec 16 2021 9:25AM EST (Author) [facility] Tobacco Screening.on 022 Adult depression screening assessment No [facility] Work Phone: [phone] Fall risk assessment b) One or more fall s in the last year [facility] Work Phone: [phone] Tobacco use status CPHS b) No [facility] Work Phone: Absolute lymphocyte counton 11-06-2021 Lymphocytes Auto (Unsp spec) [#/Vol] 1.29 10*3/uL 0.83-4.51 [facility] Work Phone: Basophil percentageon 2021 Basophils/100 WBC (Bld) 0.7 % 0-1 [facility] Work Phone: Bilirubin [Mass/Vol] 0.30 mg/dL 0.20-1.00 [facility] Work Phone: Comment on above: For patients on eltr ombopag therapy, use of Dimension Busy TBIL is not recommended. Chloride [Moles/Vol] 106 mmol/L 98-107 [facility] Work Phone: Eosinophils/100 WBC (Bld) 2.3 % 0-5 [facility] Work [phone] Glucose [Mass/Vol] 118 mg/dL 74-106 [facility] Work Phone: Comment on above: Fasting Glucose resu lt from 100 to 125 mg/dL suggests IMPAIRED HOMEOSTASIS per A.D.A. criteria. Neutrophils (Bld) [#/Vol] 2.3 10*3/uL 2.0-7.7 [facility] Work Phone: Neutrophils/100 WBC (Bld) 52.8 % 47-70 [facility] Work Phone: Potassium [Moles/Vol] 3.8 mmol/L 3.5-5.1 [facility] Work Phone: Protein [Mass/Vol] 7.0 g/dL 6.4-8.2 [facility] Work Phone: Sodium [Moles/Vol] 140 mmol/L 136-145 [facility] Work Phone: WBC (Bld) [#/Vol] 4.4 10*3/uL 4.4-11.0 [facility] Work Phone: Blood erythrocytes count (nu mber/volume)on 11-06-2021 RBC (Bld) [#/Vol] 4.11 10*6/uL 4.2-5.[address] [facility] Work Phone: Blood hemoglobin measurement (mass/volume)on 11-06-2021 Hemoglobin (Bld) [Mass/Vol] 12.6 g/dL 12.0-15.0 [facility] Work Phone: Blood lymphocytes/100 leukoc yteson 11-06-2021 Lymphocytes/100 WBC (Bld) 29.1 % 19-41 [facility] Work Phone: Blood monocytes/100 leukocyt eson 11-06-2021 Monocytes/100 WBC (Bld) 14.9 % 0-10 [facility] Work Phone: [phone] Blood platelet mean volumeon 11-06-2021 Platelet mean volume (Bld) [Entitic vol] 9.8 fL 6.2-12.0 [facility] Work Phone: Determination of erythrocyte mean corpuscular volume (MCV)on 11-06-2021 MCV (RBC) [Entitic vol] 93.7 fL 81-99 [facility] Work Phone: Hematocrit Auto (Bld) [Volum e fraction]on 11-06-2021 Hematocrit (Bld) [Volume fraction] 38.5 % 37-47 [facility] Work Phone: Laboratory - Chemistry and C hemistry - challengeon 11-06-2021 ALP [Catalytic activity/Vol] 89 U/L 45-117 [facility] Work Phone: ALT [Catalytic activity/Vol] 28 U/L 13-56 [facility] Work Phone: [phone] CO2 [Moles/Vol] 27.0 mmol/L 21.0-32.0 [facility] Work Phone: Globulin (S) [Mass/Vol] 3.6 g/dL 2.2-4.2 [facility] Work Phone: Urea nitrogen/Creatinine [Mass ratio] 14.5 mg/mg 10-20 [facility] Work Phone: Laboratory - Hematology and Cell countson 11-06-2021 Erythrocyte distribution width (RBC) [Entitic vol] 46.8 fL 35.1-43.9 [facility] Work Phone: [phone] Erythrocyte distribution width (RBC) [Ratio] 13.8 % 11.6-14.6 [facility] Work Phone: Immature granulocytes/100 WBC (Bld) 0.200 % 0.0-0.9 [facility] Work Phone: Comment on above: IG% - Immature Granu locytes (promyelocytes, myelocytes and metamyelocytes) > 1% indicates that a LEFT SHIFT is Present. MCH (RBC) [Entitic mass] 30.7 pg 27.0-32.0 [facility] Work Phone: [phone] Nucleated RBC/100 WBC (Bld) [Ratio] 0 % 0-5 [facility] Work Phone: [phone] MCHC Auto (RBC) [Mass/Vol]on 11-06-2021 MCHC (RBC) [Mass/Vol] 32.7 g/dL 32-36 [facility] Work Phone: No Panel Informationon 11-06 Estimated GFR (MDRD) Amer 80 mL/min >60 [facility] Work Phone: [phone] Comment on above: GFR Calc Estimated GFR (MDRD) Non-Af Amer 67 mL/min >60 [facility] Work Phone: [phone] Comment on above: Non- GFR Calc Platelets bldon 11-06-2021 Platelets (Bld) [#/Vol] 256 10*3/uL 150-450 [facility] Work Phone: [phone] Serum or plasma albumin yaniv urement (mass/volume)on 11-06-2021 Albumin [Mass/Vol] 3.4 g/dL 3.2-5.0 [facility] Work Phone: [phone] Serum or plasma albumin/glob ulin mass ratioon 11-06-2021 Albumin/Globulin [Mass ratio] 0.9 {ratio} 0.9-2.4 [facility] Work Phone: [phone] Serum or plasma calcium yaniv urement (mass/volume)on 11-06-2021 Calcium [Mass/Vol] 8.6 mg/dL 8.5-10.1 [facility] Work Phone: [phone] Serum or plasma creatinine m easurement (mass/volume)on 11-06-2021 Creatinine [Mass/Vol] 0.90 mg/dL 0.55-1.02 [facility] Work Phone: Comment on above: The validity of the calculated GFR & GFRAA in patients over 70 years has not been determined. Clinical correlation is essential. Serum or plasma urea nitroge n measurement (mass/volume)on 11-06-2021 Urea nitrogen [Mass/Vol] 13 mg/dL 7-18 [facility] Work Phone: Thin prep Papanicolaou smear with manual screeningon 11-06-2021 Thin prep Papanicolaou smear with manual screening 24 U/L 15-37 [facility] Work Phone: Thin prep Papanicolaou smear with manual screening 7 5-15 [facility] Work Phone: BONE DENSITY, DEXA 1 OR MORE SITES: AXIAL SKELETONon 10-14-2021 BONE DENSITY, DEXA 1 OR MORE SITES: AXIAL SKELETON Patient Name: KELLY GARCIA STUDY: BONE DENSITY, DEXA 1 OR MORE SITES: AXIAL SKELETN; 10/14/2021 10:27 am INDICATION: MENOPAUSE Z78.0: Menopause. Evaluate for osteopenia/osteoporosis, ACCESSION NUMBER(S): [id number] ORDERING CLINICIAN: HARJEET CERVANTES FINDINGS: Standard measurements were obtained utilizing an [employer] Energy X-ray Absorptiometry bone densitometer. Data obtained includes planar bone density measurements over the left hip and lumbar spine. Comparison of measured data and standardized mean data for a young adult population (when peak bone mass occurs) results in a T score. This represents the number of standard deviations above or below the mean of a young adult population. Comparison of measured data to standards from an age-adjusted population similarly yields a Z score. Left femoral neck Bone density: 0.632 g/cm2 T score: -2.0 Z Score: -0.2 Lumbar Spine (L1-4) Bone density: 1.003 g/cm2 T Score: -0.4 Z Score: 1.6 World Health Organization (WHO) criteria defines normal bone density as that which is less than 1 standard deviation below the mean of a young adult population. Osteopenia is defined as a measured bone density that is between 1 and 2.5 standard deviations below the mean of a young adult population. Osteoporosis is defined as a measured bone density that is greater than or equal to 2.5 standard deviations below the mean of a young adult population. IMPRESSION: According to World Health Organization criteria, bone mineral density of the left femoral neck and lumbar spine is osteopenic. The patient is at increased risk for fracture. 10 year fracture risk for major osteoporotic fracture is 21 %. 10 year fracture risk for hip fracture 4.4 % according to the World Health Organization FRAX- fracture risk assessment tool. There has been no interval decrease in left total hip or lumbar spine bone mineral density measurements when compared to the prior study of 10/10/2019. Electronically signed by: EDUAR BECKWITH MD [facility] DIGITAL MAMM SCREENING W/ TO [place] 10-14-2021 DIGITAL MAMM SCREENING W/ TONI Patient Name: KELLY GARCIA STUDY: Digital mammography screening with toni; 10/14/2021 10:16 am ACCESSION NUMBER(S): [id number] ORDERING CLINICIAN: HARJEET CERVANTES INDICATION: Screening. COMPARISON: Comparison is made to prior digital mammograms dated 10/11/2020 FINDINGS: CC and MLO 2D digital mammograms and digital breast tomosynthesis images were obtained of the bilateral breasts. 3-D volume images were reconstructed in 4 views at an independent workstation as 1 mm slices through the breasts in both the CC and MLO projections. The breast tissue is almost entirely fatty. Well-defined intramammary lymph nodes are seen in the lateral aspects of the breasts bilaterally, similar to prior studies. No new or enlarging mass or focal asymmetry is identified. No suspicious microcalcifications or foci of architectural distortion are seen. There has been no significant change. This study was interpreted with CAD. IMPRESSION: No mammographic evidence of malignancy. BI-RADS CATEGORY: Category: 2 - Benign. Recommendation: 1 Year Screening. Electronically signed by: EDUAR BECKWITH MD [facility] Mamm - Screening Mammogram w / Tomosynthesison 10-14-2021 MG Breast Screening Normal [facility] Work Phone: Xray Bone Density, Dexa 1 or More Siteson 10-14-2021 DXA Bone [Mass/Area] Bone density Normal -[employer] Work Phone: Tobacco Screening.on 021 Fall risk assessment a) No falls within the last year [facility] Work Phone: Tobacco use status CP b) No [facility] Work Phone: Otheron 08-07-2020 [id number] [place] [address]Phone [phone], [facility] Lab ReportLower Venous Duplex UltrasoundPatient Name: KELLY GARCIA Reading Physician: [id number] Samantha Gama MDStudy Date: 08/07/2020 Referring [id number] Robert Mcneillhysician: TERI/PID: [id number] PCP:Accession/Order#: [id number] CC Report to:Date of : 1955 Technologist: Lyssa Darden RVTGender: F Technologist 2:Admission Status: Out[facility]: M79.604-Pain in right leg; M79.89-Other specified soft tissuedisorders; M79.89-Right leg swellingProcedure/CPT: 72610 Peripheral venous duplex scan for DVT Limited-[id number] RESULTCritical Result: SVTNotification called to Dr Rios on 08/07/2020 at 11:10:00 AM.CONCLUSIONS:Right Lower Venous: No evidence of acute deep vein thrombus visualized in the right lower extremity. There is acute non-occlusive thrombosis visualized in the proximal calf great saphenous. Multiple varcocities noted off the proximal great saphenous vein within the calf are non-compressible from the proximal calf to the distal calf. Evidence of superficial thrombosis noted within the right calf.Left Lower Venous: No evidence of deep vein thrombosis of the left external iliac and common femoral veins.Imaging \T\ Doppler Findings:Right Compress ThrombusSFJ Yes NoneProx Thigh GSV Yes NoneMid Thigh GSV Yes NoneKnee GSV Yes NoneProx Calf GSV No AcuteMid Calf GSV Yes NoneDist Calf GSV Yes NoneRight Compressible Thrombus FlowIliac Yes NoneCFV Yes None Spontaneous/PhasicPFV Yes NoneFV Proximal Yes None Spontaneous/PhasicFV Mid Yes NoneFV Distal Yes NonePopliteal Yes None Spontaneous/PhasicPeroneal Yes NonePTV Yes NoneLeft Compress Thrombus FlowIliac Yes NoneCFV Yes None Spontaneous/[id number] Samantha Gama MD [employer] [facility] Work Phone: Mamm - Screening Mammogram w / Tomosynthesison 10-10-2019 MG Breast screening Interpreted by: EDUAR BECKWITH10/10/19 14:54MRN: [id number] Name: KELLY GARCIA STUDY:Digital mammography screening with toni; 10/10/2019 9:25 am ORDERING CLINICIAN:HARJEET CERVANTES INDICATION:Screening. COMPARISON:Comparison is made to prior digital mammograms dated112/08/2017 and09/30/2017 FINDINGS:CC and MLO 2D digital mammograms and digital breast tomosynthesisimages were obtained of the bilateral breasts. 3-D volume images werereconstructed in 4 views at an independent workstation as 1 mm slicesthrough the breasts in both the CC and MLO projections. There are areas of scattered fibroglandular tissue. Well-definedintramammary lymph nodes are seen in the lateral aspects of thebreasts bilaterally, unchanged from prior studies.No new or enlargingmass or focal asymmetry is identified. No suspiciousmicrocalcificatio ns or foci of architectural distortion are seen.There has been no significant change. This study was interpreted with CAD. IMPRESSION:No mammographic evidence of malignancy. BI-RADS CATEGORY:Category: 2 - Benign.Recommendation: 1 Year Screening.Electronically signed by: EDUAR BECKWITH 10/10/19 14:54 Normal [facility] Work Phone: Otheron 10-10-2019 Interpreted by: TERRY ORELLANA10/10/19 16:15MRN: [id number] Name: KELLY GARCIA STUDY:BONE DENSITY, DEXA 1 OR MORE SITES: AXIAL SKELETN; 10/10/2019 9:06 am INDICATION:none; + h/o osteopenia Other specified disorders of bone density andstructure, unspecified site. Evaluate for osteopenia/osteoporosis, COMPARISON:09/30/2017 ORDERING CLINICIAN:HARJEET CERVANTES FINDINGS:Standard measurements were obtained utilizing an [employer] Energy X-rayAbsorptiometry bone densitometer. Data obtained includes planar bonedensity measurements over the left hip and lumbar spine. Comparisonof measured data and standardized mean data for a young adultpopulation (when peak bone mass occurs) results in a T score. Thisrepresents the number of standard deviations above or below the meanof a young adult population. Comparison of measured data tostandards from an age-adjusted population similarly yields a Z score. Left femoral neck Bone density: 0.605 g/cm2 T score: -2.2. Fracture risk increased. There has been an 8.4%decrease in bone mineral density since previous study. Z Score: -0.6 Lumbar Spine (L1-4) Bone density: 0.963 g/cm2 T Score: -0.8 overall and -1.2 at L2. There has been a 1.5% increasein bone mineral density since previous study. Z Score: 1.1 World Health Organization (WHO) criteria defines normal bone densityas that which is less than 1 standard deviation below the mean of ayoung adult population. Osteopenia is defined as a measured bonedensity that is between 1 and 2.5 standard deviations below the meanof a young adult population. Osteoporosis is defined as a measuredbone density that is greater than or equal to 2.5 standard deviationsbelow the mean of a young adult population. IMPRESSION:According to World Health Organization criteria, bone mineral densityof the left femoral neck is osteopenic and lumbar spine is overallwithin normal limits with osteopenia at L2. The patient is atincreased risk for fracture. With regard to the left hip, there has been a decrease in bonemineral density since previous study and with regard to the lumbarspine there has been an increase in bone mineral density sinceprevious study as above. According to the World Health organization FRAX fracture riskassessment tool, the 10 year fracture risk for major osteoporoticfracture is 23 % and for hip fracture is 4.9 %.Electronically signed by: TERRY ORELLANA 10/10/19 16:15 Normal [facility] Work Phone: MA Mamm Screen w/CAD if perf ormed bilaton 10-08-2018 MA Mamm Screen w/CAD if performed bilat Exam Date/Time:10/07/2018 09:36 ESTReason for Exam:SCREENING;ScreeningRep ortSTUDY:Digital mammography screening; 10/07/2018 9:36 amACCESSION NUMBER(S):[id number] RDERING CLINICIAN:Harjeet CervantesINDICATION:Screening.CO MPARISON:Comparison is made to prior digital mammograms dated 09/30/2017 and 09/29/2016FINDINGS:CC and MLO 2D digital mammographic images of the bilateral breasts were obtained.There are areas of scattered fibroglandular tissue. Small well-defined intramammary lymph nodes are seen in the lateral aspects of the breasts bilaterally, similar to prior studies.No new or enlarging mass or focal asymmetry is identified. No suspicious microcalcifications or foci of architectural distortion are seen. There has been no significant change.This study was interpreted with CAD.IMPRESSION:No mammographic evidence of malignancy.BI-RADS CATEGORY:Category: 2 - Benign Finding.Recommendation: Normal Interval Follow-up, Over Age 40.Recall Interval: 12 Months.Breast Density: Scattered Fibroglandular Density. FINAL REPORT Dictated: 10/08/2018 8:50 am Eduar Beckwith MD CSigned (Electronic Signature): 10/08/2018 8:50 amSigned by: Eduar Beckwith MD Technologist: MGWAssessment: BI-RADS Category 2-Benign findingRecommendation: Normal interval follow-up Normal [facility] Vital Signs Date Time Vital Sign Value Performing Clinician Facility 03-01-2025 09:24-0400 Body height 165.1 cm Harjeet Cervantes APRN-SPECIAL SERVICES DIRECTOR Work Phone: [facility] 03-01-2025 09:24-0400 Body mass index (BMI) [Ratio] 31.62 kg/m2 Harjeet Cervantes APRN-SPECIAL SERVICES DIRECTOR Work Phone: [facility] 03-01-2025 09:24-0400 Body weight 86.18 kg Harjeet Cervantes HANDWRITING EXPERT-SPECIAL SERVICES DIRECTOR Work Phone: [facility] 03-01-2025 09:24-0400 Diastolic blood pressure 70 mm[Hg] Harjeet Cervantes HANDWRITING EXPERT-SPECIAL SERVICES DIRECTOR Work Phone: [facility] 03-01-2025 09:24-0400 Heart rate 88 /min Harjeet Wood HANDWRITING EXPERT-SPECIAL SERVICES DIRECTOR Work Phone: [facility] 03-01-2025 09:24-0400 SaO2% (BldA) [Mass fraction] 98 % Harjeet Cervantes HANDWRITING EXPERT-SPECIAL SERVICES DIRECTOR Work Phone: [facility] 03-01-2025 09:24-0400 Systolic blood pressure 120 mm[Hg] Harjeet Cervantes HANDWRITING EXPERT-SPECIAL SERVICES DIRECTOR Work Phone: [facility] 11-11-2024 15:17-0500 Body height 165.1 cm Reji SEN, DNP Work Phone: [facility] 11-11-2024 15:17-0500 Body mass index (BMI) [Ratio] 32.7 kg/m2 Reji SEN, DNP Work Phone: [facility] 11-11-2024 15:17-0500 Body weight 89.13 kg Reji SEN, DNP Work Phone: [facility] 11-11-2024 15:17-0500 Diastolic blood pressure 62 mm[Hg] Reji SEN, DNP Work Phone: [facility] 11-11-2024 15:17-0500 Heart rate 106 /min Reji SEN, DNP Work Phone: [facility] 11-11-2024 15:17-0500 SaO2% (BldA) [Mass fraction] 96 % Reji SEN, DNP Work Phone: [facility] 11-11-2024 15:17-0500 Systolic blood pressure 138 mm[Hg] Reji Adkins HANDWRITING EXPERT-SPECIAL SERVICES DIRECTOR, DNP Work Phone: [facility] 10-24-2024 14:03-0500 Body height 165.1 cm Harjeet Cervantes HANDWRITING EXPERT-SPECIAL SERVICES DIRECTOR Work Phone: [facility] 10-24-2024 14:03-0500 Body mass index (BMI) [Ratio] 32.58 kg/m2 Harjeet Cervantes HANDWRITING EXPERT-SPECIAL SERVICES DIRECTOR Work Phone: [facility] 10-24-2024 14:03-0500 Body weight 88.81 kg Harjeet Cervantes HANDWRITING EXPERT-SPECIAL SERVICES DIRECTOR Work Phone: [facility] 10-24-2024 14:03-0500 Diastolic blood pressure 88 mm[Hg] Harjeet Cervantes HANDWRITING EXPERT-SPECIAL SERVICES DIRECTOR Work Phone: [facility] 10-24-2024 14:03-0500 Heart rate 91 /min Harjeet Cervantes HANDWRITING EXPERT-SPECIAL SERVICES DIRECTOR Work Phone: [facility] 10-24-2024 14:03-0500 SaO2% (BldA) [Mass fraction] 95 % Harjeet Cervantes HANDWRITING EXPERT-SPECIAL SERVICES DIRECTOR Work Phone: [facility] 10-24-2024 14:03-0500 Systolic blood pressure 158 mm[Hg] Harjeet Cervantes HANDWRITING EXPERT-SPECIAL SERVICES DIRECTOR Work Phone: [facility] 09-07-2024 11:06-0500 Body height 165.1 cm Ethel Stanton MD Work Phone: [facility] 09-07-2024 11:06-0500 Body mass index (BMI) [Ratio] 34.95 kg/m2 Ethel Stanton MD Work Phone: [facility] 09-07-2024 11:06-0500 Body weight 95.25 kg Ethel Stanton MD Work Phone: [facility] 09-07-2024 11:06-0500 Diastolic blood pressure 76 mm[Hg] Ethel Stanton MD Work Phone: [facility] 09-07-2024 11:06-0500 Heart rate 76 /min Ethel Stanton MD Work Phone: [facility] 09-07-2024 11:06-0500 SaO2% (BldA) [Mass fraction] 97 % Ethel Stanton MD Work Phone: [facility] 09-07-2024 11:06-0500 Systolic blood pressure 148 mm[Hg] Ethel Stanton MD Work Phone: [facility] 08-29-2024 09:13-0500 Body height 165.1 cm Harjeet Wood HANDWRITING EXPERT-SPECIAL SERVICES DIRECTOR Work Phone: [facility] 08-29-2024 09:13-0500 Body mass index (BMI) [Ratio] 32.98 kg/m2 Harjeet Wood HANDWRITING EXPERT-SPECIAL SERVICES DIRECTOR Work Phone: [facility] 08-29-2024 09:13-0500 Body weight 89.9 kg Harjeet Wood HANDWRITING EXPERT-SPECIAL SERVICES DIRECTOR Work Phone: [facility] 08-29-2024 09:13-0500 Diastolic blood pressure 82 mm[Hg] Harjeet Wood HANDWRITING EXPERT-SPECIAL SERVICES DIRECTOR Work Phone: [facility] 08-29-2024 09:13-0500 Heart rate 83 /min Harjeet Wood HANDWRITING EXPERT-SPECIAL SERVICES DIRECTOR Work Phone: [facility] 08-29-2024 09:13-0500 SaO2% (BldA) [Mass fraction] 95 % Harjeet Wood HANDWRITING EXPERT-SPECIAL SERVICES DIRECTOR Work Phone: [facility] 08-29-2024 09:13-0500 Systolic blood pressure 128 mm[Hg] Harjeet Wood HANDWRITING EXPERT-SPECIAL SERVICES DIRECTOR Work Phone: [facility] 08-17-2024 14:33-0500 Diastolic blood pressure 82 mm[Hg] Ethel Stanton MD Work Phone: [facility] 08-17-2024 14:33-0500 Systolic blood pressure 161 mm[Hg] Ethel Stanton MD Work Phone: [facility] 08-17-2024 14:26-0500 Body height 165.1 cm Ethel Stanton MD Work Phone: [facility] 08-17-2024 14:26-0500 Body mass index (BMI) [Ratio] 32.45 kg/m2 Ethel Stanton MD Work Phone: [facility] 08-17-2024 14:26-0500 Body weight 88.45 kg Ethel Stanton MD Work Phone: [facility] 08-03-2024 15:39-0400 Body height 162.6 cm Ethel Stanton MD Work Phone: [facility] 08-03-2024 15:39-0400 Body mass index (BMI) [Ratio] 33.57 kg/m2 Ethel Stanton MD Work Phone: [facility] 08-03-2024 15:39-0400 Body weight 88.72 kg Ethel Stanton MD Work Phone: [facility] 08-03-2024 15:39-0400 Diastolic blood pressure 70 mm[Hg] Ethel Stanton MD Work Phone: [facility] 08-03-2024 15:39-0400 Heart rate 90 /min Ethel Stanton MD Work Phone: [facility] 08-03-2024 15:39-0400 SaO2% (BldA) [Mass fraction] 98 % Ethel Stanton MD Work Phone: [facility] 08-03-2024 15:39-0400 Systolic blood pressure 150 mm[Hg] Ethel Stanton MD Work Phone: [facility] 07-06-2024 14:24-0400 Body height 162.6 cm Ethel Stanton MD Work Phone: [facility] 07-06-2024 14:24-0400 Body mass index (BMI) [Ratio] 33.44 kg/m2 Ethel Stanton MD Work Phone: [facility] 07-06-2024 14:24-0400 Body weight 88.36 kg Ethel Stanton MD Work Phone: [facility] 07-06-2024 14:24-0400 Diastolic blood pressure 80 mm[Hg] Ethel Stanton MD Work Phone: [facility] 07-06-2024 14:24-0400 Heart rate 83 /min Ethel Stanton MD Work Phone: [facility] 07-06-2024 14:24-0400 SaO2% (BldA) [Mass fraction] 97 % Ethel Stanton MD Work Phone: [facility] 07-06-2024 14:24-0400 Systolic blood pressure 142 mm[Hg] Ethel Stanton MD Work Phone: [facility] 06-09-2024 10:02-0400 Body height 162.6 cm Harjeet Cervantes HANDWRITING EXPERT-SPECIAL SERVICES DIRECTOR Work Phone: [facility] 06-09-2024 10:02-0400 Body mass index (BMI) [Ratio] 33.51 kg/m2 Harjeet Cervantes HANDWRITING EXPERT-SPECIAL SERVICES DIRECTOR Work Phone: [facility] 06-09-2024 10:02-0400 Body weight 88.54 kg Harjeet Cervantes HANDWRITING EXPERT-SPECIAL SERVICES DIRECTOR Work Phone: [facility] 06-09-2024 10:02-0400 Diastolic blood pressure 74 mm[Hg] Harjeet Cervantes HANDWRITING EXPERT-SPECIAL SERVICES DIRECTOR Work Phone: [facility] 06-09-2024 10:02-0400 Heart rate 74 /min Harjeet Cervantes HANDWRITING EXPERT-SPECIAL SERVICES DIRECTOR Work Phone: [facility] 06-09-2024 10:02-0400 SaO2% (BldA) [Mass fraction] 96 % Harjeet Cervantes HANDWRITING EXPERT-SPECIAL SERVICES DIRECTOR Work Phone: [facility] 06-09-2024 10:02-0400 Systolic blood pressure 134 mm[Hg] Harjeet Cervantes HANDWRITING EXPERT-SPECIAL SERVICES DIRECTOR Work Phone: [facility] 05-30-2024 14:00-0400 Diastolic blood pressure 74 mm[Hg] Andreas Bey DO Work Phone: 6(494)927-791625 [place] [address] 05-30-2024 14:00-0400 Heart rate 94 /min Andreas Bey DO Work Phone: 9(765)091-913625 [place] [address] 05-30-2024 14:00-0400 Respiratory rate 18 /min Andreas Bey DO Work Phone: 6(181)759-010625 [place] [address] 05-30-2024 14:00-0400 SaO2% (BldA) [Mass fraction] 97 % Andreas Bey DO Work Phone: 5(575)846-928225 [place] [address] 05-30-2024 14:00-0400 Systolic blood pressure 149 mm[Hg] Andreas Bey DO Work Phone: 4(938)995-166825 [place] [address] 05-30-2024 12:52-0400 Body height 162.6 cm Andreas Bey DO Work Phone: 5(894)942-062625 [place] [address] 05-30-2024 12:52-0400 Body mass index (BMI) [Ratio] 33.64 kg/m2 Andreas Bey DO Work Phone: 4(131)193-026225 [place] [address] 05-30-2024 12:52-0400 Body weight 88.91 kg Andreas Bey DO Work Phone: 8(586)477-601425 [place] [address] 05-30-2024 12:51-0400 Body temperature 98.01 [degF] Andreas Bey DO Work Phone: 0(273)874-101925 [place] [address] 08-27-2023 09:16-0500 Body height 162.6 cm Harjeet Cervantes HANDWRITING EXPERT-SPECIAL SERVICES DIRECTOR Work Phone: [facility] 08-27-2023 09:16-0500 Body mass index (BMI) [Ratio] 33.66 kg/m2 Harjeet Cervantes HANDWRITING EXPERT-SPECIAL SERVICES DIRECTOR Work Phone: [facility] 08-27-2023 09:16-0500 Body weight 88.95 kg Harjeet Cervantes HANDWRITING EXPERT-SPECIAL SERVICES DIRECTOR Work Phone: [facility] 08-27-2023 09:16-0500 Diastolic blood pressure 82 mm[Hg] Hrajeet Cervantes HANDWRITING EXPERT-SPECIAL SERVICES DIRECTOR Work Phone: [facility] 08-27-2023 09:16-0500 Heart rate 91 /min Harjeet Cervantes HANDWRITING EXPERT-SPECIAL SERVICES DIRECTOR Work Phone: [facility] 08-27-2023 09:16-0500 SaO2% (BldA) [Mass fraction] 96 % Harjeet Cervantes HANDWRITING EXPERT-SPECIAL SERVICES DIRECTOR Work Phone: [facility] 08-27-2023 09:16-0500 Systolic blood pressure 136 mm[Hg] Harjeet Cervantes HANDWRITING EXPERT-SPECIAL SERVICES DIRECTOR Work Phone: [facility] 08-28-2022 10:15-0500 Body height 162.56 cm Robert Rios Work Phone: [employer] [facility] Work Phone: 08-28-2022 10:15-0500 Body mass index (BMI) [Ratio] 34.54 kg/m2 Robert Rios Work Phone: [facility] Work Phone: 08-28-2022 10:15-0500 Body surface area Derived from formula 1.96 m2 Robert Rios Work Phone: [facility] Work Phone: 08-28-2022 10:15-0500 Body weight 91.29 kg Robert Rios Work Phone: [employer] [facility] Work Phone: 08-28-2022 10:15-0500 Diastolic blood pressure 78 mm[Hg] Robert Rios Work Phone: [facility] Work Phone: 08-28-2022 10:15-0500 Heart rate 95 /min Robert Rios Work Phone: [facility] Work Phone: 08-28-2022 10:15-0500 SaO2% (BldA) [Mass fraction] 98 % Robert Rios Work Phone: [employer] Work Phone: 08-28-2022 10:15-0500 Systolic blood pressure 116 mm[Hg] Robert Rios Work Phone: [employer] Work Phone: 12-16-2021 08:56-0500 Body height 162.56 cm Robert Rios Work Phone: [employer] [facility] Work Phone: 12-16-2021 08:56-0500 Body mass index (BMI) [Ratio] 34.91 kg/m2 Robert Rios Work Phone: [employer] [facility] Work Phone: 12-16-2021 08:56-0500 Body surface area Derived from formula 1.97 m2 Robert Rios Work Phone: [employer] [facility] Work Phone: 12-16-2021 08:56-0500 Body weight 92.25 kg Robert Rios Work Phone: [employer] [facility] Work Phone: 12-16-2021 08:56-0500 Diastolic blood pressure 66 mm[Hg] Robert Rios Work Phone: [facility] Work Phone: 12-16-2021 08:56-0500 Heart rate 95 /min Robert Rios Work Phone: [facility] Work Phone: 12-16-2021 08:56-0500 SaO2% (BldA) [Mass fraction] 98 % Robert Rios Work Phone: [facility] Work Phone: 12-16-2021 08:56-0500 Systolic blood pressure 152 mm[Hg] Robert Rios Work Phone: [facility] Work Phone: 08-29-2021 09:33-0500 Body height 162.56 cm Robert Rios Work Phone: [employer] [facility] Work Phone: 08-29-2021 09:33-0500 Body mass index (BMI) [Ratio] 34.72 kg/m2 Robert Rios Work Phone: [employer] [facility] Work Phone: 08-29-2021 09:33-0500 Body surface area Derived from formula 1.97 m2 Robert Rios Work Phone: [employer] [facility] Work Phone: 08-29-2021 09:33-0500 Body temperature 96.9 [degF] Robert Rios Work Phone: [employer] [facility] Work Phone: 08-29-2021 09:33-0500 Body weight 91.74 kg Robert Rios Work Phone: [facility] [employer] [facility] Work Phone: 08-29-2021 09:33-0500 Diastolic blood pressure 68 mm[Hg] Robert Rios Work Phone: -[facility] Work Phone: 08-29-2021 09:33-0500 Heart rate 80 /min Robert Rios Work Phone: [facility] Work Phone: 08-29-2021 09:33-0500 SaO2% (BldA) [Mass fraction] 95 % Robert Rios Work Phone: [facility] Work Phone: 08-29-2021 09:33-0500 Systolic blood pressure 118 mm[Hg] Robert Rios Work Phone: [facility] Work Phone: 08-07-2020 11:26-0400 BMI (Body Mass Index) 32.61 kg/m2 Robert Rios -[facility] Work Phone: 08-07-2020 11:26-0400 Body Temperature 96.9 [degF] Robert Rios [facility] Work Phone: 08-07-2020 11:26-0400 Body weight 86.18 kg Robert Rios -[facility] Work Phone: 08-07-2020 11:26-0400 BP Diastolic 64 mm[Hg] Robert Rios -[facility] Work Phone: 08-07-2020 11:26-0400 BP Systolic 130 mm[Hg] Robert Rios -[facility] Work Phone: 08-07-2020 11:26-0400 BSA (Body Surface Area) 1.91 m2 Robert Rios [facility] Work Phone: 08-07-2020 11:26-0400 Height 162.56 cm Robert Rios [facility] Work Phone: 08-07-2020 11:26-0400 Pulse (Heart Rate) 88 /min Robert Rios -[facility] Work Phone: 08-07-2020 11:26-0400 Pulse Oximetry 98 % Robert Rios -[facility] Work Phone: 10-27-2019 10:54-0500 BMI (Body Mass Index) 33.48 kg/m2 Harjeet [facility] Work Phone: 10-27-2019 10:54-0500 Body weight 88.48 kg Harjeet Cervantes -[facility] Work Phone: 10-27-2019 10:54-0500 BP Diastolic 68 mm[Hg] Harjeet [facility] Work Phone: Comment on above: Location: [facility]; 10-27-2019 10:54-0500 BP Systolic 120 mm[Hg] Harjeet [facility] Work Phone: Comment on above: Location: [facility]; 10-27-2019 10:54-0500 BSA (Body Surface Area) 1.94 m2 Harjeet Cervantes -[facility] Work Phone: 10-27-2019 10:54-0500 Height 162.56 cm Harjeet Cervantes -[facility] Work Phone: 10-27-2019 10:54-0500 Pulse (Heart Rate) 86 /min Harjeet [facility] Work Phone: 10-27-2019 10:54-0500 Pulse Oximetry 95 % Harjeet [employer] -[facility] Work Phone: 08-22-2019 12:03-0500 BMI (Body Mass Index) 33.17 kg/m2 Harjeet [facility] Work Phone: 08-22-2019 12:03-0500 Body weight 87.66 kg Harjeet Cervantes [employer] [facility] Work Phone: 08-22-2019 12:03-0500 BP Diastolic 68 mm[Hg] [facility] Work Phone: Comment on above: Location: [facility]; 08-22-2019 12:03-0500 BP Systolic 120 mm[Hg] [facility] Work Phone: Comment on above: Location: [facility]; 08-22-2019 12:03-0500 BSA (Body Surface Area) 1.93 m2 [facility] Work Phone: 08-22-2019 12:03-0500 Height 162.[address] [facility] Work Phone: 08-22-2019 12:03-0500 Pulse (Heart Rate) 80 /min [facility] Work Phone: 08-22-2019 12:03-0500 Pulse Oximetry 97 % [facility] Work Phone: Encounters Encounter Date Encounter Type Care Provider Facility Start: 03-01-2025 End: 03-01-2025 Office outpatient visit 15 minutes Harjeet Cervantes HANDWRITING EXPERT-SPECIAL SERVICES DIRECTOR Work Phone: [facility] Comment on above: Dyslipidemia (Primar y Dx); Hypertension, unspecified type; Rheumatoid arthritis involving left shoulder, unspecified whether rheumatoid factor present (Multi); Mixed dyslipidemia; Screening for thyroid disorder; Inflammatory polyarthropathy (Multi) Start: 03-01-2025 End: 03-01-2025 ambulatory [facility] Start: 01-31-2025 End: 01-31-2025 ambulatory [facility] Start: 01-20-2025 End: 01-20-2025 ambulatory [facility] Work Phone: [facility] Work Phone: Start: 01-20-2025 End: 01-20-[address] Alla Kim MD -Laboratory, [place] Work Phone: Start: 01-20-2025 End: 01-20-2025 ambulatory [facility] Start: 11-11-2024 End: 11-11-2024 Office outpatient visit 25 minutes Reji Akdins APRN-TRINH, DNP Work Phone: [facility] Comment on above: Status post endoveno us radiofrequency ablation (RFA) of saphenous vein (Primary Dx); Chronic venous insufficiency of lower extremity; Asymptomatic varicose veins; Encounter for pre-operative cardiovascular clearance Start: 11-11-2024 End: 11-11-2024 Preoperative state Reji Adkins APRN-TRINH, DNP Work Phone: [facility] Work Phone: Start: 11-11-2024 End: 11-11-2024 ambulatory REJI [facility] Amb[facility] Start: 11-09-2024 Encounter for preprocedural cardiovascular examination Phu Tan [facility] Start: 11-09-2024 End: 11-09-[address] Alla Kim MD -Laboratory, [place] Work Phone: Start: 11-09-2024 End: 11-09-2024 ambulatory [facility] Start: 10-24-2024 End: 10-24-2024 Office outpatient visit 15 minutes Harjeet Cervantes HANDWRITING EXPERT-SPECIAL SERVICES DIRECTOR Work Phone: [facility] Comment on above: Preoperative clearan ce (Primary Dx); Chronic pain of right knee; Rheumatoid arthritis involving left shoulder, unspecified whether rheumatoid factor present (Multi) Start: 10-24-2024 End: 03-01-2025 Preoperative state Harjeet Cervantes HANDWRITING EXPERT-SPECIAL SERVICES DIRECTOR Work Phone: [facility] Work Phone: Start: 10-24-2024 End: 10-24-2024 ambulatory [facility] Start: 10-21-2024 End: 10-21-2024 Subsequent hospital visit by physician Yaw Beatty [facility] Comment on above: Encounter for screen ing mammogram for breast cancer Postmenopausal Start: 10-21-2024 End: 10-21-2024 ambulatory HARJEET [facility] Start: 10-20-2024 End: 10-20-2024 ambulatory Owen Valverde [place] [place] Start: 10-20-2024 End: 10-20-2024 Non-patient / Non-visit Dr. Owen Valverde MD -[facility] Work Phone: Start: 10-20-2024 End: 10-20-[address] Phu Tan MD -Cat Scan, [facility] Work Phone: Start: 10-20-2024 End: 10-20-2024 ambulatory [facility] Start: 09-28-2024 End: 09-28-2024 Patient encounter procedure HARJEET CERVANTES DIAL BRUSHER-C -Laboratory, [place] Work Phone: Start: 09-28-2024 End: 09-28-2024 ambulatory HARJEET DERWENT Facility:[facility] Start: 09-07-2024 End: 09-07-2024 Office outpatient visit 15 minutes Ethel Stanton MD Work Phone: [facility] Comment on above: Varicose veins of ri ght lower extremity with pain (Primary Dx); Thrombophlebitis of superficial veins of right lower extremity Start: 09-07-2024 End: 09-07-2024 ambulatory [facility] Start: 08-29-2024 End: 08-29-2024 Assay of hemosiderin, quant Harjeet Cervantes HANDWRITING EXPERT-SPECIAL SERVICES DIRECTOR Work Phone: [facility] Work Phone: Start: 08-29-2024 End: 08-29-2024 Office outpatient visit 25 minutes Harjeet Cervantes HANDWRITING EXPERT-SPECIAL SERVICES DIRECTOR Work Phone: [facility] Comment on above: Routine general medi elaine examination at health care facility (Primary Dx); Hypertension, unspecified type; Osteopenia, unspecified location; Rheumatoid arthritis involving left shoulder, unspecified whether rheumatoid factor present (Multi); Postmenopausal; Encounter for screening mammogram for breast cancer Start: 08-29-2024 End: 08-29-2024 ambulatory [facility] Start: 08-29-2024 End: 08-29-2024 Encounter for general adult medical examination without abnormal findings [facility] Start: 08-23-2024 End: 08-23-2024 Subsequent hospital visit by physician Yaw De Santiago 2 [facility] Comment on above: Thrombophlebitis of superficial veins of right lower extremity; Varicose veins of right lower extremity with inflammation Start: 08-23-2024 End: 08-24-2024 ambulatory [facility] Start: 08-17-2024 End: 08-17-2024 Subsequent hospital visit by physician Ethel Stanton MD Work Phone: [facility] Comment on above: Arrived Start: 08-17-2024 End: 08-17-2024 ambulatory [facility] Start: 08-03-2024 End: 08-03-2024 Office outpatient visit 25 minutes Ethel Stanton MD Work Phone: [facility] Comment on above: Thrombophlebitis of superficial veins of right lower extremity (Primary Dx); Varicose veins of right lower extremity with pain Start: 08-03-2024 End: 08-03-2024 ambulatory [facility] Start: 07-28-2024 End: 07-28-2024 Subsequent hospital visit by physician Yaw De Santiago 2 [facility] Comment on above: Thrombophlebitis of superficial veins of right lower extremity; Asymptomatic varicose veins of right lower extremity Start: 07-28-2024 End: 07-28-2024 ambulatory [facility] Start: 07-06-2024 End: 07-06-2024 Office outpatient new 45 minutes Ethel Stanton MD Work Phone: [facility] Comment on above: Varicose veins of ri ght lower extremity with pain (Primary Dx); Thrombophlebitis of superficial veins of right lower extremity Start: 07-06-2024 End: 07-06-2024 ambulatory [facility] Start: 06-09-2024 End: 06-09-2024 Office outpatient visit 25 minutes Harjeet Cervantes APRN-SPECIAL SERVICES DIRECTOR Work Phone: [facility] Comment on above: Thrombophlebitis of superficial veins of right lower extremity (Primary Dx) Start: 06-09-2024 End: 06-09-2024 ambulatory [facility] Start: 06-02-2024 End: 06-02-2024 ambulatory [facility] Facility:[facility] Start: 05-30-2024 End: 05-30-2024 Emergency department patient visit Andreas Bey DO Work Phone: [facility] Comment on above: Thrombophlebitis of superficial veins of right lower extremity (Primary Dx); Pain in right lower leg Start: 03-14-2024 End: 03-14-2024 ambulatory [facility] Facility:[facility] Start: 12-07-2023 End: 12-07-2023 ambulatory [facility] Work Phone: Start: 12-07-2023 End: 12-07-2023 Patient encounter procedure [facility] Work Phone: Start: 11-25-2023 End: 11-25-2023 Subsequent hospital visit by physician Yaw De Santiago 2 [facility] Comment on above: Right calf pain; Thrombophlebitis of superficial veins of right lower extremity Start: 11-25-2023 End: 11-25-2023 ambulatory [facility] Start: 09-10-2023 End: 09-10-2023 ambulatory [facility] Work Phone: Start: 09-10-2023 End: 09-10-2023 [facility] Work [facility]: Start: 08-27-2023 End: 08-27-2023 Assay of hemosiderin, quant Harjeet Cervantes HANDWRITING EXPERT-SPECIAL SERVICES DIRECTOR Work Phone: [facility] Work Phone: Start: 08-27-2023 End: 08-27-2023 Office outpatient visit 25 minutes Harjeet Cervantes HANDWRITING EXPERT-SPECIAL SERVICES DIRECTOR Work Phone: [facility] Comment on above: Routine general medi elaine examination at health care facility (Primary Dx); Hypertension, unspecified type; Osteopenia, unspecified location; Breast cancer screening by mammogram; Vitamin B12 deficiency; Screening, lipid; Rheumatoid arthritis involving left shoulder, unspecified whether rheumatoid factor present ([facility] Start: 06-17-2023 End: 06-17-2023 ambulatory [facility] Work Phone: Start: 06-17-2023 End: 06-17-2023 Patient encounter procedure [facility] Work Phone: Start: 04-08-2023 End: 04-08-2023 ambulatory [facility] Work Phone: Start: 04-08-2023 End: 04-08-2023 Patient encounter procedure [facility] Work Phone: Start: 01-05-2023 End: 01-05-2023 Patient encounter procedure [facility] Work Phone: Start: 10-16-2022 Chart Update Robert Rios Work Phone: [facility] Work Phone: Start: 10-08-2022 End: 10-08-2022 ambulatory [facility] Work Phone: Start: 10-08-2022 End: 10-08-2022 Patient encounter procedure [facility] Start: 09-29-2022 End: 09-29-2022 Patient encounter procedure [facility] Start: 08-28-2022 Adv care pln tlkd & alt dcsn maker docd Robert Rios Work Phone: [facility] Work Phone: Start: 08-28-2022 ambulatory Ms. Harjeet Cervantes Facility:[id number] Start: 07-25-2022 End: 07-25-2022 ambulatory [facility] Work Phone: Start: 07-25-2022 End: 07-25-2022 Patient encounter procedure [facility] Start: 04-29-2022 End: 04-29-2022 Patient encounter procedure [facility] Start: 01-29-2022 End: 01-29-2022 Patient encounter procedure [facility] Start: 12-16-2021 ambulatory Owen Terrell Lona Masood acility:[id number] Start: 12-16-2021 Office outpatient vi sit 15 minutes Robert Rios Work Phone: [facility] Work Phone: Start: 11-06-2021 End: 11-06-2021 Patient encounter procedure [facility] Start: 10-17-2021 Chart Update Robert Rios Work Phone: [facility] Work Phone: Start: 08-29-2021 Office outpatient vi sit 25 minutes Robert Rios Work Phone: [facility] Work Phone: Start: 08-01-2021 AUDIT Robert Rios Work Phone: [facility] Work Phone: Start: 05-09-2021 AUDIT Robert Rios Work Phone: [facility] Work Phone: Start: 08-07-2020 Patient encounter procedure Robert Rios [facility] Work Phone: Start: 10-27-2019 Patient encounter procedure [facility]antes [facility] Work Phone: Start: 08-22-2019 Patient encounter procedure Harjeet Cervantes [facility] Work Phone: Start: 10-07-2018 End: 10-08-2018 Patient encounter procedure Harjeet Cervantes Facility:[facility] Start: 08-05-2018 Patient encounter procedure Harjeet Cervantes Facility:[facility] Start: 08-05-2018 End: 08-06-2018 Patient encounter procedure Harjeet Cervantes Facility:[facility] Start: 07-30-2018 End: 07-30-2018 Patient encounter procedure Harjeet Cervantes Facility:[facility] Start: 04-12-2018 End: 04-13-2018 Patient encounter procedure Harjeet Cervantes Facility:[facility] Start: 10-21-2017 End: 10-22-2017 Patient encounter procedure Harjeet Cervantes Facility:[facility] Patient encounter procedure Robert Rios Work Phone: [facility] Work Phone: Procedures Date Procedure Procedure Detail Performing Clinician Start: 10-21-2024 End: 10-21-2024 Screening digital breast tomosynthesis bi Harjeet Cervantes HANDWRITING EXPERT-SPECIAL SERVICES DIRECTOR Work Phone: Start: 10-21-2024 Dxa bone density bernardo dy 1/> sites axial skel Harjeet Cervantes HANDWRITING EXPERT-SPECIAL SERVICES DIRECTOR Work Phone: Start: 10-20-2024 MRI of lower extremity HARJEET CERVANTES Work Phone: Start: 08-23-2024 Dup-scan xtr veins unilateral/limited study Ethel Stanton MD Work Phone: Start: 07-28-2024 Dup-scan xtr veins unilateral/limited study Ethel Stanton MD Work Phone: Start: 07-06-2024 Ecg routine ecg w/le ast 12 lds w/i&r Ethel Stanton MD Work Phone: Start: 05-30-2024 Dup-scan xtr veins unilateral/limited study Andreas Bey DO Work Phone: Start: 11-25-2023 VASC US LOWER EXTREM ITY VENOUS DUPLEX RIGHT HARJEET CERVANTES Start: 11-25-2023 Dup-scan xtr veins unilateral/limited study Harjeet Cervantes HANDWRITING EXPERT-SPECIAL SERVICES DIRECTOR Work Phone: Start: 10-19-2023 Mammography Yaw 2 Start: 09-22-2023 Lipid 1996 panel - S amanda or Plasma Yaw 2 Start: 10-16-2022 Mammography Harjeet Patten ood HANDWRITING EXPERT-SPECIAL SERVICES DIRECTOR Work Phone: Start: 08-22-2019 Assay of thyroid stimulating hormone tsh Harjeet Cervantes Start: 08-22-2019 Comprehensive metabo lic 2000 panel Harjeet Cervantes Start: 08-22-2019 Dxa bone density bernardo dy axial skeleton Harjeet Cervantes Start: 08-22-2019 Hemoglobin glycosyla sanjeev a1c Harjeet Cervantes Start: 08-22-2019 Lipid panel Harjeet Patten ood Start: 08-22-2019 MG Breast screening Jose Cervantes Start: 08-22-2019 Xray Bone Density, D exa 1 or More Sites Harjeet Cervantes Start: 09-25-2017 Colonoscopy Harjeet Patten ood HANDWRITING EXPERT-SPECIAL SERVICES DIRECTOR Work Phone: Start: 09-25-2017 Colonoscopy Charanjit Rios Work Phone: Appendectomy Harjeet Cervantes Ligation of fallopian tube V ictelieser Cervantes Lumpectomy of breast Tylor Cervantes Plan of Treatment Date Care Activity Detail Author Start: 09-22-2028 Lipid panel Lipid Panel [facility] Start: 09-25-2027 Screening for malignant neoplasm of colon [facility] Start: 10-21-2026 Screening for osteoporosis Bone Density Scan [facility] Start: 10-21-2025 Screening for malignant neoplasm of breast Mammogram [facility] Start: 09-04-2025 End: 09-04-2025 Patient encounter procedure 09/04/2025 10:00 AM EST Office Visit [facility] [address] [id number] Harjeet Cervantes, HANDWRITING EXPERT-SPECIAL SERVICES DIRECTOR [address] [address] [facility] Start: 08-30-2025 Medicare Annual Wellness Visit Medicare Annual Wellness Visit (AWV) [facility] Start: 06-12-2025 Influenza vaccination Influenz a Vaccine (Season Ended) [facility] Start: 03-01-2025 End: 03-01-2026 Lipid 1996 panel - Serum or Plasma Lipid Panel Lab Routine Mixed dyslipidemia Expected: 03/01/2025 (Approximate), Expires: 03/01/2026 [facility] Service Area Work Phone: Comment on above: Expected: 03/01/2025 (Approximate), Expires: 03/01/2026 Start: 03-01-2025 End: 03-01-2026 TSH with reflex to Free T4 if abnormal TSH with reflex to Free T4 if abnormal Lab Routine Screening for thyroid disorder Expected: 03/01/2025 (Approximate), Expires: 03/01/2026 [facility] Work Phone: Comment on above: Expected: 03/01/2025 (Approximate), Expires: 03/01/2026 Start: 03-01-2025 End: 03-01-2025 Patient encounter procedure 03/01/2025 9:20 AM EDT Office Visit [address] [phone] Harjeet Cervantes, HANDWRITING EXPERT-[place] [address] [address] [facility] Start: 01-11-2025 End: 01-11-2025 Patient encounter procedure 01/11/2025 2:00 PM EDT Office Visit [facility] [address] [place] [address] [address] [place] [address] [place] [address] [address] [place] [address] [facility] Start: 10-24-2024 End: 10-24-2024 Patient encounter procedure 10/24/2024 2:00 PM EST Office Visit [address] [phone] Harjeet Cervantes, HANDWRITING EXPERT-SPECIAL SERVICES DIRECTOR [address] [place] [address] [facility] Start: 10-21-2024 End: 10-21-2024 Patient encounter procedure [facility] Start: 10-19-2024 Screening for malignant neoplasm of breast Mammogram [facility] Start: 09-07-2024 End: 09-07-2024 Patient encounter procedure 09/07/2024 11:30 AM EST Office Visit [facility] [address] [place] [address] [place] [address] [place] [address] [facility] Start: 08-29-2024 End: 08-29-2025 25-hydroxyvitamin D3 [Mass/volume] in Serum or Plasma Vitamin D 25-Hydroxy,Total (for eval of Vitamin D levels) Lab Routine Osteopenia, unspecified location Postmenopausal Expected: 08/29/2024 (Approximate), Expires: 08/29/2025 [facility] Work Phone: Comment on above: Expected: 08/29/2024 (Approximate), Expires: 08/29/2025 Start: 08-29-2024 End: 10-29-2025 DBT Breast - bilateral BI mammo bilateral screening tomosynthesis Imaging Routine Encounter for screening mammogram for breast cancer Expected: 08/29/2024, Expires: 10/29/2025 [facility] Work Phone: Comment on above: Expected: 08/29/2024 , Expires: 10/29/2025 Start: 08-29-2024 End: 08-29-2025 DXA Skeletal system Views for bone density XR DEXA bone density Imaging Routine Postmenopausal Expected: 08/29/2024, Expires: 08/29/2025 [facility] Service Area Work Phone: Comment on above: Expected: 08/29/2024 , Expires: 08/29/2025 Start: 08-29-2024 End: 08-29-2024 Patient encounter procedure [facility] Start: 08-28-2024 Medicare Annual Wellness Visit Medicare Annual Wellness Visit (AWV) [facility] Start: 08-23-2024 End: 08-23-2024 Patient encounter procedure 08/23/2024 9:00 AM EST Appointment [facility] [address] [place] [address] [facility] Start: 08-03-2024 End: 08-03-2024 Patient encounter procedure 08/03/2024 3:15 PM EDT Office Visit [facility] [address] [place] [address] [place] [address] [place] [address] [facility] Start: 07-28-2024 End: 07-28-2024 Patient encounter procedure 07/28/2024 10:00 AM EDT Appointment [place] [address] [facility] [address] [place] [address] [facility] Start: 07-06-2024 End: 07-06-2024 Patient encounter procedure 07/06/2024 2:30 PM EDT Office Visit [facility] [address] [place] [address] [place] [address] [place] [address] [facility] Start: 07-06-2024 End: 07-06-2026 Vascular US Lower Extremity Venous Insufficiency Right Vascular US Lower Extremity Venous Insufficiency Right Vascular Ultrasound Routine Thrombophlebitis of superficial veins of right lower extremity Expected: 07/06/2024 (Approximate), Expires: 07/06/2026 [facility] Service Area Work Phone: Comment on above: Expected: 07/06/2024 (Approximate), Expires: 07/06/2026 Start: 06-12-2024 COVID-19 Vaccine ( season) COVID-19 Vaccine ( season) [facility] Start: 06-12-2024 COVID-19 Vaccine () COVID-19 Vaccine () [facility] Start: 06-12-2024 Influenza vaccination Influenza Vacc ine (#1) [facility] Start: 10-19-2023 End: 10-19-2023 Professional / ancillary services management 10/19/2023 9:30 AM EST Ancillary Procedure [facility] [address] [place] [address] [facility] Start: 10-16-2023 Screening for malignant neoplasm of breast Mammogram [facility] Start: 08-29-2023 Medicare Annual Wellness Visit Medicare Annual Wellness Visit (AWV) [facility] Start: 08-27-2023 End: 08-27-2024 Cobalamin (Vitamin B12) [Mass/volume] in Serum or Plasma Vitamin B12 Lab Routine Vitamin B12 deficiency Expected: 08/27/2023 (Approximate), Expires: 08/27/2024 [facility] Work Phone: Comment on above: Expected: 08/27/2023 (Approximate), Expires: 08/27/2024 Start: 08-27-2023 End: 10-27-2024 DBT Breast - bilateral BI mammo bilateral screening tomosynthesis Imaging Routine Breast cancer screening by mammogram Expected: 08/27/2023, Expires: 10/27/2024 [facility] Service Area Work Phone: Comment on above: Expected: 08/27/2023 , Expires: 10/27/2024 Start: 08-27-2023 End: 08-27-2024 Lipid 1996 panel - Serum or Plasma Lipid Panel Lab Routine Screening, lipid Expected: 08/27/2023 (Approximate), Expires: 08/27/2024 [facility] Work Phone: Comment on above: Expected: 08/27/2023 (Approximate), Expires: 08/27/2024 Start: 08-27-2023 Patient encounter procedure MCRANNUAL, Provider: Harjeet Cervantes, Status: Pen, Time: 9:20 AM [facility] Work Phone: Start: 06-12-2023 COVID-19 Vaccine () COVID-19 Vaccine () [facility] Start: 06-12-2023 Influenza vaccination Influenza Vacc ine (#1) [facility] Start: 08-28-2022 EPV, Provider: Harjeet Cervantes, Status: Pen, Time: 10:20 AM EPV, Provider: Harjeet Cervantes, Status: Pen, Time: 10:20 AM [facility] Work Phone: Start: 11-06-2021 COVID-19 Vaccine (4 - Moderna series) COVID-19 Vaccine (4 - Moderna series) [facility] Start: 08-29-2021 EPV, Provider: Harjeet Cervantes, Status: Pen, Time: 9:20 AM EPV, Provider: Hajreet Cervantes, Status: Pen, Time: 9:20 AM [facility] Work Phone: Start: 10-10-2019 MG Breast screening Mamm - Scr eening Mammogram w/ Tomosynthesis [facility] Work Phone: Start: 10-10-2019 Xray Bone Dens ity, Dexa 1 or More Sites [facility] Work Phone: Start: 08-22-2019 Dxa bone density bernardo dy axial skeleton Dexa Bone Density Axial Skeleton [facility] Work Phone: Start: 08-22-2019 MG Breast screening Mamm - Scr eening Mammogram w/ Tomosynthesis [facility] Work Phone: Start: 12-10-2012 DTaP/Tdap/Td Vaccine s (1 - Tdap) DTaP/Tdap/Td Vaccines (1 - Tdap) [facility] Start: 1971 Diabetes mellitus screening Diabetes Screening [facility] Start: 1971 Hepatitis C screening Hepatitis C Sc [facility] Start: 1955 Lipid panel Lipid Panel [facility] Start: 1955 Medicare Annual Wellness Visit Medicare Annual Wellness Visit (AWV) [facility] Start: 1955 Screening for malignant neoplasm of colon [facility] US.doppler Lower extremity vein - right Vascular US lower extremity venous duplex right Vascular Ultrasound Routine Right calf pain Thrombophlebitis of superficial veins of right lower extremity 11/25/2023 11:54 AM EST [facility] Work Phone: US.doppler Lower extremity vein - right Vascular US Lower Extremity Venous Duplex Right Vascular Ultrasound Routine Thrombophlebitis of superficial veins of right lower extremity Varicose veins of right lower extremity with inflammation 08/23/2024 9:54 AM EST [facility] Work Phone: US.doppler Lower extremity vein - right Lower extremity venous duplex right Vascular Ultrasound STAT Pain in right lower leg 05/30/2024 1:23 PM EDT [facility] Work Phone: [facility] Work Phone: NEGATED: Highlighted row has been ruled out! Planned Goals not documented [facility] Work Phone: Immunizations Immunization Date Immunization Notes Care Provider Doreen chinchilla 11-04-2023 RSV, 60 Years And Ol dennis (AREXVY) Yaw 2 [facility] Work Phone: 07-15-2023 Pneumococcal conjuga te vaccine, 20-valent (PREVNAR 20) Harjeet Cervantes HANDWRITING EXPERT-SPECIAL SERVICES DIRECTOR Work Phone: [facility] Work Phone: 10-23-2022 zoster vaccine recombinant Harjeet Cervantes HANDWRITING EXPERT-SPECIAL SERVICES DIRECTOR Work Phone: [facility] 10-23-2022 Shingrix, PF, 50 mcg/0.5 mL vaccine Harjeet Cervantes HANDWRITING EXPERT-SPECIAL SERVICES DIRECTOR Work Phone: [facility] Work Phone: 08-14-2022 zoster vaccine recombinant Robert Lid Work Phone: [facility] 09-11-2021 Moderna COVID-19 Vaccine 100 MCG/0.5ML Intramuscular Suspension Robert Rios Work Phone: [facility] [facility] Work Phone: Comment on above: Series: 01-11-2021 Moderna COVID-19 Vaccine 100 MCG/0.5ML Intramuscular Suspension Robert Rios Work Phone: [employer] [facility] Work Phone: Comment on above: Series: 12-12-2020 Moderna COVID-19 Vaccine 100 MCG/0.5ML Intramuscular Suspension Jackpravinkamilla Rios Work Phone: [facility] [facility] Work Phone: Comment on above: Series: 08-22-2019 pneumococcal conjuga te vaccine, 13 valent; Translations: [Prevnar 13 Intramuscular Suspension] Harjeet Cervantes [facility] Work Phone: Comment on above: Series: 08-05-2018 pneumococcal polysaccharide vaccine, 23 valent Robert Riso [facility] Comment on above: Series: 05-31-2015 zoster vaccine, live [facility]inkamilla [facility] Work Phone: Comment on above: Series: 12-09-2012 tetanus and diphther ia toxoids, adsorbed, preservative free, for adult use (2 Lf of tetanus toxoid and 2 Lf of diphtheria toxoid) Robert Rios Work Phone: [employer] [facility] Work Phone: Comment on above: Series: Payers Date Payer Category Payer Self-pay [id number] 2019 Medicare (Managed Care) [employer] [id number] 2018 Private Health Insurance 2018 Medicare 2018 Medicare [id number] 2017 Unknown 1953 Unknown [id number] 2.16.840.1.495921.3.579.2. 1953 Unknown [id number] 2.16.840.1.132453.3.579.2. 1953 Unknown [id number] 2.16.840.1.640321.3.579.2. 1953 Unknown [id number] 2.16.840.1.490694.3.579.2. 1953 Unknown [id number] 2.16.840.1.381055.3.579.2. 1953 Unknown [id number] 2.16.840.1.264366.3.579.2. 1953 Unknown [id number] 2.16.840.1.252769.3.579.2. 1953 Unknown [id number] 2.16.840.1.435608.3.579.2. 356 1953 Unknown [id number] 2.16.840.1.890366.3.579.2. 1242 1953 Unknown [id number] 2.16.840.1.949207.3.579.2. 1242 1953 Unknown [id number] 2.16.840.1.362149.3.579.2. 1242 1953 Unknown [id number] 2.16.840.1.066027.3.579.2. 1242 1953 Unknown [id number] 2.16.840.1.569384.3.579.2. 1242 1953 Unknown [id number] 2.16.840.1.837545.3.579.2. 1242 1953 Unknown [id number] 2.16.840.1.851384.3.579.2. 1242 1953 Unknown [id number] 2.16840.1.927596.3.579.2. 1244 1953 Unknown [id number] 2.16.840.1.112338.3.579.2. 1243 1953 Unknown [id number] 2.16.840.1.208542.3.579.2. 1243 1953 Unknown [id number] 2.16.840.1.421517.3.579.2. 1243 1953 Unknown [id number] 2.16.840.1.347718.3.579.2. 1243 1953 Unknown [id number] 2.16.840.1.241136.3.579.2. 1243 1953 Unknown [id number] 2.16.840.1.791825.3.579.2. 1243 1953 Unknown [id number] 2.16.840.1.456364.3.579.2. 1243 1953 Unknown [id number] 2.16.840.1.006474.3.579.2. 1244 Unknown [id number] Unknown [id number] 2.16.840.1.232358.3.579.2. 462 Unknown [id number] 2.16.840.1.070271.3.579.2. 462 Unknown [id number] 2.16.840.1.737327.3.579.2. 462 Unknown [id number] 2.16.840.1.265574.3.579.2. 462 Unknown [id number] 2.16.840.1.383282.3.579.2. 462 Unknown [id number] 2.16.840.1.345254.3.579.2. 462 Unknown [id number] 2.16.840.1.101035.3.579.2. 462 Unknown [id number] 2.16.840.1.770037.3.579.2. 462 Social History Date Type Detail Facility Start: 11-25-2023 End: 03-01-2025 Never chewed tobacco Never chewed tobacco [facility] Work Phone: Start: 1955 Sex Assigned At Female [facility] Start: 08-27-2023 End: 07-06-2024 Tobacco smoking status NHIS Never smoked tobacco [facility] Work Phone: Start: 08-27-2023 End: 07-06-2024 Tobacco use and exposure Smokeless tobacco non-user [facility] Work Phone: Start: 08-27-2023 End: 03-01-2025 Alcohol intake Lifetime non-drinker (finding) [facility] Work Phone: Start: 1955 Sex Assigned At Not on file [facility] Work Phone: Start: 11-25-2023 End: 03-01-2025 Gender identity Not on file [facility] Work Phone: Start: 08-17-2023 End: 03-01-2025 Exposure to SARS-CoV-2 (event) Not sure [facility] Tobacco smoking status NHIS Unknown if ever smoked [facility] Work Phone: Start: 01-25-2025 Sex Female (finding) [facility] NEGATED: Highlighted row - - -[employer] [facility] Work Phone: NEGATED: Highlighted rowStart: FREDOF History of tobacco use Passive smoker [facility] Work Phone: Functional Status Date Assessment Result Facility 03-01-2025 Patient Health Questionnaire 2 item (PHQ-2) [Reported] [facility] Work Phone: NEGATED: Highlighted row Functional performance Functional status health issues are not documented [facility] Work Phone: Mental Status Date Assessment Result Facility NEGATED: Highlighted row Cognitive function [Interpretation] Cognitive status health issues are not documented [facility] Work Phone: Clinical Notes 08-27-2023 to 03-01-2025 Assessment & Plan Note - MCKINLEY Bhagat - 03/01/2025 9:20 AM EDTAssessment & Plan Note - MCKINLEY Bhagat - 03/01/2025 9:20 AM EDTPatient InstructionsPatient Instructions Note Date & Type Note Facility 03-01-2025 Evaluation + Plan note Associated Problem(s): Hypertension [facility] blood pressure readings: 120/80's Denies dizziness, lightheadedness, headache, chest pain or syncopal episodes Most recent laboratory findings show creatinine 0.74, BUN 17, GFR 86, potassium 3.8, AST 25, ALT 17, sodium 140, calcium 9.5. Orders: Follow Up In Primary Care - Established Follow Up In Primary Care - Established; Future [facility] Work Phone: 03-01-2025 Evaluation + Plan note Associated Problem(s): Rheumatoid arthritis Follows with rheumatology Continue leucovorin, sulfasalazine and methotrexate No recent prednisone use Use Tylenol as needed for pain, has tramadol but doesn't take it Orders: Follow Up In Primary Care - Established Follow Up In Primary Care - Established; Future [facility] Work Phone: 03-01-2025 Evaluation + Plan note Associated Problem(s): Dyslipidemia Lab Results Component Value Date CHOL 207 (H) 09/22/2023 Lab Results Component Value Date HDL 62.0 09/22/2023 Lab Results Component Value Date LDLCALC 122 (H) 09/22/2023 Lab Results Component Value Date TRIG 115 09/22/2023 No components found for: CHOLHDL 10-year ASCVD risk 15.9%, mother with history of RI/CAD Greater than 15 minutes were spent assessing and discussing cardiovascular risk and, if needed, lifestyle modifications recommended, including nutritional choices, exercise, and elimination of habits contributing to the risk. We agreed on a plan to reduce the current cardiovascular risk. Aspirin use\distant use was discussed following the guidelines of the [employer]. Start Lipitor, moderate intensity 10mg daily No low-dose aspirin recommended at this time for primary prevention of ASCVD [facility] Work Phone: 03-01-2025 Evaluation + Plan note Associated Problem(s): Inflammatory polyarthropathy (Multi) Follows with rheumatology Continue leucovorin, sulfasalazine and methotrexate No recent prednisone use Use Tylenol as needed for pain, has tramadol but doesn't take it [facility] Work Phone: 03-01-2025 History of Present illness Narrative Subjective Patient ID: Kelly Garcia is a 69 y.o. female who presents for Follow-up (6 mo fu ). Kelly comes to the office for a 6-month office visit Has visit with eye doctor tomorrow to discuss getting cataract removed from the R eye Hoping to have total L knee replacement in June MM[facility] UTD Colonoscopy in 2016, normal, repeat in 10Y DEXA- 10/2024, continue CA w/ Vit D daily & Fosamax Review of Systems Eyes: R cataract Respiratory: Negative for cough, shortness of breath and wheezing. Cardiovascular: Negative for chest pain and palpitations. Gastrointestinal: Negative for abdominal pain. Musculoskeletal: Positive for arthralgias. Chronic left knee pain Neurological: Negative for dizziness, light-headedness and headaches. Objective BP 120/70 Pulse 88 Ht 1.651 m (5' 5) Wt 86.2 kg (190 lb) SpO2 98% BMI 31.62 kg/m Physical Exam Vitals reviewed. Constitutional: General: She is not in acute distress. Appearance: She is obese. She is not ill-appearing. Neck: Thyroid: No thyroid mass or thyroid tenderness. Cardiovascular: Rate and Rhythm: Normal rate and regular rhythm. Heart sounds: Normal heart sounds. No murmur heard. Pulmonary: Effort: Pulmonary effort is normal. Breath sounds: Normal breath sounds. Musculoskeletal: Cervical back: Normal range of motion. Right lower leg: No edema. Left lower leg: No edema. Lymphadenopathy: Cervical: No cervical adenopathy. Skin: General: Skin is warm and dry. Capillary Refill: Capillary refill takes less than 2 seconds. Neurological: Mental Status: She is alert. Psychiatric: Attention and Perception: Attention normal. Cognition and Memory: Cognition normal. Judgment: Judgment normal. Assessment/Plan Assessment & Plan Hypertension, unspecified type [facility] blood pressure readings: 120/80's Denies dizziness, lightheadedness, headache, chest pain or syncopal episodes Most recent laboratory findings show creatinine 0.74, BUN 17, GFR 86, potassium 3.8, AST 25, ALT 17, sodium 140, calcium 9.5. Orders: Follow Up In Primary Care - Established Follow Up In Primary Care - Established; Future Rheumatoid arthritis involving left shoulder, unspecified whether rheumatoid factor present (Multi) Follows with rheumatology Continue leucovorin, sulfasalazine and methotrexate No recent prednisone use Use Tylenol as needed for pain, has tramadol but doesn't take it Orders: Follow Up In Primary Care - Established Follow Up In Primary Care - Established; Future Dyslipidemia Lab Results Component Value Date CHOL 207 (H) 09/22/2023 Lab Results Component Value Date HDL 62.0 09/22/2023 Lab Results Component Value Date LDLCALC 122 (H) 09/22/2023 Lab Results Component Value Date TRIG 115 09/22/2023 No components found for: CHOLHDL 10-year ASCVD risk 15.9%, mother with history of RI/CAD Greater than 15 minutes were spent assessing and discussing cardiovascular risk and, if needed, lifestyle modifications recommended, including nutritional choices, exercise, and elimination of habits contributing to the risk. We agreed on a plan to reduce the current cardiovascular risk. Aspirin use\distant use was discussed following the guidelines of the [employer]. Start Lipitor, moderate intensity 10mg daily No low-dose aspirin recommended at this time for primary prevention of ASCVD Mixed dyslipidemia Start Lipitor, moderate intensity 10mg daily No low-dose aspirin recommended at this time for primary prevention of ASCVD CK lipid panel Reinforced healthy/clean eating, avoid foods that are high in trans and saturated fats. Physical activity 150 minutes/week recommended. Infrequent alcohol, non-smoker Orders: Follow Up In Primary Care - Established; Future atorvastatin (Lipitor) 10 mg tablet; Take 1 tablet (10 mg) by mouth once daily. Lipid Panel; Future Screening for thyroid disorder CK TSH Orders: TSH with reflex to Free T4 if abnormal; Future Inflammatory polyarthropathy (Multi) Follows with rheumatology Continue leucovorin, sulfasalazine and methotrexate No recent prednisone use Use Tylenol as needed for pain, has tramadol but doesn't take it documented in this encounter [facility] Work Phone: 03-01-2025 Instructions MCKINLEY Bhagat - 03/01/2025 9:20 AM EDT Start Lipitor 10mg daily Office visit in 6 months. Check lipid panel & TSH prior to next visit Please complete your blood work prior to your next office visit and we will review at that upcoming appointment. If you have been asked to fast for your upcoming bloodwork please don't eat or drink 12 hours prior to your blood work. You may have water, black coffee or tea without creamer, milk or sugar. documented in this encounter [facility] Work Phone: 03-01-2025 Miscellaneous Notes Associated Problem(s): Hypertension [facility] blood pressure readings: 120/80's Denies dizziness, lightheadedness, headache, chest pain or syncopal episodes Most recent laboratory findings show creatinine 0.74, BUN 17, GFR 86, potassium 3.8, AST 25, ALT 17, sodium 140, calcium 9.5. Orders: Follow Up In Primary Care - Established Follow Up In Primary Care - [facility]; Future Associated Problem(s): Rheumatoid arthritis Follows with rheumatology Continue leucovorin, sulfasalazine and methotrexate No recent prednisone use Use Tylenol as needed for pain, has tramadol but doesn't take it Orders: Follow Up In Primary Care - Established Follow Up In Primary Care - [facility]; Future Associated Problem(s): Dyslipidemia Lab Results Component Value Date CHOL 207 (H) 09/22/2023 Lab Results Component Value Date HDL 62.0 09/22/2023 Lab Results Component Value Date LDLCALC 122 (H) 09/22/2023 Lab Results Component Value Date TRIG 115 09/22/2023 No components found for: CHOLHDL 10-year ASCVD risk 15.9%, mother with history of RI/CAD Greater than 15 minutes were spent assessing and discussing cardiovascular risk and, if needed, lifestyle modifications recommended, including nutritional choices, exercise, and elimination of habits contributing to the risk. We agreed on a plan to reduce the current cardiovascular risk. Aspirin use\distant use was discussed following the guidelines of the [employer]. Start Lipitor, moderate intensity 10mg daily No low-dose aspirin recommended at this time for primary prevention of ASCVD Associated Problem(s): Inflammatory polyarthropathy (Multi) Follows with rheumatology Continue leucovorin, sulfasalazine and methotrexate No recent prednisone use Use Tylenol as needed for pain, has tramadol but doesn't take it documented in this encounter [facility] Work Phone: 11-11-2024 History of Present illness Narrative Images from the original note were not included. CHIEF COMPLAINT Cardiac risk stratification HISTORY OF PRESENT ILLNESS Kelly Garcia is a 69 y.o. 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 Tan. Patient currently denies any chest pain/pressure/discomfort, SOB, palpitations, dizziness, syncope, or lower leg swelling. She has completed DOAC therapy for her SVT and reports feeling excellent since her GSV RFA in August. Past Medical, Surgical, and Family History reviewed and updated in chart. Reviewed all medications by prescribing practitioner or clinical pharmacist (such as prescriptions, OTCs, herbal therapies and supplements) and documented in the medical record. Past Medical History Past Medical History: Diagnosis Date Hypertension Other specified soft tissue disorders 08/28/2022 Swelling of lower leg Phlebitis and thrombophlebitis of superficial vessels of right lower extremity 08/28/2022 Thrombophlebitis of superficial veins of right lower extremity Phlebitis and thrombophlebitis of superficial vessels of unspecified lower extremity 08/28/2022 Superficial thrombophlebitis of leg Zoster without complications 08/28/2022 Herpes zoster without complication Social History Social History Tobacco Use Smoking status: Never Passive exposure: Never Smokeless tobacco: Never Substance Use Topics Alcohol use: Never Drug use: Never Family History Family History Problem Relation Name Age of Onset Heart attack Mother Hypertension Mother Other (CABG) Mother Liver cancer Father Stomach cancer Father Thyroid disease Sister Allergies: Allergies Allergen Reactions Amoxicillin Unknown Doxycycline Unknown Lisinopril Unknown Outpatient Medications: Current Outpatient Medications Medication Instructions alendronate (FOSAMAX) 70 mg, oral, Every 7 days folic acid (Folvite) 1 mg tablet 1 tablet, Daily leucovorin (Wellcovorin) 15 mg tablet Take 1 tablet (15 mg total) by mouth 1 (one) time per week in the 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 methotrexate (Trexall) 2.5 mg tablet 7 tablets, Once Weekly olmesartan-hydrochlorothiazide (BENIcar HCT) 40-12.5 mg tablet 1 tablet, oral, Every other day predniSONE (Deltasone) 5 mg tablet 1 tablet, Daily PRN sennosides (SENNA) 8.6 mg capsule 1 capsule, Daily sulfaSALAzine (Azulfidine) [address] tablet 1 tablet, 2 times daily Labs: CMP: Recent Labs 10/20/24 0000 NA 137 K 4.0 CL 103 CO2 26 ANIONGAP 8 BUN 16 CREATININE 0.80 EGFR 75.0 No results for input(s): ALBUMIN, ALKPHOS, ALT, AST, BILITOT, LIPASE in the last 23176 hours. No lab exists for component: CA CBC:No results for input(s): WBC, HGB, HCT, PLT, MCV in the last 58854 hours. COAG: No results for input(s): PTT, INR, HAUF, DDIMERVTE, HAPTOGLOBIN, FIBRINOGEN in the last 45409 hours. ABO: No results for input(s): ABO in the last 21043 hours. HEME/ENDO:No results for input(s): FERRITIN, IRONSAT, TSH, HGBA1C in the last 62915 hours. CARDIAC: No results for input(s): LDH, CKMB, TROPHS, BNP in the last 18795 hours. No lab exists for component: CK, CKMBP Recent Labs 09/22/23 0715 CHOL 207* HDL 62.0 TRIG 115 MICRO: No results for input(s): ESR, CRP, PROCAL in the last 82732 hours. No results found for the last 90 days. Notable Studies: imaging personally reviewed EKG: Encounter Date: 07/06/24 ECG 12 lead (Clinic Performed) Narrative NSR, poor R wave progression across precordial and lateral leads Echocardiogram: No results found for this or any previous visit from the past 1825 days. Stress Testing: No results found for this or any previous visit from the past 1825 days. Cardiac Catheterization: No results found for this or any previous visit from the past 1825 days. No results found for this or any previous visit from the past 3650 days. REVIEW OF SYSTEMS A 10-point system review was completed and was negative except as noted in the HPI. VITALS Vitals: 11/11/24 1517 BP: 138/62 Pulse: 106 SpO2: 96% PHYSICAL EXAM General: awake, alert and oriented. No acute distress. Skin: Skin is warm, dry and intact without rashes or lesions. HEENT: normocephalic, atraumatic; conjunctivae are clear without exudates or hemorrhage. Sclera is non-icteric. Eyelids are normal in appearance without swelling or lesions. Hearing intact. Nares are patent bilaterally. Moist mucous membranes. Cardiovascular: heart rate and rhythm are normal. No murmurs, gallops, or rubs are auscultated. S1 and S2 are heard and are of normal intensity. No JVD, no carotid bruits Respiratory: bilateral lung sounds clear to auscultations without rales, rhonchi, or wheezes. No accessory muscle use or stridor Musculoskeletal: ROM intact, no deformities Extremities: pulses palpable bilaterally; no swelling or erythema Neurological: no focal deficits; gait steady Psychiatric: appropriate mood and affect; good judgment and insight ASSESSMENT AND PLAN Assessment/Plan Diagnoses and all orders for this visit: Encounter for pre-operative cardiovascular clearance Status post endovenous radiofrequency ablation (RFA) of saphenous vein Chronic venous insufficiency of lower extremity Asymptomatic varicose veins -Revised Cardiac Risk Index for Pre-Operative risk is 0/low risk -Gamino Perioperative Risk for Myocardial Infarction or Cardiac Arrest (INGRID) score is 0.0% -Patient no longer on DOAC therapy -No further cardiac testing warranted at presents; may proceed with schedule orthopedic surgery RTC: as needed Thank you for allowing me to participate in the care of this patient. Please reach me out if you have any questions or if you need any clarifications regarding the patient's care. Reji Adkins DNP, HANDWRITING EXPERT, [employer]LECT[employer] Division of Cardiovascular Medicine [facility] [place] [facility] documented in this encounter [facility] Work Phone: 10-24-2024 Evaluation + Plan note Associated Problem(s): Rheumatoid arthritis Stable at this time Last prednisone use 3 weeks ago Follows with rheumatology every 3 months [facility] Work Phone: 10-24-2024 Miscellaneous Notes Associated Problem(s): Rheumatoid arthritis Stable at this time Last prednisone use 3 weeks ago Follows with rheumatology every 3 months documented in this encounter [facility] Work Phone: 10-24-2024 History of Present illness Narrative Subjective Patient ID: Kelly Garcia is a 69 y.o. female who presents for Follow-up (Preoperative clearance right TKR). Esther comes to the office for a pre-op clearance. Scheduled for robotic assisted right total knee arthroplasty on 11/17/24. Scheduled to meet with preadmission testing end of October Greco functional score: 9.56 No loose teeth or dental work in progress Reviewed EKG/CBC/BMP today DEXA and MMG results shared with patient today R GSV RFA in August; not currently taking Eliquis; has been off of it for 1.5MO + surgeries in the past, no prior concerns with anesthesia Prednsione last dose 3 weeks ago for RA flare Takes no NSAIDS, tylenol if needed + snoring Request a disability placard for knee pain I, MCKINLEY Manjarrez, have examined this patient, checked all the appropriate lab work and tests and certify that, to the best of my knowledge, that there is no medical contraindication for undergoing surgery. Labs from [facility] 10/20/2024: WBC 6.4, hemoglobin 12.9-hematocrit 40.8, platelets 283, glucose 106, BUN 16, creatinine 0.80, GFR 75, sodium 139, potassium 4.0. Review of Systems Constitutional: Negative for chills and fever. HENT: Negative for dental problem. Respiratory: Negative for cough, shortness of breath and wheezing. Cardiovascular: Negative for chest pain and leg swelling. Neurological: Negative for dizziness, syncope, light-headedness and headaches. Objective BP 158/88 Pulse 91 Ht 1.651 m (5' 5) Wt 88.8 kg (195 lb 12.8 oz) SpO2 95% BMI 32.58 kg/m Physical Exam Vitals reviewed. Constitutional: Appearance: Normal appearance. She is obese. HENT: Mouth/Throat: Pharynx: Oropharynx is clear. Neck: Vascular: No carotid bruit. Cardiovascular: Rate and Rhythm: Normal rate and regular rhythm. Heart sounds: Normal heart sounds. Pulmonary: Effort: Pulmonary effort is normal. Breath sounds: Normal breath sounds. Musculoskeletal: Right lower leg: No edema. Left lower leg: No edema. Lymphadenopathy: Cervical: No cervical adenopathy. Skin: General: Skin is warm and dry. Neurological: Mental Status: She is alert. Assessment/Plan Problem List Items Addressed This Visit ICD-10-CM Rheumatoid arthritis M06.9 Stable at this time Last prednisone use 3 weeks ago Follows with rheumatology every 3 months Chronic pain of right knee M25.561, G89.29 Relevant Orders Disability Placard Preoperative clearance - Primary Z01.818 documented in this encounter [facility] Work Phone: 10-24-2024 Instructions MCKINLEY Bhagat - 10/24/2024 2:00 PM EST No anti-inflammatories or vitamin E prior to surgery You may use Tylenol as needed for pain. documented in this encounter [facility] Work Phone: 09-07-2024 History of Present illness Narrative Images from the original note were not included. Chief complaint: Chief Complaint Patient presents with s/p R GSV RFA History of Present Illness Kelly Garcia is a 69 y.o. year old female patient with history of varicose veins, hypertension, and recurrent superficial thrombophlebitis who is presenting for vascular follow-up. She underwent successful right GSV RFA. Postprocedure venous duplex showed no evidence of DVT. Patient reports to be doing well denies pain, swelling or discomfort in the right leg. She is happy with her results. Social History Tobacco Use Smoking status: Never Passive exposure: Never Smokeless tobacco: Never Substance Use Topics Alcohol use: Never Drug use: Never Outpatient Medications: Current Outpatient Medications Medication Instructions alendronate (FOSAMAX) 70 mg, oral, Every 7 days apixaban (ELIQUIS) 2.5 mg, oral, 2 times daily folic acid (Folvite) 1 mg tablet 1 tablet, Daily leucovorin (Wellcovorin) 15 mg tablet Take 1 tablet (15 mg total) by mouth 1 (one) time per week in the 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 methotrexate (Trexall) 2.5 mg tablet 7 tablets, Once Weekly olmesartan-hydrochlorothiazide (BENIcar HCT) 40-12.5 mg tablet 1 tablet, oral, Every other day predniSONE (Deltasone) 5 mg tablet 1 tablet, Daily PRN sennosides (SENNA) 8.6 mg capsule 1 capsule, Daily sulfaSALAzine (Azulfidine) [address] tablet 1 tablet, 2 times daily Vitals: Vitals: 09/07/24 1106 BP: 148/76 Pulse: 76 SpO2: 97% Physical Exam: General: NAD, well-appearing HEENT: moist mucous membranes, no jaundice Neck: No JVD, no carotid bruit Lungs: CTA mick, no wheezing or rales Cardiac: RRR, no murmurs Abdomen: soft, non-tender, non-distended Extremities: 2+ radial pulses, no edema, palpable pedal pulses, VVs Skin: warm, dry, no wound Neurologic: AAOx3, no focal deficits Assessment/Plan # Venous insufficiency # Varicose veins with pain and swelling # Superficial thrombophlebitis -recurrent, x3 episodes -Status post uncomplicated right GSV RFA -Continue compression stockings, walking exercise therapy and leg elevation when resting -Okay to stop Eliquis at this time Ethel Wong MD [facility] Interventional Cardiology Endovascular Interventions [email or web address] Disclaimer: This note was dictated by speech recognition, and every effort has been made to prevent any error in base draw operator, however minor errors may be present documented in this encounter [facility] Work Phone: 08-29-2024 Evaluation + Plan note Associated Problem(s): Hypertension Ambulatory blood pressure readings: 120's/80's; blood pressure normotensive in office today Blood work completed in May 2024 which shows a GFR of 73, creatinine 0.82, sodium 138, potassium 3.9. Continue Benicar Orders: Follow Up In Primary Care - Established alendronate (Fosamax) 70 mg tablet; Take 1 tablet (70 mg) by mouth every 7 days. olmesartan-hydrochlorothiazide (BENIcar HCT) 40-12.5 mg tablet; Take 1 tablet by mouth every other day. Follow Up In Primary Care - Established; Future [facility] Work Phone: 08-29-2024 Evaluation + Plan note Associated Problem(s): Osteopenia DEXA 2021 showed osteopenia Continue Fosamax Check DEXA scan, CMP and vitamin D levels Encouraged to remain active such as walking 30 minutes 5 days a week to help with bone health; both knees have been bothering her recently Uses prednisone as needed for RA flares (approximately 2-3 times per year) Orders: Follow Up In Primary Care - Established alendronate (Fosamax) 70 mg tablet; Take 1 tablet (70 mg) by mouth every 7 days. Vitamin D 25-Hydroxy,Total (for eval of Vitamin D levels); Future Vitamin D 25-Hydroxy,Total (for eval of Vitamin D levels) [facility] Work Phone: 08-29-2024 Evaluation + Plan note Associated Problem(s): Rheumatoid arthritis Follows with pick pulling machine tender Prednisone as needed for RA flares (uses approximately 2-3 times per year) Orders: Follow Up In Primary Care - Established; Future [facility] Work Phone: 08-29-2024 History of Present illness Narrative Subjective Reason for Visit: Kelly Garcia is an 69 y.o. female here for a Medicare Wellness visit. Past Medical, Surgical, and Family History reviewed and updated in chart. Reviewed all medications by prescribing practitioner or clinical pharmacist (such as prescriptions, OTCs, herbal therapies and supplements) and documented in the medical record. Kelly comes to the office for a 6 MO visit and [facility] No recent labs for review today Had R GSV ablation earlier this mo. Incision healing up well to R lower leg. Remains on Eliquis until re-evaluation next week Has cataracts in both eyes & will need surgery within the next yr Both knees painful, Euflexxa ineffective w/ pick pulling machine tender. Inquiring re: orthopedic referral Patient Care Team: Harjeet Cervantes APRN-SPECIAL SERVICES DIRECTOR as PCP - General (Family Medicine) Robert Rios MD as PCP - [employer] PCP Review of Systems Constitutional: Weight to within 10 pounds since last office visit Eyes: Bilateral cataracts Respiratory: Negative for cough, shortness of breath and wheezing. Cardiovascular: Positive for leg swelling. Right lower leg Gastrointestinal: Negative for abdominal pain, blood in stool, constipation, diarrhea, nausea and vomiting. Musculoskeletal: Positive for arthralgias. Both knees Skin: Positive for wound. Right lower extremity well-approximated and healed Neurological: Negative for dizziness, light-headedness and headaches. Objective Vitals: BP 128/82 Pulse 83 Ht 1.651 m (5' 5) Wt 89.9 kg (198 lb 3.2 oz) SpO2 95% BMI 32.98 kg/m Physical Exam Vitals and nursing note reviewed. Constitutional: General: She is not in acute distress. Appearance: Normal appearance. She is obese. She is not ill-appearing. HENT: Head: Normocephalic. Cardiovascular: Rate and Rhythm: Normal rate and regular rhythm. Heart sounds: Normal heart sounds. No murmur heard. Pulmonary: Effort: Pulmonary effort is normal. Breath sounds: Normal breath sounds. Abdominal: General: Abdomen is flat. Bowel sounds are normal. Palpations: Abdomen is soft. Tenderness: There is no abdominal tenderness. Musculoskeletal: Right lower le+ Edema present. Skin: General: Skin is warm and dry. Comments: Small incision to the right inner lower leg that is well-approximated and healed. No drainage or redness noted Neurological: General: No focal deficit present. Mental Status: She is alert and oriented to person, place, and time. Psychiatric: Mood and Affect: Mood normal. Behavior: Behavior is cooperative. Thought Content: Thought content normal. Assessment & Plan Hypertension, unspecified type Ambulatory blood pressure readings: 120's/80's; blood pressure normotensive in office today Blood work completed in May 2024 which shows a GFR of 73, creatinine 0.82, sodium 138, potassium 3.9. Continue Benicar Orders: Follow Up In Primary Care - Established alendronate (Fosamax) 70 mg tablet; Take 1 tablet (70 mg) by mouth every 7 days. olmesartan-hydrochlorothiazide (BENIcar HCT) 40-12.5 mg tablet; Take 1 tablet by mouth every other day. Follow Up In Primary Care - Established; Future Osteopenia, unspecified location DEXA 2021 showed osteopenia Continue Fosamax Check DEXA scan, CMP and vitamin D levels Encouraged to remain active such as walking 30 minutes 5 days a week to help with bone health; both knees have been bothering her recently Uses prednisone as needed for RA flares (approximately 2-3 times per year) Orders: Follow Up In Primary Care - Established alendronate (Fosamax) 70 mg tablet; Take 1 tablet (70 mg) by mouth every 7 days. Vitamin D 25-Hydroxy,Total (for eval of Vitamin D levels); Future Vitamin D 25-Hydroxy,Total (for eval of Vitamin D levels) Routine general medical examination at health care facility Orders: Follow Up In Primary Care - Established 1 Year Follow Up In Primary Care - Wellness Exam; Future Rheumatoid arthritis involving left shoulder, unspecified whether rheumatoid factor present (Multi) Follows with pick pulling machine tender Prednisone as needed for RA flares (uses approximately 2-3 times per year) Orders: Follow Up In Primary Care - Established; Future Postmenopausal Check DEXA scan Orders: XR DEXA bone density; Future Vitamin D 25-Hydroxy,Total (for eval of Vitamin D levels); Future Vitamin D 25-Hydroxy,Total (for eval of Vitamin D levels) Encounter for screening mammogram for breast cancer Orders: BI mammo bilateral screening tomosynthesis; Future Depression Screening 5 - 10 minutes were spent screening for depression. documented in this encounter [facility] Work Phone: 11-18-2024 Instructions MCKINLEY Bhagat - 08/29/2024 9:20 AM EST Please complete your DEXA scan we will call you when those results are available for review When you complete your blood work with your pick pulling machine tender we have added blood work to that. This blood work will require you to fast, nothing to eat or drink 12 hours prior except for water black coffee or tea without sugar cream or milk. Please complete your mammography around October 2024 Office visit in 6 months documented in this encounter [facility] Work Phone: 08-29-2024 Miscellaneous Notes Associated Problem(s): Hypertension Ambulatory blood pressure readings: 120's/80's; blood pressure normotensive in office today Blood work completed in May 2024 which shows a GFR of 73, creatinine 0.82, sodium 138, potassium 3.9. Continue Benicar Orders: Follow Up In Primary Care - Established alendronate (Fosamax) 70 mg tablet; Take 1 tablet (70 mg) by mouth every 7 days. olmesartan-hydrochlorothiazide (BENIcar HCT) 40-12.5 mg tablet; Take 1 tablet by mouth every other day. Follow Up In Primary Care - Established; Future Associated Problem(s): Osteopenia DEXA 2021 showed osteopenia Continue Fosamax Check DEXA scan, CMP and vitamin D levels Encouraged to remain active such as walking 30 minutes 5 days a week to help with bone health; both knees have been bothering her recently Uses prednisone as needed for RA flares (approximately 2-3 times per year) Orders: Follow Up In Primary Care - Established alendronate (Fosamax) 70 mg tablet; Take 1 tablet (70 mg) by mouth every 7 days. Vitamin D 25-Hydroxy,Total (for eval of Vitamin D levels); Future Vitamin D 25-Hydroxy,Total (for eval of Vitamin D levels) Associated Problem(s): Rheumatoid arthritis Follows with pick pulling machine tender Prednisone as needed for RA flares (uses approximately 2-3 times per year) Orders: Follow Up In Primary Care - Established; Future documented in this encounter [facility] Work Phone: 08-03-2024 History of Present illness Narrative Images from the original note were not included. Chief complaint: Chief Complaint Patient presents with 1 month f/u Venous US right f/u History of Present Illness Kelly Garcia is a 69 y.o. year old female patient with history of varicose veins and hypertension who is presenting for vascular evaluation. First one 4 years ago same RLE - superficial thrombophelbitis November - pain and palpable lump, May - pain and palpable New symptoms - redness, tenderness, lump Persistent swelling at the right ankle at the end of the day. No claudication. Does not tolerate compression stockings. Does pedal bike 20-30 mins a day. No personal history of VTE 08/04/24 -Since last visit she has been wearing compression stockings regularly. Reports some improvement, but continues to report symptoms of discomfort and swelling on the right leg despite wearing compression stockings regularly Social History Tobacco Use Smoking status: Never Passive exposure: Never Smokeless tobacco: Never Substance Use Topics Alcohol use: Never Drug use: Never Outpatient Medications: Current Outpatient Medications Medication Instructions alendronate (FOSAMAX) 70 mg, oral, Every 7 days apixaban (ELIQUIS) 2.5 mg, oral, 2 times daily Euflexxa 10 mg/mL(mw 2.4 -3.6 million) injection On hold folic acid (Folvite) 1 mg tablet 1 tablet, Daily leucovorin (Wellcovorin) 15 mg tablet Take 1 tablet (15 mg total) by mouth 1 (one) time per week in the 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 methotrexate (Trexall) 2.5 mg tablet 7 tablets, Once Weekly olmesartan-hydrochlorothiazide (BENIcar HCT) 40-12.5 mg tablet 1 tablet, oral, Every other day predniSONE (Deltasone) 5 mg tablet 1 tablet, Daily PRN sennosides (SENNA) 8.6 mg capsule 1 capsule, Daily sulfaSALAzine (Azulfidine) [address] tablet 1 tablet, 2 times daily Vitals: Vitals: 08/03/24 1539 BP: 150/70 Pulse: 90 SpO2: 98% Physical Exam: General: NAD, well-appearing HEENT: moist mucous membranes, no jaundice Neck: No JVD, no carotid bruit Lungs: CTA mick, no wheezing or rales Cardiac: RRR, no murmurs Abdomen: soft, non-tender, non-distended Extremities: 2+ radial pulses, no edema, palpable pedal pulses, VVs Skin: warm, dry, no wound Neurologic: AAOx3, no focal deficits Assessment/Plan # Venous insufficiency # Varicose veins with pain and swelling # Superficial thrombophlebitis -recurrent, x3 episodes -Patient with recurrent episodes of superficial thrombophlebitis, associated to refluxing GSV. Venous reflux ultrasound showing refluxing GSV. Given persistent symptoms and recurrent episodes of thrombophlebitis she overall benefits from ablation of the right GSV to help with symptoms and prevent more recurrent events of thrombophlebitis and potential DVT -Will plan for right GSV RFA -Continue compression stockings, walking exercise therapy and leg elevation when resting -Benefits and was discussed with patient and she agrees to proceed Ethel Wong MD [facility] Interventional Cardiology Endovascular Interventions [email or web address] Disclaimer: This note was dictated by speech recognition, and every effort has been made to prevent any error in base draw operator, however minor errors may be present documented in this encounter [facility] Work Phone: 07-06-2024 Note NSR, poor R wave pro gression across precordial and lateral leads [facility] 07-06-2024 History of Present illness Narrative Images from the original note were not included. Referred by Dr. Cervantes, Harjeet Cash APRN-* Chief complaint: Chief Complaint Patient presents with Thrombophlebitis of superficial veins of right lower extrem NPV History of Present Illness Kelly Garcia is a 69 y.o. year old female patient with history of varicose veins and hypertension who is presenting for vascular evaluation. First one 4 years ago same RLE - superficial thrombophelbitis November - pain and palpable lump, May - pain and palpable New symptoms - redness, tenderness, lump Persistent swelling at the right ankle at the end of the day. No claudication. Does not tolerate compression stockings No personal history of VTE Does pedal bike 20-30 mins a day. Social History Tobacco Use Smoking status: Never Passive exposure: Never Smokeless tobacco: Never Substance Use Topics Alcohol use: Never Drug use: Never Outpatient Medications: Current Outpatient Medications Medication Instructions alendronate (FOSAMAX) 70 mg, oral, Every 7 days apixaban (ELIQUIS) 2.5 mg, oral, 2 times daily Euflexxa 10 mg/mL(mw 2.4 -3.6 million) injection On hold folic acid (Folvite) 1 mg tablet 1 tablet, oral, Daily leucovorin (Wellcovorin) 15 mg tablet Take 1 tablet (15 mg total) by mouth 1 (one) time per week in the 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 methotrexate (Trexall) 2.5 mg tablet 7 tablets, oral, Once Weekly olmesartan-hydrochlorothiazide (BENIcar HCT) 40-12.5 mg tablet 1 tablet, oral, Every other day predniSONE (Deltasone) 5 mg tablet 1 tablet, oral, Daily PRN sennosides (SENNA) 8.6 mg capsule 1 capsule, oral, Daily sulfaSALAzine (Azulfidine) [address] tablet 1 tablet, oral, 2 times daily Vitals: Vitals: 07/06/24 1424 BP: 142/80 Pulse: 83 SpO2: 97% Physical Exam: General: NAD, well-appearing HEENT: moist mucous membranes, no jaundice Neck: No JVD, no carotid bruit Lungs: CTA mick, no wheezing or rales Cardiac: RRR, no murmurs Abdomen: soft, non-tender, non-distended Extremities: 2+ radial pulses, no edema, palpable pedal pulses, VVs Skin: warm, dry, no wound Neurologic: AAOx3, no focal deficits Assessment/Plan # Venous insufficiency # Varicose veins with pain # Superficial thrombophlebitis -Venous duplex reviewed with findings of thrombophlebitis -Continue eliquis to complete 6 weeks of therapy -Will obtain venous reflux study for further evaluation -Continue compression stockings, walking exercise therapy and leg elevation when resting Ethel Wong MD [facility] Interventional Cardiology Endovascular Interventions [email or web address] Disclaimer: This note was dictated by speech recognition, and every effort has been made to prevent any error in base draw operator, however minor errors may be present documented in this encounter [facility] Work Phone: 06-09-2024 Evaluation + Plan note Associated Problem(s): Thrombophlebitis of superficial veins of right lower extremity Prior SVT to same extremity November 2023-treated with aspirin Recent new superficial thrombophlebitis Add Eliquis 2.5 mg twice a day Referral to vascular medicine Orders: apixaban (Eliquis) 2.5 mg tablet; Take 1 tablet (2.5 mg) by mouth 2 times a day. Referral to Vascular Medicine; Future T [facility] Work Phone: 06-09-2024 History of Present illness Narrative Images from the original note were not included. Subjective Patient ID: Kelly Garcia is a 69 y.o. female who presents for Follow-up (Blood clot right lower leg ). Esther comes to office as a follow-up from the ER. Seen on 05/30 for pain/redness/swelling to R leg after twisting knee. Crescent palpable knot in location of the pain. US showed superficial thrombophlebitis. ER Record & US reviewed. No pain but remains with redness/swelling & palpable knot to R inner upper medial lower leg. She has been applying WMC & taking ASA daily No hx of DVT Had prior varicosity SVT proximal to distal medial calf in 11/2023; tx w/ ASA Review of Systems Skin: Varicosities bilateral legs Right lower leg medial upper aspect with a palpable knot that is warm to the touch Objective BP 134/74 Pulse 74 Ht 1.626 m (5' 4) Wt 88.5 kg (195 lb 3.2 oz) SpO2 96% BMI 33.51 kg/m Physical Exam Cardiovascular: Pulses: Dorsalis pedis pulses are 2+ on the right side and 1+ on the left side. Posterior tibial pulses are 2+ on the right side and 2+ on the left side. Musculoskeletal: Right lower le+ Edema present. Left lower le+ Edema present. Legs: Comments: Right medial inner upper lower leg with a palpable knot that is warm to the touch and edematous. Minimal pain. Bilateral varicosities both lower extremities Pitting edema to bilateral lower extremities Assessment/Plan Assessment & Plan Thrombophlebitis of superficial veins of right lower extremity Prior SVT to same extremity November 2023-treated with aspirin Recent new superficial thrombophlebitis Add Eliquis 2.5 mg twice a day Referral to vascular medicine Orders: apixaban (Eliquis) 2.5 mg tablet; Take 1 tablet (2.5 mg) by mouth 2 times a day. Referral to Vascular Medicine; Future documented in this encounter [facility] Work Phone: 06-09-2024 Instructions MCKINLEY Bhagat - 06/09/2024 10:00 AM EDT We will refer you to a vascular specialist Start Eliquis 2.5 mg twice a day documented in this encounter [facility] Work Phone: 06-09-2024 Miscellaneous Notes Associated Problem(s): Thrombophlebitis of superficial veins of right lower extremity Prior SVT to same extremity November 2023-treated with aspirin Recent new superficial thrombophlebitis Add Eliquis 2.5 mg twice a day Referral to vascular medicine Orders: apixaban (Eliquis) 2.5 mg tablet; Take 1 tablet (2.5 mg) by mouth 2 times a day. Referral to Vascular Medicine; Future documented in this encounter [facility] Work Phone: 05-30-2024 Emergency department Note Images from the original note were not included. Pain, swelling, redness of right lower extremity. This 69-year-old white on Thursday she accidentally twisted her right knee and since then has noted some swelling palpable cords and some erythema just below her right knee on the medial portion. She states that she has had a previous deep vein thrombosis and is concerned that she may have recurrence of a blood clot. She denies any chest pain or shortness of breath or other injuries. She denies any history of systemic symptoms such as fevers or chills. Physical Exam Vitals and nursing note reviewed. Constitutional: General: She is awake. Appearance: Normal appearance. She is overweight. HENT: Head: Normocephalic and atraumatic. Right Ear: Hearing and external ear normal. Left Ear: Hearing and external ear normal. Nose: Nose normal. No congestion or rhinorrhea. Mouth/Throat: Lips: [place]. Mouth: Mucous membranes are moist. Pharynx: Oropharynx is clear. Uvula midline. No oropharyngeal exudate or posterior oropharyngeal erythema. Eyes: General: Lids are normal. Vision grossly intact. Right eye: No discharge. Left eye: No discharge. Extraocular Movements: Extraocular movements intact. Conjunctiva/sclera: Conjunctivae normal. Pupils: Pupils are equal, round, and reactive to light. Cardiovascular: Rate and Rhythm: Normal rate and regular rhythm. Pulses: Normal pulses. Heart sounds: Normal heart sounds. No murmur heard. No friction rub. No gallop. Pulmonary: Effort: Pulmonary effort is normal. No respiratory distress. Breath sounds: Normal breath sounds. No stridor. No wheezing, rhonchi or rales. Chest: Chest wall: No tenderness. Abdominal: General: Abdomen is flat. Bowel sounds are normal. There is no distension. Palpations: Abdomen is soft. There is no mass. Tenderness: There is no abdominal tenderness. There is no guarding or rebound. Hernia: No hernia is present. Musculoskeletal: General: No swelling, deformity or signs of injury. Normal range of motion. Cervical back: Full passive range of motion without pain, normal range of motion and neck supple. Right lower leg: Tenderness present. 1+ Edema present. Left lower le+ Edema present. Legs: Comments: Evaluation of the right lower extremity revealed distal pulses are +2/4 and present at the dorsalis pedis and tibialis. Cap refill less than 2 seconds and light touch sensations intact. Patient does have some symmetrical edema bilaterally there is a palpable cord noted with focal tenderness in the right medial portion of the lower extremity just below the knee there is some associated erythema with mild increase in temperature. Skin: General: Skin is warm and dry. Capillary Refill: Capillary refill takes less than 2 seconds. Coloration: Skin is not jaundiced or pale. Findings: Rash present. No bruising, erythema or lesion. Neurological: General: No focal deficit present. Mental Status: She is alert and oriented to person, place, and time. GCS: GCS eye subscore is 4. GCS verbal subscore is 5. GCS motor subscore is 6. Cranial Nerves: Cranial nerves 2-12 are intact. No cranial nerve deficit. Sensory: Sensation is intact. No sensory deficit. Motor: Motor function is intact. No weakness. Coordination: Coordination is intact. Coordination normal. Gait: Gait is intact. Deep Tendon Reflexes: Reflexes normal. Psychiatric: Attention and Perception: Attention and perception normal. Mood and Affect: Mood and affect normal. Speech: Speech normal. Behavior: Behavior normal. Behavior is cooperative. Thought Content: Thought content normal. Cognition and Memory: Cognition and memory normal. Judgment: Judgment normal. Labs Reviewed - No data to display Lower extremity venous duplex right Procedures Medical Decision Making Patient was seen and evaluated due to concern for possible deep vein thrombosis of her right lower extremity. She notes some palpable cords, erythema and tenderness in the medial aspect of her right lower extremity just below her knee she states that she did injure her right knee previously when she turned. Patient admits to previous history of deep vein thrombosis. Venous duplex Doppler was performed which revealed evidence of a superficial thrombophlebitis. I then had a detailed discussion with the patient concerning her diagnosis and plan of care. Patient was encouraged to use warm compresses and anti-inflammatories she was referred back to her primary care doctor for follow-up. If she developed any new or worsening symptoms she is to seek immediate medical attention if she develops any chest pain or shortness of breath she is to return to closest ED for reevaluation. Diagnoses as of 05/30/24 1416 Thrombophlebitis of superficial veins of right lower extremity Andreas Bey DO 05/30/24 1416 documented in this encounter [facility] Work Phone: 05-30-2024 Physician Emergency department Note Images from the original note were not included. Pain, swelling, redness of right lower extremity. This 69-year-old white on Thursday she accidentally twisted her right knee and since then has noted some swelling palpable cords and some erythema just below her right knee on the medial portion. She states that she has had a previous deep vein thrombosis and is concerned that she may have recurrence of a blood clot. She denies any chest pain or shortness of breath or other injuries. She denies any history of systemic symptoms such as fevers or chills. Physical Exam Vitals and nursing note reviewed. Constitutional: General: She is awake. Appearance: Normal appearance. She is overweight. HENT: Head: Normocephalic and atraumatic. Right Ear: Hearing and external ear normal. Left Ear: Hearing and external ear normal. Nose: Nose normal. No congestion or rhinorrhea. Mouth/Throat: Lips: [place]. Mouth: Mucous membranes are moist. Pharynx: Oropharynx is clear. Uvula midline. No oropharyngeal exudate or posterior oropharyngeal erythema. Eyes: General: Lids are normal. Vision grossly intact. Right eye: No discharge. Left eye: No discharge. Extraocular Movements: Extraocular movements intact. Conjunctiva/sclera: Conjunctivae normal. Pupils: Pupils are equal, round, and reactive to light. Cardiovascular: Rate and Rhythm: Normal rate and regular rhythm. Pulses: Normal pulses. Heart sounds: Normal heart sounds. No murmur heard. No friction rub. No gallop. Pulmonary: Effort: Pulmonary effort is normal. No respiratory distress. Breath sounds: Normal breath sounds. No stridor. No wheezing, rhonchi or rales. Chest: Chest wall: No tenderness. Abdominal: General: Abdomen is flat. Bowel sounds are normal. There is no distension. Palpations: Abdomen is soft. There is no mass. Tenderness: There is no abdominal tenderness. There is no guarding or rebound. Hernia: No hernia is present. Musculoskeletal: General: No swelling, deformity or signs of injury. Normal range of motion. Cervical back: Full passive range of motion without pain, normal range of motion and neck supple. Right lower leg: Tenderness present. 1+ Edema present. Left lower le+ Edema present. Legs: Comments: Evaluation of the right lower extremity revealed distal pulses are +2/4 and present at the dorsalis pedis and tibialis. Cap refill less than 2 seconds and light touch sensations intact. Patient does have some symmetrical edema bilaterally there is a palpable cord noted with focal tenderness in the right medial portion of the lower extremity just below the knee there is some associated erythema with mild increase in temperature. Skin: General: Skin is warm and dry. Capillary Refill: Capillary refill takes less than 2 seconds. Coloration: Skin is not jaundiced or pale. Findings: Rash present. No bruising, erythema or lesion. Neurological: General: No focal deficit present. Mental Status: She is alert and oriented to person, place, and time. GCS: GCS eye subscore is 4. GCS verbal subscore is 5. GCS motor subscore is 6. Cranial Nerves: Cranial nerves 2-12 are intact. No cranial nerve deficit. Sensory: Sensation is intact. No sensory deficit. Motor: Motor function is intact. No weakness. Coordination: Coordination is intact. Coordination normal. Gait: Gait is intact. Deep Tendon Reflexes: Reflexes normal. Psychiatric: Attention and Perception: Attention and perception normal. Mood and Affect: Mood and affect normal. Speech: Speech normal. Behavior: Behavior normal. Behavior is cooperative. Thought Content: Thought content normal. Cognition and Memory: Cognition and memory normal. Judgment: Judgment normal. Labs Reviewed - No data to display Lower extremity venous duplex right Procedures Medical Decision Making Patient was seen and evaluated due to concern for possible deep vein thrombosis of her right lower extremity. She notes some palpable cords, erythema and tenderness in the medial aspect of her right lower extremity just below her knee she states that she did injure her right knee previously when she turned. Patient admits to previous history of deep vein thrombosis. Venous duplex Doppler was performed which revealed evidence of a superficial thrombophlebitis. I then had a detailed discussion with the patient concerning her diagnosis and plan of care. Patient was encouraged to use warm compresses and anti-inflammatories she was referred back to her primary care doctor for follow-up. If she developed any new or worsening symptoms she is to seek immediate medical attention if she develops any chest pain or shortness of breath she is to return to closest ED for reevaluation. Diagnoses as of 05/30/24 1416 Thrombophlebitis of superficial veins of right lower extremity Andreas Bey DO 05/30/24 1416 [facility] Work Phone: 08-27-2023 History of Present illness Narrative Subjective [...] lost mother in Nov. Patient Care Team: Harjeet Cervantes APRN-TRINH as PCP - General (Family [...] 136/82 Pulse 91 Ht 1.626 m (5' 4) Wt 89 kg (196 lb 1.6 oz) [...] In Primary Care - Established Rheumatoid arthritis ([facility]/HCC) Vitamin B12 deficiency Overview Check B12 level with next blood draw Relevant Orders Vitamin B12 Screening, lipid - Primary Overview Schedule mammogram Relevant Orders Lipid Panel documented in this encounter [facility] Work Phone: 08-27-2023 Instructions MCKINLEY Bhagat - 08/27/2023 9:20 AM EST Office visit in 1 year with blood work prior to include B12 and lipid panel. 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 Continue to check blood pressure periodically and recommend getting your yearly influenza vaccination and your RSV vaccine. Schedule mammography for this year and we will check a DEXA scan next year documented in this encounter [facility] Work Phone: Evaluation note No assessment inform ation available [facility] Work Phone: Evaluation note Diagnosis Routine general medical examination at health care facility- Primary Routine general medical examination at a health care facility Hypertension, unspecified type Osteopenia, unspecified location Breast cancer screening by mammogram Vitamin B12 deficiency Other B-complex deficiencies Screening, lipid Rheumatoid arthritis involving left shoulder, unspecified whether rheumatoid factor present ([facility]) documented in this encounter [facility] Work Phone: Evaluation note* Diagnosis Right calf pain Thrombophlebitis of superficial veins of right lower extremity documented in this encounter [facility] Work Phone: Evaluation note* Diagnosis Thrombophlebitis of superficial veins of right lower extremity- Primary Thrombophlebitis of superficial veins of right lower extremity Asymptomatic varicose veins of right lower extremity documented in this encounter [facility] Work Phone: Evaluation note* Diagnosis Thrombophlebitis of superficial veins of right lower extremity- Primary Thrombophlebitis of superficial veins of right lower extremity- Primary Varicose veins of right lower extremity with pain documented in this encounter [facility] Work Phone: Evaluation note* Diagnosis Thrombophlebitis of superficial veins of right lower extremity- Primary Thrombophlebitis of superficial veins of right lower extremity Varicose veins of right lower extremity with inflammation documented in this encounter [facility] Work Phone: Evaluation note* Diagnosis Thrombophlebitis of superficial veins of right lower extremity- Primary Routine general medical examination at health care facility- Primary Routine general medical examination at a health care facility Hypertension, unspecified type Osteopenia, unspecified location Rheumatoid arthritis involving left shoulder, unspecified whether rheumatoid factor present (Multi) Postmenopausal Asymptomatic postmenopausal status (age-related) (natural) Encounter for screening mammogram for breast cancer documented in this encounter [facility] Work Phone: Evaluation note* Diagnosis Thrombophlebitis of superficial veins of right lower extremity- Primary Routine general medical examination at health care facility- Primary Routine general medical examination at a health care facility Hypertension, unspecified type Osteopenia, unspecified location Rheumatoid arthritis involving left shoulder, unspecified whether rheumatoid factor present (Multi) Postmenopausal Asymptomatic postmenopausal status (age-related) (natural) Encounter for screening mammogram for breast cancer Varicose veins of right lower extremity with pain- Primary Thrombophlebitis of superficial veins of right lower extremity documented in this encounter [facility] Work Phone: Evaluation note* Diagnosis Thrombophlebitis of superficial veins of right lower extremity- Primary Pain in right lower leg documented in this encounter [facility] Work Phone: Evaluation note* Diagnosis Thrombophlebitis of superficial veins of right lower extremity- Primary documented in this encounter [facility] Work Phone: Evaluation note* Diagnosis Thrombophlebitis of superficial veins of right lower extremity- Primary Varicose veins of right lower extremity with pain- Primary Thrombophlebitis of superficial veins of right lower extremity documented in this encounter [facility] Work Phone: Evaluation note* Diagnosis Thrombophlebitis of superficial veins of right lower extremity- Primary Routine general medical examination at health care facility- Primary Routine general medical examination at a health care facility Hypertension, unspecified type Osteopenia, unspecified location Rheumatoid arthritis involving left shoulder, unspecified whether rheumatoid factor present (Multi) Postmenopausal Asymptomatic postmenopausal status (age-related) (natural) Encounter for screening mammogram for breast cancer Encounter for screening mammogram for breast cancer documented in this encounter [facility] Work Phone: Evaluation note* Diagnosis Thrombophlebitis of superficial veins of right lower extremity- Primary Routine general medical examination at health care facility- Primary Routine general medical examination at a health care facility Hypertension, unspecified type Osteopenia, unspecified location Rheumatoid arthritis involving left shoulder, unspecified whether rheumatoid factor present (Multi) Postmenopausal Asymptomatic postmenopausal status (age-related) (natural) Encounter for screening mammogram for breast cancer Postmenopausal Asymptomatic postmenopausal status (age-related) (natural) documented in this encounter [facility] Work Phone: Evaluation note* Diagnosis Thrombophlebitis of superficial veins of right lower extremity- Primary Routine general medical examination at health care facility- Primary Routine general medical examination at a health care facility Hypertension, unspecified type Osteopenia, unspecified location Rheumatoid arthritis involving left shoulder, unspecified whether rheumatoid factor present (Multi) Postmenopausal Asymptomatic postmenopausal status (age-related) (natural) Encounter for screening mammogram for breast cancer Preoperative clearance- Primary Unspecified pre-operative examination Chronic pain of right knee Rheumatoid arthritis involving left shoulder, unspecified whether rheumatoid factor present (Multi) documented in this encounter [facility] Work Phone: Evaluation note* Diagnosis Thrombophlebitis of superficial veins of right lower extremity- Primary Routine general medical examination at [facility] care facility- Primary Routine general medical examination at a [facility] facility Hypertension, unspecified type Osteopenia, unspecified location Rheumatoid arthritis involving left shoulder, unspecified whether rheumatoid factor present (Multi) Postmenopausal Asymptomatic postmenopausal status (age-related) (natural) Encounter for screening mammogram for breast cancer Preoperative clearance- Primary Unspecified pre-operative examination Chronic pain of right knee Rheumatoid arthritis involving left shoulder, unspecified whether rheumatoid factor present (Multi) Status post endovenous radiofrequency ablation (RFA) of saphenous vein- Primary Chronic venous insufficiency of lower extremity Asymptomatic varicose veins Encounter for pre-operative cardiovascular clearance documented in this encounter [facility] Work Phone: Evaluation note* Diagnosis Thrombophlebitis of superficial veins of right lower extremity- Primary Routine general medical examination at [facility] care facility- Primary Routine general medical examination at a [facility] facility Hypertension, unspecified type Osteopenia, unspecified location Rheumatoid arthritis involving left shoulder, unspecified whether rheumatoid factor present (Multi) Postmenopausal Asymptomatic postmenopausal status (age-related) (natural) Encounter for screening mammogram for breast cancer Preoperative clearance- Primary Unspecified pre-operative examination Chronic pain of right knee Rheumatoid arthritis involving left shoulder, unspecified whether rheumatoid factor present (Multi) Dyslipidemia- Primary Other and unspecified hyperlipidemia Hypertension, unspecified type Rheumatoid arthritis involving left shoulder, unspecified whether rheumatoid factor present (Multi) Mixed dyslipidemia Screening for thyroid disorder Inflammatory polyarthropathy (Multi) Unspecified inflammatory polyarthropathy documented in this encounter [facility] Work Phone: History of Present illness Narrative* The patient is being seen for the subsequent annual wellness visit. * Past Medical, Surgical and Family History: reviewed and updated in chart. * Interval History: Patient has not been hospitalized previously. * Medications and Supplements: Medications and supplements, including calcium and vitamins reviewed and updated in chart. * No, the patient is not using opioids. * Patient Self Assessment of Health Status: excellent. * Tobacco use: Non-User * Alcohol use: Non-User * Illicit drug use: Non-User * Current diet: well balanced diet. * Exercise Frequency: regularly. * Depression/Suicide Screening: . * During the past 2 weeks, the patient has not felt down, depressed or hopeless. * During the past 2 weeks, the patient has not felt little interest or pleasure in doing things. * Hearing Impairment: none. * Cognitive Impairment: No cognitive impairment observed. * Bathing: performs independently. * Dressing: performs independently. * Walking: performs independently. * Managing Finances: performs independently. * Shopping: performs independently. * Managing Medications: performs independently. * Housework / Basic Home Maintenance: performs independently. * Falls Risk Screening:. KELLY has not fallen in the last 6 months. * Home safety risk factors: none. * Esther comes to the office for a 1 year check on hypertension, RA and osteopenia. * Hypertension -NSAID use \{ - \}, NA intake \{ - \}, OTC cold remedies \{ - \}, smoking \{ - \}, Alcohol \{ - \}, physical activity \{ + \} * blurred/double vision \{ - \}, lightheadness \{ - \}, dizziness \{ - \}, previous syncopal episodes\{ - \}, headache \{ - \}, chest pain \{ - \}, palpations \{ - \}, SOB \{ - \} * Checking BP @ home \{ + \} - SBP ranges: 120 DBP Ranges: 70-80 * Taking medication as prescribed: \{ + \}, omitted doses \{ - \}; creat: 0.78,gfr 78ml/min, BUN:15 from 05/2021 * Last eye examination: <1Y * RA follows w/ Vellanki; not taking Tramadol @ all. Takes Tylenol as needed * Pneumonia vaccines up-to-date * Colorectal cancer screening- due. I FOBT June 2021 normal. * Breast cancer screening-due next month. Last mammogram 09/30/2020. * Osteopenia L femur--started on Fosamax taking and tolerating medication well. On vitamin D supplementation daily. Physical activity: walking dog 3x/D, active outdoors. No falls. No pain or difficultly w/ swallowing. Last DEXA 2Y ago. Reports an improvement in left hip pain since starting on Fosamax. * + dysuria/freq/pressure. IO UA: normal. [facility] Work Phone: History of Present illness Narrativeonset 3 d rash right lower lumbar radiating to hip. Moderate burning pain. Discussed options for analgesia none were prescribed. Reviewed cellulitis, candidate fo immunization postherpetic neuralgia-[facility] Work Phone: History of Present illness Narrative* The patient is being seen for the subsequent annual wellness visit. * Past Medical, Surgical and Family History: reviewed and updated in chart. * Interval History: Patient has not been hospitalized previously. * Medications and Supplements: Review of all medications by a prescribing practitioner or clinical pharmacist (such as prescriptions, OTCs, herbal therapies and supplements) documented in the medical record. * No, the patient is not using opioids. * Patient Self Assessment of Health Status: good. * Tobacco use: Non-User * Alcohol use: Non-User * Illicit drug use: Non-User * Current diet: well balanced diet. * Exercise Frequency: the patient does not exercise. * Depression/Suicide Screening: . * During the past 2 weeks, the patient has not felt down, depressed or hopeless. * During the past 2 weeks, the patient has not felt little interest or pleasure in doing things. * Hearing Impairment: none. * Cognitive Impairment: No cognitive impairment observed. * Bathing: performs independently. * Dressing: performs independently. * Walking: performs independently. * Managing Finances: performs independently. * Shopping: performs independently. * Managing Medications: performs independently. * Housework / Basic Home Maintenance: performs independently. * Falls Risk Screening:. KELLY has not fallen in the last 6 months. * Home safety risk factors: none. * Advance directives:. Advanced Care Planning discussed and documented advance care plan or surrogatedecision maker documented in the medical record. Patient has living will. Patient has healthcare POA. * Kelly comes to office for a 1Y OV & medication refills. * Had Shingles earlier in yr. Recovered. Just received her first Shingles vaccine. * no surgeries or hospitalizations within the last year * Colorectal cancer screening: Colonoscopy in 2017 normal; repeat 10Y. Denies melena, change in bowelhabits, abdominal pain. * Breast cancer screening: MMG UTD * RA- left shoulder bother her @ times cold weather makes it worse. Both knees have been hurting and has had bilateral steroid injections which offered little relief. Was to get viscosupplementation injections however insurance did not cover. * Hypertension-takes and tolerates medication without problem. Denies headache, dizziness, lightheaded or syncopal episodes. Blood pressure normotensive in office today. [facility] Work Phone: History of Present illness Narrative* The patient is being seen for the subsequent annual wellness visit. * Past Medical, Surgical and Family History: reviewed and updated in chart. * Interval History: Patient has not been hospitalized previously. * Medications and Supplements: Review of all medications by a prescribing practitioner or clinical pharmacist (such as prescriptions, OTCs, herbal therapies and supplements) documented in the medical record. * No, the patient is not using opioids. * Patient Self Assessment of Health Status: good. * Tobacco use: Non-User * Alcohol use: Non-User * Illicit drug use: Non-User * Current diet: well balanced diet. * Exercise Frequency: the patient does not exercise. * Depression/Suicide Screening: . * During the past 2 weeks, the patient has not felt down, depressed or hopeless. * During the past 2 weeks, the patient has not felt little interest or pleasure in doing things. * Hearing Impairment: none. * Cognitive Impairment: No cognitive impairment observed. * Bathing: performs independently. * Dressing: performs independently. * Walking: performs independently. * Managing Finances: performs independently. * Shopping: performs independently. * Managing Medications: performs independently. * Housework / Basic Home Maintenance: performs independently. * Falls Risk Screening:. KELLY has not fallen in the last 6 months. * Home safety risk factors: none. * Advance directives:. Advanced Care Planning discussed and documented advance care plan or surrogatedecision maker documented in the medical record. Patient has living will. Patient has healthcare POA. * Kelly comes to office for a 1Y OV & medication refills. * Had Shingles earlier in yr. Recovered. Just received her first Shingles vaccine. * no surgeries or hospitalizations within the last year * Colorectal cancer screening: Colonoscopy in 2017 normal; repeat 10Y. Denies melena, change in bowelhabits, abdominal pain. * Breast cancer screening: MMG UTD * RA- left shoulder bother her @ times cold weather makes it worse. Both knees have been hurting and has had bilateral steroid injections which offered little relief. Was to get viscosupplementation injections however insurance did not cover. * Hypertension-takes and tolerates medication without problem. Denies headache, dizziness, lightheaded or syncopal episodes. Blood pressure normotensive in office today. [facility] Work Phone: Hospital Discharge instructions* Attachments The following attachments cannot be sent through Care Everywhere. * Superficial vein phlebitis and thrombosis (Tajik) [facility] Reunpn for referral (narrative)* Consultation (Routine) - Authorized Specialty Diagnoses / Procedures Referred By Nusrat t Referred To Contact Primary Care Diagnoses Hypertension, unspecified type Osteopenia, unspecified location Routine general medical examination at health care facility Procedures Follow Up In Primary Care - Established Harjeet Cervantes APRN-TRINH [address] [place] [address] Referral ID Status Reason Start Date Expiration Date V isits Requested Visits Authorized [id number] Authorized 08/27/2023 08/26/2024 1 1 * Imaging (Routine) - Authorized Specialty Diagnoses / Procedures Referred By Nusrat t Referred To Contact Radiology Diagnoses Breast cancer screening by mammogram Procedures BI mammo bilateral screening tomosynthesis Harjeet Cervantes APRN-TRINH [address] [place] [address] Referral ID Status Reason Start Date Expiration Date Visits Requested Visits Authorized [id number] Authorized Perform Procedure 3 08/26/2024 1 1 [facility] Work Phone: Rexxbu for referral (narrative)* Consultation (Emergency) - Authorized Specialty Diagnoses / Procedures Referred By Contac t Referred To Contact Family Medicine / Primary Care Diagnoses Thrombophlebitis of superficial veins of right lower extremity Andreas Bey, DO [address] [place] [address] Referral ID Status Reason Start Date Expiration Date Visits Requested Visits Authorized [id number] Authorized Specialty Services Required 05/30/2024 05/30/2025 1 1 [facility] Work Phone: Reason for referral (narrative)* Consultation (Routine) - Authorized Specialty Diagnoses / Procedures Referred By Contac t Referred To Contact Diagnoses Thrombophlebitis of superficial veins of right lower extremity Harjeet Cervantes HANDWRITING EXPERT-SPECIAL SERVICES DIRECTOR [address] [place] [address] Ethel Faye MD [address] [place] [address], [facility] [address] [place] [address] Referral ID Status Reason Start Date Expiration Date Visits Requested Visits Authorized [id number] Authorized Specialty Services Required 06/09/2024 06/09/2025 1 1 Electronically signed by Harjeet Cervantes HANDWRITING EXPERT-SPECIAL SERVICES DIRECTOR at 06/09/2024 10:18 AM EDT [facility] Work Phone: Reuzlo for referral (narrative)No reason for referral information [facility] Work Phone: Reason for visit Narrative* Imaging (Routine) - Authorized Specialty Diagnoses / Procedures Referred By Contac t Referred To Contact Cardiology Diagnoses Thrombophlebitis of superficial veins of right lower extremity Procedures Vascular US Lower Extremity Venous Insufficiency Right Ethel Faye [place] [id number] [place] [address] Dr [address], [address] [address] Phone: tel: fax: Referral ID Status Reason Start Date Expiration Date Visits Requested Visits Authorized [id number] Authorized Perform Procedure 07/06/2024 07/06/2025 1 1 [facility] Work Phone: Rexnpa for visit Narrative* Imaging (Routine) - Authorized Specialty Diagnoses / Procedures Referred By Contac t Referred To Contact Cardiology Diagnoses Thrombophlebitis of superficial veins of right lower extremity Procedures Vascular US Lower Extremity [place] [address] [facility] [address], [place] [address] Phone: tel: fax: Referral ID Status Reason Start Date Expiration Date Visits Requested Visits Authorized [id number] Authorized Perform Procedure 4 08/09/2025 1 1 [facility] Work Phone: Reason for visit Narrative* Imaging (Routine) - Authorized Specialty Diagnoses / Procedures Referred By Nusrat t Referred To Contact Radiology Diagnoses Encounter for screening mammogram for breast cancer Procedures BI mammo bilateral screening tomosynthesis Harjeet Cervantes HANDWRITING EXPERT-SPECIAL SERVICES DIRECTOR [address] [place] [address] Phone: tel: fax: Referral ID Status Reason Start Date Expiration Date Visits Requested Visits Authorized [id number] Authorized Perform Procedure 4 08/29/2025 1 1 [facility] Work Phone: Reason for visit Narrative* Imaging (Routine) - Authorized Specialty Diagnoses / Procedures Referred By Nusrat garces Referred To Contact Radiology Diagnoses Postmenopausal Procedures XR DEXA bone density Harjeet Cervantes, HANDWRITING EXPERT-SPECIAL SERVICES DIRECTOR [address] [place] [address] Phone: tel: fax: Referral ID Status Reason Start Date Expiration Date Visits Requested Visits Authorized [id number] Authorized Perform Procedure 4 08/29/2025 1 1 [facility] Work Phone: Summary Purpose Family History [...] BACK RASH/BLISTERS X 3 DAYSMEDICARE WELLNESSMEDICARE WELLNESS Chief Complaint and Reason for Visit Chief Complaint S/O- ARTHRITIS/PAIN- COPY PCP S/O- PAIN - COPY PCP Chief Complaint S/O- PAIN - COPY PCP S/O- COPY PCP Chief Complaint S/O- COPY PCP S/O- PAIN COPY PCP Chief Complaint S/O- PAIN COPY PCP STANDING ORDER Chief Complaint STANDING ORDER STANDING ORDER Chief Complaint STANDING ORDER S/O- PAIN- COPY PCP Chief Complaint S/O- PAIN- COPY PCP STANDING ORDER Chief Complaint Admit Date VITAMIN D September 28, 2024 10:07am RT KNEE VARUS DEFORMITY *SHAKA* October 202024 1:03pm PREOP October 20, 2024 1: 43pm PAIN- COPY PCP November 09, 2024 9 :28am PAIN- COPY PCP January 20, 2025 12: 33pm Reason for Referral Specialty Diagnoses / Procedures Referred By Contac t Referred To Contact Cardiology Diagnoses Right calf pain Thrombophlebitis of superficial veins of right lower extremity Procedures Vascular US lower extremity venous duplex right Harjeet Cervantes, HANDWRITING EXPERT-SPECIAL SERVICES DIRECTOR [address] [place] [address] Referral ID Status Reason Start Date Expiration Date Visits Requested Visits Authorized [id number] Pending Review Perform Procedure 11/25/2023 11/24/2024 1 1 Specialty Diagnoses / Procedures Referred By Contac t Referred To Contact Cardiology Diagnoses Thrombophlebitis of superficial veins of right lower extremity Procedures Vascular US Lower Extremity [place] [address] [facility] [address], [address] [address] Referral ID Status Reason Start Date Expiration Date Visits Requested Visits Authorized [id number] Pending Review Perform Procedure 07/06/2024 07/06/2025 1 1 Specialty Diagnoses / Procedures Referred By Contac t Referred To Contact Diagnoses Thrombophlebitis of superficial veins of right lower extremity Procedures ECG 12 lead (Clinic Performed) [place] [address] [facility] [address], [facility] [address] [place] [address] Referral ID Status Reason Start Date Expiration Date V isits Requested Visits Authorized [id number] Authorized 07/06/2024 07/06/2025 1 1 Additional Source Comments INFORMATION SOURCE (unrecogn ized section and content) DATE CREATED AUTHOR 10/09/2018 [facility] DATE CREATED AUTHOR AUTHOR'S ORGANIZ ATION 10/16/2021 [facility] DATE CREATED AUTHOR AUTHOR'S ORGANIZ ATION 08/29/2022 [facility] [place] DATE CREATED AUTHOR AUTHOR'S ORGANIZ ATION 08/29/2022 [employer] DATE CREATED AUTHOR AUTHOR'S ORGANIZ ATION 10/26/2024 [facility] DATE CREATED AUTHOR AUTHOR'S ORGANIZ ATION 01/27/2025 [facility] DATE CREATED AUTHOR AUTHOR'S ORGANIZ ATION 02/02/2025 [facility] DATE CREATED AUTHOR AUTHOR'S ORGANIZ ATION 02/05/2025 [facility] DATE CREATED AUTHOR AUTHOR'S ORGANIZ ATION 03/08/2025 [facility] Ambulatory Goals (unrecognized section and content) Goals may be documented in a n alternate sectionGoals may be documented in an alternate sectionGoals may be documented in an alternate sectionGoals may be documented in an alternate sectionGoals may be documented in an alternate sectionGoals may be documented in an alternate sectionGoals may be documented in an alternate sectionGoals may be documented in an alternate sectionGoals may be documented in an alternate section Care Teams (unrecognized sec tion and content) Team Status: Active Member Role Status Dates HARJEET CERVANTES Family Provider Active HARJEET CERVANTES Primary Care Provider Active Team Status: Inactive Member Role Status Dates BILLY COSBY Primary Care Provider Active Dr. Alla Kim MD Attending Provider, Referring Provider Active Sash Installer Relationship Specialty Start Date End Date Robert Rios MD [address] [id number] PCP - [employer] Medicare Advantage PCP 10/12/21 Harjeet Cervantes, HANDWRITING EXPERT-SPECIAL SERVICES DIRECTOR [address] [place] [address] PCP - General Family Medicine 08/27/23 Sash Installer Relationship Specialty Start Date End Date Robert Rios MD [address] [place] [address] PCP - [employer] Medicare Advantage PCP 10/12/21 Harjeet Cervantes, HANDWRITING EXPERT-SPECIAL SERVICES DIRECTOR [address] [id number] PCP - General Family Medicine 08/27/23 Sash Installer Relationship Specialty Start Date End Date Robert Rios MD [address] [address] PCP - [employer] Medicare Advantage PCP 10/12/21 Harjeet Cervantes, HANDWRITING EXPERT-SPECIAL SERVICES DIRECTOR [address] [address] PCP - General Family Medicine 07/06/24 Sash Installer Relationship Specialty Start Date End Date Robert Rios MD [address] [address] PCP - [employer] Medicare Advantage PCP 10/12/21 Harjeet Cervantes, HANDWRITING EXPERT-SPECIAL SERVICES DIRECTOR [address] [address] PCP - General Family Medicine 07/06/24 Sash Installer Relationship Specialty Start Date End Date Robert Rios MD [address] [address] PCP - [employer] Medicare Advantage PCP 10/12/21 Harjeet Cervantes, HANDWRITING EXPERT-SPECIAL SERVICES DIRECTOR [address] [address] PCP - General Family Medicine 07/06/24 Sash Installer Relationship Specialty Start Date End Date Robert Rios MD [address] [address] PCP - [employer] Medicare Advantage PCP 10/12/21 Harjeet Cervantes, HANDWRITING EXPERT-SPECIAL SERVICES DIRECTOR [address] [address] PCP - General Family Medicine 07/06/24 Sash Installer Relationship Specialty Start Date End Date Robert Rios MD [address] [address] PCP - [employer] Medicare Advantage PCP 10/12/21 Harjeet Cervantes, HANDWRITING EXPERT-SPECIAL SERVICES DIRECTOR [address] [address] PCP - General Family Medicine 07/06/24 Sash Installer Relationship Specialty Start Date End Date Robert Rios MD [address] [address] PCP - [employer] Medicare Advantage PCP 10/12/21 Harjeet Cervantes, HANDWRITING EXPERT-SPECIAL SERVICES DIRECTOR [address] [address] PCP - General Family Medicine 07/06/24 Sash Installer Relationship Specialty Start Date End Date Robert Rios MD [address] [place] [address] PCP - [employer] Medicare Advantage PCP 10/12/21 Harjeet Cervantes HANDWRITING EXPERT-SPECIAL SERVICES DIRECTOR [address] [place] [address] PCP - General Family Medicine 08/27/23 Sash Installer Relationship Specialty Start Date End Date Robert Rios MD [address] [place] [address] PCP - [employer] Medicare Advantage PCP 10/12/21 Harjeet Cervantes, HANDWRITING EXPERT-SPECIAL SERVICES DIRECTOR [address] [place] [address] PCP - General Family Medicine 08/27/23 Sash Installer Relationship Specialty Start Date End Date Robert Rios MD [address] [address] PCP - [employer] Medicare Advantage PCP 10/12/21 Harjeet Cervantes, HANDWRITING EXPERT-SPECIAL SERVICES DIRECTOR [address] [address] PCP - General Family Medicine 07/06/24 Sash Installer Relationship Specialty Start Date End Date Robert Rios MD [address] [address] PCP - [employer] Medicare Advantage PCP 10/12/21 Harjeet Cervantes HANDWRITING EXPERT-SPECIAL SERVICES DIRECTOR [address] [address] PCP - General Family Medicine 07/06/24 Sash Installer Relationship Specialty Start Date End Date Robert Rios MD [address] [address] PCP - [employer] Medicare Advantage PCP 10/12/21 Harjeet Cervantes APRN-SPECIAL SERVICES DIRECTOR [address] [address] PCP - General Family Medicine 07/06/24 Sash Installer Relationship Specialty Start Date End Date Robert Rios MD [address] [address] PCP - [employer] Medicare Advantage PCP 10/12/21 Harjeet Cervantes APRN-SPECIAL SERVICES DIRECTOR [address] [address] PCP - General Family Medicine 07/06/24 Team Status: Active Member Role Status Dates HARJEET CERVANTES Family Provider Active HARJEET CERVANTES NP-C Primary Care Provider Active Team Status: Inactive Member Role Status Dates BILLY COSBY Primary Care Provider Active Star t: September 28, 2024 End: September 28, 2024 JAMES MAZARIEGOS Attending Provider Active S tart: September 28, 2024 End: September 28, 2024 JAMES MAZARIEGOS Referring Provider Active S tart: September 28, 2024 End: September 28, 2024 Team Status: Inactive Member Role Status Dates BILLY COSBY Primary Care Provider Active Star t: October 20, 2024 End: October 20, 2024 Dr. Phu Tan MD Attending Provider Active Start: October 20, 2024 End: October 20, 2024 Dr. Phu Tan MD Referring Provider Active Start: October 20, 2024 End: October 20, 2024 Team Status: Active Member Role Status Dates Dr. Owen Valverde MD Attending Provider Active Start: October 20, 2024 End: October 20, 2024 Dr. Phu Tan MD Referring Provider Active Start: October 20, 2024 End: October 20, 2024 Team Status: Inactive Member Role Status Dates HARJEET CERVANTES NP-C Primary Care Provider Active Start: November 09, 2024 End: November 09, 2024 Dr. Alla Kim MD Attending Provider Active Start: November 09, 2024 End: November 09, 2024 Dr. Alla Kim MD Referring Provider Active Start: November 09, 2024 End: November 09, 2024 Team Status: Inactive Member Role Status JAMES Randle Primary Care Provider Active Start: January 20, 2025 End: January 20, 2025 Dr. Alla Kim MD Attending Provider Active Start: January 20, 2025 End: January 20, 2025 Dr. Alla Kim MD Referring Provider Active Start: January 20, 2025 End: January 20, 2025 Sash Installer Relationship Specialty Start Date End Date Robert Rios MD [address] [address] PCP - [employer] Medicare Advantage PCP 10/12/21 Harjeet Cervantes APRN-TRINH [address] [address] PCP - General Family Medicine 07/06/24 Reason for Visit (unrecogniz ed section and content) Reason Comments Medicare Annual Wellness Visit Subsequen t Specialty Diagnoses / Procedures Referred By Contac t Referred To Contact Cardiology Diagnoses Right calf pain Thrombophlebitis of superficial veins of right lower extremity Procedures Vascular US lower extremity venous duplex right Harjeet Cervantes APRN-TRINH [address] [place] [address] Referral ID Status Reason Start Date Expiration Date Visits Requested Visits Authorized [id number] Pending Review Perform Procedure 11/25/2023 11/24/2024 1 1 Reason Comments 1 month f/u Venous US right f/u Reason Comments Medicare Annual Wellness Visit Subsequen t Specialty Diagnoses / Procedures Referred By Contac t Referred To Contact Primary Care Diagnoses Hypertension, unspecified type Osteopenia, unspecified location Routine general medical examination at health care facility Procedures Follow Up In Primary Care - Established Harjeet Cervantes APRN-TRINH Phone: tel: fax: Referral ID Status Reason Start Date Expiration Date V isits Requested Visits Authorized [id number] Authorized 08/27/2023 08/26/2024 1 1 Reason Comments s/p R GSV RFA Reason Comments Knee Pain Pt injured right kne e on Thursday by accidentally twisting it. Pt did not fall. Per patient she has a chronic DVT in her right lower leg. Takes aspirin. Reason Comments Follow-up Blood clot right low er leg Reason Comments Thrombophlebitis of superficial veins of right lower extrem NPV Specialty Diagnoses / Procedures Referred By Nusrat garces Referred To Contact Diagnoses Thrombophlebitis of superficial veins of right lower extremity Harjeet Cervantes, HANDWRITING EXPERT-SPECIAL SERVICES DIRECTOR [address] [place] [address] Ethel Faye MD [address] [place] [address] Referral ID Status Reason Start Date Expiration Date Visits Requested Visits Authorized [id number] Authorized Specialty Services Required 06/09/2024 06/09/2025 1 1 Reason Comments Follow-up Preoperative clearan ce right TKR Reason Comments Pre-op Clearance Reason Comments Follow-up 6 mo fu Specialty Diagnoses / Procedures Referred By Nusrat garces Referred To Contact Primary Care Diagnoses Hypertension, unspecified type Rheumatoid arthritis involving left shoulder, unspecified whether rheumatoid factor present (Multi) Procedures Follow Up In Primary Care - Established Harjeet Cervantes, HANDWRITING EXPERT-SPECIAL SERVICES DIRECTOR [address] [place] [address] Phone: tel: fax: Referral ID Status Reason Start Date Expiration Date V isits Requested Visits Authorized [id number] Authorized 08/29/2024 08/29/2025 1 1 FOR RECORDS PERTAINING TO PATIENTS WHO ARE [...] BE BASED ON THE PRIMARY CLINICAL RECORDS. [facility] [facility]. provides no warranty or guarantee of the accuracy or completeness of information in this document.
== END | disposition home or self-care (01) ==
LOC: MTLAB 09:20
PROVIDERS: PCP Nurse Practitioner Family; Referring Provider Internal Medicine Rheumatology; Visit Provider Internal Medicine Rheumatology
DX: M06.4 Inflammatory polyarthropathy (principal); Z79.899 Other long term (current) drug therapy
CPT/HCPCS: 36415; 80053; 85025

== ENCOUNTER → 2025-05-31 | Outpatient (CLI) | payer MEDICARE, SELFPAY ==
--- NOTE | 2025-05-31 13:00 | CT_ITS ---
PROCEDURE: EXTREMITY LOWER WITHOUT CONTRA 05/31/2025 REASON FOR EXAM: PRE OP/LOOSE BODY IN KNEE/PRIMARY OA/PAIN TECHNIQUE: EXTREMITY LOWER WITHOUT CONTRA Coronal and Sagittal reconstruction series were provided. CONTRAST: None One or more dose reduction techniques were used (e.g., Automated exposure control, adjustment of the mA and/or kV according to patient size, use of iterative reconstruction technique). RADIATION DOSE SUMMARY: DLP: 2475 mGycm COMPARISON: None FINDINGS: There is severe tricompartment osteoarthritis of the knee, with joint space narrowing, marginal osteophytes, and subcortical cyst formation. There is a 3.7 by 0.9 cm osteochondral fragment versus calcified synovium in the superior joint space. There is a 1.1 by 0.7 cm corticated osteochondral fragment at the superior margin of the patella. There is a small joint effusion. There is no soft tissue mass or adenopathy. There is visible atherosclerosis. CT/Extremity Lower without Contra IMPRESSION: There is severe tricompartment osteoarthritis of the knee, with joint space ld rowing, marginal osteophytes, and subcortical cyst formation. There is a 3.7 by 0.9 cm osteochondral fragment versus calcified synovium in th e superior joint space. There is a 1.1 by 0.7 cm corticated osteochondral fragment at the superior j luis in of the patella. There is a small joint effusion. Reading Location: [facility]
[2025-05-31 13:05] LABS: Hematocrit 38.6 % (37-47); Hemoglobin 12.7 g/dL (12.0-15.0); Immature Granulocytes Count 0.060 X10^3/uL (0.0-0.0); Mean Corp Hgb Conc 32.9 g/dL (32-36); Mean Corpuscular Volume 94.6 fL (81-99); Mean Platelet Vol. 9.5 fl (6.2-12.0); NRBC Flagged by Analyzer 0 % (0-5); Platelet Count 238 K/mm3 (150-450); RBC Distribution Width CV 13.6 % (11.6-14.6); RBC Distribution Width SD 47.2 fl (35.1-43.9); Red Blood Count 4.08 M/mm3 (4.2-5.4); White Blood Count 5.3 K/mm3 (4.4-11.0)
[2025-05-31 14:07] LABS: Albumin, Serum 4.4 g/dL (3.4-4.8); Anion Gap 11 (5-15); BUN 17 mg/dL (4-19); BUN/Creat Ratio 23.6 RATIO (10-20); Calcium,Total 9.4 mg/dL (7.6-11.0); Carbon Dioxide 25.1 mmol/L (21.0-32.0); Chloride 103 mmol/L (98-108); Glucose 93 mg/dL (70-99); Potassium 4.3 mmol/L (3.3-5.1)
== END | disposition home or self-care (01) ==
LOC: CT 12:37
PROVIDERS: PCP Nurse Practitioner Family; Referring Provider Specialist; Visit Provider Specialist
DX: M17.12 Unilateral primary osteoarthritis, left knee (principal); M23.42 Loose body in knee, left knee; M21.162 Varus deformity, not elsewhere classified, left knee
CPT/HCPCS: 36415; 73700; 80048; 82040; 85025; 87081

== ENCOUNTER → 2025-07-25 | Outpatient (CLI) | payer MEDICARE, SELFPAY ==
[2025-07-25 12:42] LABS: Hematocrit 38.1 % (37-47); Hemoglobin 12.1 g/dL (12.0-15.0); Immature Granulocytes Count 0.010 X10^3/uL (0.0-0.0); Mean Corp Hgb Conc 31.8 g/dL (32-36); Mean Corpuscular Volume 93.8 fL (81-99); Mean Platelet Vol. 9.9 fl (6.2-12.0); NRBC Flagged by Analyzer 0 % (0-5); Platelet Count 340 K/mm3 (150-450); RBC Distribution Width CV 13.4 % (11.6-14.6); RBC Distribution Width SD 45.7 fl (35.1-43.9); Red Blood Count 4.06 M/mm3 (4.2-5.4); White Blood Count 5.8 K/mm3 (4.4-11.0)
[2025-07-25 13:19] LABS: AST(SGOT) 20 U/L (<=31); Alanine Aminotransfer ALT/SGPT 11 U/L (<=34); Albumin, Serum 4.2 g/dL (3.4-4.8); Alkaline Phosphatase 110 U/L (35-104); Anion Gap 12 (5-15); BUN 14 mg/dL (4-19); BUN/Creat Ratio 18.8 RATIO (10-20); Calcium,Total 9.5 mg/dL (7.6-11.0); Carbon Dioxide 27.2 mmol/L (21.0-32.0); Chloride 101 mmol/L (98-108); Globulin 3.0 g/dL (2.2-4.2); Glucose 99 mg/dL (70-99); Potassium 4.4 mmol/L (3.3-5.1)
== END | disposition home or self-care (01) ==
LOC: MTLAB 10:31
PROVIDERS: PCP Nurse Practitioner Family; Referring Provider Internal Medicine Rheumatology; Visit Provider Internal Medicine Rheumatology
DX: M06.4 Inflammatory polyarthropathy (principal); M72.0 Palmar fascial fibromatosis [Dupuytren]; Z79.899 Other long term (current) drug therapy
CPT/HCPCS: 36415; 80053; 85025